=== PATIENT | female | born 1970 | race Caucasian/White ===

== ENCOUNTER → 2021-06-22 11:28 | Outpatient (CLI) | payer OTHER, SELFPAY ==
[2021-06-22 12:41] LABS: Absolute Lymphocyte Count 2.55 X10^3/uL (0.83-4.51); Absolute Neutrophil Count 3.8 X10^3/uL (2.0-7.7); Basophil# 0.04 X10^3/uL; Basophil% 0.5 % (0-1); Eosinophil# 0.92 X10^3/uL; Eosinophils% 11.9 % (0-5); Hematocrit 39.7 % (37-47); Hemoglobin 13.2 g/dL (12.0-15.0); Lymphocyte # 2.55 X10^3/ul (0.83-4.51); Lymphocyte % 32.9 % (19-41); Mean Corp Hgb Conc 33.2 g/dL (32-36); Mean Corpuscular Hgb 29.5 pg (27.0-32.0); Mean Corpuscular Volume 88.8 fL (81-99); Monocyte# 0.43 X10^3/uL; Monocyte% 5.6 % (0-10); NRBC Flagged by Analyzer 0 % (0-5); Neutrophil # 3.77 X10^3/uL (2.7-7.7); Neutrophil % 48.7 % (47-70); Platelet Count 280 K/mm3 (150-450); RBC Distribution Width CV 13.1 % (11.6-14.6); RBC Distribution Width SD 43.1 fl (35.1-43.9); Red Blood Count 4.47 M/mm3 (4.2-5.4); White Blood Count 7.7 K/mm3 (4.4-11.0)
[2021-06-22 13:14] LABS: ALB/GLOB Ratio 0.9 RATIO (0.9-2.4); AST(SGOT) 21 U/L (15-37); Alanine Aminotransfer ALT/SGPT 32 U/L (13-56); Albumin, Serum 3.9 g/dL (3.2-5.0); Alkaline Phosphatase 78 U/L (45-117); Anion Gap 7 (5-15); BUN 17 mg/dL (7-18); BUN/Creat Ratio 21.9 RATIO (10-20); Calcium,Total 9.1 mg/dL (8.5-10.1); Chloride 104 mmol/L (98-107); Cholesterol 207 mg/dL (200); Creatinine, Serum 0.78 mg/dL (0.55-1.02); EST Glomerular Filtration Rate 83 mL/min (>60); Est Glom Filt Rate - Afr Amer 100 mL/min (>60); Globulin 4.3 g/dL (2.2-4.2); Glucose 96 mg/dL (74-106); High Density Lipoprotein 60 mg/dL; Lipase 45 U/L (73-393); Potassium 4.1 mmol/L (3.5-5.1); Protein, Total 8.2 g/dL (6.4-8.2); Sodium Level 138 mmol/L (136-145); Thyroid Stim Hormone (TSH) 1.43 uIU/mL (0.358-3.74); Triglycerides 57 mg/dL; Very Low Density Lipoprotein 11 mg/dL (5-40)
[2021-06-23 14:09] LABS: Endomysial Antibody IgA Negative (Negative)
[2021-06-23 16:40] LABS: Immunoglobulin A 234 mg/dL (87-352); t-Transglutaminase IgA <2 U/mL (0-3)
[2021-06-24 16:09] LABS: ANTINUCLEAR ANTIBODIES DIRECT Negative (Negative)
== END ==
PROVIDERS: Visit Provider Nurse Practitioner Adult Health
DX: R10.811 Right upper quadrant abdominal tenderness (principal); R19.7 Diarrhea, unspecified
CPT/HCPCS: 36415; 80053; 80061; 82784; 83516; 83690; 84443; 85025; 86038; 86255

== ENCOUNTER → 2021-06-27 09:05 | Outpatient (CLI) | payer OTHER, SELFPAY ==
--- NOTE | 2021-06-27 09:23 | US_ITS ---
HISTORY: Right upper quadrant pain. TECHNIQUE: Jang scale and color Doppler imaging was performed of the abdomen. # of images incl. paperwork: 153. COMPARISON: None. FINDINGS: LIVER: 16.3 cm in length. Echogenic without focal lesion. No intrahepatic biliary ductal dilation. CBD: 4 mm in diameter, nondilated. GALLBLADDER: No gallstones or sludge. 2 mm wall thickness, within normal limits. No pericholecystic fluid. Negative sonographic Dean's sign reported. PANCREAS: Visualized proximal portion unremarkable. SPLEEN: 11.4 cm in length. Homogeneous echotexture. RIGHT KIDNEY: 10.2 cm in length. No hydronephrosis or gross renal mass. LEFT KIDNEY: 10.9 cm in length. No hydronephrosis or gross renal mass. IVC: Visualized. AORTA: Normal diameter. ASCITES: None demonstrated. US/Abdomen Complete IMPRESSION: Hepatic steatosis. No sonographic evidence of cholelithiasis. at 1426 Reported and signed by: Mimi Mo MD Electronically Signed: Mimi Mo MD at 14:25 EDT Tel , Service support ,
== END ==
PROVIDERS: Referring Provider Nurse Practitioner Adult Health; Visit Provider Nurse Practitioner Adult Health
DX: R10.811 Right upper quadrant abdominal tenderness (principal)
CPT/HCPCS: 76700

== ENCOUNTER → 2021-06-28 09:01 | Outpatient (CLI) | payer OTHER, SELFPAY | LOC: LAB 09:03 → LABSPEC 09:04 | PROVIDERS: Referring Provider Nurse Practitioner Adult Health; Visit Provider Nurse Practitioner Adult Health | DX: R19.7 Diarrhea, unspecified (principal) | CPT/HCPCS: 87493; 87506 ==

== ENCOUNTER → 2021-07-19 09:43 | Outpatient (CLI) | payer OTHER, SELFPAY ==
[2021-07-19 10:21] LABS: Absolute Neutrophil Count 3.2 X10^3/uL (2.0-7.7); Basophil# 0.04 X10^3/uL; Basophil% 0.7 % (0-1); Eosinophils% 1.6 % (0-5); Hematocrit 36.5 % (37-47); Lymphocyte % 34.2 % (19-41); Mean Corp Hgb Conc 32.9 g/dL (32-36); Mean Corpuscular Hgb 29.9 pg (27.0-32.0); Mean Corpuscular Volume 90.8 fL (81-99); Mean Platelet Vol. 8.8 fl (6.2-12.0); Monocyte# 0.65 X10^3/uL; Monocyte% 10.6 % (0-10); NRBC Flagged by Analyzer 0 % (0-5); Neutrophil # 3.23 X10^3/uL (2.7-7.7); Neutrophil % 52.6 % (47-70); Platelet Count 364 K/mm3 (150-450); RBC Distribution Width CV 13.8 % (11.6-14.6); RBC Distribution Width SD 45.4 fl (35.1-43.9); Red Blood Count 4.02 M/mm3 (4.2-5.4); White Blood Count 6.1 K/mm3 (4.4-11.0)
== END ==
PROVIDERS: Referring Provider Nurse Practitioner Adult Health; Visit Provider Nurse Practitioner Adult Health
DX: R89.9 Unspecified abnormal finding in specimens from other organs, systems and tissues (principal); R10.13 Epigastric pain
CPT/HCPCS: 36415; 85025

== ENCOUNTER → 2021-07-21 09:58 | Outpatient (CLI) | payer OTHER, SELFPAY ==
[2021-07-21 11:32] LABS: Vitamin B12 611 pg/mL (211-911)
[2021-07-21 11:44] LABS: Iron 118 ug/dL (50-170); Iron Binding Capacity,Total 312 ug/dL (250-450)
== END ==
DX: D64.9 Anemia, unspecified (principal); R19.7 Diarrhea, unspecified
CPT/HCPCS: 36415; 82607; 82746; 83540; 83550

== ENCOUNTER → 2021-07-22 11:02 | Outpatient (CLI) | payer OTHER, SELFPAY | PROVIDERS: Referring Provider Nurse Practitioner Adult Health | DX: D64.9 Anemia, unspecified (principal); R19.7 Diarrhea, unspecified | CPT/HCPCS: 82274; 87177; 87209 ==

== ENCOUNTER → 2021-08-31 10:22 | Outpatient (CLI) | payer OTHER, SELFPAY ==
--- NOTE | 2021-08-31 10:25 | BI_ITS ---
MAMMOGRAPHY - BILATERAL SCREENING REASON FOR EXAM: Female, 51 years old. Routine annual screening examination. PERTINENT HISTORY: Sister with breast cancer. TECHNIQUE: Digital bilateral breast gus (3D mammographic acquisition) in the CC and MLO projections. 2-D mediolateral oblique (MLO) and craniocaudad (CC) views of both breasts were obtained. CAD: Full Field Digital Mammography with Computer Added Detection was performed. COMPARISON: Comparison is made with prior study dated 04/24/2018. FINDINGS: Breast Composition: There are scattered areas of fibroglandular density. There are no dominant masses or suspicious calcifications. Stable benign appearing bilateral axillary lymph nodes. No other significant abnormalities are identified. There has been no significant change since the prior study. BI/SCRN MAMM (CAD)W/GUS BILAT IMPRESSION: Stable bilateral screening mammogram. Yearly follow-up mammogram recommended. (A) ASSESSMENT CATEGORY: BIRADS Category 2: Benign. A letter regarding these results will be sent to the patient by the facility within 30 days. Approximately 10% of breast cancers are not detected by mammography. A normal mammogram should not delay biopsy of a clinically suspicious abnormality. [id number] Electronically Signed: Saravanan Sewell MD at 11:06 EDT , Service support ,
--- NOTE | 2021-08-31 10:26 | BD_ITS ---
STUDY: DUAL ENERGY X-RAY ABSORPTIOMETRY / DXA REASON FOR EXAM: Female, 51 years old. 733.00OsteoporosisBONE DENSITY REASON FOR EXAM TECHNIQUE: Bone Mineral Density (BMD) measurements of lumbar spine and bilateral hips were obtained. COMPARISON: None. FINDINGS: Lumbar Spine (L1-L4): g/cm2 (1.087) / T-score (0.4) / Z-score (1.3) Findings are suggestive of normal bone density with a low fracture risk. Left Femur Total: g/cm2 (0.944) / T-score (0.0) / Z-score (0.6) Left Femoral Neck: g/cm2 (0.799) / T-score (-0.5) / Z-score (0.4) Right Femur Total: g/cm2 (0.940) / T-score (0.0) / Z-score (0.5) Right Femoral Neck: g/cm2 (0.819) / T-score (-0.3) / Z-score (0.6) BD/Dexa Bone Density Study IMPRESSION: The patient is considered normal as outlined below according to World [employer] Organization (WHO) criteria with a low fracture risk. Reference Information: The T-score is the number of standard deviations above or below the standard which is normal for young adults at their peak bone mineral density. The World Health Organization (WHO) interprets the T-scores as follows: Above -1 Normal bone density Between -1 and -2.5 Osteopenia Equal to / or below -2.5 Osteoporosis As a practical clinical guideline, osteopenia may be graded as follows: Mild -1 through -1.5 Moderate -1.6 through -2.0 Severe -2.1 through -2.4 The Z-score is the number of standard deviations above or below age-matched controls. A Z-score of less than -1.5 would be considered abnormal. References: 1. NIH Osteoporosis and Related Bone Diseases www osteo.org 2. International Society for Clinical Densitometry www iscd.org 3. National Osteoporosis Foundation www nof.org Electronically Signed: Saravanan Sewell MD at 13:13 EDT , Service support ,
== END ==
PROVIDERS: Referring Provider Nurse Practitioner Adult Health; Visit Provider Nurse Practitioner Adult Health
DX: M81.8 Other osteoporosis without current pathological fracture (principal); Z12.31 Encounter for screening mammogram for malignant neoplasm of breast
CPT/HCPCS: 77063; 77067; 77080

== ENCOUNTER 2021-12-26 10:29 | Outpatient (CLI) | payer OTHER, SELFPAY ==
[2021-12-26 11:56] LABS: Calcium,Total 9.3 mg/dL (8.5-10.1); Phosphorus 3.5 mg/dL (2.5-4.9)
[2021-12-27 12:27] LABS: MG Sendout 2.3 mg/dL (1.6-2.3)
== END 2021-12-26 23:59 | disposition home or self-care (01) ==
PROVIDERS: Visit Provider Nurse Practitioner Adult Health
DX: M62.838 Other muscle spasm (principal); M54.9 Dorsalgia, unspecified
CPT/HCPCS: 36415; 82310; 83735; 84100

== ENCOUNTER → 2022-12-07 | Outpatient (CLI) | payer OTHER, SELFPAY ==
[2022-12-07 12:14] LABS: Absolute Lymphocyte Count 1.89 X10^3/uL (0.83-4.51); Basophil# 0.03 X10^3/uL; Basophil% 0.6 % (0-1); Eosinophil# 0.12 X10^3/uL; Eosinophils% 2.2 % (0-5); Hematocrit 40.2 % (37-47); Hemoglobin 13.2 g/dL (12.0-15.0); Lymphocyte # 1.89 X10^3/ul (0.83-4.51); Lymphocyte % 34.9 % (19-41); Mean Corp Hgb Conc 32.8 g/dL (32-36); Mean Corpuscular Hgb 30.1 pg (27.0-32.0); Mean Corpuscular Volume 91.6 fL (81-99); Mean Platelet Vol. 9.3 fl (6.2-12.0); Monocyte# 0.39 X10^3/uL; Monocyte% 7.2 % (0-10); NRBC Flagged by Analyzer 0 % (0-5); Neutrophil # 2.97 X10^3/uL (2.7-7.7); Neutrophil % 54.9 % (47-70); Platelet Count 255 K/mm3 (150-450); RBC Distribution Width SD 43.7 fl (35.1-43.9); Red Blood Count 4.39 M/mm3 (4.2-5.4); White Blood Count 5.4 K/mm3 (4.4-11.0)
[2022-12-07 12:47] LABS: Vitamin B12 709 pg/mL (211-911); Vitamin D,25 Hydroxy 26.4 ng/mL
[2022-12-07 12:55] LABS: AST(SGOT) 21 U/L (15-37); Alanine Aminotransfer ALT/SGPT 37 U/L (13-56); Albumin, Serum 3.9 g/dL (3.2-5.0); Alkaline Phosphatase 63 U/L (45-117); Anion Gap 6 (5-15); BUN 15 mg/dL (7-18); BUN/Creat Ratio 16.8 RATIO (10-20); Calcium,Total 9.1 mg/dL (8.5-10.1); Chloride 105 mmol/L (98-107); Cholesterol 216 mg/dL (200); Creatinine, Serum 0.89 mg/dL (0.55-1.02); EST Glomerular Filtration Rate 70 mL/min (>60); Est Glom Filt Rate - Afr Amer 85 mL/min (>60); Globulin 4.1 g/dL (2.2-4.2); Glucose 110 mg/dL (74-106); High Density Lipoprotein 64 mg/dL; Potassium 3.9 mmol/L (3.5-5.1); Sodium Level 139 mmol/L (136-145); Triglycerides 87 mg/dL; Very Low Density Lipoprotein 17 mg/dL (5-40)
== END | disposition home or self-care (01) ==
LOC: BIMLAB 08:02
PROVIDERS: PCP Internal Medicine; Visit Provider Internal Medicine
DX: E55.9 Vitamin D deficiency, unspecified (principal); E78.2 Mixed hyperlipidemia
CPT/HCPCS: 36415; 80053; 80061; 82306; 82607; 85025

== ENCOUNTER → 2022-12-18 | Outpatient (CLI) | payer OTHER, SELFPAY ==
--- NOTE | 2022-12-18 13:43 | BI_ITS ---
MAMMOGRAPHY - BILATERAL SCREENING REASON FOR EXAM: Female, 52 years old. Routine annual screening examination. PERTINENT HISTORY: Sister with breast cancer. TECHNIQUE: Digital bilateral breast gus (3D mammographic acquisition) in the CC and MLO projections. 2-D mediolateral oblique (MLO) and craniocaudad (CC) views of both breasts were obtained. CAD: Full Field Digital Mammography with Computer Added Detection was performed. COMPARISON: Comparison is made with prior study dated 08/31/2012. FINDINGS: Breast Composition: There are scattered areas of fibroglandular density. There are no dominant masses or suspicious calcifications. Stable benign appearing bilateral axillary nodes. No other significant abnormalities are identified. There has been no significant change since the prior study. BI/SCRN MAMM (CAD)W/GUS BILAT IMPRESSION: Stable bilateral screening mammogram. Yearly follow-up mammogram recommended. (A) ASSESSMENT CATEGORY: BIRADS Category 2: Benign. A letter regarding these results will be sent to the patient by the facility within 30 days. Approximately 10% of breast cancers are not detected by mammography. A normal mammogram should not delay biopsy of a clinically suspicious abnormality. [id number] Electronically Signed: Saravanan Sewell MD at 14:51 EST ,
--- NOTE | 2022-12-19 05:43 | PFTCOMP ---
COMPLETE PULMONARY FUNCTION TEST INTERPRETATION Brief HPI: Patient is a 52-year-old female, currently under the care of Dr. 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 Respiratory therapist reports good effort and reproducible results. Interpretation: Forced expiration spirometry shows no large airways obstructive ventilatory defect with an FEV1 of 80% predicted. There is a significant bronchodilator response in FVC by strict ATS criteria. Spirograms are of good quality and plateau normally. However, patient exhaled for only 4-1/2 seconds on the prebronchodilator attempt, likely underestimating FVC. The respiratory flow volume loop shows a normal pattern. Lung volumes by body plethysmography show a normal total lung capacity at 3.56 L, 90% predicted. All other lung volumes are within normal limits. Diffusion capacity by carbon monoxide is normal at 107% predicted. The airway resistance is normal. No previous pulmonary function tests were available for review. Impression: Adjusting for variation in exhalation, these pulmonary function tests are grossly within normal limits
== END | disposition home or self-care (01) ==
LOC: PSN 12:39
PROVIDERS: PCP Internal Medicine; Referring Provider Internal Medicine; Visit Provider Internal Medicine
DX: J98.6 Disorders of diaphragm (principal); Z12.31 Encounter for screening mammogram for malignant neoplasm of breast
CPT/HCPCS: 77063; 77067; 94060; 94726; 94729

== ENCOUNTER → 2024-01-16 | Outpatient (CLI) | payer OTHER, SELFPAY ==
[2024-01-16 12:22] LABS: Absolute Lymphocyte Count 2.37 X10^3/uL (0.83-4.51); Absolute Neutrophil Count 3.4 X10^3/uL (2.0-7.7); Basophil# 0.04 X10^3/uL; Basophil% 0.6 % (0-1); Eosinophil# 0.15 X10^3/uL; Eosinophils% 2.4 % (0-5); Hematocrit 39.2 % (37-47); Hemoglobin 12.9 g/dL (12.0-15.0); Lymphocyte # 2.37 X10^3/ul (0.83-4.51); Lymphocyte % 37.2 % (19-41); Mean Corp Hgb Conc 32.9 g/dL (32-36); Mean Corpuscular Hgb 29.3 pg (27.0-32.0); Mean Corpuscular Volume 89.1 fL (81-99); Mean Platelet Vol. 9.6 fl (6.2-12.0); Monocyte# 0.43 X10^3/uL; Monocyte% 6.8 % (0-10); NRBC Flagged by Analyzer 0 % (0-5); Neutrophil # 3.35 X10^3/uL (2.7-7.7); Neutrophil % 52.5 % (47-70); Platelet Count 272 K/mm3 (150-450); RBC Distribution Width SD 42.5 fl (35.1-43.9); White Blood Count 6.4 K/mm3 (4.4-11.0)
[2024-01-16 12:48] LABS: AST(SGOT) 42 U/L (15-37); Alanine Aminotransfer ALT/SGPT 53 U/L (13-56); Albumin, Serum 3.7 g/dL (3.2-5.0); Alkaline Phosphatase 71 U/L (45-117); Anion Gap 7 (5-15); BUN 12 mg/dL (7-18); BUN/Creat Ratio 12.2 RATIO (10-20); Calcium,Total 9.3 mg/dL (8.5-10.1); Chloride 106 mmol/L (98-107); Cholesterol 165 mg/dL (200); Creatinine, Serum 0.99 mg/dL (0.55-1.02); EST Glomerular Filtration Rate 62 mL/min (>60); Est Glom Filt Rate - Afr Amer 75 mL/min (>60); Globulin 3.8 g/dL (2.2-4.2); Glucose 94 mg/dL (74-106); High Density Lipoprotein 48 mg/dL; Potassium 4.4 mmol/L (3.5-5.1); Protein, Total 7.5 g/dL (6.4-8.2); Sodium Level 140 mmol/L (136-145); Thyroid Stim Hormone (TSH) 1.64 uIU/mL (0.358-3.74); Triglycerides 76 mg/dL; Very Low Density Lipoprotein 15 mg/dL (5-40)
== END | disposition home or self-care (01) ==
LOC: BIMLAB 08:39
PROVIDERS: PCP Internal Medicine; Referring Provider Internal Medicine; Visit Provider Internal Medicine
DX: E66.01 Morbid (severe) obesity due to excess calories (principal); Z68.41 Body mass index [BMI] 40.0-44.9, adult; R06.02 Shortness of breath; E55.9 Vitamin D deficiency, unspecified; E78.2 Mixed hyperlipidemia
CPT/HCPCS: 36415; 80053; 80061; 82306; 84443; 85025

== ENCOUNTER → 2024-01-23 | Outpatient (CLI) | payer OTHER, SELFPAY ==
--- NOTE | 2024-01-23 12:37 | BI_ITS ---
MAMMOGRAPHY - BILATERAL SCREENING 3-D TOMOSYNTHESIS REASON FOR EXAM: Female, 53 years old. SCREENING PERTINENT HISTORY: No significant family history. TECHNIQUE: 2-D mammograms and 3-D Tomosynthesis of the breast (s) were performed. CAD was performed. COMPARISON: 12/18/2022 FINDINGS: The breast composition is composed of scattered fibroglandular density. Scattered benign calcifications are seen. No dense spiculated masses or suspicious microcalcifications are identified. No architectural distortion is identified. There is no skin thickening or retraction. There has been no significant change since the prior study. BI/SCRN MAMM (CAD)W/GUS BILAT IMPRESSION: No mammographic signs of malignancy. Routine yearly mammograms recommended. ASSESSMENT CATEGORY: BIRADS Category 1: Negative. A letter regarding these results will be sent to the patient by the facility within 30 days. FOLLOW UP RECOMMENDATION: Yearly follow up mammogram recommended. (A) Approximately 10% of breast cancers are not detected by mammography. A normal mammogram should not delay biopsy of a clinically suspicious abnormality. Electronically Signed: Leonard Hicks MD at 19:27 EST ,
--- OUTSIDE RECORDS SUMMARY | 2024-01-23 14:23 | XMS RPT_ITS | CCD ---
Author Name Unknown Address [address] [place] [id number] Organization [facility] Care Team Providers Care Neonatal Intensive Care Nurse Name Role Phone ABHI BAPTISTE Unavailable Unavailable PHYSICIAN, NONE Unavailable Unavailable SABOTA, MICKI W Unavailable Unavailable SABOTA, MICKI W Unavailable Unavailable SAMMY, HERMILO Unavailable Unavailable PHYSICIAN, NONE Unavailable Unavailable FINNERAN, ROCCO Unavailable Unavailable FINNERAN, ROCCO Unavailable Unavailable FINNERAN, ROCCO Unavailable Unavailable Finneran, Rocco Unavailable Unavailable Finneran, Rocco Unavailable Unavailable Finneran, Rocco Unavailable Unavailable Finneran, Rocco Unavailable Unavailable Finneran, Rocco Unavailable Unavailable Finneran, Rocco Unavailable Unavailable Finneran, Rocco Unavailable Unavailable Finneran, Rocco Unavailable Unavailable Finneran, Rocco Unavailable Unavailable Problems Problem Classification Problem Date Documented Date Episodic/Chronic Spondylosis; intervertebral disc disorders; other back problems (4 sources) Other spondylosis, lumbar region; Translations: [Other spondylosis, thoracic region] Onset: 07-12-2018 Chronic Spondylosis; intervertebral disc disorders; other back problems (2 sources) Sacrococcygeal disorders, not elsewhere classified; Translations: [Sacrococcygeal disorders, not elsewhere classified] Onset: 07-12-2018 Episodic Unclassified (2 sources) Encounter for screening mammogram for malignant neoplasm of breast; Translations: [Encntr screen mammogram for malignant neoplasm of breast] Onset: 04-24-2018 Episodic Results Test Name Value Interpretation Reference Range Facil ity Encounters Encounter Date Encounter Type Care Provider Facility Start: 07-12-2018 Patient encounter Rocco [facility] Start: 06-19-2018 Patient encounter ROCCO Clemons acility:[facility] Start: 04-24-2018 Patient encounter Rocco [facility] Start: 04-01-2018 End: 04-01-2018 Emergency department patient visit HERMILO CHRISTIANSON Facility:B Start: 03-05-2018 End: 03-06-2018 Patient encounter ABHI BAPTISTE Facility:B Start: 08-22-2017 Patient encounter Rocco [facility] Payers Date Payer Category Payer Unknown [id number] Unknown Summary Purpose Family History No Family History Records FoundNo Family History Records Found Advance Directives No Advanced Directives Records FoundNo Advanced Directives Records Found Additional Source Comments INFORMATION SOURCE (unrecogn ized section and content) DATE CREATED AUTHOR AUTHOR'S ORGANIZ ATION 07/17/2018 [facility] FOR RECORDS PERTAINING TO PATIENTS WHO ARE OR HAVE BEEN ENROLLED IN A CHEMICAL DEPENDENCY/SUBSTANCEABUSE PROGRAM, SOME INFORMATION MAY BE OMITTED. This clinical summary was aggregated from multiple sources. Caution should be exercised in using it in the provision of clinical care. This summary normalizes information from multiple sources, and as a consequence, information in this document may materially change the coding, format and clinical context of patient data. In addition, data may be omitted in some cases. CLINICAL DECISIONS SHOULD BE BASED ON THE PRIMARY CLINICAL RECORDS. [employer] [facility] provides no warranty or guarantee of the accuracy or completeness of information in this document.
== END | disposition home or self-care (01) ==
LOC: OPBI 12:35
PROVIDERS: PCP Internal Medicine; Referring Provider Internal Medicine; Visit Provider Internal Medicine
DX: Z12.31 Encounter for screening mammogram for malignant neoplasm of breast (principal)
CPT/HCPCS: 77063; 77067

== ENCOUNTER → 2024-02-06 | Outpatient (CLI) | payer OTHER, SELFPAY | END | disposition home or self-care (01) | LOC: PSN 11:53 | PROVIDERS: PCP Internal Medicine; Referring Provider Internal Medicine; Visit Provider Internal Medicine | DX: R06.02 Shortness of breath (principal); R00.1 Bradycardia, unspecified | CPT/HCPCS: 93225; 93226 ==

== ENCOUNTER → 2024-02-08 | Outpatient (CLI) | payer OTHER, SELFPAY ==
--- NOTE | 2024-02-08 12:45 | ECHOD_ITS ---
Version 2 Reason For Study: sob Procedure This was a 2D Doppler, Color Flow transthoracic echocardiogram. Exam performed in department. Left Ventricle Normal LV size. Mild concentric left ventricular hypertrophy. Left ventricular systolic function is normal. The left ventricular ejection fraction is 55 %. Stage 1 diastolic dysfunction. No regional wall motion abnormalities noted. Right Ventricle Normal RV size. Normal systolic function. Atria Normal left atrium. Normal right atrium. Mitral Valve Normal mitral valve. Tricuspid Valve Normal tricuspid valve. Aortic Valve Trisinus/trileaflet aortic valve. Pulmonic Valve Normal pulmonic valve. Great Vessels Normal aortic root. The pulmonary artery is normal size. Normal inferior vena cava. Pericardium/Pleural No pericardial effusion. MMode/2D Measurements & Calculations LVIDd: 3.7 cm IVSd: 1.3 cm MVA(traced): 5.7 cm2 LVIDs: 2.8 cm LVPWd: 1.5 cm RVDd: 3.8 cm FS: 23.8 % Ao root diam: 3.4 cm LAV(MOD-bp): 33.3 ml LVAd ap4: 24.9 cm2 LAV(MOD-bp) Indexed: 18.1 ml/m2 LVLd ap4: 7.2 cm LAV(MOD-sp2): 49.0 ml EDV(MOD-sp4): 70.2 ml LAV(MOD-sp4): 21.1 ml EDV(sp4-el): 72.5 ml LVAs ap4: 18.6 cm2 LVLs ap4: 6.7 cm ESV(MOD-sp4): 42.5 ml ESV(sp4-el): 43.8 ml EF(MOD-sp4): 39.4 % EF(sp4-el): 39.6 % SV(MOD-sp4): 27.7 ml SV(sp4-el): 28.7 ml LA A4 area: 10.6 cm2 LA dimension(2D): 3.7 cm TAPSE: 2.1 cm Time Measurements MV dec time: 0.30 sec Doppler Measurements & Calculations MV E max mitch: 66.5 cm/sec Lat Peak E' Mitch: 6.5 cm/sec Med Peak E' Mitch: 6.6 cm/sec MV A max mitch: 88.3 cm/sec E/E' lat: 10.2 E/E' med: 10.1 MV E/A: 0.75 MV V2 max: 101.3 cm/sec MV dec slope: 227.1 cm/sec2 Ao V2 max: 170.2 cm/sec MV max P.1 mmHg Ao max P.8 mmHg MV V2 mean: 60.0 cm/sec Ao V2 mean: 110.4 cm/sec MV mean P.6 mmHg Ao mean P.7 mmHg MV V2 VTI: 45.4 cm Ao V2 VTI: 37.4 cm AV (velocity ratio): 0.84 LV V1 max: 150.0 cm/sec PA V2 max: 77.6 cm/sec LV V1 max P.1 mmHg PA V2 mean: 54.6 cm/sec LV V1 mean P.9 mmHg LV V1 mean: 103.2 cm/sec LV V1 VTI: 31.4 cm ECHO/Echo Complete Interpretation Summary Normal LV size. Left ventricular systolic function is normal. The left ventricular ejection fraction is 55 %. Stage 1 diastolic dysfunction. Mild concentric left ventricular hypertrophy. Ordering Physician: Yanna Warren Referring Physician: Yanna Warren Performed By: Verónica Ye RCS
== END | disposition home or self-care (01) ==
PROVIDERS: PCP Internal Medicine; Referring Provider Internal Medicine; Visit Provider Internal Medicine
DX: R06.02 Shortness of breath (principal)
CPT/HCPCS: 93306

== ENCOUNTER → 2024-08-05 | Outpatient (CLI) | payer OTHER, SELFPAY ==
--- NOTE | 2024-08-05 07:58 | US_ITS ---
STUDY: ULTRASOUND BREAST - LEFT REASON FOR EXAM: Female, 54 years old. Left retroareolar abscess. TECHNIQUE: Axial and longitudinal images of the LEFT breast were performed with a high resolution ultrasound transducer. # OF IMAGES: 30 COMPARISON: None. FINDINGS: LEFT Breast: Imaging of the retroareolar region was obtained. There is a complex 1.7 cm x 3.2 cm x 1.4 cm hypoechoic abnormality with internal vascularity and there is evidence of a track extending to the skin surface. This most likely advance the abscess. US/Breast Limited Unilateral IMPRESSION: Findings suggestive of a 1.7 cm x 3.2 cm x 1.4 cm abscess collection in the lateral retroareolar region of the breast with a track extending to the skin surface. ASSESSMENT CATEGORY: BIRADS Category 2: Benign. A letter regarding these results will be sent to the patient by the facility within 30 days. Electronically Signed: Saravanan Sewell MD at 10:52 EDT ,
== END | disposition home or self-care (01) ==
LOC: OPUS 07:51
PROVIDERS: PCP Internal Medicine; Visit Provider Nurse Practitioner Family
DX: N61.1 Abscess of the breast and nipple (principal)
CPT/HCPCS: 76642

== ENCOUNTER 2025-05-27 10:04 | Inpatient (IN) | payer OTHER, SELFPAY ==
[2025-05-27] VITALS (23 sets, daily range): BP systolic 104–160; BP diastolic 65–83; PULSE 28–63; RESP 13–18; TEMP 36.1–36.8; O2SAT 95–100; BMI 32.5
--- NOTE | 2025-05-27 10:42 | RAD_ITS ---
PROCEDURE: CHEST 1 VIEW (PORTABLE) 05/27/2025 REASON FOR EXAM: CHEST PAIN TECHNIQUE: Frontal view of the chest. COMPARISON: None FINDINGS: Hardware: EKG electrodes are seen. Heart: The heart size is normal. Lungs: Elevation of the right hemidiaphragm. The lungs are clear. Bones: Degenerative changes are identified within the thoracic spine. Other: RAD/Chest 1 View (Portable) IMPRESSION: There is elevation of the right hemidiaphragm. The lungs are clear. Reading Location: [place] [id number]
--- NOTE | 2025-05-27 10:44 | EDS_ITS ---
HPI History of Present Illness Chief Complaint: Palpitations Informant: patient Onset/Context/Timing Onset: Today Context: Gradual Onset Timing: Continuous Quality: Fatigue, weakness Location: Generalized Worsened by: Nothing Relieved by: Nothing Narrative Narrative: Patient presents with a low heart rate that was noticed today. Patient was at the [facility] where they noted her heart rate was low. They did an EKG there which showed a heart block. They discussed case with Dr. Terry, who referred her to the emergency department. Patient admits to some aching pain in her left arm. Patient states she has been feeling fatigued and weak. Patient states nothing makes her symptoms better nothing makes them worse. Patient denies any fevers or chills. Patient states she does get short of breath with exertion. [facility] Medical History (Updated 05/27/25 @ 15:48 by Medina Ramesh) Presence of permanent cardiac pacemaker Paralysis, diaphragm Vitamin D deficiency Vitamin B deficiency History of kidney stones Hx of chronic arthritis History of anemia Home Medications ?Medication ?Instructions ?Recorded ?Last Taken ?Type cholecalciferol (vitamin D3) 125 125 mcg PO DAILY 11/19 07/11 Unknown History mcg (5,000 unit) capsule mecobalamin (vitamin B12) 1,000 1,000 mcg PO DAILY Unknown History mcg chewable tablet albuterol sulfate 90 mcg/actuation 2 puff inhalation Q 6H PRN 10/15/23 Unknown Rx aerosol inhaler (Ventolin HFA) shortness of breath or wheezing #6.7 grams fluticasone 250 mcg-salmeterol 50 1 inh inhalation BID #180 ea 01/15/24 Unknown Rx mcg/dose blistr powdr for inhalation (Advair Diskus) meloxicam 7.5 mg tablet 15 mg PO BID 08/11/24 Unknow n History semaglutide cmpd 25 mg subcut QWEEK 05/27/25 Unknown History Allergy/AdvReac Type Severity Reaction Status Date / Time No Known Allergies Allergy Verified 05/27/25 10:09 Family History Son Asthma Father Arthritis Myocardial infarction Mother Cervical cancer Uterine cancer Hypertension Sister Breast cancer Hypertension Sister Cervical cancer Ovarian cancer Sister Autoimmune disorder Surgical History Hx of section Social History household members: spouse and family housing: house current occupational status: employed current occupation: Janitorial sexually active: Yes Smoking Status: Never smoker Electronic Cigarette Use: not used alcohol intake: never substance use type: does not use what type of physical activity do you participate in: walking, yoga and weight training frequency: 3-4 times per week seatbelt use: always do you feel safe at home: Yes ROS ROS ED Constitutional Constitutional ED: Denies chills or fever(s) Eyes Eyes: Denies blurry vision or change in vision ENT ENT ED: Denies rhinorrhea or sore throat Cardiovascular Cardiovascular: Reports palpitations; Denies chest pain Respiratory/Chest Respiratory/Chest: Reports dyspnea on exertion; Denies cough Gastrointestinal Gastrointestinal: Denies nausea or vomiting Genitourinary Genitourinary ED: Denies dysuria or hematuria Musculoskeletal Musculoskeletal: Reports back pain; Denies neck pain Integumentary Denies abscess or rash Neurologic Neurologic: Reports weakness; Denies headache(s) Allergic/Immunologic Allergic/Immunologic ED: Denies mouth swelling or urticaria EXAM Physical Exam Const Vital Signs: 05/27/25 10:05 05/27/25 10:25 05/27/25 10:47 Temperature 97.5 F L Temperature Source Temporal Pulse Rate 28 L 42 L Respiratory Rate 16 Blood Pressure 154/72 H Blood Pressure Mean 99 Pulse Ox 100 96 Oxygen Delivery Method Room Air Room Air Room Air 05/27/25 10:56 05/27/25 11:09 05/27/25 11:15 Temperature Temperature Source Pulse Rate 40 L 37 L 38 L Respiratory Rate 14 Blood Pressure 144/68 H 135/76 H Blood Pressure Mean 93 93 Pulse Ox 98 99 97 Oxygen Delivery Method Room Air 05/27/25 11:30 05/27/25 11:45 05/27/25 12:00 Temperature Temperature Source Pulse Rate 36 L 36 L 41 L Respiratory Rate 13 Blood Pressure 117/69 127/67 H 115/71 Blood Pressure Mean 84 85 84 Pulse Ox 95 98 96 Oxygen Delivery Method 05/27/25 12:15 05/27/25 12:30 05/27/25 12:45 Temperature Temperature Source Pulse Rate 34 L 38 L 37 L Respiratory Rate 14 16 Blood Pressure 160/70 H 135/72 H 144/65 H Blood Pressure Mean 96 90 86 Pulse Ox 98 98 96 Oxygen Delivery Method 05/27/25 13:00 05/27/25 13:30 05/27/25 13:33 Temperature 98.2 F Temperature Source Pulse Rate 36 L 38 L 37 L Respiratory Rate 14 18 Blood Pressure 155/66 H 130/66 H Blood Pressure Mean 93 87 Pulse Ox 97 98 96 Oxygen Delivery Method Room Air Positive well nourished and well developed Constitutional Narrative: BMI is 32.6 General Appearance ED: well developed and NAD HEENT Reports moist mucous membranes Neck supple and no JVD Resp normal respiratory effort and clear to auscultation bilaterally Cardio regular rhythm Rate: bradycardia GI non-tender and non-distended Palpation: soft Neuro oriented x3, CN's II-XII intact bilaterally and no sensory deficits noted Sensorium / Orientation: alert Motor Exam: strength 5/5 throughout Psych mental status grossly normal MDM MDM MDM Narrative Medical decision making narrative: Differential diagnosis includes cardiac dysrhythmia, cardiac ischemia, pneumonia, bronchitis, electrolyte abnormality, and cervical radiculopathy. EKG will be obtained to assess for cardiac dysrhythmia and cardiac ischemia. Chest x-ray will be obtained to assess for pneumonia or bronchitis. CBC will be obtained to assess for leukocytosis and anemia. Basic metabolic profile will be obtained to assess for electrolyte abnormality renal function. High-sensitivity troponin will be obtained to assess for cardiac ischemia. 2-hour repeat high- sensitivity troponin will be obtained to assess for ongoing cardiac ischemia. History & Record Review Additional record(s) reviewed:: Prior outpatient record and Prior labs Lab Data Attestation: I reviewed the patient's lab results. Lab results narrative: CBC was reviewed and was within normal limits. Basic metabolic profile was reviewed. Glucose was slightly elevated at 121. The remainder was within normal limits. Initial high-sensitivity troponin was reviewed and was slightly elevated at 19. 2-hour repeat high-sensitivity troponin was reviewed and was slightly elevated at 21. Labs: Laboratory Results - last 24 hr 05/27/25 05/27/25 05/27/25 10:40 12:41 13:32 WBC 5.4 RBC 4.11 L Hgb 12.7 Hct 36.4 L MCV 88.6 MCH 30.9 MCHC 34.9 RDW Std Deviation 42.1 RDW Coeff of Elizabeth 12.9 Plt Count 205 MPV 9.3 Immature Gran % (Auto) 0.200 Neut % (Auto) 60.1 Lymph % (Auto) 31.6 Darke % (Auto) 5.7 Eos % (Auto) 1.8 Baso % (Auto) 0.6 Absolute Neuts (auto) 3.3 Absolute Lymphs (auto) 1.71 Nucleated RBC % 0 Sodium 140 Potassium 3.7 Chloride 106 Carbon Dioxide 21.9 Anion Gap 12 BUN 18 Creatinine 0.87 Estim Creat Clear Calc 64.46 Est GFR (MDRD) Non-Af 78 BUN/Creatinine Ratio 20.8 H Glucose 121 H Calcium 9.4 Troponin T High Sens 19 H Troponin T Hi Sens 2 Hr 21 H TSH 3.820 POC Glucose 92 Radiography Chest X-Ray - ED: 1 View, Read by ED Physician, Read by Radiologist and No Acute Disease Diagnostic Testing: Clinical Impression(s) from Imaging Studies Chest X-Ray 05/27/25 10:42 IMPRESSION: There is elevation of the right hemidiaphragm. The lungs are clear. [facility] view chest x-ray was obtained. On my independent interpretation, lung regan are clear. There is elevation of the right hemidiaphragm. There is normal cardiac silhouette. Bony thorax is normal. There is no acute process noted. Radiologist also interpreted the x-ray and agrees. EKG Initial EKG: Attestation: I personally reviewed and interpreted this EKG as follows: Comments: EKG was obtained. On my independent interpretation, it shows a sinus rhythm with a second-degree type II AV block with frequent PVCs. OK interval was slightly prolonged at 240 ms. QRS interval is normal. QTc interval was slightly prolonged at 513 ms. There is left axis deviation noted. There are nonspecific ST-T wave changes noted. Prior EKG tracings: not available for review Prior: No Prior Follow-up EKG: Attestation: I personally reviewed and interpreted this EKG as follows: Interpretation: AV Block (Third-degree AV block with a rate of 38) Comments: EKG was obtained. On my independent interpretation, shows third-degree AV block with a rate of 38. QRS interval was normal at 80 ms. QTc interval was normal at 418 ms. There is left axis deviation -35. Prior EKG tracings: available for review Prior: Changed Management Discussion w/another healthcare provider: Hospitalist and Eeg Technician Treatment and Re-Evaluation :: Patient was placed on pacemaker pads. Patient was placed on continuous cardiac and pulse oximeter monitors. Patient was advised of her findings. Patient was advised of the need for pacemaker placement. Case was discussed with Dr. Doyle from cardiology. He will take the patient to the Public Affairs Officer for a pacemaker. Case was discussed with the hospitalist. He will admit the patient to his service after pacemaker placement. Patient understands and is agreeable with the plan. All questions were answered. Critical Care Time Critical Care Time: Yes Critical care time (excluding procedures): 30-74 minutes (34), Including time spent:, Discussing w/Patient &/or Family/Brood Hatchery Manager, Discussing w/Consultants, Arranging Admission or Transfer and Performing Direct Patient Care at Bedside Discharge Plan Dx/Rx/DC Orders Clinical Impression: Third degree heart block, Bradycardia, Paralysis, diaphragm Disposition Disposition: Acute Care [facility] Discharge Date/Time: 05/27/25 13:46
[2025-05-27 10:57] LABS: Hematocrit 36.4 % (37-47); Hemoglobin 12.7 g/dL (12.0-15.0); Immature Granulocytes Count 0.010 X10^3/uL (0.0-0.0); Mean Corp Hgb Conc 34.9 g/dL (32-36); Mean Corpuscular Volume 88.6 fL (81-99); Mean Platelet Vol. 9.3 fl (6.2-12.0); NRBC Flagged by Analyzer 0 % (0-5); Platelet Count 205 K/mm3 (150-450); RBC Distribution Width CV 12.9 % (11.6-14.6); RBC Distribution Width SD 42.1 fl (35.1-43.9); Red Blood Count 4.11 M/mm3 (4.2-5.4); White Blood Count 5.4 K/mm3 (4.4-11.0)
--- NOTE | 2025-05-27 12:16 | EKG12_ITS ---
Test Reason : FH Blood Pressure : */* mmHG Vent. Rate : 37 BPM Atrial Rate : 75 BPM P-R Int : * ms QRS Dur : 80 ms QT Int : 536 ms P-R-T Axes : 69 -36 -7 degrees QTcB Int : 420 ms Critical Test Result: Low HR , AV Block Sinus rhythm with 2nd degree A-V block with 2:1 A-V conduction with Fusion complexes Left axis deviation Minimal voltage criteria for LVH, may be normal variant ( R in aVL ) Nonspecific ST abnormality Abnormal ECG Confirmed by MILTON MOORE, NEGRITA ([id number]), editor dictionary ASHA PEACE ([id number]) on 05/28/2025 2:16:11 PM Referred By: Confirmed By: NEGRITA ROSE MD
--- NOTE | 2025-05-27 12:16 | EKG12_ITS ---
Test Reason : LOW HR Blood Pressure : */* mmHG Vent. Rate : 56 BPM Atrial Rate : 75 BPM P-R Int : * ms QRS Dur : 144 ms QT Int : 532 ms P-R-T Axes : 59 159 -6 degrees QTcB Int : 513 ms with complete heart block T wave abnormality, consider inferior ischemia Abnormal ECG Confirmed by MILTON MOORE, NEGRITA ([id number]), staff editor ASHA PEACE ([id number]) on 05/28/2025 2:15:50 PM Referred By: Confirmed By: NEGRITA ROSE MD
[2025-05-27 12:32] LABS: Anion Gap 12 (5-15); BUN 18 mg/dL (4-19); BUN/Creat Ratio 20.8 RATIO (10-20); Calcium,Total 9.4 mg/dL (7.6-11.0); Carbon Dioxide 21.9 mmol/L (21.0-32.0); Chloride 106 mmol/L (98-108); Estimated Creatinine Clearance 64.46 ml/min (50-250); Glucose 121 mg/dL (70-99); Potassium 3.7 mmol/L (3.3-5.1); Troponin T High Sensitivity 19 ng/L (<=14)
--- NOTE | 2025-05-27 13:12 | ECHOD_ITS ---
Reason For Study Reason For Study: ARRHYTHMIA Procedure This was a 2D Doppler, Color Flow transthoracic echocardiogram. Limited parasternal window due to pacing pad. Exam performed in department. Left Ventricle Normal LV size. Left ventricular systolic function is normal. The left ventricular ejection fraction is 65 %. No regional wall motion abnormalities noted. Right Ventricle Normal RV size. Normal systolic function. Atria Normal left atrium. Normal right atrium. Mitral Valve Normal mitral valve. Tricuspid Valve Normal tricuspid valve. Mild tricuspid valve insufficiency. Pulmonary artery systolic pressure is 25 mmHg. Aortic Valve Trisinus/trileaflet aortic valve. Pulmonic Valve Normal pulmonic valve. Mild (1+) pulmonic valve insufficiency. Great Vessels Normal aortic root. The pulmonary artery is normal size. Inferior vena cava collapse with respiration. Pericardium/Pleural No pericardial effusion. MMode/2D Measurements & Calculations LVIDd: 4.2 cm IVSd: 0.91 cm LVOT diam: 2.0 cm LVIDs: 2.6 cm LVPWd: 0.92 cm LVOT area: 3.0 cm2 RVDd: 3.3 cm FS: 38.4 % asc Aorta Diam: 3.1 cm LAV(MOD-bp): 38.6 ml LVAd ap4: 24.3 cm2 LAV(MOD-bp) Indexed: 23.0 ml/m2 LVLd ap4: 7.2 cm LAV(MOD-sp2): 43.5 ml EDV(MOD-sp4): 67.3 ml LAV(MOD-sp4): 29.6 ml EDV(sp4-el): 69.8 ml LVAs ap4: 12.9 cm2 LVLs ap4: 6.1 cm ESV(MOD-sp4): 22.7 ml ESV(sp4-el): 23.4 ml EF(MOD-sp4): 66.3 % EF(sp4-el): 66.5 % LVAd ap2: 22.8 cm2 SV(MOD-sp4): 44.6 ml SV(MOD-sp2): 40.9 ml LVLd ap2: 7.0 cm SI(MOD-sp4): 26.6 ml/m2 SI(MOD-sp2): 24.4 ml/m2 EDV(MOD-sp2): 62.0 ml EDV(sp2-el): 63.1 ml LVAs ap2: 11.7 cm2 LVLs ap2: 5.4 cm ESV(MOD-sp2): 21.1 ml ESV(sp2-el): 21.5 ml EF(MOD-sp2): 65.9 % SV(sp4-el): 46.4 ml Ao sinus diam: 3.[address] Junction: 2.5 cm LA dimension(2D): 3.5 cm LA A4 area: 12.1 cm2 RA A4 area: 12.2 cm2 TAPSE: 2.1 cm Time Measurements MV dec time: 0.08 sec Doppler Measurements & Calculations MV E max mitch: 94.6 cm/sec Lat Peak E' Mitch: 14.8 cm/sec Med Peak E' Mitch: 12.1 cm/sec MV A max mitch: 87.6 cm/sec E/E' lat: 6.4 E/E' med: 7.8 MV E/A: 1.1 MV dec slope: 1139 cm/sec2 Ao V2 max: 198.7 cm/sec LV V1 max: 176.1 cm/sec Ao max P.8 mmHg LV V1 max P.4 mmHg Ao V2 mean: 130.5 cm/sec LV V1 mean P.0 mmHg Ao mean P.7 mmHg LV V1 mean: 114.0 cm/sec Ao V2 VTI: 44.0 cm LV V1 VTI: 42.6 cm AV (velocity ratio): 0.97 ALTHEA(I,D): 3.0 cm2 ALTHEA(V,D): 2.7 cm2 SV(LVOT): 129.8 ml PA V2 max: 106.0 cm/sec TR max mitch: 231.2 cm/sec TR max P.4 mmHg ECHO/Echo Complete Interpretation Summary Normal LV size. Left ventricular systolic function is normal. The left ventricular ejection fraction is 65 %. Structurally normal valves. Ordering Physician: Chris Doyle Performed By: Valentina Alexander RDCS
--- NOTE | 2025-05-27 13:13 | CON.PCM.CA_ITS ---
Assessment & Plan Assessment/Plan (1) High-grade atrioventricular block: PLAN: Patient presents with symptomatic 2-1 AV block. The etiology is not entirely clear. I will recommend that we obtain a TSH. She tells me that she has not had any evidence of connective tissue disorder or any tick bite recently to suggest Lyme disease. At this juncture my recommendation would be to proceed with a permanent pacemaker implantation as she appears to be very symptomatic. Risk benefits alternatives have been explained to the patient, her and her son they understand and agree to proceed. HPI Consult Data Date of Consult: 05/27/25 HPI Narrative HPI Narrative: NARAYAN KHOURY, is a 55 F who presents to the emergency room after presenting to her place of work today complaining of weakness over the last few weeks. She has been tired but she denies any chest pain. She has had some shortness of breath with exertion. They hooked her up to an EKG monitoring which demonstrated evidence of 2-1 AV block. It appears the EKG was sent to one of the hospitalists who then contacted me about possibly needing a pacemaker. She denies any chest pain however she does attest to having being fatigued over the last few weeks. 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 In the emergency room her blood pressure is noted to be normal EKG demonstrates a narrow complex bradycardia with an EKG demonstrating 2-1 AV block. She apparently has had a lower heart rate and they have been monitoring it for a while she says her father got a pacemaker at about the same age. A Holter monitor that had been done a year ago demonstrated normal heart rate with no significant pauses and an echocardiogram from January 2024 demonstrated preserved ejection fraction. She has however been told that she has had a slow heart rate. [facility] Medical History Paralysis, diaphragm Vitamin D deficiency Vitamin B deficiency History of kidney stones Hx of chronic arthritis History of anemia Home Medications ?Medication ?Instructions ?Recorded ?Last Taken ?Type cholecalciferol (vitamin D3) 125 125 mcg PO DAILY 11/19 07/11 Unknown History mcg (5,000 unit) capsule mecobalamin (vitamin B12) 1,000 1,000 mcg PO DAILY Unknown History mcg chewable tablet albuterol sulfate 90 mcg/actuation 2 puff inhalation Q 6H PRN 10/15/23 Unknown Rx aerosol inhaler (Ventolin HFA) shortness of breath or wheezing #6.7 grams fluticasone 250 mcg-salmeterol 50 1 inh inhalation BID #180 ea 01/15/24 Unknown Rx mcg/dose blistr powdr for inhalation (Advair Diskus) meloxicam 7.5 mg tablet 15 mg PO BID 08/11/24 Unknow n History semaglutide cmpd 25 mg subcut QWEEK 05/27/25 Unknown History Allergy/AdvReac Type Severity Reaction Status Date / Time No Known Allergies Allergy Verified 05/27/25 10:09 Family History Son Asthma Father Arthritis Myocardial infarction Mother Cervical cancer Uterine cancer Hypertension Sister Breast cancer Hypertension Sister Cervical cancer Ovarian cancer Sister Autoimmune disorder Surgical History Hx of section Social History household members: spouse and family housing: house current occupational status: employed current occupation: Janitorial sexually active: Yes Smoking Status: Never smoker Electronic Cigarette Use: not used alcohol intake: never substance use type: does not use what type of physical activity do you participate in: walking, yoga and weight training frequency: 3-4 times per week seatbelt use: always do you feel safe at home: Yes ROS ROS Narrative Fatigue Constitutional Constitutional: Reports fatigue and weight loss; Denies fever(s) Eyes Eyes: Reports systems reviewed and no addt'l complaints, except as documented ENT HEENT: Reports systems reviewed and no addt'l complaints, except as documented Cardiovascular Cardiovascular: Denies chest pain at rest, chest pain with activity, dyspnea at rest, dyspnea on exertion, edema, palpitations or paroxysmal nocturnal dyspnea Respiratory/Chest Respiratory/Chest: Denies dyspnea on exertion, productive cough, shortness of breath at rest or shortness of breath with exertion Gastrointestinal Gastrointestinal: Denies change in bowel habits, nausea, vomiting or weight changes Genitourinary Genitourinary: Denies difficulty urinating Musculoskeletal Musculoskeletal: Denies joint stiffness or muscle weakness Integumentary Integumentary: Denies lesions Neurologic Neurologic: Denies dizziness or syncope Psychiatric Psychiatric: Denies anxiety Endocrine Endocrinology: Denies excessive sweating or fatigue Hematologic/Lymphatic Hematologic/Lymphatic: Denies anemia Allergic/Immunologic Allergic/Immunologic: Denies seasonal rhinorrhea Physical Exam Const alert, oriented x3 and no apparent distress General Appearance: cooperative HEENT hearing grossly normal bilaterally Head and Scalp: atraumatic Eyes EOMs intact bilaterally Neck General: normal visual inspection Chest inspection of chest normal and palpation of chest normal Resp normal respiratory effort Auscultation: clear to auscultation bilaterally Cardio regular rate, regular rhythm, S1 normal heart sound and S2 normal heart sound Jugular Venous Distention: JVD Rate: bradycardia GI normal to inspection, nondistended, normoactive bowel sounds Extremity normal capillary refill and no pedal edema Peripheral Pulses: Yes pulses 2+ throughout and femoral pulses present Skin no rashes or lesions noted Neuro oriented x3 and CN's II-XII intact bilaterally Psych Appearance: grossly normal and appropriate Risk Stratification Risk Stratification Applicable: No Objective Data Vital Signs: Vital Signs Temp Pulse Resp BP Pulse Ox O2 Del Method 97.5 F L 36 L 16 155/66 H 97 Room Air 05/27/25 10:05 05/27/25 13:00 05/27/25 12:30 05/27/25 13:00 05/27/25 13:00 05/27/25 10:56 Oxygen Delivery Method Room Air Weight: 161 lb 3.2 oz Body Mass Index (BMI) 32.5 Lab / Micro Data 05/27/25 10:40 05/27/25 10:40 Labs: Laboratory Results - last 24 hr 05/27/25 10:40: WBC 5.4, RBC 4.11 L, Hgb 12.7, Hct 36.4 L, MCV 88.6, MCH 30.9, MCHC 34.9, RDW Std Deviation 42.1, RDW Coeff of Elizabeth 12.9, Plt Count 205, MPV 9.3, Immature Gran % (Auto) 0.200, Neut % (Auto) 60.1, Lymph % (Auto) 31.6, Gentry % (Auto) 5.7, Eos % (Auto) 1.8, Baso % (Auto) 0.6, Absolute Neuts (auto) 3.3, Absolute Lymphs (auto) 1.71, Nucleated RBC % 0, Sodium 140, Potassium 3.7, Chloride 106, Carbon Dioxide 21.9, Anion Gap 12, BUN 18, Creatinine 0.87, Estim Creat Clear Calc 64.46, Est GFR (MDRD) Non-Af 78, BUN/Creatinine Ratio 20.8 H, G lucose 121 H, Calcium 9.4, Troponin T High Sens 19 H Cardiology Labs/Tests 05/27/25 10:40: WBC 5.4, RBC 4.11 L, Hgb 12.7, Hct 36.4 L, MCV 88.6, MCH 30.9, MCHC 34.9, Plt Count 205, MPV 9.3, Immature Gran % (Auto) 0.200, Neut % (Auto) 60.1, Lymph % (Auto) 31.6, Gentry % (Auto) 5.7, Eos % (Auto) 1.8, Baso % (Auto) 0.6, Absolute Neuts (auto) 3.3, Nucleated RBC % 0, Sodium 140, Potassium 3.7, Chloride 106, Carbon Dioxide 21.9, Anion Gap 12, BUN 18, Creatinine 0.87, Est GFR (MDRD) Non-Af 78, BUN/Creatinine Ratio 20.8 H, Glucose 121 H, Calcium 9.4 Rhythm: EKG: ECHO: Stress Test: Cardiac Cath: PCI: CT Surgery: Holter monitor: EPS: PPM: CXR: Chest CT Scan: Radiography Diagnostic Testing: Radiology Impression Chest X-Ray 05/27/25 10:42 IMPRESSION: There is elevation of the right hemidiaphragm. The lungs are clear. Reading Location: [place] [id number]
[2025-05-27 13:22] LABS: Troponin T High Sens 2 HR 21 ng/L (<=14)
[2025-05-27] MEDS: 0.9% Normal Saline (1000mL) 1,000 ML 15 ML IV (13:25)
[2025-05-27] MEDS: Cefazolin 2 GM in 0.9% Normal Saline (100mL Bag) 100 ML IV (13:30)
[2025-05-27 18:37] LABS: Troponin T High Sens 4 HR 25 ng/L (<=14)
--- NOTE | 2025-05-27 18:39 | PCM.HP.STD ---
HPI - General General Date of Admission: 05/27/25 Date of Service: 05/27/25 Chief Complaint: Fatigue, bradycardia, second-degree AV block HPI Narrative NARAYAN KHOURY, is a 55 F who presents to the emergency room at [facility] after being sent over from her PCPs office due to an EKG showing a heart rate of 35 and evidence of second-degree AV block. Patient is on no rate control medications as an outpatient. EKG in the ER showed sinus bradycardia with evidence of periods of second and third-degree AV block with PVCs. Patient's CBC was unremarkable, patient's troponin was minimally elevated and were pretty much flat. Chest x-ray showed elevation of the right hemidiaphragm, lungs were clear. Cardiology was contacted and the patient was taken to [facility] and a single-lead pacemaker was placed, there were no complications. Patient was admitted to PCU after the procedure. [facility] Medical History (Updated 05/27/25 @ 16:57 by Medina Ramesh) Mobitz type 2 second degree atrioventricular block Presence of permanent cardiac pacemaker Paralysis, diaphragm Vitamin D deficiency Vitamin B deficiency History of kidney stones Hx of chronic arthritis History of anemia Home Medications ?Medication ?Instructions ?Recorded ?Last Taken ?Type cholecalciferol (vitamin D3) 125 125 mcg PO DAILY 12/06/22 Unknown History mcg (5,000 unit) capsule mecobalamin (vitamin B12) 1,000 1,000 mcg PO DAILY 12/06/22 Unknown History mcg chewable tablet albuterol sulfate 90 mcg/actuation 2 puff inhalation Q6H PRN 10/15/23 Unknown Rx aerosol inhaler (Ventolin HFA) shortness of breath or wheezing #6.7 grams fluticasone 250 mcg-salmeterol 50 1 inh inhalation BID #180 ea 01/15/24 Unknown Rx mcg/dose blistr powdr for inhalation (Advair Diskus) meloxicam 7.5 mg tablet 15 mg PO BID 08/11/24 Unknown History semaglutide cmpd 25 mg subcut QWEEK 05/27/25 Unknown History Allergy/AdvReac Type Severity Reaction Status Date / Time No Known Allergies Allergy Verified 05/27/25 10:09 Family History Son Asthma Father Arthritis Myocardial infarction Mother Cervical cancer Uterine cancer Hypertension Sister Breast cancer Hypertension Sister Cervical cancer Ovarian cancer Sister Autoimmune disorder Surgical History Hx of section Social History household members: spouse and family housing: house current occupational status: employed current occupation: Janitorial sexually active: Yes Smoking Status: Never smoker Electronic Cigarette Use: not used alcohol intake: never substance use type: does not use what type of physical activity do you participate in: walking, yoga and weight training frequency: 3-4 times per week seatbelt use: always do you feel safe at home: Yes ROS Constitutional Constitutional: Reports fatigue; Denies anorexia, change in weight, fever(s), night sweats or weakness Eyes Eyes: Denies blurry vision, change in vision, discharge from eye(s) or eye pain Cardiovascular Cardiovascular: Denies chest pain, claudication, dyspnea on exertion, edema or palpitations Respiratory/Chest Respiratory/Chest: Denies cough, hemoptysis, shortness of breath at rest or shortness of breath with exertion Gastrointestinal Gastrointestinal: Denies abdominal pain, constipation, diarrhea, hematemesis, hematochezia, melena, nausea or vomiting Genitourinary Genitourinary: Denies dysuria, hematuria, urinary frequency, urinary hesitancy, urinary incontinence or urinary urgency Musculoskeletal Musculoskeletal: Denies back pain, joint pain, joint stiffness, joint swelling, myalgias or neck pain Neurologic Neurologic: Denies abnormal gait, abnormal speech, dizziness, focal weakness, headache(s), loss of vision, numbness, other visual disturbances, paresthesias, syncope or tingling Psychiatric Psychiatric: Denies anxiety, cognitive impairment, depression, irritability, mood swings or suicidal ideation Endocrine Endocrinology: Denies change in body appearance, cold intolerance, excessive sweating, heat intolerance, polydipsia or polyuria Hematologic/Lymphatic Hematologic/Lymphatic: Denies none, anemia, easy bleeding, easy bruising or lymphadenopathy Allergic/Immunologic Allergic/Immunologic: Denies rhinitis, urticaria, eczemia or asthma Vital Signs Vital Signs Vital Signs: 05/27/25 10:05 05/27/25 10:25 05/27/25 10:47 Temperature 97.5 F L Temperature Source Temporal Pulse Rate 28 L 42 L Pulse Strength Respiratory Rate 16 Blood Pressure 154/72 H Blood Pressure Mean 99 Blood Pressure Source Blood Pressure Position Blood Pressure Location Pulse Ox 100 96 Oxygen Delivery Method Room Air Room Air Room Air CLA-BSI maintained 05/27/25 10:56 05/27/25 11:09 05/27/25 11:15 Temperature Temperature Source Pulse Rate 40 L 37 L 38 L Pulse Strength Respiratory Rate 14 Blood Pressure 144/68 H 135/76 H Blood Pressure Mean 93 93 Blood Pressure Source Blood Pressure Position Blood Pressure Location Pulse Ox 98 99 97 Oxygen Delivery Method Room Air CLA-BSI maintained 05/27/25 11:30 05/27/25 11:45 05/27/25 12:00 Temperature Temperature Source Pulse Rate 36 L 36 L 41 L Pulse Strength Respiratory Rate 13 Blood Pressure 117/69 127/67 H 115/71 Blood Pressure Mean 84 85 84 Blood Pressure Source Blood Pressure Position Blood Pressure Location Pulse Ox 95 98 96 Oxygen Delivery Method CLA-BSI maintained 05/27/25 12:15 05/27/25 12:30 05/27/25 12:45 Temperature Temperature Source Pulse Rate 34 L 38 L 37 L Pulse Strength Respiratory Rate 14 16 Blood Pressure 160/70 H 135/72 H 144/65 H Blood Pressure Mean 96 90 86 Blood Pressure Source Blood Pressure Position Blood Pressure Location Pulse Ox 98 98 96 Oxygen Delivery Method CLA-BSI maintained 05/27/25 13:00 05/27/25 13:30 05/27/25 13:33 Temperature 98.2 F Temperature Source Pulse Rate 36 L 38 L 37 L Pulse Strength Respiratory Rate 14 18 Blood Pressure 155/66 H 130/66 H Blood Pressure Mean 93 87 Blood Pressure Source Blood Pressure Position Blood Pressure Location Pulse Ox 97 98 96 Oxygen Delivery Method Room Air CLA-BSI maintained 05/27/25 16:30 05/27/25 16:45 05/27/25 17:00 Temperature 97.5 F L 97.5 F L Temperature Source Temporal Temporal Pulse Rate 60 61 61 Pulse Strength Respiratory Rate 16 16 Blood Pressure 130/83 H 131/80 H Blood Pressure Mean 98 97 Blood Pressure Source Monitor Monitor Blood Pressure Position Semi-Fowlers Semi-Fowlers Blood Pressure Location Right Arm Right Arm Pulse Ox 95 99 Oxygen Delivery Method Room Air Room Air CLA-BSI maintained 05/27/25 17:04 05/27/25 17:15 05/27/25 17:21 Temperature 97.4 F L 97.8 F Temperature Source Temporal Temporal Pulse Rate 63 61 Pulse Strength Normal (2+) Respiratory Rate 16 16 Blood Pressure 130/79 H 127/80 H Blood Pressure Mean 96 95 Blood Pressure Source Monitor Monitor Blood Pressure Position Semi-Fowlers Semi-Fowlers Blood Pressure Location Right Arm Right Arm Pulse Ox 100 99 Oxygen Delivery Method Room Air Room Air CLA-BSI maintained 05/27/25 17:45 05/27/25 18:22 05/27/25 18:22 Temperature 97.8 F 97.8 F Temperature Source Temporal Temporal Pulse Rate 63 62 Pulse Strength Respiratory Rate 16 18 Blood Pressure 122/79 H 139/72 H Blood Pressure Mean 93 94 Blood Pressure Source Monitor Monitor Blood Pressure Position Semi-Fowlers Semi-Fowlers Blood Pressure Location Right Arm Right Arm Pulse Ox 98 96 Oxygen Delivery Method Room Air Room Air CLA-BSI maintained Yes Weight Weight: 73.1 kg Body Mass Index (BMI) 32.5 Physical Exam Const alert, oriented x3, no apparent distress and healthy appearing General Appearance: cooperative, well kempt and well developed Orientation / Consciousness: awake, oriented to person, oriented to place and oriented to time HEENT normocephalic, head/scalp atraumatic, hearing grossly normal bilaterally and moist oral mucous membranes Eyes PERRL, EOMs intact bilaterally and conjunctivae normal Neck supple, no JVD, thyroid normal and no carotid bruits General: trachea midline Resp normal respiratory effort, no retractions, no use of accessory muscles and clear to auscultation bilaterally Auscultation: Negative for rales, rhonchi or wheezes Cardio regular rate, regular rhythm, S1 normal heart sound, S2 normal heart sound, no murmurs, no rub and no gallops GI normal to inspection, nondistended, normoactive bowel sounds, soft to palpation, non-tender and non-distended Extremity no clubbing, cyanosis or edema Skin no rashes or lesions noted General Skin Exam: no breakdown Neuro oriented x3, CN's II-XII intact bilaterally, moves all extremities, no focal motor deficits and no sensory deficits noted Sensorium / Orientation: awake and alert Speech: speech normal Psych affect normal Results Lab / Micro Data 05/27/25 10:40 05/27/25 10:40 Labs: Laboratory Results - last 24 hr 05/27/25 10:40: WBC 5.4, RBC 4.11 L, Hgb 12.7, Hct 36.4 L, MCV 88.6, MCH 30.9, MCHC 34.9, RDW Std Deviation 42.1, RDW Coeff of [place] 12.9, Plt Count 205, MPV 9.3, Immature Gran % (Auto) 0.200, Neut % (Auto) 60.1, Lymph % (Auto) 31.6, [place] % (Auto) 5.7, Eos % (Auto) 1.8, Baso % (Auto) 0.6, Absolute Neuts (auto) 3.3, Absolute Lymphs (auto) 1.71, Nucleated RBC % 0, Sodium 140, Potassium 3.7, Chloride 106, Carbon Dioxide 21.9, Anion Gap 12, BUN 18, Creatinine 0.87, Estim Creat Clear Calc 64.46, Est GFR (MDRD) Non-Af 78, BUN/Creatinine Ratio 20.8 H, Glucose 121 H, Calcium 9.4, Troponin T High Sens 19 H 05/27/25 12:41: Troponin T Hi Sens 2 Hr 21 H, TSH 3.820 05/27/25 13:32: POC Glucose 92 05/27/25 16:50: Troponin T Hi Sens 4Hr 25 H Imaging Radiology Impression Chest X-Ray 05/27/25 10:42 IMPRESSION: There is elevation of the right hemidiaphragm. The lungs are clear. Reading Location: [facility] Echocardiogram 05/27/25 13:12 Interpretation Summary Normal LV size. Left ventricular systolic function is normal. The left ventricular ejection fraction is 65 %. Structurally normal valves. Ordering Physician: Chris Doyle Performed By: Valentina Alexander, RDCS Assessment & Plan Assessment/Plan (1) Mobitz type 2 second degree atrioventricular block: PLAN: Plan 1. Secondary AV block type II-status post pacemaker insertion-again patient was admitted to PCU and will be observed there. #2 osteoarthritis-patient is on meloxicam Total clinical time spent by myself addressing the patient's medical issues, reviewing all of her data, and collaborating with patient's care team: 55 minutes Charges/Coding Visit Charges Inpatient E&M: 37519 Init Hosp L2
[2025-05-27] MEDS: 0.9% Saline Lock 10 ML Syringe IV (20:49)
[2025-05-27] MEDS: Heparin Injection (Vial) 5,000 UNIT/ML VIAL 5000 UNIT SC (22:15)
[2025-05-28 03:41] VITALS: BP 117/71; PULSE 66; RESP 16; TEMP 36.7; O2SAT 95
--- OUTSIDE RECORDS SUMMARY | 2025-05-28 04:20 | XMS RPT_ITS | CCD ---
Author Organization [facility] Care Team Providers Care Retail Assistant Store Manager Name Role Phone ABHI BAPTISTE Unavailable Unavailable [...] Rocco Unavailable Unavailable Finneran, Rocco Unavailable Unavailable [facility], [place] [facility] Primary Care Pro vider [facility], [facility] Referring Provid er Dr. Yanna Warren Attending Provider [phone] Dr. Yanna Warren Primary Care Provider Dr. Yanna Warren Attending Provider [phone] Dr. Yanna Warren Referring Provider [phone] Dr. Yanna Warren Primary Care Provider Dr. Yanna Warren Attending Provider [phone] Dr. Yanna Warren Referring Provider [phone] Dr. Chris Doyle Attending Provider [phone] Yanna Warren Referring Unavailable Claudio [facility] Primary [facility] UnavailJaime Duncan Attending Unavailable Yanna Warren Referring Unavailable Yanna Warren Attending Unavailable Kelvin, Yanna Primary Care Unavailable Vivek, Howard Attending Unavailable Kelvin, Yanna Primary Care Unavailable Vivek, Chris Attending Unavailable Kelvin, Yanna Primary Care Unavailable Kelvin, Yanna Referring Unavailable Kelvin, Yanna Primary Care Unavailable Kelvin, Yanna Attending Unavailable Englewood, Yanna Referring Unavailable Kelvin, Yanna Primary Care Unavailable [place]le[place], Yanna Attending Unavailable [place]lewood, Yanna Referring Unavailable [place]lewood, Yanna Primary Care Unavailable Kelvin, Yanna Attending Unavailable Kelvin, Yanna Referring Unavailable Kelvin, Yanna Primary Care Unavailable Claudio [facility], Delfino Attending Unavailabl e Kelvin, Yanna Referring Unavailable Kelvin, Yanna Attending Unavailable Kelvin, Yanna Primary Care Unavailable Englewood, Yanna Referring Unavailable [place]lewood, Yanna Primary Care Unavailable Kelvin, Yanna Attending Unavailable Casandra MOORE, Rocco Reid Unavailable Claudio CORCORAN, Delfino Primary Care Provider GUZMAN PARIKH Attending Unavailable DELFINO SNYDER Referring Unavailable DELFINO SNYDER Primary Care Unavailable Allergies Allergy Classification Reported Allergen(s) Allergy Type Date of Onset Reaction(s) Facility (2 sources) Aspirin; Translations: [ASPIRIN] Drug Allergy 06-12-2013 Other: See Comments [facility] Work Phone: Medications Current Medications Medication Drug Class(es) Dates Sig (Normalized) Sig (Original) acetaminophen 325 mg oral tablet (1 source) take 2 tablets by mouth every four hours as needed acetaminophen (TYLENOL) 325 mg tablet Take 650 mg by mouth every 4 hours as needed. Active [id number] 200 actuat albuterol 0.09 mg/actuat metered dose inhaler (9 sources) beta2-Adrenergi c Agonist Start: 12-06-2022 End: 10-15-2023 take 1 puff(s) by inhalation every six hours Albuterol Sulfate (Ventolin Hfa) 90 mcg/actuation HFA aerosol inhaler Active 2 PUFF INHALATION EVERY 6 HOURS 6.7 October 15, 2023 1:29pm cholecalciferol 0.125 mg oral capsule (6 sources) Vitamin D Start: 12-06-2022 take 125 ug by mouth once daily Cholecalciferol (Vitamin D3) Active 125 MCG PO DAILY December 06, 2022 1:00am Cholecalciferol, Vitamin D3, (VITAMIN D-3) 2,000 unit cap Take by mouth once daily. Active cyanocobalamin, vitamin B-12, (VITAMIN B-12 ORAL) (1 source) cyanocobalamin, vitamin B-12, (VITAMIN B-12 ORAL) Take by mouth. Active fluticasone / salmeterol (20 sources) Corticosteroid, beta2-Adrenergic Agonist Start: 10-22-2024 fluticasone-salmeterol (ADVAIR, WIXELA) 250-50 mcg/dose inhaler Use 1 inhalation twice daily 10/22/2024 Active Start: 01-15-2024 Fluticasone Pr opion-Salmeterol (Advair Diskus) 250-50 mcg/dose blister with device Active 1 INH INHALATION TWICE A DAY 180 January 15, 2024 10:33am Start: 01-15-2024 Fluticasone Pr opion-Salmeterol (Advair Diskus) 250-50 mcg/dose blister with device Active 1 INH INHALATION TWICE A DAY 180 January 15, 2024 9:33am Start: 10-15-2023 End: 01-15-2024 Fluticasone Propion-Salmeter ol (Advair Diskus) 250-50 mcg/dose blister with device Discontinued 1 INH INHALATION TWICE A DAY 60 October 15, 2023 2:44pm January 15, 2024 10:34am Start: 10-15-2023 End: 01-15-2024 Fluticasone Propion-Salmeter ol (Advair Diskus) 250-50 mcg/dose blister with device Discontinued 1 INH INHALATION TWICE A DAY 60 October 15, 2023 1:44pm January 15, 2024 9:34am Start: 06-26-2023 End: 10-15-2023 Fluticasone Propion-Salmeter ol (Advair Diskus) 250-50 mcg/dose blister with device Discontinued 1 INH INHALATION TWICE A DAY 60 June 26, 2023 9:24am October 15, 2023 2:45pm Start: 06-26-2023 End: 10-15-2023 Fluticasone Propion-Salmeter ol (Advair Diskus) 250-50 mcg/dose blister with device Discontinued 1 INH INHALATION TWICE A DAY 60 June 26, 2023 8:24am October 15, 2023 1:45pm Start: 12-06-2022 End: 06-26-2023 Fluticasone Propion-Salmeter ol (Advair Diskus) 250-50 mcg/dose blister with device Discontinued 1 INH INHALATION TWICE A DAY 60 December 06, 2022 1:00am June 26, 2023 12:06pm Start: 12-06-2022 End: 12-06-2022 Fluticasone Propion-Salmeter ol (Advair Diskus) 250-50 mcg/dose blister with device Discontinued 1 INH INHALATION TWICE A DAY December 06, 2022 1:00am December 06, 2022 11:53am Start: 12-06-2022 End: 12-06-2022 Fluticasone Propion-Salmeter ol (Advair Diskus) 250-50 mcg/dose blister with device Discontinued 1 INH INHALATION TWICE A DAY December 06, 2022 12:00am December 06, 2022 10:53am mecobalamin 1 mg chewable tablet (5 sources) Start: 12-06-2022 take 1000 ug by mouth once daily Mecobalamin (Vitamin B12) Active 1000 MCG PO DAILY December 06, 2022 1:00am Semaglutide (Weight Loss) (4 sources) Start: 01-15-2024 Semaglutide (W eight Loss) (Wegovy) 0.25 mg/0.5 mL pen injector Active 0.25 MG SC EVERY WEEK 2 January 15, 2024 1:00am administer weeks 1 through 4 of therapy Start: 01-15-2024 Semaglutide (W eight Loss) (Wegovy) 0.25 mg/0.5 mL pen injector Active 0.25 MG SC EVERY WEEK 2 January 15, 2024 12:00am administer weeks 1 through 4 of therapy SEMAGLUTIDE SUBCUTANEOUS (1 source) SEMAGLUTIDE SUBC UTANEOUS Inject subcutaneously. Active Completed/Discontinued Medications Medication Drug Class(es) Dates Sig (Normalized) Sig (Original) clonazePAM 0.5 mg oral tablet (1 source) Benzodiazepine Start: 09-16-2013 End: 11-28-2024 clonazePAM 0.5 mg tablet 1 or 2 tabs at bedtime every night. 60 tablet 6 09/16/2013 11/28/2024 Discontinued meloxicam 7.5 mg oral tablet (20 sources) Nonsteroidal Anti-inflammatory Drug Start: 12-06-2022 End: 01-15-2024 take 7.5 mg by mouth once daily Meloxicam Discontinued 7.5 MG PO DAILY 90 October 15, 2023 1:28pm January 15, 2024 10:34am take 1 tablet by mouth twice reinier ly meloxicam (MOBIC) 7.5 mg tablet Take 7.5 mg by mouth two times a day. Active MULTIVITAMIN/IRON/FOLIC ACID (CENTRUM ULTRA WOMEN'S ORAL) (1 source) End: 11-28-2024 MULTIVITAMIN/IRON/FOLIC ACID (CENTRUM ULTRA WOMEN'S ORAL) Take by mouth once daily. 11/28/2024 Discontinued 0.25 mg, 0.5 mg dose 1.5 ml semaglutide 1.34 mg/ml pen injector (4 sources) Start: 12-19-2022 End: 06-26-2023 Semaglutide (Ozempic) 0.25 m g or 0.5 mg(2 mg/1.5 mL) pen injector Discontinued 0.25 MG SC EVERY WEEK 1.5 December 19, 2022 1:00am June 26, 2023 8:53am for 4 weeks Problems Active Problems Problem Classification Problem Date Documented Date Episodic/Chronic Administrative/social admission (1 source) Persons encountering health services in other specified circumstances; Translations: [Other reasons for seeking consultation] 12-06-2022 Episodic Calculus of urinary tract (5 sources) History of calculus of kidney; Translations: [Personal history of urinary calculi] 12-06-2022 Episodic Disorders of lipid metabolism (6 sources) Mixed hyperlipidemia; Translations: [Mixed hyperlipidemia] Onset: 01-15-2024 12-06-2022 Chronic Nonmalignant breast conditions (1 source) Abscess of the breast and nipple; Translations: [Abscess of the breast and nipple] Onset: 08-27-2024 Episodic Nutritional deficiencies (11 sources) Vitamin D deficiency; Translations: [Vitamin D deficiency, unspecified] Onset: 01-15-2024 12-06-2022 Chronic Nutritional deficiencies (6 sources) Vitamin B deficiency; Translations: [Vitamin B deficiency, unspecified] 12-06-2022 Episodic Osteoarthritis (5 sources) Unspecified osteoarthritis, unspecified site; Translations: [Arthropathy, unspecified, site unspecified] 12-06-2022 Chronic Other connective tissue disease (5 sources) H/O: arthritis; Translations: [Personal history of other diseases of the musculoskeletal system and connective tissue] 12-06-2022 Episodic Other hematologic conditions (5 sources) History of anemia; Translations: [Personal history of diseases of the blood and blood-forming organs and certain disorders involving the immune mechanism] 12-06-2022 Episodic Other lower respiratory disease (5 sources) Paralysis of diaphragm ; Translations: [Disorders of diaphragm] 12-06-2022 Episodic Other nutritional; endocrine; and metabolic disorders (6 sources) Morbid (severe) obesity due to excess calories; Translations: [Morbid obesity] Onset: 01-21-2024 12-06-2022 Chronic Other nutritional; endocrine; and metabolic disorders (1 source) Body mass index (BMI) 40.0-44.9, adult; Translations: [Body mass index [BMI] 40.0-44.9, adult] Onset: 01-15-2024 Chronic Other upper respiratory infections (4 sources) Acute pharyngitis; Translations: [Acute pharyngitis, unspecified] 01-15-2024 Episodic Residual codes; unclassified (6 sources) Obstructive sleep apnea syndrome; Translations: [Obstructive sleep apnea (adult) (pediatric)] 12-05-2022 Chronic Residual codes; unclassified (7 sources) Obstructive sleep apnea (adult) (pediatric); Translations: [Obstructive sleep apnea (adult)(pediatric)] Onset: 01-15-2024 12-06-2022 Chronic Residual codes; unclassified (1 source) Immunization not carried out because of patient refusal; Translations: [Vaccination not carried out because of patient refusal] 12-06-2022 Episodic Residual codes; unclassified (2 sources) Other specified health status; Translations: [Other specified conditions influencing health status] Onset: 11-28-2024 11-28-2024 Episodic Spondylosis; intervertebral disc disorders; other back problems (4 sources) Other spondylosis, lumbar region; Translations: [Other spondylosis, thoracic region] Onset: 07-12-2018 Chronic Spondylosis; intervertebral disc disorders; other back problems (2 sources) Sacrococcygeal disorders, not elsewhere classified; Translations: [Sacrococcygeal disorders, not elsewhere classified] Onset: 07-12-2018 Episodic Past or Other Problems Problem Classification Problem Date Documented Da te Episodic/Chronic Cardiac dysrhythmias (5 sources) Bradycardia, unspecified; Translations: [Other specified cardiac dysrhythmias] Onset: 01-15-2024 01-15-2024 Episodic Other lower respiratory disease (6 sources) Disorders of diaphragm; Translations: [Disorders of diaphragm] Onset: 01-15-2024 12-06-2022 Episodic Other lower respiratory disease (5 sources) Shortness of breath; Translations: [Shortness of breath] Onset: 02-15-2024 01-15-2024 Episodic Unclassified (9 sources) Encounter for screening mammogram for malignant neoplasm of breast; Translations: [Encounter for screening for malignant neoplasm of colon] Onset: 04-24-2018 12-06-2022 Episodic Results Test Name Value Interpretation Reference Range Facility [facility] 11-28-2024 CNOV Office Visit (SLEWST ) NARAYAN KHOURY ([id number]) 1970 F Date Time Provider Department 11/28/24 11:00 AM GUZMAN PARIKH During your visit today, we recorded the following information about you: Pulse Respiration Blood pressure Weight 42/minute 18/minute 130/74 79.7 kg Height 1.473 m Guzman Parikh APRN.DISTRIBUTION SPECIALIST 12/09/2024 9:11 AM Signed [facility] New Patient Evaluation PATIENT NAME: Narayan Khoury DATE OF SERVICE: November 27, 2024 CONSULTING PROVIDER: Delfino Snyder [id number] [facility] [id number] REASON FOR CONSULT: Delfino Snyder sends the patient for an opinion about sleep apnea. My findings and recommendations will be transmitted by letter via [place] postal service to the consulting provider. HPI: Geneva Khoury is a 54 year old female. Sleep-related history: OMAYRA diagnosed in 2012, managed previously by Pulm Dr Newton, was on biPAP 15/9 cmH2O but she reports she didn't tolerate PAP therapy. Had frequent nosebleeds from PAP. Couldn't sleep with mask, woke up less refreshed with PAP on. Tried adjusting pressure multiple times but didn't tolerate it. 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 When she initially presented and was diagnosed with sleep apnea she had witnessed apneas, possible dream enactment behavior, leg movements in sleep--her reports none of those sxs at this time. Heart issues on her father's side SLEEP-WAKE SCHEDULE She is a self-described morning person. Bedtime: 10 PM. She does not have a hard time falling asleep. Wake time: 5-530 AM, without an alarm. After falling asleep: she wakes up 1 time(s) per night, because of the need to urinate. Falls right back to sleep. On weekends, she tends to stay up until 11 PM - MN and sleeps until 7 AM. Average total sleep time (in a 24 hour period): 7 hours. SLEEP-RELATED DETAILS Preferred sleep position: side, back, or prone Breathing disturbances and other behaviors during sleep: occas snoring. Bruxism: No. No dental issues (a few missing teeth) or TMJ issues GERD or aspiration: No Waking up with heart pounding or racing: No Anxiety or rumination: No She does not report having an urge to move the legs in the evening (when resting) that is accompanied or caused by uncomfortable and/or unpleasant sensations in the legs. She has not been told that she has leg kicking during sleep. She denies any history of parasomnias. told her she used to flail her arms and kick him in the night, hasn't occurred for at least 7 yrs; he never woke her up. She rarely recalls dreams. Excessive daytime sleepiness / fatigue is a problem. She reports more tired than sleepy. Excessive Daytime sleepiness/fatigue has been a problem for lifelong.. There is no history of a viral illness or significant head injury prior to the start of daytime sleepiness. 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 She does not have difficulty with memory or concentration. She denies falling asleep or dozing off when driving. She does not take naps. She does drink 2-3 caffeinated beverages per day. She has lost 40 pounds since 6 mos. Patient Questionnaires Sleep Scores PAST TREATMENTS: Bilevel PAP PRIOR SLEEP STUDIES: 05/19/13 PSG: AHI 23, supine AHI 26, REM AHI 29 07/15/13 PAP titration: recommended biPAP 15/9 cmH2O PAST MEDICAL HISTORY Diagnosis Date Asthma H. pylori infection Osteoarthritis Secondary pulmonary hypertension PAST SURGICAL HISTORY Procedure Laterality Date TUBAL LIGATION, 1994 [facility] DELIVERY SCHEDULING ORDER 3 deliveries There is no problem list on file for this patient. Allergies As of Date: 11/28/2024 Allergen Noted Reaction ASPIRIN 06/12/2013 Other: See Comments Fully Assessed 11/28/2024 CURRENT MEDICATIONS: meloxicam (MOBIC) 7.5 mg tablet Take 7.5 mg by mouth two times a day. fluticasone-salmeterol (ADVAIR, WIXELA) 250-50 mcg/dose inhaler Use 1 inhalation twice daily Cholecalciferol, Vitamin D3, (VITAMIN D-3) 2,000 unit cap Take by mouth once daily. acetaminophen (TYLENOL) 325 mg tablet Take 650 mg by mouth every 4 hours as needed. cyanocobalamin, vitamin B-12, (VITAMIN B-12 ORAL) Take by mouth. SEMAGLUTIDE SUBCUTANEOUS Inject subcutaneously. Review of Systems Constitutional: Positive for fatigue. Negative for recent unintentional weight change. HENT: Negative for congestion. Cardiovascular: Negative for palpitations. Low heart rate Gastrointestinal: Negative for heartburn. Genitourinary: Positive for nocturia (just once a night). Neurological: Positive for headaches (but not often or severe, no morning headaches). Negative for memory loss. SOCIAL HISTORY: Social History T (more content not included)... Normal [facility] Surgery Visit Reporton 08-11 Surgery Visit Report [facility] [address] [place] [address] OFFICE VISIT Date of Service: 08/11/24 MR#: [id number] Acct: [id number] Name: NARAYAN KHOURY Rep #: [id number] : 1970 Provider: Dr. Jaime hammer MD Age/Sex: 54/F Location: [facility] Status: Signed Intake Vital Signs 02/28/24 13:48 08/11/24 08:22 Height 4 ft 11 in 4 ft 11 in Weight: 200 lb 183 lb 2 oz BMI 40.4 37.0 BP 122/80 H 137/74 H Blood Pressure Location Lt brachial Rt brachial Position Sitting Sitting Respiration 17 18 Pulse 60 70 Pulse Source Monitor Monitor Temp 98.0 F 97.4 F L Temp Source Temporal Temporal Pulse Oximetry (%) 97 99 Oxygen Delivery Method room air room air Intake Visit Reasons: RECURRENT CYST ON L BREAST Chief Complaint: Recurrent cyst left breast Washer And Crusher Tender Required: No Accompanied by: Is patient in pain?: No Allergies No Known Allergies Allergy (Unverified 08/11/24 08:23) Medications ???Medication ???Instructions ???Recorded ???Confirmed ???Type cholecalciferol (vitamin D3) 125 125 mcg PO DAILY 12/06/22 08/11/24 History mcg (5,000 unit) capsule mecobalamin (vitamin B12) 1,000 1,000 mcg PO DAILY 12/06/22 08/11/24 History mcg chewable tablet albuterol sulfate 90 mcg/actuation 2 puff inhalation Q6H PRN 10/15/23 08/11/24 Rx aerosol inhaler (Ventolin HFA) shortness of breath or wheezing #6.7 grams fluticasone 250 mcg-salmeterol 50 1 inh inhalation BID #180 ea 01/15/24 08/11/24 Rx mcg/dose blistr powdr for inhalation (Advair Diskus) semaglutide (weight loss) 0.25 0.25 mg (0.5 mL) subcut QWEEK #2 mL 01/15/24 08/11/24 Rx mg/0.5 mL subcutaneous pen injector (Josue) meloxicam 7.5 mg tablet 7.5 mg PO BID 08/11/24 08/11/24 History PFSH Medical History History of anemia History of kidney stones Hx of chronic arthritis Paralysis, diaphragm Vitamin B deficiency Vitamin D deficiency Surgical History Hx of section Family History Son Asthma Father Arthritis Myocardial infarction Mother Cervical cancer Uterine cancer Hypertension Sister Breast cancer Hypertension Sister Cervical cancer Ovarian cancer Sister Autoimmune disorder Social History household members: spouse and family housing: house current occupational status: employed current occupation: Janitorial sexually active: Yes Smoking Status: Never smoker Electronic Cigarette Use: not used alcohol intake: never substance use type: does not use what type of physical activity do you participate in: walking, yoga and weight training frequency: 3-4 times per week seatbelt use: always do you feel safe at home: Yes HPI HPI HPI: The patient is a 54-year-old female who is being seen today for evaluation of recurring abscess versus infected sebaceous cyst involving the left lateral chest/breast region. She states that she has had abscesses in the past in this exact same location. She presents today for further evaluation to discuss possible removal. She has been on antibiotics recently and has recently completed her course of antibiotics ROS General General: Yes weight change; No appetite, fatigue, colon cancer, breast cancer or weakness HEENT HEENT: No difficulty swallowing, eye injury, eye surgery, swollen glands or hoarseness Endo Endocrine: No thyroid disease, diabetes mellitus, thyroid cancer, Hair loss, heat intolerance or cold intolerance Skin Skin: No rash or changing moles Breast Breast: No left breast lump, right breast lump, nipple discharge, breast pain, abnormal mammogram, abnormal US or breast enlargement Musc Musculoskeletal: Yes back problems and arthritis; No rheumatoid arthritis, gout or joint pain Cardio Cardiovascular: Yes murmur; No pacemaker, heart disease, atrial fibrillation, high blood pressure, heart attack, heart stent, palpitations, shortness of breat with exertion or chest pain Psych Psychiatric: No depression, anxiety or hearing voices Resp Respiratory: Yes shortness of breath, No sleep apnea, Yes cough, No COPD, Yes asthma, No emphysema and No wheezing Gastro Gastrointestinal: No abdominal pain, No nausea or vomiting, No diarrhea, No constipation, No blood in stool, No acid reflux, No hemorrhoids, No ulcers, No gallbladder problem and No black,tarry stools Matt Hematologic: No blood thinners, No blood disorders, No bleeding, No anemia and No blood clots Neuro Neurologic: No system reviewed and no additional complaints, except as documented, No as per HPI, No abnormal gait, No a (more content not included)... Normal [facility] Breast Limited Unilateralon 08-05-2024 Breast Limited Unilateral [facility] Services [address] [place] [address] Breast Limited Unilateral MR#: [id number] Acct: [id number] Name: NARAYAN KHOURY Rep #: [id number] : 1970 F 54 From: Saravanan garcia MD PCP: Dr. Yanna Warren MD Status: [facility] Study: Breast Limited Unilateral Date of Exam: Exam# [id number] Ordering Dr: Delfino Snyder [facility] RN CORRECTIONS-C [id number] STUDY: ULTRASOUND BREAST - LEFT REASON FOR EXAM: Female, 54 years old. Left retroareolar abscess. TECHNIQUE: Axial and longitudinal images of the LEFT breast were performed with a high resolution ultrasound transducer. # OF IMAGES: 30 COMPARISON: None. FINDINGS: LEFT Breast: Imaging of the retroareolar region was obtained. There is a complex 1.7 cm x 3.2 cm x 1.4 cm hypoechoic abnormality with internal vascularity and there is evidence of a track extending to the skin surface. This most likely advance the abscess. US/Breast Limited Unilateral IMPRESSION: Findings suggestive of a 1.7 cm x 3.2 cm x 1.4 cm abscess collection in the lateral retroareolar region of the breast with a track extending to the skin surface. ASSESSMENT CATEGORY: BIRADS Category 2: Benign. A letter regarding these results will be sent to the patient by the facility within 30 days. Electronically Signed: Saravanan Sewell MD at 10:52 EDT , CC: [facility] RN CORRECTIONSMaris Snyder; Dr. Yanna Warren MD Psychiatry Teacher: Signed Normal [facility] Internal Medicine Office Vis ito 02-27-2024 Internal Medicine Office Visit [facility] [address] [place] [address] [place] [address] OFFICE VISIT Date of Service: 02/28/24 MR#: [id number] Acct: [id number] Name: NARAYAN KHOURY Rep #: [id number] : 1970 Provider: Dr. Yanna melton MD Age/Sex: 53/F Location: [facility] Status: Signed Intake Vital Signs 01/15/24 08:57 02/28/24 13:48 Height 4 ft 11 in 4 ft 11 in Weight: 200 lb BMI 40.4 BP 122/80 H Blood Pressure Location Lt brachial Position Sitting Respiration 17 Pulse 60 Pulse Source Monitor Temp 98.0 F Temp Source Temporal Pulse Oximetry (%) 97 Oxygen Delivery Method room air Intake Visit Reasons: med fu Chief Complaint: follow up Is patient in pain?: No Allergies No Known Allergies Allergy (Unverified 02/28/24 13:49) Medications cholecalciferol (vitamin D3) 125 mcg (5,000 unit) capsule 125 mcg PO DAILY 12/06/22 [History Confirmed 02/28/24] mecobalamin (vitamin B12) 1,000 mcg chewable tablet 1,000 mcg PO DAILY 12/06/22 [History Confirmed 02/28/24] albuterol sulfate 90 mcg/actuation aerosol inhaler (Ventolin HFA) 2 puff inhalation Q6H PRN shortness of breath or wheezing #6.7 grams 10/15/23 [Rx Confirmed 02/28/24] fluticasone 250 mcg-salmeterol 50 mcg/dose blistr powdr for inhalation (Advair Diskus) 1 inh inhalation BID #180 ea 01/15/24 [Rx Confirmed 02/28/24] semaglutide (weight loss) 0.25 mg/0.5 mL subcutaneous pen injector (Wegovy) 0.25 mg (0.5 mL) subcut QWEEK #2 mL 01/15/24 [Rx Confirmed 02/28/24] meloxicam 7.5 mg tablet 7.5 mg PO BID 02/28/24 [History Confirmed 02/28/24] PFSH Medical History History of anemia History of kidney stones Hx of chronic arthritis Paralysis, diaphragm Vitamin B deficiency Vitamin D deficiency Surgical History Hx of section Family History Son Asthma Father Arthritis Myocardial infarction Mother Cervical cancer Uterine cancer Hypertension Sister Breast cancer Hypertension Sister Cervical cancer Ovarian cancer Sister Autoimmune disorder Social History household members: spouse and family housing: house current occupational status: employed current occupation: Janitorial sexually active: Yes Smoking Status: Never smoker Electronic Cigarette Use: not used alcohol intake: never substance use type: does not use what type of physical activity do you participate in: walking, yoga and weight training frequency: 3-4 times per week seatbelt use: always do you feel safe at home: Yes HPI HPI Chief Complaint: follow up Details: NARAYAN KHOURY, is a 53 F who presents to the office today for a follow up. She is up to date on her routine blood work and screening. She previously declined any immunizations. She doesn't smoke and does need refills today. She reports she is trying to eat healthy and is trying to stay active at work. The patient has a history of sleep apnea. She reports she doesn't tolerate the BiPAP stating it causes nose bleeds and she didn't like the mask on her face. She reports it has been many years since she last used it. Her last sleep study was around that time. She previously declined trying an alternative mask or resuming the BiPAP at all. She reports she is sleeping fine. 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 She has done further work up of her shortness of breath which hasn't shown any significant findings. A referral to pulmonology was discussed, but she wanted to think about it. She reports that her symptoms seem to be getting better. She continues to do well on the meloxicam for her joint pain. She states she has pain mostly in her back and hips. She does think the meloxicam wears off as they day goes on. She reports her back has been bothering her a little with the rainy weather. She rates it 6/10 currently. In addition to the meloxicam, she does also take the tylenol arthritis which helps a little. At her last office visit, she had concerns about her weight. Diet and exercise were discussed. She reports she hasn't been snacking at all. Ozempic was denied by insurance and she requested it be sent to a compounding pharmacy. She reports that she has been doing well with it. She hasn't had any problems with the medication, denying any GI symptoms at all. She is doing her injection on . She has no questions or concerns at this time. ROS Const Constitutional: Positive for weight change (8 pound weight loss); No body ache, chills, excessive sweating, fatigue, fever(s), frequent falls, headache(s), snoring, weakness, sleep problems, abnormal sleep pattern or change in appet (more content not included)... Normal [facility] Echo Completeon 02-08-2024 [facility] [address] [place] [address] Echo Complete 02/08/24 1300 MR#: [id number] Acct: [id number] Name: NARAYAN KHOURY Rep #: [id number] : 1970 53 From: Chris Doyle MD Attending Dr: Dr. Yanna Warren MD Status: [facility] Ordering Dr: Yanna Warren MD Date: 02/08/24 Location: [facility] Sex: F C Admitted: Version 2 Reason For Study: sob Procedure This was a 2D Doppler, Color Flow transthoracic echocardiogram. Exam performed in department. Left Ventricle Normal LV size. Mild concentric left ventricular hypertrophy. Left ventricular systolic function is normal. The left ventricular ejection fraction is 55 %. Stage 1 diastolic dysfunction. No regional wall motion abnormalities noted. Right Ventricle Normal RV size. Normal systolic function. Atria Normal left atrium. Normal right atrium. Mitral Valve Normal mitral valve. Tricuspid Valve Normal tricuspid valve. Aortic Valve Trisinus/trileaflet aortic valve. Pulmonic Valve Normal pulmonic valve. Great Vessels Normal aortic root. The pulmonary artery is normal size. Normal inferior vena cava. Pericardium/Pleural No pericardial effusion. MMode/2D Measurements Calculations LVIDd: 3.7 cm IVSd: 1.3 cm MVA(traced): 5.7 cm2 LVIDs: 2.8 cm LVPWd: 1.5 cm RVDd: 3.8 cm FS: 23.8 % Ao root diam: 3.4 cm LAV(MOD-bp): 33.3 ml LVAd ap4: 24.9 cm2 LAV(MOD-bp) Indexed: 18.1 ml/m2 LVLd ap4: 7.2 cm LAV(MOD-sp2): 49.0 ml EDV(MOD-sp4): 70.2 ml LAV(MOD-sp4): 21.1 ml EDV(sp4-el): 72.5 ml LVAs ap4: 18.6 cm2 LVLs ap4: 6.7 cm ESV(MOD-sp4): 42.5 ml ESV(sp4-el): 43.8 ml EF(MOD-sp4): 39.4 % EF(sp4-el): 39.6 % SV(MOD-sp4): 27.7 ml SV(sp4-el): 28.7 ml LA A4 area: 10.6 cm2 LA dimension(2D): 3.7 cm TAPSE: 2.1 cm Time Measurements MV dec time: 0.30 sec Doppler Measurements Calculations MV E max mitch: 66.5 cm/sec Lat Peak E' Mtich: 6.5 cm/sec Med Peak E' Mitch: 6.6 cm/sec MV A max mitch: 88.3 cm/sec E/E' lat: 10.2 E/E' med: 10.1 MV E/A: 0.75 MV V2 max: 101.3 cm/sec MV dec slope: 227.1 cm/sec2 Ao V2 max: 170.2 cm/sec MV max P.1 mmHg Ao max P.8 mmHg MV V2 mean: 60.0 cm/sec Ao V2 mean: 110.4 cm/sec MV mean P.6 mmHg Ao mean P.7 mmHg MV V2 VTI: 45.4 cm Ao V2 VTI: 37.4 cm AV (velocity ratio): 0.84 LV V1 max: 150.0 cm/sec PA V2 max: 77.6 cm/sec LV V1 max P.1 mmHg PA V2 mean: 54.6 cm/sec LV V1 mean P.9 mmHg LV V1 mean: 103.2 cm/sec LV V1 VTI: 31.4 cm ECHO/Echo Complete Interpretation Summary Normal LV size. Left ventricular systolic function is normal. The left ventricular ejection fraction is 55 %. Stage 1 diastolic dysfunction. Mild concentric left ventricular hypertrophy. Ordering Physician: Yanna Warren Referring Physician: Yanna Warren Performed By: Verónica Ye RCS 02/08/24 1638 Date Chris Doyle MD CC: Dr. Yanna Warren MD Date Dictated: 02/08/24 1300 Date Transcribed: 02/08/24 1638 Psychiatry Teacher: Signed Normal [facility] SCRN MAMM (CAD)W/GUS BILATo n 01-23-2024 [facility] [address] [place] [address] SCRN MAMM (CAD)W/GUS BILAT MR#: [id number] Acct: [id number] Name: NARAYAN KHOURY Rep #: [id number] : 1970 F 53 From: Leonard Hicks MD PCP: Dr. Yanna Warren MD Status: REG CLI Study: SCRN MAMM (CAD)W/GUS BILAT Date of Exam: 05/12 Exam# [id number] Ordering Dr: Yanna Warren MD [id number] MAMMOGRAPHY - BILATERAL SCREENING 3-D TOMOSYNTHESIS REASON FOR EXAM: Female, 53 years old. SCREENING PERTINENT HISTORY: No significant family history. TECHNIQUE: 2-D mammograms and 3-D Tomosynthesis of the breast (s) were performed. CAD was performed. COMPARISON: 12/18/2022 FINDINGS: The breast composition is composed of scattered fibroglandular density. Scattered benign calcifications are seen. No dense spiculated masses or suspicious microcalcifications are identified. No architectural distortion is identified. There is no skin thickening or retraction. There has been no significant change since the prior study. BI/SCRN MAMM (CAD)W/GUS BILAT IMPRESSION: No mammographic signs of malignancy. Routine yearly mammograms recommended. ASSESSMENT CATEGORY: BIRADS Category 1: Negative. A letter regarding these results will be sent to the patient by the facility within 30 days. FOLLOW UP RECOMMENDATION: Yearly follow up mammogram recommended. (A) Approximately 10% of breast cancers are not detected by mammography. A normal mammogram should not delay biopsy of a clinically suspicious abnormality. Electronically Signed: Leonard Hicks MD at 19:27 EST Reading Location ID and State: [address] [facility] Tel , Service support , CC: Dr. Yanna Warren MD Psychiatry Teacher: Signed Normal [facility] Absolute lymphocyte countOrd ered By: Yanna Warren on 01-16-2024 Lymphocytes Auto (Unsp spec) [#/Vol] 2.37 10*3/uL 0.83-4.51 [facility] Automated lymphocyte count a s percentage of total leukocytesOrdered By: Yanna Warren on 01-16-2024 Lymphocytes/100 WBC Auto (Unsp spec) 37.2 % 19-41 [facility] Basophil percentageOrdered B y: Yanna Warren on 01-16-2024 Basophils/100 WBC (Bld) 0.6 % 0-1 [facility] Bilirubin [Mass/Vol] 0.70 mg/dL 0.20-1.00 [facility] Comment on above: For patients on eltr ombopag therapy, use of Dimension Craig TBIL is not recommended. Chloride [Moles/Vol] 106 mmol/L 98-107 [facility] Cholesterol [Mass/Vol] 165 mg/dL <200 [facility] Comment on above: <200 mg/dL Desirable 200-240 mg/dL Borderline >240 mg/dL High Risk Eosinophils/100 WBC (Bld) 2.4 % 0-5 [facility] Glucose [Mass/Vol] 94 mg/dL 74-106 [facility] Hemoglobin (Bld) [Mass/Vol] 12.9 g/dL 12.0-15.0 [facility] Monocytes/100 WBC (Bld) 6.8 % 0-10 [facility] Neutrophils (Bld) [#/Vol] 3.4 10*3/uL 2.0-7.7 [facility] Neutrophils/100 WBC (Bld) 52.5 % 47-70 [facility] Potassium [Moles/Vol] 4.4 mmol/L 3.5-5.1 [facility] Protein [Mass/Vol] 7.5 g/dL 6.4-8.2 [facility] Sodium [Moles/Vol] 140 mmol/L 136-145 [facility] Triglyceride [Mass/Vol] 76 mg/dL <199 [facility] Comment on above: The drugs N-Acetylcy steine and Metamizole may falsely depress this assay.Serum Triglycerides Reference Interval Normal <150 mg/dL Borderline high 150 - 199 mg/dL High 200 - 499 mg/dL Very High > or = 500 mg/dL WBC (Bld) [#/Vol] 6.4 10*3/uL 4.4-11.0 [facility] CBC W/Diff, Automatedon 12-21 Absolute Lymph 2.37 X10 3/uL Normal 0.83-4.51 [facility] Comment on above: Performed By: #### L 506.1000, L100.0100, L501.9520, L500.4100, L500.4050 #### [facility] [address] [place], [address] Absolute Neut 3.4 X10 3/uL Normal 2.0-7.7 [facility] Comment on above: Performed By: #### L 506.1000, L100.0100, L501.9520, L500.4100, L500.4050 #### [facility] [address] [place], [address] Basophils/100 WBC (Bld) 0.6 % Normal 0-1 [facility] Comment on above: Performed By: #### L 506.1000, L100.0100, L501.9520, L500.4100, L500.4050 #### [facility] [address] [place], [address] Eosinophils/100 WBC (Bld) 2.4 % Normal 0-5 [facility] Comment on above: Performed By: #### L 506.1000, L100.0100, L501.9520, L500.4100, L500.4050 #### [facility] [address] [place], [address] Erythrocyte distribution width (RBC) [Ratio] 13.0 % Normal 11.6-14.6 [facility] Comment on above: Performed By: #### L 506.1000, L100.0100, L501.9520, L500.4100, L500.4050 #### [facility] [address] [place], [address] Hematocrit (Bld) [Volume fraction] 39.2 % Normal 37-47 [facility] Comment on above: Performed By: #### L 506.1000, L100.0100, L501.9520, L500.4100, L500.4050 #### [facility] [address] [place], [address] Hemoglobin (Bld) [Mass/Vol] 12.9 g/dL Normal 12.0-15.0 [facility] Comment on above: Performed By: #### L 506.1000, L100.0100, L501.9520, L500.4100, L500.4050 #### [facility] [address] [place], [address] IG% 0.500 Normal 0.0-0.9 [facility] Comment on above: Result Comment: IG% - Immature Granulocytes (promyelocytes, myelocytes and metamyelocytes) > 1% indicates that a LEFT SHIFT is Present. Performed By: #### L 506.1000, L100.0100, L501.9520, L500.4100, L500.4050 #### [facility] [address] [place], [address] Lymphocytes/100 WBC (Bld) 37.2 % Normal 19-41 [facility] Comment on above: Performed By: #### L 506.1000, L100.0100, L501.9520, L500.4100, L500.4050 #### [facility] [address] [place], [address] MCH (RBC) [Entitic mass] 29.3 pg Normal 27.0-32.0 [facility] Comment on above: Performed By: #### L 506.1000, L100.0100, L501.9520, L500.4100, L500.4050 #### [facility] [address] [place], [address] MCHC (RBC) [Mass/Vol] 32.9 g/dL Normal 32-36 [facility] Comment on above: Performed By: #### L 506.1000, L100.0100, L501.9520, L500.4100, L500.4050 #### [facility] [address] [place], [address] MCV (RBC) [Entitic vol] 89.1 fL Normal 81-99 [facility] Comment on above: Performed By: #### L 506.1000, L100.0100, L501.9520, L500.4100, L500.4050 #### [facility] [address] [place], [address] Monocytes/100 WBC (Bld) 6.8 % Normal 0-10 [facility] Comment on above: Performed By: #### L 506.1000, L100.0100, L501.9520, L500.4100, L500.4050 #### [facility] [address] [place], [address] Neutrophils/100 WBC (Bld) 52.5 % Normal 47-70 [facility] Comment on above: Performed By: #### L 506.1000, L100.0100, L501.9520, L500.4100, L500.4050 #### [facility] [address] [place], [address] Nucleated RBC (Bld) [#/Vol] 0 10*3/uL Normal 0-5 [facility] Comment on above: Performed By: #### L 506.1000, L100.0100, L501.9520, L500.4100, L500.4050 #### [facility] [address] [place], [address] Platelet mean volume (Bld) [Entitic vol] 9.6 fL Normal 6.2-12.0 [facility] Comment on above: Performed By: #### L 506.1000, L100.0100, L501.9520, L500.4100, L500.4050 #### [facility] [address] [place], [address] Platelets (Bld) [#/Vol] 272 10*3/uL Normal 150-450 [facility] Comment on above: Performed By: #### L 506.1000, L100.0100, L501.9520, L500.4100, L500.4050 #### [facility] [address] [place], [address] RBC (Bld) [#/Vol] 4.40 10*6/uL Normal 4.2-5.4 [facility] Comment on above: Performed By: #### L 506.1000, L100.0100, L501.9520, L500.4100, L500.4050 #### [facility] [address] [place], [address] RDW SD 42.5 fl Normal 35.1-43.9 [facility] Comment on above: Performed By: #### L 506.1000, L100.0100, L501.9520, L500.4100, L500.4050 #### [facility] [address] [place], [address] WBC (Bld) [#/Vol] 6.4 10*3/uL Normal 4.4-11.0 [facility] Comment on above: Performed By: #### L 506.1000, L100.0100, L501.9520, L500.4100, L500.4050 #### [facility] [address] [place], [address] Comprehensive Metabolic Prof uton 01-16-2024 Albumin [Mass/Vol] 3.7 g/dL Normal 3.2-5.0 [facility] Comment on above: Performed By: #### L 506.1000, L100.0100, L501.9520, L500.4100, L500.4050 #### [facility] [address] [place], [address] Albumin/Globulin [Mass ratio] 1.0 {ratio} Normal 0.9-2.4 [facility] Comment on above: Performed By: #### L 506.1000, L100.0100, L501.9520, L500.4100, L500.4050 #### [facility] [address] [place], [address] ALK P 71 U/L Normal 45-117 [facility] Comment on above: Performed By: #### L 506.1000, L100.0100, L501.9520, L500.4100, L500.4050 #### [facility] [address] [place], [address] ALT [Catalytic activity/Vol] 53 U/L Normal 13-56 [facility] Comment on above: Performed By: #### L 506.1000, L100.0100, L501.9520, L500.4100, L500.4050 #### [facility] [address] [place], [address] AST [Catalytic activity/Vol] 42 U/L High 15-37 [facility] Comment on above: Performed By: #### L 506.1000, L100.0100, L501.9520, L500.4100, L500.4050 #### [facility] [address] [place], [address] Bilirubin [Mass/Vol] 0.70 mg/dL Normal 0.20-1.00 [facility] Comment on above: Result Comment: For patients on eltrombopag therapy, use of Dimension Craig TBIL is not recommended. Performed By: #### L 506.1000, L100.0100, L501.9520, L500.4100, L500.4050 #### [facility] [address] [place], [address] BUN/CRE 12.2 RATIO Normal 10-20 [facility] Comment on above: Performed By: #### L 506.1000, L100.0100, L501.9520, L500.4100, L500.4050 #### [facility] [address] [place], [address] CA,Total 9.3 mg/dL Normal 8.5-10.1 [facility] Comment on above: Performed By: #### L 506.1000, L100.0100, L501.9520, L500.4100, L500.4050 #### [facility] [address] [place], [address] Chloride [Moles/Vol] 106 mmol/L Normal 98-107 [facility] Comment on above: Performed By: #### L 506.1000, L100.0100, L501.9520, L500.4100, L500.4050 #### [facility] [address] [place], [address] CO2 [Moles/Vol] 27.0 mmol/L Normal 21.0-32.0 [facility] Comment on above: Performed By: #### L 506.1000, L100.0100, L501.9520, L500.4100, L500.4050 #### [facility] [address] [place], [address] Creatinine [Mass/Vol] 0.99 mg/dL Normal 0.55-1.02 [facility] Comment on above: Result Comment: The validity of the calculated GFR GFRAA in patients over 70 years has not been determined. Clinical correlation is essential. Performed By: #### L 506.1000, L100.0100, L501.9520, L500.4100, L500.4050 #### [facility] [address] [place], [address] EST GFR - AA 75 mL/min Normal >60 [facility] Comment on above: Result Comment: Afri can Kenyan GFR Calc Performed By: #### L 506.1000, L100.0100, L501.9520, L500.4100, L500.4050 #### [facility] [address] [place], [address] GAP 7 Normal 5-15 [facility] Comment on above: Performed By: #### L 506.1000, L100.0100, L501.9520, L500.4100, L500.4050 #### [facility] [address] [place], [address] GFR/1.73 sq M.predicted among non-blacks MDRD (S/P/Bld) [Vol rate/Area] 62 mL/min/{1.73_m2} Normal >60 [facility] Comment on above: Result Comment: Non- GFR Calc Performed By: #### L 506.1000, L100.0100, L501.9520, L500.4100, L500.4050 #### [facility] [address] [place], [address] Globulin (S) [Mass/Vol] 3.8 g/dL Normal 2.2-4.2 [facility] Comment on above: Performed By: #### L 506.1000, L100.0100, L501.9520, L500.4100, L500.4050 #### [facility] [address] [place], [address] Glucose [Mass/Vol] 94 mg/dL Normal 74-106 [facility] Comment on above: Performed By: #### L 506.1000, L100.0100, L501.9520, L500.4100, L500.4050 #### [facility] [address] [place], [address] Potassium [Moles/Vol] 4.4 mmol/L Normal 3.5-5.1 [facility] Comment on above: Performed By: #### L 506.1000, L100.0100, L501.9520, L500.4100, L500.4050 #### [facility] [address] [place], [address] Sodium [Moles/Vol] 140 mmol/L Normal 136-145 [facility] Comment on above: Performed By: #### L 506.1000, L100.0100, L501.9520, L500.4100, L500.4050 #### [facility] [address] [place], [address] T PROT 7.5 g/dL Normal 6.4-8.2 [facility] Comment on above: Performed By: #### L 506.1000, L100.0100, L501.9520, L500.4100, L500.4050 #### [facility] [address] [place], [address] Urea nitrogen [Mass/Vol] 12 mg/dL Normal 7-18 [facility] Comment on above: Performed By: #### L 506.1000, L100.0100, L501.9520, L500.4100, L500.4050 #### [facility] [address] [place], [address] Determination of erythrocyte mean corpuscular volume (MCV)Ordered By: Yanna Warren on 01-16-2024 MCV (RBC) [Entitic vol] 89.1 fL 81-99 [facility] Erythrocyte distribution wid th ratioOrdered By: Yanna Warren on 01-16-2024 Erythrocyte distribution width (RBC) [Ratio] 13.0 % 11.6-14.6 [facility] Erythrocyte distribution wid th standard deviationOrdered By: Yanna Warren on 01-16-2024 Erythrocyte distribution width (RBC) [Entitic vol] 42.5 fL 35.1-43.9 [facility] Hematocrit Auto (Bld) [Volum e fraction]Ordered By: Yanna Warren on 01-16-2024 Hematocrit (Bld) [Volume fraction] 39.2 % 37-47 [facility] Immature granulocytes/100 WB C Auto (Bld)Ordered By: Yanna Warren on 01-16-2024 Immature granulocytes/100 WBC (Bld) 0.500 % 0.0-0.9 [facility] Comment on above: IG% - Immature Granu locytes (promyelocytes, myelocytes and metamyelocytes) > 1% indicates that a LEFT SHIFT is Present. Laboratory - Chemistry and C hemistry - challengeOrdered By: Yanna Warren on 01-16-2024 Albumin/Globulin [Mass ratio] 1.0 {ratio} 0.9-2.4 [facility] ALP [Catalytic activity/Vol] 71 U/L 45-117 [facility] ALT [Catalytic activity/Vol] 53 U/L 13-56 [facility] Cholesterol in HDL [Mass/Vol] 48 mg/dL >40 [facility] Comment on above: The drugs N-Acetylcy steine and Metamizole may falsely depress this assay. Reference Range HDL <40 mg/dL Low HDL Cholesterol HDL >or= 60 mg/dL High HDL Cholesterol Cholesterol in LDL [Mass/Vol] 102 mg/dL 0-130 [facility] CO2 [Moles/Vol] 27.0 mmol/L 21.0-32.0 [facility] Globulin (S) [Mass/Vol] 3.8 g/dL 2.2-4.2 [facility] Urea nitrogen/Creatinine [Mass ratio] 12.2 mg/mg 10-20 [facility] - Hematology and Cell countsOrdered By: Yanna Warren on 01-16-2024 MCH (RBC) [Entitic mass] 29.3 pg 27.0-32.0 [facility] MCHC (RBC) [Mass/Vol] 32.9 g/dL 32-36 [facility] Nucleated RBC/100 WBC (Bld) [Ratio] 0 % 0-5 [facility] Platelet mean volume (Bld) [Entitic vol] 9.6 fL 6.2-12.0 [facility] Platelets (Bld) [#/Vol] 272 10*3/uL 150-450 [facility] Lipid Profileon 01-16-2024 Cholesterol [Mass/Vol] 165 mg/dL Normal 200 [facility] Comment on above: Result Comment: <200 mg/dL Desirable 200-240 mg/dL Borderline >240 mg/dL High Risk Performed By: #### L 506.1000, L100.0100, L501.9520, L500.4100, L500.4050 #### [facility] [address] [place], [address] Cholesterol in HDL [Mass/Vol] 48 mg/dL Normal [facility] Comment on above: Result Comment: The drugs N-Acetylcysteine and Metamizole may falsely depress this assay. Reference Range HDL <40 mg/dL Low HDL Cholesterol HDL >or= 60 mg/dL High HDL Cholesterol Performed By: #### L 506.1000, L100.0100, L501.9520, L500.4100, L500.4050 #### [facility] [address] [place], [address] Cholesterol in LDL [Mass/Vol] 102 mg/dL Normal 0-130 [facility] Comment on above: Performed By: #### L 506.1000, L100.0100, L501.9520, L500.4100, L500.4050 #### [facility] [address] [place], [address] Cholesterol in VLDL [Mass/Vol] 15 mg/dL Normal 5-40 [facility] Comment on above: Performed By: #### L 506.1000, L100.0100, L501.9520, L500.4100, L500.4050 #### [facility] [address] [place], [address] Triglyceride [Mass/Vol] 76 mg/dL Normal [facility] Comment on above: Result Comment: The drugs N-Acetylcysteine and Metamizole may falsely depress this assay. Serum Triglycerides Reference Interval Normal <150 mg/dL Borderline high 150 - 199 mg/dL High 200 - 499 mg/dL Very High > or = 500 mg/dL Performed By: #### L 506.1000, L100.0100, L501.9520, L500.4100, L500.4050 #### [facility] [address] [place], [address] No Panel InformationOrdered By: Yanna Warren on 01-16-2024 Estimated GFR (MDRD) Amer 75 mL/min >60 [facility] Comment on above: GFR Calc Estimated GFR (MDRD) Non-Af Amer 62 mL/min >60 [facility] Comment on above: Non- GFR Calc Vitamin D 25-Hydroxy 31.0 ng/mL [facility] Comment on above: Vitamin D 25(OH) Sta tus Range Deficiency <20 ng/mL (50nmol/L) Insufficiency 20 - 30 ng/mL (50 - 75 nmol/L) Sufficiency 30 - 100 ng/mL (75 - 250 nmol/L) Toxicity >100 ng/mL (>250 nmol/L) VLDL Cholesterol 15 mg/dL 5-40 [facility] RBC Auto (Bld) [#/Vol]Ordere d By: Yanna Warren on 01-16-2024 RBC (Bld) [#/Vol] 4.40 10*6/uL 4.2-5.4 [facility] Serum or plasma calcium luisito urement (mass/volume)Ordered By: Yanna Warren on 01-16-2024 Calcium [Mass/Vol] 9.3 mg/dL 8.5-10.1 [facility] Serum or plasma creatinine m easurement (mass/volume)Ordered By: Yanna Warren on 01-16-2024 Creatinine [Mass/Vol] 0.99 mg/dL 0.55-1.02 [facility] Comment on above: The validity of the calculated GFR & GFRAA in patients over 70 years has not been determined. Clinical correlation is essential. Serum or plasma thyroid stim ulating hormone (TSH) measurement (units/volume)Ordered By: Yanna Warren on 01-16-2024 TSH Qn 1.64 uIU/mL 0.358-3.74 [facility] Serum or plasma urea nitroge n measurement (mass/volume)Ordered By: Yanna Warren on 01-16-2024 Urea nitrogen [Mass/Vol] 12 mg/dL 7-18 [facility] Thin prep Papanicolaou smear with manual screeningOrdered By: Yanna Warren on 01-16-2024 Thin prep Papanicolaou smear with manual screening 3.7 g/dL 3.2-5.0 [facility] Thin prep Papanicolaou smear with manual screening 42 U/L 15-37 [facility] Thin prep Papanicolaou smear with manual screening 7 5-15 [facility] Thyroid Stim Hormone (TSH)on 01-16-2024 TSH 1.64 uIU/mL Normal 0.358-3.74 [facility] Comment on above: Performed By: #### L 506.1000, L100.0100, L501.9520, L500.4100, L500.4050 #### [facility] [address] [place], [address] Vitamin D,25 Hydroxyon 01-16 Vitamin D 25-OH 31.0 ng/mL Normal [facility] Comment on above: Result Comment: Shannon min D 25(OH) Status Range Deficiency <20 ng/mL (50nmol/L) Insufficiency 20 - 30 ng/mL (50 - 75 nmol/L) Sufficiency 30 - 100 ng/mL (75 - 250 nmol/L) Toxicity >100 ng/mL (>250 nmol/L) Performed By: #### L 506.1000, L100.0100, L501.9520, L500.4100, L500.4050 #### [facility] [address] [place], [address] Internal Medicine Office Vis iton 01-14-2024 Internal Medicine Office Visit [facility] [address] [place] [address] [place] [address] OFFICE VISIT Date of Service: 01/15/24 MR#: [id number] Acct: [id number] Name: NARAYAN KHOURY Rep #: [id number] : 1970 Provider: Dr. Yanna melton MD Age/Sex: 53/F Location: [facility] Status: Signed Intake Vital Signs 08/02/23 16:55 01/15/24 08:57 Height 4 ft 11 in 4 ft 11 in Weight: 208 lb BMI 42.0 BP 128/66 H Blood Pressure Location Rt brachial Position Sitting Respiration 16 Pulse 40 L Pulse Source Palpation Temp 97.7 F L Temp Source Temporal Pulse Oximetry (%) 98 Oxygen Delivery Method room air Intake Visit Reasons: MED FU Chief Complaint: RF for meloxicam [employer] Tender Required: No Is patient in pain?: No Allergies No Known Allergies Allergy (Unverified 01/15/24 08:55) Medications cholecalciferol (vitamin D3) 125 mcg (5,000 unit) capsule 125 mcg PO DAILY 12/06/22 [History Confirmed 01/15/24] mecobalamin (vitamin B12) 1,000 mcg chewable tablet 1,000 mcg PO DAILY 12/06/22 [History Confirmed 01/15/24] albuterol sulfate 90 mcg/actuation aerosol inhaler (Ventolin HFA) 2 puff inhalation Q6H PRN shortness of breath or wheezing #6.7 grams 10/15/23 [Rx Confirmed 01/15/24] fluticasone 250 mcg-salmeterol 50 mcg/dose blistr powdr for inhalation (Advair Diskus) 1 inh inhalation BID #180 ea 01/15/24 [Rx Confirmed 01/15/24] meloxicam 7.5 mg tablet 7.5 mg PO DAILY #90 tabs 01/15/24 [Rx Confirmed 01/15/24] semaglutide (weight loss) 0.25 mg/0.5 mL subcutaneous pen injector (Wegovy) 0.25 mg (0.5 mL) subcut QWEEK #2 mL 01/15/24 [Rx Confirmed 01/15/24] Nurse's Note: pt would like to discuss alternative to advair due to insurance will no longer cover PFSH Medical History History of anemia History of kidney stones Hx of chronic arthritis Paralysis, diaphragm Vitamin B deficiency Vitamin D deficiency Surgical History Hx of section Family History Son Asthma Father Arthritis Myocardial infarction Mother Cervical cancer Uterine cancer Hypertension Sister Breast cancer Hypertension Sister Cervical cancer Ovarian cancer Sister Autoimmune disorder Social History household members: spouse and family housing: house current occupational status: employed current occupation: Janitorial sexually active: Yes Smoking Status: Never smoker Electronic Cigarette Use: not used alcohol intake: never substance use type: does not use what type of physical activity do you participate in: walking, yoga and weight training frequency: 3-4 times per week seatbelt use: always do you feel safe at home: Yes HPI HPI Chief Complaint: RF for meloxicam Details: NARAYAN KHOURY, is a 53 F who presents to the office today for a follow up. She is due for some routine blood work and screening. She previously declined any immunizations. She doesn't smoke and does need refills today. She reports she is trying to eat healthy and is trying to stay active at work. The patient has a history of sleep apnea. She reports she doesn't tolerate the BiPAP stating it causes nose bleeds and she didn't like the mask on her face. She reports it has been many years since she last used it. Her last sleep study was around that time. She is not interested in trying an alternative mask or resuming the BiPAP at all. She reports she is sleeping fine. 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 Since her last office visit, she did a PFT which was normal. She felt that her symptoms of shortness of breath were getting worse at her last office visit. She continues to use her inhalers which were previously prescribed. She previously declined seeing pulmonology or doing any further work up. She reports that she still has shortness of breath with activity, which is unchanged. She is now willing to do some testing for further assessment on her symptoms. She continues to do well on the meloxicam for her joint pain. She denies any pain currently. She reports the cyst on her chest has resolved since she was last seen. At her last office visit, she had concerns about her weight. Ozempic was denied by her insurance. A referral to a weight loss specialist or the why weight program were discussed, but she wanted to think about it. Her weight remains stable since she was last seen. She reports that she doesn't have time to go see anybody else. She reports she is trying to eat more vegetables in her diet. She states this morning, she had an egg and a piece of toast. For lunch, she will have a ham roll up and for dinner will have tomato soup an (more content not included)... Normal [facility] Absolute lymphocyte countOrd ered By: Dr. Warren on 12-07-2022 Lymphocytes Auto (Unsp spec) [#/Vol] 1.89 10*3/uL 0.83-4.51 [facility] Basophil percentageOrdered B y: Dr. Warren on 12-07-2022 Basophils/100 WBC (Bld) 0.6 % 0-1 [facility] Bilirubin [Mass/Vol] 0.70 mg/dL 0.20-1.00 [facility] Comment on above: For patients on eltr ombopag therapy, use of Dimension Craig TBIL is not recommended. Chloride [Moles/Vol] 105 mmol/L 98-107 [facility] Cholesterol [Mass/Vol] 216 mg/dL <200 [facility] Comment on above: <200 mg/dL Desirable 200-240 mg/dL Borderline >240 mg/dL High Risk Eosinophils/100 WBC (Bld) 2.2 % 0-5 [facility] Glucose [Mass/Vol] 110 mg/dL 74-106 [facility] Comment on above: Fasting Glucose resu lt from 100 to 125 mg/dL suggests IMPAIRED HOMEOSTASIS per A.D.A. criteria. Neutrophils (Bld) [#/Vol] 3.0 10*3/uL 2.0-7.7 [facility] Neutrophils/100 WBC (Bld) 54.9 % 47-70 [facility] Potassium [Moles/Vol] 3.9 mmol/L 3.5-5.1 [facility] Protein [Mass/Vol] 8.0 g/dL 6.4-8.2 [facility] Sodium [Moles/Vol] 139 mmol/L 136-145 [facility] Triglyceride [Mass/Vol] 87 mg/dL <199 [facility] Comment on above: The drugs N-Acetylcy steine and Metamizole may falsely depress this assay.Serum Triglycerides Reference Interval Normal <150 mg/dL Borderline high 150 - 199 mg/dL High 200 - 499 mg/dL Very High > or = 500 mg/dL WBC (Bld) [#/Vol] 5.4 10*3/uL 4.4-11.0 [facility] Blood erythrocytes count (nu mber/volume)Ordered By: Dr. Warren on 12-07-2022 RBC (Bld) [#/Vol] 4.39 10*6/uL 4.2-5.4 [facility] Blood hemoglobin measurement (mass/volume)Ordered By: Dr. Warren on 12-07-2022 Hemoglobin (Bld) [Mass/Vol] 13.2 g/dL 12.0-15.0 [facility] Blood lymphocytes/100 leukoc ytesOrdered By: Dr. Warren on 12-07-2022 Lymphocytes/100 WBC (Bld) 34.9 % 19-41 [facility] Blood monocytes/100 leukocyt esOrdered By: Dr. Warren on 12-07-2022 Monocytes/100 WBC (Bld) 7.2 % 0-10 [facility] Blood platelet mean volumeOr dered By: Dr. Warren on 12-07-2022 Platelet mean volume (Bld) [Entitic vol] 9.3 fL 6.2-12.0 [facility] Determination of erythrocyte mean corpuscular volume (MCV)Ordered By: Dr. Warren on 12-07-2022 MCV (RBC) [Entitic vol] 91.6 fL 81-99 [facility] Hematocrit Auto (Bld) [Volum e fraction]Ordered By: Dr. Warren on 12-07-2022 Hematocrit (Bld) [Volume fraction] 40.2 % 37-47 [facility] - Chemistry and C hemistry - challengeOrdered By: Dr. Warren on 12-07-2022 ALP [Catalytic activity/Vol] 63 U/L 45-117 [facility] ALT [Catalytic activity/Vol] 37 U/L 13-56 [facility] CO2 [Moles/Vol] 28.0 mmol/L 21.0-32.0 [facility] Cobalamin (Vitamin B12) [Mass/Vol] 709 pg/mL 211-911 [facility] Globulin (S) [Mass/Vol] 4.1 g/dL 2.2-4.2 [facility] Urea nitrogen/Creatinine [Mass ratio] 16.8 mg/mg 10-20 [facility] - Hematology and Cell countsOrdered By: Dr. Warren on 12-07-2022 Erythrocyte distribution width (RBC) [Entitic vol] 43.7 fL 35.1-43.9 [facility] Erythrocyte distribution width (RBC) [Ratio] 13.0 % 11.6-14.6 [facility] Immature granulocytes/100 WBC (Bld) 0.200 % 0.0-0.9 [facility] Comment on above: IG% - Immature Granu locytes (promyelocytes, myelocytes and metamyelocytes) > 1% indicates that a LEFT SHIFT is Present. MCH (RBC) [Entitic mass] 30.1 pg 27.0-32.0 [facility] Nucleated RBC/100 WBC (Bld) [Ratio] 0 % 0-5 [facility] MCHC Auto (RBC) [Mass/Vol]Or dered By: Dr. Warren on 12-07-2022 MCHC (RBC) [Mass/Vol] 32.8 g/dL 32-36 [facility] No Panel InformationOrdered By: Dr. Warren on 12-07-2022 Estimated GFR (MDRD) Amer 85 mL/min >60 [facility] Comment on above: GFR Calc Estimated GFR (MDRD) Non-Af Amer 70 mL/min >60 [facility] Comment on above: Non- GFR Calc Vitamin D 25-Hydroxy 26.4 ng/mL [facility] Comment on above: Vitamin D 25(OH) Sta tus Range Deficiency <20 ng/mL (50nmol/L) Insufficiency 20 - 30 ng/mL (50 - 75 nmol/L) Sufficiency 30 - 100 ng/mL (75 - 250 nmol/L) Toxicity >100 ng/mL (>250 nmol/L) Platelets bldOrdered By: Dr. Warren on 12-07-2022 Platelets (Bld) [#/Vol] 255 10*3/uL 150-450 [facility] Serum or plasma albumin luisito urement (mass/volume)Ordered By: Dr. Warren on 12-07-2022 Albumin [Mass/Vol] 3.9 g/dL 3.2-5.0 [facility] Serum or plasma albumin/glob ulin mass ratioOrdered By: Dr. Warren on 12-07-2022 Albumin/Globulin [Mass ratio] 1.0 {ratio} 0.9-2.4 [facility] Serum or plasma calcium luisito urement (mass/volume)Ordered By: Dr. Warren on 12-07-2022 Calcium [Mass/Vol] 9.1 mg/dL 8.5-10.1 [facility] Serum or plasma cholesterol in HDL measurement (mass/volume)Ordered By: Dr. Warren on 12-07-2022 Cholesterol in HDL [Mass/Vol] 64 mg/dL >40 [facility] Comment on above: The drugs N-Acetylcy steine and Metamizole may falsely depress this assay. Reference Range HDL <40 mg/dL Low HDL Cholesterol HDL >or= 60 mg/dL High HDL Cholesterol Serum or plasma cholesterol in VLDL measurement (mass/volume)Ordered By: Dr. Warren on 12-07-2022 Cholesterol in VLDL [Mass/Vol] 17 mg/dL 5-40 [facility] Serum or plasma creatinine m easurement (mass/volume)Ordered By: Dr. Warren on 12-07-2022 Creatinine [Mass/Vol] 0.89 mg/dL 0.55-1.02 [facility] Comment on above: The validity of the calculated GFR & GFRAA in patients over 70 years has not been determined. Clinical correlation is essential. Serum or plasma low density lipoprotein (LDL) cholesterol measurement (mass/volume)Ordered By: Dr. Warren on 12-07-2022 Cholesterol in LDL [Mass/Vol] 135 mg/dL 0-130 [facility] Serum or plasma urea nitroge n measurement (mass/volume)Ordered By: Dr. Warren on 12-07-2022 Urea nitrogen [Mass/Vol] 15 mg/dL 7-18 [facility] Thin prep Papanicolaou smear with manual screeningOrdered By: Dr. Warren on 12-07-2022 Thin prep Papanicolaou smear with manual screening 21 U/L 15-37 [facility] Thin prep Papanicolaou smear with manual screening 6 5-15 [facility] CR Sacroiliac Joints 3+ View son 07-15-2018 CR Sacroiliac Joints 3+ Views Patient Name: NARAYAN KHOURY Diagnostic Radiology Exam Date/Time 07/12/2018 12:48:00 EDT Exam CR Sacroiliac Joints 3+ Views Ordering Physician MD SMITH MATTHEW PATRICK Accession Number [id number] CPT4 Codes 51386 () Reason For Exam M53.3 Report Sacroiliac joints CLINICAL INDICATION: Pain AP and oblique views were obtained. Sacroiliac joints are symmetric and maintained in width. No erosive changes are noted. Minimal hypertrophic changes are present inferiorly. IMPRESSION: No acute osseous abnormality Report Dictated on Workstation: [id number] Final Dictating Physician: MD GUZMAN DIANE Signed Date and Time: 07/14/2018 11:56 pm Signed by: MD GUZMAN DIANE Transcribed Date and Time: 07/14/2018 11:58 Normal [facility] CR Spine Lumbosacral 4+ View son 07-15-2018 CR Spine Lumbosacral 4+ Views Patient Name: NARAYAN KHOURY Diagnostic Radiology Exam Date/Time 07/12/2018 12:48:00 EDT Exam CR Spine Lumbosacral 4+ Views Ordering Physician MD SMITH MATTHEW PATRICK Accession Number [id number] CPT4 Codes 75456 () Reason For Exam low back pain Report Lumbar spine CLINICAL INDICATION: Low back pain AP, lateral, oblique and lumbosacral spot views were obtained. There are four nonrib-bearing lumbar-type vertebra. Vertebral body heights are maintained. The L4 S1 intervertebral disc height is mildly narrowed. No spondylolysis or spondylolisthesis is noted. Mild to moderate hypertrophic facet changes are present most notably between L4 and S1. IMPRESSION: The patient has only four lumbar-type vertebra which is a normal developmental variant Mild to moderate degenerative changes at L4 S1 Report Dictated on Workstation: [id number] Final Dictating Physician: MD GUZMAN DIANE Signed Date and Time: 07/14/2018 11:59 pm Signed by: MD GUZMAN DIANE Transcribed Date and Time: 07/15/2018 0:00 Normal [facility] CR Spine Thoracic 2 Viewson 07-15-2018 CR Spine Thoracic 2 Views Patient Name: NARAYAN KHOURY Diagnostic Radiology Exam Date/Time 07/12/2018 12:48:00 EDT Exam CR Spine Thoracic 2 Views Ordering Physician MD SMITH MATTHEW PATRICK Accession Number [id number] CPT4 Codes 37236 () Reason For Exam M54.6 Report Thoracic spine CLINICAL INDICATION: Pain thoracic spine AP, lateral and swimmer's views were obtained. Diffuse endplate osteophytes are present throughout the thoracic spine, moderate in severity with partial bridging at several levels. The intervertebral disc height is mildly narrowed at T4-T5 and T5-T6 levels. No compression deformities are noted. No focal spondylolisthesis is identified. Pedicles and spinous processes appear intact. IMPRESSION: Diffuse degenerative changes, most severe at T4-T5 and T5-T6 Report Dictated on Workstation: [employer] Final Dictating Physician: MD GUZMAN DIANE Signed Date and Time: 07/14/2018 11:55 pm Signed by: MD GUZMAN DIANE Transcribed Date and Time: 07/14/2018 11:56 Normal [facility] MG Breast Tomosynthesis Scr Blon 04-24-2018 MG Breast Tomosynthesis Scr Bl Patient Name: NARAYAN KHOURY Mammography Exam Date/Time 04/24/2018 11:05:33 EDT Exam MG Breast Tomosynthesis BI Scr Ordering Physician MD SMITH MATTHEW PATRICK Accession Number [id number] CPT4 Codes 77131 (MG Breast Tomosynthesis Scr Bl), 17588 (MG MAMMO 2D SCREENING) Reason For Exam screening Report PATIENT HISTORY: Patient is postmenopausal. Family history of breast cancer at age 57 and liver and brain cancer at age 61 in sister, lung cancer at age 57 and liver and brain cancer at age 61 in sister, endometrial cancer at age 55 and cervical cancer at age 51 in mother, brain cancer under age 50 in maternal grandmother, brain cancer at age 35 in maternal aunt, leukemia at age 38 in maternal uncle. No Hormone Replacement Therapy Patient has never smoked. Patient's BMI is 36.4. TIME SINCE LAST MAMMOGRAM: Last mammogram was performed 5 years and 3 months ago. REASON FOR EXAM: screening, asymptomatic. PROCEDURE: MG BREAST TOMOSYNTHESIS BL SCR: APRIL 24, 2018 - 2D/3D Procedure 3D Bilateral CC and MLO view(s) were taken. 2D Bilateral CC and MLO view(s) were taken. Prior study comparison: January 20, 2013, bilateral screening mammogram, performed at [facility]. March 21, 2010, bilateral diagnostic mammogram, performed at [facility]. TISSUE DENSITY: There are scattered fibroglandular densities. . FINDINGS: No suspicious masses, architectural distortions or suspiciously clustered microcalcifications are identified. There is no evidence of skin thickening or nipple retraction. There are no significant changes when compared with prior studies. Markings on images: BB's = Nipples; skin lesions Open te-moak = Palpable Line = Scar 2D digital mammography and tomosynthesis imaging were performed and reviewed with CAD. ASSESSMENT: Category 1 Negative No mammographic evidence of malignancy. RECOMMENDATION: Routine screening mammogram of both breasts in 1 year. . Report Dictated on Cancer Risk Assessment: This risk assessment is based on patient provided information collected in a risk survey taken at the time of this examination. 5 year breast cancer risk is 1.7% - if greater than or equal to 1.7%, recommend discussion regarding the significance of these results and options for possible risk reduction. Lifetime breast cancer risk: 13.1% - If greater than or equal to 20%, consider annual mammogram and annual screening Breast MRI or follow up in high risk clinic. Is the patient at elevated risk based on the HBOC criteria? No (Hereditary Breast and Ovarian Cancer) - If yes, consider genetic counseling and testing with high risk follow up. HNPCC mutation risk (Sandoval Syndrome): 4.6% - if greater than or equal to 5%, consider genetic counseling, testing and screening colonoscopy. Final Signed Date and Time: 04/24/2018 3:39 pm Signed by: MD DOUGLAS LAUREN B Normal [facility] .Urinalysis Microscopic (AO) on 04-01-2018 RBC Test strip #/vol (U) None Seen Normal None Seen [facility] ([place] Comment on above: Performed By: #### C BC, ADIFF, ANEU, TROP, BMP, GFR ####[address] [place], [place] [address] UA Squam Epithelial None Seen Normal None Seen [facility] ([place] Comment on above: Performed By: #### C BC, ADIFF, ANEU, TROP, BMP, GFR ####[address] [place], [place] [address] UA WBC None Seen Normal None Seen [facility] ([place] Comment on above: Performed By: #### C BC, ADIFF, ANEU, TROP, BMP, GFR ####[address] [place], [place] [address] [facility] Note on 04-01-2018 [facility] Note Normal [facility] ([place] Pat Eduon 04-01-2018 [facility] Normal [facility] ([place] Patient Summary Documentson 04-01-2018 Patient Summary Documents Normal [facility] [place] UAon 04-01-2018 Color Nom (U) YELLOW Normal [facility] ([place] Comment on above: Performed By: #### C BC, ADIFF, ANEU, TROP, BMP, GFR ####[address] [place], [place] [address] Glucose mass conc (U) Negative Normal [facility] ([place] Comment on above: Performed By: #### C BC, ADIFF, ANEU, TROP, BMP, GFR ####[address] [place], [place] [address] Ketones Ql (U) Negative Normal [facility] ([place] Comment on above: Performed By: #### C BC, ADIFF, ANEU, TROP, BMP, GFR ####[address] [place], [place] [address] UA Appear CLEAR Normal [facility] ([place] Comment on above: Performed By: #### C BC, ADIFF, ANEU, TROP, BMP, GFR ####[address] [place], [place] [address] UA Blood Negative [facility] ([place] Comment on above: Performed By: #### C BC, ADIFF, ANEU, TROP, BMP, GFR ####[address] [place], [place] [address] UA Leuk Est Negative [facility] ([place]) Comment on above: Performed By: #### C BC, ADIFF, ANEU, TROP, BMP, GFR ####[address] [place], [place] [address] UA Nitrite Negative [facility]) Comment on above: Performed By: #### C BC, ADIFF, ANEU, TROP, BMP, GFR ####[id number] [place], [place] [address] UA pH 6.0 [facility]) Comment on above: Performed By: #### C BC, ADIFF, ANEU, TROP, BMP, GFR ####[address] [place], [place] [address] UA Protein Negative [facility]) Comment on above: Performed By: #### C BC, ADIFF, ANEU, TROP, BMP, GFR ####[address] [place], [place] [address] UA Spec Grav <=1.005 Invalid Interpretation Code [facility] ([place]) Comment on above: Performed By: #### C BC, ADIFF, ANEU, TROP, BMP, GFR ####[address] [place], [place] [address] UA Specimen Type Void [facility] ([place]) Comment on above: Performed By: #### C BC, ADIFF, ANEU, TROP, BMP, GFR ####[address] [place], [place] [address] UA Urobilinogen 0.2 E.U./dL [facility]) Comment on above: Performed By: #### C BC, ADIFF, ANEU, TROP, BMP, GFR ####[address] [place], [place] [address] Urobilinogen Test strip Qn (U) Negative [facility]) Comment on above: Performed By: #### C BC, ADIFF, ANEU, TROP, BMP, GFR ####[address] [place], [place] [address] XR SPINE LUMBAR 2 VIEWSon XR SPINE LUMBAR 2 VIEWS ORIGINALXR SPINE LUMBAR 2 VIEWS CLINICAL STATEMENT: back pain. COMPARISON: None FINDINGS: There are 5 lumbar type vertebral bodies assuming L1 has a small right-sided rib. Alignment is maintained. Vertebral body heights are preserved. There are small osteophytes at several levels. Disc space narrowing is present L5-S1. . IMPRESSION: No compression deformity or significant listhesis. Interpreted By: Rocio JusticePreliminary Report By: Rocio JusticeElectronically Signed By: Rocio Justice Dictated Date: 04/01/2018 5:27:38 AM Prelim Date: 04/01/2018 5:27:38 AM Sign Date: 04/01/2018 5:29:15 AM Normal [facility] Stress Teston 03-08 [facility] Stress Test Normal [facility]) Depart Summaryon 03-06-2018 Depart Summary Normal [facility] NM MYOCARDIAL SPECT STRESS/R ESTon 03-06-2018 NM MYOCARDIAL SPECT STRESS/REST ORIGINALNM MYOCARDIAL SPECT STRESS/REST CLINICAL STATEMENT: chest pain TECHNIQUE:Stress Protocol:BruceTime Exercised:6:31minutes Predicted Max HR:172 Max HR Achieved:166 Percent Max HR:96 Peak Systolic BP:166/90 mmHgRate-Pressure product: 260Radiopharmaceutical (rest): Tc-99m Sestamibi IV Dose:10.1 mCi Radiopharmaceutical(st ress): Tc-99m Sestamibi IV Dose:32.2 mCi SPECT acquisition:SPECT reconstruction and reorientation into short axis, vertical and horizontal long axis planes Quantitative LVEF assessment COMPARISON:None REPORT:LEFT ventricle appears normal in size on both stress and rest images. Homogeneous radiotracer uptake throughout the myocardium noted on the stress images. On the resting images, there is mild reduction in the radiotracer uptake in the distal anterior and apical region suggestive of soft tissue/breast attenuation artifact. Gated SPECT imaging reveal normal wall motion and normal end-systolic brightening and thickening of all myocardial segments. Calculated LVEF 66% and LEFT ventricle end-diastolic volume 63 mL. IMPRESSION:1. No evidence of inducible ischemia or prior myocardial infarction.2. Normal wall motion and systolic function, LVEF 66%.3. Soft tissue/breast attenuation artifact noted.4. No prior study available for comparison. Interpreted By: Gabi Jewellreliminary Report By: Sebas JewellhElectronically Signed By: Collin Jewell Dictated Date: 03/06/2018 12:39:31 PM Prelim Date: 03/06/2018 12:39:31 PM Sign Date: 03/06/2018 12:45:05 PM Normal [facility] ([place]) [facility] Summary[facility] 03-06-2018 [facility] Patient S ummaryon 03-06-2018 [facility] Summary Normal [facility] TROPon 03-06-2018 Troponin I.cardiac mass conc ng/mL Normal 0.00-0.30 Critical access hospital) Comment on above: Result Comment: >=0. 30 Consistent with cardiac damage, increased clinical risk and possibility of myocardial infarction. Serial measurements, clinical history, appropriate symptoms and/or ECG changes may help assess possibility of TN.*Other non-acute coronary syndrome conditions such as CHF, myocarditis, pulmonary emboli, sepsis and cardiac surgery could result in myocardial damage and increased troponin levels. Performed By: #### C BC, ADIFF, ANEU, TROP, BMP, GFR ####[id number] [place], [place] [address] Troponin I.cardiac mass conc ng/mL Normal 0.00-0.30 Critical access hospital) Comment on above: Result Comment: Belo w measuring range>=0.30 Consistent with cardiac damage, increased clinical risk and possibility of myocardial infarction. Serial measurements, clinical history, appropriate symptoms and/or ECG changes may help assess possibility of TN.*Other non-acute coronary syndrome conditions such as CHF, myocarditis, pulmonary emboli, sepsis and cardiac surgery could result in myocardial damage and increased troponin levels. Performed By: #### C BC, ADIFF, ANEU, TROP, BMP, GFR ####[facility] [place], [place] [address] .Auto Diffon 03-05-2018 Ammonia mass conc (P) 0.50 10 3/mcL Normal 0.15-1.00 [facility] [place] Comment on above: Performed By: #### C BC, ADIFF, ANEU, TROP, BMP, GFR ####[address] [place], [place] [address] Basophils Auto #/vol (Bld) 0.10 10 3/mcL Normal 0.00-0.19 [facility] [place] Comment on above: Performed By: #### C BC, ADIFF, ANEU, TROP, BMP, GFR ####[address] [place], [place] [address] Basophils/100 WBC Auto (Bld) 1.0 % Normal 0.0-2.5 [facility] [place] Comment on above: Performed By: #### C BC, ADIFF, ANEU, TROP, BMP, GFR ####[address] [place], [place] [address] Eosinophils Auto #/vol (Bld) 0.10 10 3/mcL Normal 0.00-0.40 [facility] [place] Comment on above: Performed By: #### C BC, ADIFF, ANEU, TROP, BMP, GFR ####[address] [place], [place] [address] Eosinophils/100 WBC Auto (Bld) 1.4 % Normal 0.0-7.0 [facility] [place] Comment on above: Performed By: #### C BC, ADIFF, ANEU, TROP, BMP, GFR ####[address] [place], [place] [address] Lymphocytes Auto #/vol (Bld) 2.40 10 3/mcL Normal 0.77-3.85 [facility] ([place] Comment on above: Performed By: #### C BC, ADIFF, ANEU, TROP, BMP, GFR ####[address] [place], [place] [address] Lymphocytes/100 WBC Auto (Bld) 31.9 % Normal 10.0-50.0 [facility] ([place] Comment on above: Performed By: #### C BC, ADIFF, ANEU, TROP, BMP, GFR ####[address] [place], [place] [address] Monocytes/100 WBC Auto (Bld) 6.0 % Normal 1.7-13.0 [facility] ([place]) Comment on above: Performed By: #### C BC, ADIFF, ANEU, TROP, BMP, GFR ####[address] [place], [place] [address] Neutrophils/100 WBC Auto (Bld) 59.7 % Normal 37.0-80.0 [facility] ([place]) Comment on above: Performed By: #### C BC, ADIFF, ANEU, TROP, BMP, GFR ####[address] [place], [place] [address] .GFRon 03-05-2018 GFR Non- >60 Normal [facility] [place] Comment on above: Result Comment: GFR Population mean for , Non- Americans Ages 20-29 = 116 mL/min/1.73 sq.m. Ages 30-39 = 107 mL/min/1.73 sq.m. Ages 40-49 = 99 mL/min/1.73 sq.m. Ages 50-59 = 93 mL/min/1.73 sq.m. Ages 60-69 = 85 mL/min/1.73 sq.m. Ages 70+ = 75 mL/min/1.73 sq.m.Chronic Kidney Disease: Less than 60 mL/min/1.73 square metersEnd Stage Renal Disease: Less than 15 mL/min/1.73 square meters Performed By: #### C BC, ADIFF, ANEU, TROP, BMP, GFR ####[address] [place], [place] [address] GFR 84 ml/min/1.73sqm Normal [facility] [place] Comment on above: Result Comment: GFR Population mean for , Non- Americans Ages 20-29 = 116 mL/min/1.73 sq.m. Ages 30-39 = 107 mL/min/1.73 sq.m. Ages 40-49 = 99 mL/min/1.73 sq.m. Ages 50-59 = 93 mL/min/1.73 sq.m. Ages 60-69 = 85 mL/min/1.73 sq.m. Ages 70+ = 75 mL/min/1.73 sq.m.Chronic Kidney Disease: Less than 60 mL/min/1.73 square metersEnd Stage Renal Disease: Less than 15 mL/min/1.73 square meters Performed By: #### C BC, ADIFF, ANEU, TROP, BMP, GFR ####[address] [place], [place] [address] .NEUABSon 03-05-2018 Neutrophil, Absolute 4.50 10 3/mcL Normal 2.85-6.16 [facility] ([place]) Comment on above: Performed By: #### C BC, ADIFF, ANEU, TROP, BMP, GFR ####[address] [place], [place] [address] BMPon 03-05-2018 Calcium mass conc 9.5 mg/dL Normal 8.4-10.2 [facility] ([place] Comment on above: Performed By: #### C BC, ADIFF, ANEU, TROP, BMP, GFR ####[address] [place], [place] [address] Chloride molar conc 105 mmol/L Normal 98-107 [facility] ([place] Comment on above: Performed By: #### C BC, ADIFF, ANEU, TROP, BMP, GFR ####[address] [place], [place] [address] CO2 molar conc 26 mmol/L Normal 22-29 [facility] [place] Comment on above: Performed By: #### C BC, ADIFF, ANEU, TROP, BMP, GFR ####[address] [place], [place] [address] Creatinine mass conc 0.9 mg/dL Normal 0.6-1.2 [facility] ([place]) Comment on above: Performed By: #### C BC, ADIFF, ANEU, TROP, BMP, GFR ####[address] [place], [place] [address] Electrolyte Balance 9.0 mEq/L Normal [facility] ([place] Comment on above: Performed By: #### C BC, ADIFF, ANEU, TROP, BMP, GFR ####[address] [place], [place] [address] Glucose mass conc 98 mg/dL Normal 70-105 [facility] ([place] Comment on above: Performed By: #### C BC, ADIFF, ANEU, TROP, BMP, GFR ####[address] [place], [place] [address] Potassium molar conc 4.9 mmol/L Normal 3.5-5.1 [facility] ([place] Comment on above: Performed By: #### C BC, ADIFF, ANEU, TROP, BMP, GFR ####[address] [place], [place] [address] Sodium molar conc 140 mmol/L Normal 136-146 [facility] ([place] Comment on above: Performed By: #### C BC, ADIFF, ANEU, TROP, BMP, GFR ####[address] [place], [place] [address] Urea nitrogen mass conc 16.6 mg/dL Normal 7.0-18.0 [facility] ([place] Comment on above: Performed By: #### C BC, ADIFF, ANEU, TROP, BMP, GFR ####[address] [place], [place] [address] Urea nitrogen/Creatinine mass ratio 18 ratio Normal 7-27 [facility] ([place] Comment on above: Performed By: #### C BC, ADIFF, ANEU, TROP, BMP, GFR ####[address] [place], [place] [address] CBCon 03-05-2018 Erythrocyte distribution width Auto Ratio (RBC) 13.7 % Normal 11.5-14.5 [facility] ([place] Comment on above: Performed By: #### C BC, ADIFF, ANEU, TROP, BMP, GFR ####[address] [place], [place] [address] Hematocrit Auto Volume Fraction (Bld) 39.2 % Normal 37.0-47.0 [facility] ([place] Comment on above: Performed By: #### C BC, ADIFF, ANEU, TROP, BMP, GFR ####[address] [place], [place] [address] Hemoglobin mass conc (Bld) 13.4 G/dL Normal 12.0-16.0 [facility] ([place] Comment on above: Performed By: #### C BC, ADIFF, ANEU, TROP, BMP, GFR ####[address] [place], [place] [address] MCH Auto Entitic mass (RBC) 29.9 pg Normal 27.0-31.2 [facility] ([place] Comment on above: Performed By: #### C BC, ADIFF, ANEU, TROP, BMP, GFR ####[address] [place], [place] [address] MCHC Auto mass conc (RBC) 34.3 G/dL Normal 33.0-37.0 [facility] ([place] Comment on above: Performed By: #### C BC, ADIFF, ANEU, TROP, BMP, GFR ####[address] [place], [place] [address] MCV Auto Entitic volume (RBC) 87.1 fL Normal 80.0-94.0 [facility] ([place] Comment on above: Performed By: #### C BC, ADIFF, ANEU, TROP, BMP, GFR ####[address] [place], [place] [address] Platelet mean volume Auto Entitic volume (Bld) 7.3 fL Low 7.4-10.4 [facility] [place] Comment on above: Performed By: #### C BC, ADIFF, ANEU, TROP, BMP, GFR ####[address] [place], [place] [address] Platelets Auto #/vol (Bld) 257 10 3/mcL Normal 130-400 [facility] ([place] Comment on above: Performed By: #### C BC, ADIFF, ANEU, TROP, BMP, GFR ####[address] [place], [place] [address] RBC Auto #/vol (Bld) 4.49 10 6/mcL Normal 4.20-5.40 [facility] ([place] Comment on above: Performed By: #### C BC, ADIFF, ANEU, TROP, BMP, GFR ####[address] [place], [place] [address] WBC Auto #/vol (Bld) 7.50 10 3/mcL Normal 4.60-10.80 [facility] ([place] Comment on above: Performed By: #### C BC, ADIFF, ANEU, TROP, BMP, GFR ####[address] [place], [place] [address] [facility] Note on 03-05-2018 [facility] Note Normal [facility] [place] [facility] History and Physica mihsa 03-05-2018 [facility] History and Physical Normal Critical access hospital) Patient Summary Documentson 03-05-2018 Patient Summary Documents Normal Critical access hospital) TROPon 03-05-2018 Troponin I.cardiac mass conc ng/mL Normal 0.00-0.30 [facility] ([place] Comment on above: Result Comment: Belo w measuring range>=0.30 Consistent with cardiac damage, increased clinical risk and possibility of myocardial infarction. Serial measurements, clinical history, appropriate symptoms and/or ECG changes may help assess possibility of TN.*Other non-acute coronary syndrome conditions such as CHF, myocarditis, pulmonary emboli, sepsis and cardiac surgery could result in myocardial damage and increased troponin levels. Performed By: #### C BC, ADIFF, ANEU, TROP, BMP, GFR ####[address] [place], [place] [address] Troponin I.cardiac mass conc ng/mL Normal 0.00-0.30 [facility] ([place] Comment on above: Result Comment: Belo w measuring range>=0.30 Consistent with cardiac damage, increased clinical risk and possibility of myocardial infarction. Serial measurements, clinical history, appropriate symptoms and/or ECG changes may help assess possibility of TN.*Other non-acute coronary syndrome conditions such as CHF, myocarditis, pulmonary emboli, sepsis and cardiac surgery could result in myocardial damage and increased troponin levels. Performed By: #### C BC, ADIFF, ANEU, TROP, BMP, GFR ####[address] [place], [place] [address] XR CHEST 2 VIEWSon 8 XR CHEST 2 VIEWS ORIGINALXR CHEST 2 VIEWS CLINICAL STATEMENT: Chest Pain COMPARISON: 04/25/2013 FINDINGS:Mild asymmetric elevation of the RIGHT hemidiaphragm is noted. The cardiac contours are stable. There is no acute infiltrate or consolidation. No pleural effusion is noted. There is no pneumothorax or pneumomediastinum. Degenerative changes are present in the spine. IMPRESSION:No acute process Interpreted By: Saray Francoreliminary Report By: Saray Franco MDElectronically Signed By: Saray Franco MD Dictated Date: 03/05/2018 11:05:01 AM Prelim Date: 03/05/2018 11:05:01 AM Sign Date: 03/05/2018 11:05:36 AM Normal [facility] ([place]) Vital Signs Date Time Vital Sign Value Performing Clinician Facility 11-28-2024 10:59-0500 Body height 147.3 cm Guzman Jl PIANO MECHANIC APPRENTICE.DISTRIBUTION SPECIALIST Work Phone: [facility] 11-28-2024 10:59-0500 Body mass index (BMI) [Ratio] 36.74 kg/m2 Guzman Jl PIANO MECHANIC APPRENTICE.DISTRIBUTION SPECIALIST Work Phone: [facility] 11-28-2024 10:59-0500 Body weight 79.74 kg Guzman Jl PIANO MECHANIC APPRENTICE.DISTRIBUTION SPECIALIST Work Phone: [facility] 11-28-2024 10:59-0500 Diastolic blood pressure 74 mm[Hg] Guzman Jl PIANO MECHANIC APPRENTICE.DISTRIBUTION SPECIALIST Work Phone: [facility] 11-28-2024 10:59-0500 Heart rate 42 /min Guzman Jl PIANO MECHANIC APPRENTICE.DISTRIBUTION SPECIALIST Work Phone: [facility] Comment on above: patient sees cardiology, hx bradycardia 11-28-2024 10:59-0500 Respiratory rate 18 /min Guzman Jl PIANO MECHANIC APPRENTICE.DISTRIBUTION SPECIALIST Work Phone: [facility] 11-28-2024 10:59-0500 SaO2% (BldA) [Mass fraction] 96 % Guzman Jl PIANO MECHANIC APPRENTICE.DISTRIBUTION SPECIALIST Work Phone: [facility] 11-28-2024 10:59-0500 Systolic blood pressure 130 mm[Hg] Guzman Jl PIANO MECHANIC APPRENTICE.DISTRIBUTION SPECIALIST Work Phone: [facility] 01-15-2024 08:57-0500 Body height 149.[address] Yanna Warren Work Phone: [facility] 01-15-2024 08:57-0500 Body mass index (BMI) [Ratio] 42 kg/m2 Dr. Yanna Warren Work Phone: [facility] 01-15-2024 08:57-0500 Body temperature 97.7 [degF] Dr. Yanna Warren Work Phone: [facility] 01-15-2024 08:57-0500 Body weight 94.[address] Yanna Warren Work Phone: [facility] 01-15-2024 08:57-0500 Diastolic blood pressure 66 mm[Hg] Dr. Yanna Warren Work Phone: [facility] 01-15-2024 08:57-0500 Heart rate 40 /min Dr. Yanna Warren Work Phone: [facility] 01-15-2024 08:57-0500 Respiratory rate 16 /min Dr. Yanna Warren Work Phone: [facility] 01-15-2024 08:57-0500 SaO2% (BldA) [Mass fraction] 98 % Dr. Yanna Warren Work Phone: [facility] 01-15-2024 08:57-0500 Systolic blood pressure 128 mm[Hg] Dr. Yanna Warren Work Phone: [facility] 12-06-2022 10:06-0500 Body height 151.13 cm [facility] Work Phone: [facility] 12-06-2022 10:06-0500 Body mass index (BMI) [Ratio] 40.3 kg/m2 [facility] Work Phone: [facility] 12-06-2022 10:06-0500 Body temperature 97.8 [degF] [facility] Work Phone: [facility] 12-06-2022 10:06-0500 Body weight 92.07 kg [facility] Work Phone: [facility] 12-06-2022 10:06-0500 Diastolic blood pressure 90 mm[Hg] [facility] Work Phone: [facility] 12-06-2022 10:06-0500 Heart rate 61 /min [facility] Work Phone: [phone] [place] [address] 12-06-2022 10:06-0500 Respiratory rate 16 /min [facility] Work Phone: [facility] 12-06-2022 10:06-0500 SaO2% (BldA) [Mass fraction] 97 % [facility] Work Phone: [facility] 12-06-2022 10:06-0500 Systolic blood pressure 128 mm[Hg] [facility] Work Phone: [facility] Encounters Encounter Date Encounter Type Care Provider Facility Start: 11-28-2024 End: 11-28-2024 Patient encounter procedure Guzman Parikh APRN.DISTRIBUTION SPECIALIST Work Phone: Neurology Comment on above: Obstructive sleep ap chuyita (Primary Dx); Intolerance of continuous positive airway pressure (CPAP) ventilation Start: 11-28-2024 End: 11-28-2024 ambulatory GUZMAN PARIKH Facility:[facility] Start: 08-11-2024 End: 08-11-2024 ambulatory Yanna Warren Facility:[facility] Start: 08-05-2024 End: 08-05-2024 ambulatory Yanna Warren Facility:[facility] Start: 02-28-2024 End: 02-28-2024 ambulatory Yanna Warren Facility:[facility] Start: 02-08-2024 Non-patient / Non-visit Dr. Ramirez Work Phone: [facility] Start: 02-08-2024 End: 02-08-[address] Yanna Warren Work Phone: [facility] Work Phone: Start: 02-08-2024 End: 02-08-[address] Yanna Warren Work Phone: [facility]Cardi[facility] Work Phone: Start: 02-08-2024 End: 02-08-2024 ambulatory Yanna Warren Facility:[facility] Start: 02-06-2024 End: 02-06-[address] Yanna Warren Work Phone: [facility] Work Phone: Start: 02-06-2024 End: 02-06-[address] Yanna Warren Work Phone: [facility]/Neurology Work Phone: Start: 02-06-2024 End: 02-06-2024 ambulatory Yanna Warren Facility:[facility] Start: 01-23-2024 End: 01-23-[address] Yanna Warren Work Phone: [facility] Work Phone: Start: 01-23-2024 End: 01-23-[address] Yanna Warren Work Phone: [facility]Out[facility] Work Phone: Start: 01-23-2024 End: 01-23-2024 ambulatory Yanna Warren Facility:[facility] Start: 01-16-2024 End: 01-16-[address] Yanna Warren Work Phone: [facility] Work Phone: Start: 01-16-2024 End: 01-16-[address] Yanna Warren Work Phone: [facility] Start: 01-15-2024 End: 01-15-[address] Yanna Warren Work Phone: [facility] Work Phone: Start: 01-15-2024 End: 01-16-2024 ambulatory Yanna Warren Facility:[facility] Start: 12-07-2022 End: 12-07-2022 ambulatory [facility] Work Phone: [facility] Work Phone: Start: 12-07-2022 End: 12-07-2022 Patient encounter procedure [facility] Work Phone: [facility], [place] Start: 12-06-2022 End: 12-06-2022 Patient encounter procedure [facility] Work Phone: [facility] Start: 07-12-2018 Patient encounter Rocco Carter [facility] Start: 06-19-2018 Patient encounter ROCCO Clemons acility:B Start: 04-24-2018 Patient encounter Rocco Casandra [facility] Start: 04-01-2018 End: 04-01-2018 Emergency department patient visit HERMILO CHRISTIANSON Facility:B Start: 03-05-2018 End: 03-06-2018 Patient encounter ABHIRAVEN BAPTISTE Facility:B Start: 08-22-2017 Patient encounter Rocco [facility] Procedures Date Procedure Procedure Detail Performing Clinician Start: 01-23-2024 Screening mammography Byron Warren Work Phone: H/O: section Hx of sect ion [facility] Work Phone: Plan of Treatment Date Care Activity Detail Author Start: 12-19-2025 Screening for malignant neoplasm of colon [facility] Start: 07-20-2024 Covid-19 Vaccine ( season) Covid-19 Vaccine ( season) [facility] Start: 07-20-2024 Influenza vaccination [facility] (#[facility] Start: 01-15-2024 Patient referral [facility] Work Phone: Start: 2019 Pneumococcal Vaccine: 50+ (1 of 1 - PCV) Pneumococcal Vaccine: 50+ (1 of 1 - PCV) [facility] Start: 2019 Shingrix Vaccine (1 of 2) Shingrix Vaccine (1 of 2) [facility] Start: 2014 Diabetes Screening Diabetes Screening [facility] Start: 2014 Lipid panel Lipid Screening [facility] Start: 2014 Screening for malignant neoplasm of colon [facility] Start: 2009 Screening for malignant neoplasm of breast Mammogram Screening [facility] Start: 1990 Screening for malignant neoplasm of cervix Cervical Cancer Screening [facility] Start: 1988 Hepatitis B Vaccine (1 of 3 - 19+ 3-dose series) Hepatitis B Vaccine (1 of 3 - 19+ 3-dose series) [facility] Start: 1988 Urine microalbumin profile DTaP,Tdap,Td Vaccine (1 - Tdap) [facility] Start: 1987 Anxiety Screening Anxiety Screening [facility] Start: 1987 Depression Screening Depression Screening [facility] Start: 1987 Hepatitis C screening Hepatitis C Screening [facility] Start: 1987 HIV screening HIV Screening [facility] Ambulatory ECG [facility] Inhalation bronchial challenge testing [facility] MG Breast - bilatera l Screening [facility] MG Breast - bilatera l Screening [facility] Patient referral [facility] Work Phone: [facility] Payers Date Payer Category Payer Self-pay [id number] 2021 Unknown 2021 Unknown [id number] 2018 Unknown [id number] Unknown [id number] 2.16.8 [id number] Unknown [id number] 2.16.8 [id number] Unknown [id number] 2.16.8 [id number] Unknown [id number] 2.16.8 [id number] Unknown [id number] 2.16.8 [id number] Unknown [id number] 2.16.8 [id number] Unknown [id number] 2.16.8 [id number] Unknown [id number] 2.16.8 [id number] Unknown [id number] 2.16.8 [id number] Unknown [id number] 2.16.8 [id number] Social History Date Type Detail Facility Start: 12-06-2022 End: 01-14-2024 Tobacco smoking status AKIS Unknown if ever smoked [facility] Start: 1970 Sex Assigned At Female W [facility] [place] Start: 11-28-2024 Tobacco smoking stat us AKIS Never smoked tobacco [facility] Start: 11-28-2024 Tobacco use and exposure Smokeless tobacco non-user [facility] Start: 11-28-2024 Alcoholic beverage intake Current non-drinker of alcohol (finding) [facility] Start: 11-28-2024 History of Social function [facility] Start: 11-28-2024 Tobacco use panel [facility] National Score (1-10 0), lower number is lower risk 74 [facility] Start: 11-28-2024 Tobacco Comment Parents were s mokers in childhood home. Spouse a non-smoker. [facility] Start: 1970 Sex assigned at Not on file C [facility] Instructions 11-28-2024 Patient Instructions Note Date & Type Note Facility 11-28-2024 Instructions Guzman Parikh APRN.DISTRIBUTION SPECIALIST - 11/28/2024 11:53 AM EST Images from the original note were not included. Sleep Apnea What is sleep apnea? Sleep apnea is a serious sleep disorder that occurs when a person s breathing is interrupted during sleep. People with untreated sleep apnea stop breathing repeatedly during their sleep, sometimes hundreds of times during the night. There are two types of sleep apnea: obstructive and central. Obstructive sleep apnea (OMAYRA) is the more common of the two. Obstructive sleep apnea occurs as repetitive episodes of complete or partial upper airway blockage during sleep. During an apnea episode, the diaphragm and chest muscles work harder as the pressure increases to open the airway. Breathing usually resumes with a loud gasp or body jerk. These episodes can interfere with sound sleep, reduce the flow of oxygen to vital organs, and cause heart rhythm irregularities. In central sleep apnea (CSA), the airway is not blocked but the brain fails to signal the muscles to breathe due to instability in the respiratory control center. Central apnea is named as such because it is related to the function of the central nervous system. Who gets sleep apnea? Sleep apnea occurs in about 25 percent of men and nearly 10 percent of women. Sleep apnea can affect people of all ages, including babies and children and particularly people over the age of forty and those who are overweight. Certain physical traits and clinical features are common in patients with obstructive sleep apnea. These include excessive weight, large neck, and structural abnormalities reducing the diameter of the upper airway, such as nasal obstruction, a low-hanging soft palate, enlarged tonsils, or a small jaw with an overbite. The figures below illustrate the upper airway in normal sleep: (A) person is lying on back, face up, and (B) in obstructive sleep apnea. The arrows indicate complete obstruction in the back of the throat. Normal (A) Sleep apnea (B): What causes sleep apnea? Obstructive sleep apnea is caused by a blockage of the airway, usually when the soft tissues in the rear of the throat collapse during sleep. Central sleep apnea is usually observed in patients with central nervous system dysfunction, such as following a stroke or in patients with neuromuscular diseases like amyotrophic lateral sclerosis. It is also common in patients with heart failure and other forms of cardiac and pulmonary disease. What are the symptoms of sleep apnea? Often the first signs of obstructive sleep apnea are recognized not by the patient, but by the bed partner. Many of those affected have no sleep complaints. The most common symptoms of OMAYRA include: Snoring Daytime sleepiness or fatigue Restlessness during sleep Sudden awakenings with a sensation of gasping or choking Dry mouth or sore throat upon awakening Intellectual impairment, such as trouble concentrating, forgetfulness, or irritability Night sweats Sexual dysfunction Headaches People with central sleep apnea more often report recurrent awakenings or insomnia, although they may also experience a choking or gasping sensation with sudden awakenings. Symptoms in children may not be as obvious and include: Poor school performance Sluggishness or sleepiness, often misinterpreted as laziness in the classroom Daytime mouth breathing and swallowing difficulty Inward movement of the ribcage when inhaling Unusual sleeping positions, such as sleeping on the hands and knees, or with the neck hyper-extended Excessive sweating at night Learning and behavioral disorders Bedwetting What are the effects of sleep apnea? If left untreated, sleep apnea can result in a number of health problems including hypertension, stroke, arrhythmias, cardiomyopathy (enlargement of the muscle tissue of the heart), congestive heart failure, diabetes, and heart attacks. In addition, untreated sleep apnea may be responsible for job impairment, work-related accidents, and motor vehicle crashes as well as academic underachievement. How is sleep apnea diagnosed? The diagnosis of sleep apnea is relatively straightforward, based on sleep history and an overnight sleep study called a polysomnogram. Polysomnogram is performed in a sleep laboratory under the direct supervision of a trained technologist. During the test, a variety of body functions, such as the electrical activity of the brain, eye movements, muscle activity, heart rate, breathing patterns, air flow, and blood oxygen levels are recorded at night during sleep. After the study is completed, the number of times breathing is impaired during sleep is tallied and the severity of sleep apnea is graded. In some cases, a multiple sleep latency test is performed on the day after the overnight test to measure the speed of falling asleep. In this test, patients are given several opportunities to fall asleep during the course of a day when they normally would be awake. If you have symptoms of sleep apnea, your doctor may ask you to have a sleep evaluation in a sleep disorder center. What are the treatments for sleep apnea? Conservative treatments: In mild cases of sleep apnea, conservative therapy may be all that is needed. Overweight persons can benefit from losing weight. Even a ten percent weight loss can reduce the number of apneic events for most patients. Individuals with apnea should avoid the use of alcohol and sleeping pills, which make the airway more likely to collapse during sleep and prolong the apneic periods. In some patients with mild sleep apnea, breathing pauses occur only when they sleep on their backs. In such cases, using pillows and other devices that help them sleep in a side position may be helpful. People with sinus problems or nasal congestion (such people are more likely to experience sleep apnea) should use nasal sprays or breathing strips to reduce snoring and improve airflow for more comfortable nighttime breathing. Avoiding sleep deprivation is important for all patients with sleep disorders. Mechanical therapy: Continuous Positive Airway Pressure (CPAP) is the preferred initial treatment for most people with obstructive sleep apnea. With CPAP, patients wear a mask over their nose and/or mouth. An air blower forces air through the nose and/or mouth. The air pressure is adjusted so that it is just enough to prevent the upper airway tissues from collapsing during sleep. The pressure is constant and continuous. CPAP prevents airway closure while in use, but apnea episodes return when CPAP is stopped or it is used improperly. Other styles and types of positive airway pressure devices are available for people who have difficulty tolerating CPAP. These include Bilevel Positive Airway Pressure (BiPAP), Auto Positive Airway Pressure (AutoPAP), Auto/Adaptive Servo-Ventilation (ASV), etc Oral appliances: For patients with mild/moderate sleep apnea, dental appliances or oral mandibular advancement devices that prevent the tongue from blocking the throat and/or advance the lower jaw forward can be made. These devices help keep the airway open during sleep. A sleep specialist and environmental compliance manager (with expertise in oral appliances for this purpose) should jointly determine if this treatment is best for you. Surgery: Surgical procedures may help people with sleep apnea. There are many types of surgical procedures, some of which are performed as outpatient procedures. Surgery is reserved for people who have excessive or malformed tissue obstructing airflow through the nose or throat, such as a deviated nasal septum, markedly enlarged tonsils, or small lower jaw with an overbite that causes the throat to be abnormally narrow. These procedures are typically performed after sleep apnea has failed to respond to conservative measures and a trial of positive airway pressure treatment. Types of surgery include: Somnoplasty: A minimally invasive procedure that uses radiofrequency energy to reduce the soft tissue in the upper airway. Uvulopalatopharyngoplasty (UPPP): A procedure that removes soft tissue on the back of the throat and palate, increasing the width of the airway at the throat opening. Maxillary/Mandibular advancement surgery: A surgical correction of certain facial abnormalities or throat obstructions that contribute to sleep apnea. This is an invasive procedure that is reserved for patients with severe sleep apnea with head-face abnormalities. Nasal surgery: Correction of nasal obstructions, such as a deviated septum. Hypoglossal nerve stimulator: FDA approved 2013. (Implant that sends a lead that goes to bottom of tongue to stimulate it forward out of the area of the back of the throat) Resources: The [facility] Guide to Sleep Disorders by Onelia Pak DO [employer] [address] [place] [address] [address] [facility] [address] [email or web address] [place] [employer] [address] [place] [address], [address] [place] [address] [email or web address].[email or web address]/ To re-test you for sleep apnea we can do a home sleep apnea test (HSAT) documented in this encounter [facility] History of Present illness Narrative 11-28-2024 Guzman Parikh APRN.CNP - 11/28/2024 11:00 AM EST Note Date & Type Note Facility 11-28-2024 History of Presen t illness Narrative Images from the original note were not included. [facility] Sleep Disorders Center New Patient Evaluation PATIENT NAME: Narayan Khoury DATE OF SERVICE: November 27, 2024 CONSULTING PROVIDER: Delfino Snyder [id number] [facility] [address] REASON FOR CONSULT: Delfino Snyder sends the patient for an opinion about sleep apnea. My findings and recommendations will be transmitted by letter via [place] postal service to the consulting provider. HPI: Geneva Khoury is a 54 year old female. Sleep-related history: OMAYRA diagnosed in 2012, managed previously by Pulm Dr Newton, was on biPAP 15/9 cmH2O but she reports she didn't tolerate PAP therapy. Had frequent nosebleeds from PAP. Couldn't sleep with mask, woke up less refreshed with PAP on. Tried adjusting pressure multiple times but didn't tolerate it. 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 When she initially presented and was diagnosed with sleep apnea she had witnessed apneas, possible dream enactment behavior, leg movements in sleep--her reports none of those sxs at this time. Heart issues on her father's side SLEEP-WAKE SCHEDULE She is a self-described morning person. Bedtime: 10 PM. She does not have a hard time falling asleep. Wake time: 5-530 AM, without an alarm. After falling asleep: she wakes up 1 time(s) per night, because of the need to urinate. Falls right back to sleep. On weekends, she tends to stay up until 11 PM - MN and sleeps until 7 AM. Average total sleep time (in a 24 hour period): 7 hours. SLEEP-RELATED DETAILS Preferred sleep position: side, back, or prone Breathing disturbances and other behaviors during sleep: occas snoring. Bruxism: No. No dental issues (a few missing teeth) or TMJ issues GERD or aspiration: No Waking up with heart pounding or racing: No Anxiety or rumination: No She does not report having an urge to move the legs in the evening (when resting) that is accompanied or caused by uncomfortable and/or unpleasant sensations in the legs. She has not been told that she has leg kicking during sleep. She denies any history of parasomnias. told her she used to flail her arms and kick him in the night, hasn't occurred for at least 7 yrs; he never woke her up. She rarely recalls dreams. Excessive daytime sleepiness / fatigue is a problem. She reports more tired than sleepy. Excessive Daytime sleepiness/fatigue has been a problem for lifelong.. There is no history of a viral illness or significant head injury prior to the start of daytime sleepiness. 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 She does not have difficulty with memory or concentration. She denies falling asleep or dozing off when driving. She does not take naps. She does drink 2-3 caffeinated beverages per day. She has lost 40 pounds since 6 mos. Patient Questionnaires Sleep Scores PAST TREATMENTS: Bilevel PAP PRIOR SLEEP STUDIES: 7/1/13 PSG: AHI 23, supine AHI 26, REM AHI 29 07/15/13 PAP titration: recommended biPAP 15/9 cmH2O PAST MEDICAL HISTORY Diagnosis Date Asthma H. pylori infection Osteoarthritis Secondary pulmonary hypertension PAST SURGICAL HISTORY Procedure Laterality Date TUBAL LIGATION, 1994 [facility] DELIVERY SCHEDULING ORDER 3 deliveries There is no problem list on file for this patient. Allergies As of Date: 11/28/2024 Allergen Noted Reaction ASPIRIN 06/12/2013 Other: See Comments Fully Assessed 11/28/2024 CURRENT MEDICATIONS: meloxicam (MOBIC) 7.5 mg tablet Take 7.5 mg by mouth two times a day. fluticasone-salmeterol (ADVAIR, WIXELA) 250-50 mcg/dose inhaler Use 1 inhalation twice daily Cholecalciferol, Vitamin D3, (VITAMIN D-3) 2,000 unit cap Take by mouth once daily. acetaminophen (TYLENOL) 325 mg tablet Take 650 mg by mouth every 4 hours as needed. cyanocobalamin, vitamin B-12, (VITAMIN B-12 ORAL) Take by mouth. SEMAGLUTIDE SUBCUTANEOUS Inject subcutaneously. Review of Systems Constitutional: Positive for fatigue. Negative for recent unintentional weight change. HENT: Negative for congestion. Cardiovascular: Negative for palpitations. Low heart rate Gastrointestinal: Negative for heartburn. Genitourinary: Positive for nocturia (just once a night). Neurological: Positive for headaches (but not often or severe, no morning headaches). Negative for memory loss. SOCIAL HISTORY: Social History Tobacco Use Smoking status: Never Smokeless tobacco: Never Tobacco comments: Parents were smokers in childhood home. Spouse a non-smoker. Substance Use Topics Alcohol use: No Drug use: No FAMILY HISTORY: FAMILY HISTORY Problem Relation Age of Onset Ischemic Heart Disease Father [place], age 63 Cancer Mother Uterine, age 59 Ischemic Heart Disease Mother [place], age 30 Breast Cancer Sister age 54 Cancer Sister Lung, cervix, ovaries. Age 58 Allergies Son Asthma Son Allergies Other Nephew Asthma Other Nephew There is a family history of: Sleep apnea. Relative: son PHYSICAL EXAMINATION: Vital Signs: BP 130/74 (BP Site: Right Arm, BP Position: Sitting) Pulse (!) 42 Resp 18 Ht 147.3 cm (4' 10) Wt 79.7 kg (175 lb 12.8 oz) SpO2 96% BMI 36.74 kg/m PHYSICAL EXAM: General appearance: pleasant, NAD Mental status: alert and oriented, able to provide own history Constitutional: obese Skin: No visible rashes on exposed skin Neuro: No focal deficits observed, no tremors ENT : Nasal congestion absent, Nasal valve incompetence. Posterior airspace: Chen tongue position 3, retrognathia absent. Overbite absent. High arched palate present. Tongue scalloping/ridging present. IMPRESSION/PLAN: G47.33 Obstructive sleep apnea (primary encounter diagnosis) Z78.9 Intolerance of continuous positive airway pressure (CPAP) ventilation Geneva Khoury is a delightful 54 year old female with PMH of moderate OMAYRA, biPAP intolerance, obesity We discussed OMAYRA in detail, risks of untreated OMAYRA, testing, treatment options. She would like to discuss with her re HSAT, concern about cost She is interested in hypoglossal nerve stimulation (Inspire). We discussed Inspire. Would need an updated sleep study. Would likely need to show recent CPAP intolerance--she still has her biPAP machine (we could use it with sample mask, she could buy hose) then view data on the machine to prove intolerance. She is hesitant to have to pay to rent a new machine. Guzman Parikh APRN.DELL documented in this encounter [facility] Progress note 11-28-2024 Note Date & Type Note Facility 11-28-2024 Note HNO ID: [id number] Author: GUZMAN PARIKH APRN.DELL Service: ? Author Type: Nurse Practitioner Type: Progress Notes Filed: 12/09/2024 09:11 Note Text: [facility] Sleep Disorders Center New Patient Evaluation PATIENT NAME: Narayan Khoury DATE OF SERVICE: November 27, 2024 CONSULTING PROVIDER: Delfino Snyder [address] [facility] [address] REASON FOR CONSULT: Delfino Snyder sends the patient for an opinion about sleep apnea. My findings and recommendations will be transmitted by letter via [place] postal service to the consulting provider. HPI: Geneva Khoury is a 54 year old female. Sleep-related history: OMAYRA diagnosed in 2012, managed previously by Pulm Dr Olbrych, was on biPAP 15/9 cmH2O but she reports she didn't tolerate PAP therapy. Had frequent nosebleeds from PAP. Couldn't sleep with mask, woke up less refreshed with PAP on. Tried adjusting pressure multiple times but didn't tolerate it. 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 When she initially presented and was diagnosed with sleep apnea she had witnessed apneas, possible dream enactment behavior, leg movements in sleep--her reports none of those sxs at this time. Heart issues on her father's side SLEEP-WAKE SCHEDULE She is a self-described morning person. Bedtime: 10 PM. She does not have a hard time falling asleep. Wake time: 5-530 AM, without an alarm. After falling asleep: she wakes up 1 time(s) per night, because of the need to urinate. Falls right back to sleep. On weekends, she tends to stay up until 11 PM - MN and sleeps until 7 AM. Average total sleep time (in a 24 hour period): 7 hours. SLEEP-RELATED DETAILS Preferred sleep position: side, back, or prone Breathing disturbances and other behaviors during sleep: occas snoring. Bruxism: No. No dental issues (a few missing teeth) or TMJ issues GERD or aspiration: No Waking up with heart pounding or racing: No Anxiety or rumination: No She does not report having an urge to move the legs in the evening (when resting) that is accompanied or caused by uncomfortable and/or unpleasant sensations in the legs. She has not been told that she has leg kicking during sleep. She denies any history of parasomnias. told her she used to flail her arms and kick him in the night, hasn't occurred for at least 7 yrs; he never woke her up. She rarely recalls dreams. Excessive daytime sleepiness / fatigue is a problem. She reports more tired than sleepy. Excessive Daytime sleepiness/fatigue has been a problem for lifelong.. There is no history of a viral illness or significant head injury prior to the start of daytime sleepiness. 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 She does not have difficulty with memory or concentration. She denies falling asleep or dozing off when driving. She does not take naps. She does drink 2-3 caffeinated beverages per day. She has lost 40 pounds since 6 mos. Patient Questionnaires Sleep Scores PAST TREATMENTS: Bilevel PAP PRIOR SLEEP STUDIES: 05/19/13 PSG: AHI 23, supine AHI 26, REM AHI 29 07/15/13 PAP titration: recommended biPAP 15/9 cmH2O PAST MEDICAL HISTORY Diagnosis Date Asthma H. pylori infection Osteoarthritis Secondary pulmonary hypertension PAST SURGICAL HISTORY Procedure Laterality Date TUBAL LIGATION, 1994 [facility] DELIVERY SCHEDULING ORDER 3 deliveries There is no problem list on file for this patient. Allergies As of Date: 11/28/2024 Allergen Noted Reaction ASPIRIN 06/12/2013 Other: See Comments Fully Assessed 11/28/2024 CURRENT MEDICATIONS: meloxicam (MOBIC) 7.5 mg tablet Take 7.5 mg by mouth two times a day. fluticasone-salmeterol (ADVAIR, WIXELA) 250-50 mcg/dose inhaler Use 1 inhalation twice daily Cholecalciferol, Vitamin D3, (VITAMIN D-3) 2,000 unit cap Take by mouth once daily. acetaminophen (TYLENOL) 325 mg tablet Take 650 mg by mouth every 4 hours as needed. cyanocobalamin, vitamin B-12, (VITAMIN B-12 ORAL) Take by mouth. SEMAGLUTIDE SUBCUTANEOUS Inject subcutaneously. Review of Systems Constitutional: Positive for fatigue. Negative for recent unintentional weight change. HENT: Negative for congestion. Cardiovascular: Negative for palpitations. Low heart rate Gastrointestinal: Negative for heartburn. Genitourinary: Positive for nocturia (just once a night). Neurological: Positive for headaches (but not often or severe, no morning headaches). Negative for memory loss. SOCIAL HISTORY: Social History Tobacco Use Smoking status: Never Smokeless tobacco: Never Tobacco comments: Parents were smokers in childhood home. Spouse a non-smoker. Substance Use Topics Alcohol use: No Drug use: No FAMILY HISTORY: FAMILY HISTORY Problem Relation Age of Onset Ischemic Heart (more content not included)... [facility] Evaluation note Note Date & Type Note Facility Evaluation note Diagnosis Onset Date Obstructive sleep apnea acut e Paralysis, diaphragm acute Vitamin B deficiency acute Vitamin D deficiency acute Arthritis pain noneactive Immunization declined noneac tive Screening for colon cancer n oneactive Establishing care with betty dietz, encounter for noneactive Mixed hyperlipidemia noneact camila Morbid obesity with BMI of 40.0-44.9, adult noneactive Screening for breast cancer noneactive [facility] Work Phone: Evaluation note Note Date & Type Note Facility Evaluation note Diagnosis Onset Date Obstructive sleep apnea acut e Paralysis, diaphragm acute Vitamin D deficiency acute Arthritis pain noneactive Shortness of breath noneacti ve Bradycardia noneactive Mixed hyperlipidemia noneact camila Morbid obesity with BMI of 40.0-44.9, adult noneactive Screening for breast cancer noneactive [facility] Work Phone: Evaluation note Note Date & Type Note Facility Evaluation note Diagnosis Obstructive sleep apnea- Primary Obstructive sleep apnea (adult) (pediatric) Intolerance of continuous positive airway pressure (CPAP) ventilation documented in this encounter [facility] Summary Purpose Family History No Family History Records Found Relationship Condition Age at Onset Recorded Date/T doretha son Asthma Unknown father Arthritis Unknown Myocardial infarction Unknown mother Malignant neoplasm of cervix Unknown Malignant neoplasm of uterus Unknown Hypertension Unknown sister Malignant neoplasm of breast Unknown sister Malignant neoplasm of cervix Unknown Malignant neoplasm of ovary Unknown sister Autoimmune disorder Unknown Advance Directives No Advanced Directives Records FoundNo Advanced Directives Records FoundNo Advanced Directives Records FoundNo Advanced Directives Records Found Chief Complaint and Reason for Visit Chief Complaint RN CORRECTIONS, EST CARE. Reason for Visit Obstructive sleep ap chuyita Paralysis, diaphragm Vitamin B deficiency Vitamin D deficiency Arthritis pain Immunization declined Screening for colon cancer Establishing care with new doctor, encounter for Mixed hyperlipidemia Morbid obesity with BMI of 40.0-44.9, adult Screening for breast cancer Chief Complaint MED FU Reason for Visit Obstructive sleep ap chuyita Paralysis, diaphragm Vitamin D deficiency Arthritis pain Shortness of breath Bradycardia Mixed hyperlipidemia Morbid obesity with BMI of 40.0-44.9, adult Screening for breast cancer Chief Complaint MED FU SCREENING Reason for Visit Obstructive sleep ap chuyita Paralysis, diaphragm Vitamin D deficiency Arthritis pain Shortness of breath Bradycardia Mixed hyperlipidemia Morbid obesity with BMI of 40.0-44.9, adult Screening for breast cancer Chief Complaint MED FU SCREENING SOB DYSPNEA Reason for Visit Obstructive sleep ap chuyita Paralysis, diaphragm Vitamin D deficiency Arthritis pain Shortness of breath Bradycardia Mixed hyperlipidemia Morbid obesity with BMI of 40.0-44.9, adult Screening for breast cancer Additional Source Comments INFORMATION SOURCE (unrecogn ized section and content) DATE CREATED AUTHOR 06/19/2018 [employer] ([place]) DATE CREATED AUTHOR AUTHOR'S ORGANIZ ATION 07/17/2018 [facility] DATE CREATED AUTHOR AUTHOR'S ORGANIZ ATION 08/28/2024 [facility] DATE CREATED AUTHOR AUTHOR'S ORGANIZ ATION 12/10/2024 [facility] Care Teams (unrecognized sec tion and content) Team Status: Active Member Role Status Dates Dr. Yanna Warren MD Primary Care Provider Active Team Status: Inactive Member Role Status Dates [facility] Primary Care Provider, Referring Provider Active Dr. Yanna Warren MD Attending Provider Active Team Status: Inactive Member Role Status Dates Dr. Yanna Warren MD Primary Care Provider, Attendi ng Provider Active Team Status: Inactive Member Role Status Dates Dr. Yanna Warren MD Primary Care Pro vider, Attending Provider, Referring Provider Active Team Status: Active Member Role Status Dates Dr. Yanna Warren MD Primary Care Provider Active Dr. Chris Doyle MD Attending Provider Active Team Status: Active Member Role Status Dates Dr. Yanna Warren MD Primary Care Pro vider, Attending Provider, Referring Provider Active Retail Assistant Store Manager Relationship Specialty Start Date End Date Delfino Snyder NP [address] [place] [address] PCP - General Family Medicine 09/08/24 Rocco Smith MD [address] [place] [address] PCP Resident Family Medicine 06/10/13 Goals (unrecognized section and content) Goals may be documented in a n alternate sectionGoals may be documented in an alternate sectionGoals may be documented in an alternate sectionGoals may be documented in an alternate sectionGoals may be documented in an alternate section Source Comments (unrecognize d section and content) In the event this informatio n is protected by the Federal Confidentiality of Alcohol and Drug Abuse Patient Records regulations: The Federal rules restrict any use of the information to criminally investigate or prosecute any alcohol or drug abuse patient.[facility] Reason for Visit (unrecogniz ed section and content) Reason Comments New Patient OMAYRA evaluation, had a sleep study at [facility] in 2012 and was unable to tolerate CPAP at the time, she states she sleeps better without the machine, 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 [employer] provides no warranty or guarantee of the accuracy or completeness of information in this document.
--- NOTE | 2025-05-28 05:31 | RAD_ITS ---
PROCEDURE: CHEST 3 VIEW 05/28/2025 REASON FOR EXAM: POST PERMANANT ICD/PACEMAKER TECHNIQUE: CHEST 3 VIEW COMPARISON: None FINDINGS: Elevated right hemidiaphragm. Left perihilar infiltrates are seen. No effusion. No pneumothorax. Newly applied left AICD noted. RAD/Chest 3 View IMPRESSION: Left perihilar infiltrates. New as compared. Follow up is advised. Newly applied left AICD noted. No pneumothorax. [facility]
[2025-05-28 07:00] VITALS: PULSE 70
[2025-05-28 08:53] VITALS: BP 128/77; PULSE 70; RESP 18; TEMP 36.4; O2SAT 97
[2025-05-28] MEDS: Heparin Injection (Vial) 5,000 UNIT/ML VIAL 5000 UNIT SC (09:24)
--- NOTE | 2025-05-28 09:52 | PCM.DC ---
Discharge Instructions Diet Discharge Diet: No restrictions DC O2, CPAP, BIPAP needs Home O2 Discharge instructions: No Dressing / Incision Discharge Activity: Return to Normal Activity Follow Up Care Test Results: Test results from this visit will be discussed in further detail at your follow-up appointment, if applicable. Discharge Plan Admission Admit Date/Time: 05/27/25 14:18 Primary Reason for Your Visit: Second-degree heart block Attending Provider: Jose Hook Primary Care Provider: Gaye Snyder Consulting Providers: Chris Doyle Instructions Additional Instructions / Restrictions: Follow pacemaker instructions which were given to you earlier today Discharge Orders/Prescriptions Prescriptions: New oxycodone 5 mg Tablet 5 mg PO Q4H PRN PRN (Reason: Pain Score 4-10) 5 Days Qty: 15 0RF Continued cholecalciferol (vitamin D3) 125 mcg (5,000 unit) capsule 125 mcg PO DAILY mecobalamin (vitamin B12) 1,000 mcg tablet,chewable 1,000 mcg PO DAILY fluticasone propion-salmeterol [Advair Diskus] 250-50 mcg/dose blister with device 1 inh inhalation BID Qty: 180 1RF meloxicam 7.5 mg tablet 15 mg PO BID semaglutide cmpd 25 mg subcut QWEEK albuterol sulfate [Ventolin HFA] 90 mcg/actuation HFA aerosol inhaler 2 puff inhalation Q6H PRN (Reason: shortness of breath or wheezing) Qty: 6.7 1RF Referrals / Follow Up: Chris Doyle MD [Med Staff - Active Staff] - See Referral Note (Follow-up at the pacemaker clinic on 06/03/2025 at 2 PM) Gaye Snyder, PROGRAMMING INSTRUCTOR-C [Primary Care Provider] - Within 1 Month Disposition Disposition (needs filled in before D/C Order can be placed): Home, Self Care
--- NOTE | 2025-05-28 10:01 | PCM.DC.SUM ---
Providers Date of Admission: 05/27/25 Date of Discharge: 05/28/25 Primary Care Physician: LILI Blandon, FEEDER CATCHER TOBACCO-C Consultations 05/27/25 16:25 Consult: Cardiology Routine Consulting Provider: Chris Doyle Reason for Consult: Second degree AV block, bradycardia EMERGENT Consult: No MD Notified: Yes Date Notified: 05/27/25 Time Notified: 14:22 Method of Notification: Verbal Reason For Visit: palpitations Diagnosis Discharge Diagnosis (1) Mobitz type 2 second degree atrioventricular block: Status: Acute Code(s): I44.1 - Atrioventricular block, second degree Plan 1. Secondary AV block type II-status post pacemaker insertion-again patient was admitted to PCU and will be observed there. #2 osteoarthritis-patient is on meloxicam Total clinical time spent by myself addressing the patient's medical issues, reviewing all of her data, and collaborating with patient's care team: 55 minutes Medications at Discharge Home Medications cholecalciferol (vitamin D3) 125 mcg (5,000 unit) capsule 125 mcg PO DAILY 12/06/22 mecobalamin (vitamin B12) 1,000 mcg chewable tablet 1,000 mcg PO DAILY 12/06/22 albuterol sulfate 90 mcg/actuation aerosol inhaler (Ventolin HFA) 2 puff inhalation Q6H PRN shortness of breath or wheezing #6.7 grams 10/15/23 fluticasone 250 mcg-salmeterol 50 mcg/dose blistr powdr for inhalation (Advair Diskus) 1 inh inhalation BID #180 ea 01/15/24 meloxicam 7.5 mg tablet 15 mg PO BID 08/11/24 semaglutide cmpd 25 mg subcut QWEEK 05/27/25 oxycodone 5 mg tablet 5 mg PO Q4H PRN PRN Pain Score 4-10 5 days #15 tabs 05/28/25 Hospital Course Procedures - (Pacemaker insertion) Summary of Care Provided Minutes Spent on Discharge: 31 Hospital Course: This 55-year-old white female was seen in the emergency room at [facility] after being sent in from her PCPs office due to bradycardia and an EKG which showed a second-degree Mobitz 2 heart block. Patient had been complaining of fatigue. Evaluation in the emergency room showed the patient to be in a second-degree heart block Mobitz 2, patient was taken to the [facility] Web User Interface [facility] and a pacemaker was inserted without incident. Patient was then admitted to PCU for further care, the next day the pacemaker was checked and was functioning properly. On 05/28/2025, patient was seen and examined: On examination she appeared in good health and spirits, she does not appear to be in any distress. Vital signs as documented. Skin warm and dry and without overt rashes. Neck without JVD, thyroid appears normal, trachea is midline, neck is supple. Lungs clear, normal air movement was noted. Heart exam notable for regular rhythm, normal sounds and absence of murmurs, rubs or gallops. Abdomen unremarkable and without evidence of organomegaly, masses, or abdominal aortic enlargement, bowel sounds are present in all 4 quadrants, no abdominal tenderness was noted. Extremities nonedematous, no cyanosis was noted, no clubbing was noted. Neuro: Cranial nerves II through XII are grossly intact, no focal motor deficits were noted, sensation to light touch and pinprick is intact, motor exam 5/5 throughout. Psych: Patient is alert and oriented x3, she does not appear anxious or depressed, she does not appear agitated. Patient appears stable for discharge home on 05/28/2025. Weight / BMI Weight Weight: 73.1 kg Body Mass Index (BMI) 32.5 ABG / Lab / Microbiology Data 05/27/25 10:40 05/27/25 10:40 Laboratory: Laboratory Results - last 24 hr 05/27/25 10:40: WBC 5.4, RBC 4.11 L, Hgb 12.7, Hct 36.4 L, MCV 88.6, MCH 30.9, MCHC 34.9, RDW Std Deviation 42.1, RDW Coeff of Elizabeth 12.9, Plt Count 205, MPV 9.3, Immature Gran % (Auto) 0.200, Neut % (Auto) 60.1, Lymph % (Auto) 31.6, Leake % (Auto) 5.7, Eos % (Auto) 1.8, Baso % (Auto) 0.6, Absolute Neuts (auto) 3.3, Absolute Lymphs (auto) 1.71, Nucleated RBC % 0, Sodium 140, Potassium 3.7, Chloride 106, Carbon Dioxide 21.9, Anion Gap 12, BUN 18, Creatinine 0.87, Estim Creat Clear Calc 64.46, Est GFR (MDRD) Non-Af 78, BUN/Creatinine Ratio 20.8 H, Glucose 121 H, Calcium 9.4, Troponin T High Sens 19 H 05/27/25 12:41: Troponin T Hi Sens 2 Hr 21 H, TSH 3.820 05/27/25 13:32: POC Glucose 92 05/27/25 16:50: Troponin T Hi Sens 4Hr 25 H Radiography Diagnostic Testing: Radiology Impression Chest X-Ray 05/27/25 10:42 IMPRESSION: There is elevation of the right hemidiaphragm. The lungs are clear. Reading Location: [facility]--[facility] Echocardiogram 05/27/25 13:12 Interpretation Summary Normal LV size. Left ventricular systolic function is normal. The left ventricular ejection fraction is 65 %. Structurally normal valves. Ordering Physician: Chris Doyle Performed By: Valentina Alexander MEL Chest X-Ray 05/28/25 05:31 IMPRESSION: Left perihilar infiltrates. New as compared. Follow up is advised. Newly applied left AICD noted. No pneumothorax. Reading [facility] Instructions Discharge Diet: No restrictions DC O2, CPAP, BIPAP Needs Home O2 Discharge instructions: No Meaningful Use Info Meaningful Use Meaningful Use Diagnoses (Choose all that apply): None applicable Discharge Plan Admission Admit Date/Time: 05/27/25 14:18 Primary Reason for Your Visit: Second-degree heart block Attending Provider: Jose Hook Primary Care Provider: Gaye Snyder Robbie Consulting Providers: Chris Doyle Instructions Additional Instructions / Restrictions: Follow pacemaker instructions which were given to you earlier today Discharge Orders/Prescriptions Prescriptions: New oxycodone 5 mg Tablet 5 mg PO Q4H PRN PRN (Reason: Pain Score 4-10) 5 Days Qty: 15 0RF Continued cholecalciferol (vitamin D3) 125 mcg (5,000 unit) capsule 125 mcg PO DAILY mecobalamin (vitamin B12) 1,000 mcg tablet,chewable 1,000 mcg PO DAILY fluticasone propion-salmeterol [Advair Diskus] 250-50 mcg/dose blister with device 1 inh inhalation BID Qty: 180 1RF meloxicam 7.5 mg tablet 15 mg PO BID semaglutide cmpd 25 mg subcut QWEEK albuterol sulfate [Ventolin HFA] 90 mcg/actuation HFA aerosol inhaler 2 puff inhalation Q6H PRN (Reason: shortness of breath or wheezing) Qty: 6.7 1RF Referrals / Follow Up: Chris Doyle MD [Med Staff - Active Staff] - See Referral Note (Follow-up at the pacemaker clinic on 06/03/2025 at 2 PM) Gaye Snyder, FEEDER CATCHER TOBACCO-C [Primary Care Provider] - Within 1 Month Disposition Disposition (needs filled in before D/C Order can be placed): Home, Self Care Charges/Coding Visit Charges Inpatient E&M: 90916 Disch Hosp >30min
[2025-05-28 10:46] VITALS: PULSE 79
--- NOTE | 2025-05-28 10:52 | CASEMGMT ---
RN?CM?ASSESSMENT ? RN?CM?to room to meet with patient for initial transition planning/care coordination?assessment.?RN?CM?introduced self and role at [facility].? Pt voices understanding and consents to?assessment?at this time.? @ bedside. Pt resting in bed in no distress at this time.? Pt is A/O at this time and answers all questions appropriately.?? Care providers, pharmacy, and demographics verified/updated at this time. ? Strata:1 PCP: NILO Snyder Specialists: none Preferred Pharmacy: [facility]. Insurance: [facility] Prescription Benefit:?Yes LNOK: Hank Living Arrangements: Lives w/ in one-story home w/3 steps w/railing on right side. Independent @ baseline. able to assist. Transportation:?Pt and both drive. They deny transportation concerns. DME: ? Denies using any DME prior to hospitalization. Sling to left arm in place and pt will dc home w/this. ? Pt wishes to return home and states has no concerns with going home. PLAN:??Home w/spousal support and discharge plans in place. Pt and aware of appt scheduled @ pacer clinic 06/03 @ 2 PM ? Ag HERNÁNDEZN?RN?CM ?
--- NOTE | 2025-05-28 13:59 | NURSING ---
pt discharged home with without incident per hospital protocol.
--- NOTE | 2025-06-29 09:46 | CL.IE_ITS ---
Patient: NARAYAN KHOURY Study Date: 05/27/2025 Performing: Chris Doyle MD : 1970 Age: 55 Gender: female PROCEDURES PERFORMED [id number])INITIAL PACER INSERT+DUAL LEADS INDICATIONS 2:1 AV block PROCEDURE DETAILS The patient was brought to the Catheterization Lab in the postabsorptive nonsedated state. Informed consent was obtained prior to the procedure. Local anesthetic was given subcutaneously to the left subclavian region with Lidocaine 2%. Access was achieved and a guidewire was advanced into the left subclavian vein. Incision was made to the left subclavicular area. PPM ventricular lead was inserted / positioned to right ventricular apex. PPM ventricular lead testing performed. PPM ventricular lead testing performed. PPM atrial lead was inserted / positioned to the right atrial appendage. PPM atrial lead testing performed. The Atrial lead sutured in place with 2-0 Silk. The Ventricular PM lead sutured in place with 2-0 Silk. PPM generator was attached to the lead(s) and inserted into the pocket. Device pocket was irrigated with antibiotic, Ancef 1 GM. Subcutaneous closure was completed with 3-0 Vicryl. Skin closure was completed with 4-0 Vicryl. The patient tolerated the procedure well. Estimated Blood Loss: 10 ml's IMPLANTED / EX-PLANTED DEVICES IMPLANTED DEVICE(S): PPM Atrial lead - Sales Consultant: [employer], Model # 7840 , Serial # [id number] PPM Ventricular lead - Sales Consultant: [employer], Model # 7841 , Serial # [id number] PPM Generator - Sales Consultant: [employer], Model # L131 , Serial # [id number] DEVICE PARAMETERS ATRIAL LEAD PARAMETERS: P wave- 4.0 (mV) Current- 0.9 (mA) threshold- 0.5 (V) impedence- 565 (OHMS) VENTRICULAR LEAD PARAMETERS: R wave- 14.5 (mV) Current- 0.8 (mA) threshold- 0.6 (V) impedence- 764 (OHMS) DEVICE PARAMETERS: Mode- DDD Lower rate- 60 Upper rate- 140 CONCLUSIONS / RECOMMENDATIONS Device Conclusions: Successful implantation of a dual chamber pacemaker Device Recommendations: Follow up with Primary Care Physician PROCEDURE MEDICATIONS Versed 1 mg IV Fentanyl 50 mcg IV Fentanyl 25 mcg IV Antibiotic given in appropriate timeframe. Ancef 2 Gm IV @ 05/27/2025 14:28:26 Signed By Chris Doyle MD On 05/27/2025 15:43:28 Chris Doyle MD
== END 2025-05-28 12:47 | disposition home or self-care (01) | DRG 244 ==
LOC: ED 10:21 → CLSP 13:18 → PCU 14:27 → CLSP 14:28 → PCU 14:28
PROVIDERS: Internal Medicine Cardiovascular Disease; Admitting Provider Internal Medicine; Emergency Provider Emergency Medicine; PCP Nurse Practitioner Family
DX: I44.1 Atrioventricular block, second degree (principal); J98.6 Disorders of diaphragm; E53.8 Deficiency of other specified B group vitamins; E55.9 Vitamin D deficiency, unspecified; M19.90 Unspecified osteoarthritis, unspecified site; I49.3 Ventricular premature depolarization; Z79.899 Other long term (current) drug therapy; Z79.51 Long term (current) use of inhaled steroids
CPT/HCPCS: 33208; 36415; 71045; 71047; 80048; 82962; 84443; 84484; 85025; 93005; 93306; 99152; 99153; 99285; A4216; C1894

== ENCOUNTER → 2025-06-29 | Outpatient (CLI) | payer OTHER, SELFPAY ==
[2025-06-29 15:16] LABS: Cholesterol 212 mg/dL (<=200); Low Density Lipoprotein Calc. 125 mg/dL; Triglycerides 63 mg/dL; Very Low Density Lipoprotein 13 mg/dL (5-40); cholesterol:hdl ratio screen 2.85
== END | disposition home or self-care (01) ==
LOC: VSLAB 11:26
PROVIDERS: PCP Nurse Practitioner Family; Visit Provider Student in an Organized Health Care Education/Training Program
DX: E78.5 Hyperlipidemia, unspecified (principal)
CPT/HCPCS: 36415; 80061

== ENCOUNTER → 2025-08-04 | Outpatient (CLI) | payer OTHER, SELFPAY ==
--- OUTSIDE RECORDS SUMMARY | 2025-08-04 06:21 | XMS RPT_ITS | CCD ---
Author Organization [facility] Care Team Providers Care Fishing Gear Mechanic Name Role Phone ABHI BAPTISTE Unavailable Unavailable [...] Rocco Unavailable Unavailable Finneran, Rocco Unavailable Unavailable [facility], [facility] Primary Care Pro vider [facility], [facility] Referring Provid er Dr. Yanna Warren Attending Provider [phone] Dr. Yanna Warren Primary Care Provider Dr. Yanna Warren Attending Provider [phone] Dr. Yanna Warren Referring Provider [phone] Dr. Yanna Warren Primary Care Provider Dr. Yanna Warren Attending Provider [phone] Dr. Yanna Warren Referring Provider [phone] Dr. Chris Doyle Attending Provider Rocco Smith MD Unavailable [phone] Gaye Snyder NP Primary Care Provider [phone] GUZMAN PARIKH Attending Unavailable GAYE SNYDER Referring Unavailable JORGE, GAYE Primary Care Unavailable Jorge TEST CENTER ADMINISTRATOR-C, Gaye Primary Care Provider Devorah WORRELL, Dr. Constantino Emergency Provider Monster MOORE, Dr. Garcia Attending Provider [phone] Jorge TEST CENTER ADMINISTRATOR-C, Gaye Primary Care Provider Devorah WORRELL, Dr. Constantino Emergency Provider Monster MOORE, Dr. Garcia Attending Provider [phone] Piper WORRELL, Dr. Grigsby Admit Provider Vivek MOORE, Dr. Perez Other Provider Monster MOORE, Dr. Garcia Other Provider Dr. Seb Saldaña DO Attending Provider Jorge TEST CENTER ADMINISTRATOR-C, Gaye Referring Provider Medina Ramesh Attending Provider Unavailable Vivek MOORE, Dr. Perez Attending Provider Vivek MOORE, Dr. Perez Referring Provider Jorge TEST CENTER ADMINISTRATOR-C, Gaye Referring Provider Medina Ramesh Attending Provider Unavailable Luis E Goncalves Attending Provider Jorge TEST CENTER ADMINISTRATOR-C, Gaye Referring Provider Jose Hook Attending Unavailable Vivek, [place] Consulting Unavailable Seb Saldaña Admitting Unavailable Jorge, Gaye Primary Care Unavailable Jorge, Gaye Primary Care Unavailable Demiter, Luis E Attending Unavailable Demiter, Luis E Referring Unavailable Jorge, Gaye Primary Care Unavailable Demiter, Luis E Attending Unavailable Jorge, Gaye Attending Unavailable [place], Yanna Primary Care Unavailable Vivek, [place] Referring Unavailable Jorge, Gaye Primary Care Unavailable Vivek, [place] Attending Unavailable Vivek, [place] Attending Unavailable Jorge, Gaye Primary Care Unavailable Vivek, [place] Referring Unavailable Vivek, Chris Attending Unavailable Jorge, Gaye Primary Care Unavailable Jorge, Gaye Referring Unavailable Jorge, Gaye Primary Care Unavailable Demiter, Luis E Attending Unavailable Vivek, Chris Attending Unavailable Jorge, Gaye Primary Care Unavailable Jorge, Gaye Primary [facility] Unavailable Jaime Madrid Attending Unavailable Yanna Warren Referring Unavailable VivekNain dicksonril Referring Unavailable [facility] Care Unavailable VivekChris dickson Attending Unavailable [facility] Primary Care Unavailable VivekNainSanta Rosa Attending Unavailable Vivek, [place] Consulting Unavailable Seb Saldaña Admitting Unavailable [facility] Unavailable Chris Doyle Attending Unavailable Jose Hook Consulting Unavailable Seb Saldaña Attending Unavailable Allergies Allergy Classification Reported Allergen(s) Allergy Type Date of Onset Reaction(s) Facility (2 sources) Aspirin; Translations: [ASPIRIN] Drug Allergy 06-12-2013 Other: See Comments [facility] Work Phone: Medications Current Medications Medication Drug Class(es) Dates Sig (Normalized) Sig (Original) acetaminophen 325 mg oral tablet (1 source) take 2 tablets by mouth every four hours as needed acetaminophen (TYLENOL) 325 mg tablet Take 650 mg by mouth every 4 hours as needed. Active [id number] 200 actuat albuterol 0.09 mg/actuat metered dose inhaler (20 sources) beta2-Adrenergic Agonist Start: 12-06-2022 End: 10-15-2023 Albuterol Sulfate (Ventolin Hfa) 90 mcg/actuation HFA aerosol inhaler Active 2 NMA INHALATION EVERY 6 HOURS as needed for shortness of breath or wheezing 6.7 1 October 15, 2023 1:29pm Start: 12-06-2022 End: 10-15-2023 take 1 puff(s) by inhalation every six hours Albuterol Sulfate (Ventolin Hfa) 90 mcg/actuation HFA aerosol inhaler Active 2 PUFF INHALATION EVERY 6 HOURS 6.7 October 15, 2023 1:29pm cholecalciferol 0.125 mg oral capsule (16 sources) Vitamin D Start: 12-06-2022 take 1 capsule by mouth once daily Cholecalciferol (Vitamin D3) 125 mcg (5,000 unit) capsule Active 125 ug PO DAILY December 06, 2022 1:00am Cholecalciferol, [...] 250-50 mcg/dose blister with device Active 1 NMA INHALATION TWICE A DAY 180 1 January 15, 2024 10:33am Start: 01-15-2024 Fluticasone [...] 250-50 mcg/dose blister with device Discontinued 1 NMA INHALATION TWICE A DAY 60 2 October 15, 2023 2:44pm January 15, 2024 [...] 250-50 mcg/dose blister with device Discontinued 1 NMA INHALATION TWICE A DAY 60 1 June 26, 2023 9:24am October 15, 2023 [...] 250-50 mcg/dose blister with device Discontinued 1 NMA INHALATION TWICE A DAY 60 1 December 06, 2022 1:00am June 26, 2023 12:06pm Start: 12-06-2022 End: 12-06-2022 Fluticasone Propion-Salmeter ol (Advair Diskus) 250-50 mcg/dose blister with device Discontinued 1 NMA INHALATION TWICE A DAY December 06, 2022 1:00am December 06, 2022 11:53am Start: 12-06-2022 End: 06-26-2023 Fluticasone Propion-Salmeter ol [...] 2022 10:53am mecobalamin 1 mg chewable tablet (15 sources) Start: 12-06-2022 take 1 tablet by mouth once daily Mecobalamin (Vitamin B12) 1,000 mcg tablet,chewable Active 1000 ug PO DAILY December 06, 2022 1:00am meloxicam 7.5 mg oral tablet (20 sources) Nonsteroidal Anti-inflammatory Drug Start: 08-11-2024 End: 06-24-2025 take 2 tablets by mouth twice daily as needed Meloxicam 7.5 mg tablet Active 15 mg PO TWICE A DAY as needed June 24, 2025 9:15am Start: 02-28-2024 End: 05-04-2024 take 1 tablet by mouth twice daily Meloxicam 7.5 mg tablet Discontinued 7.5 mg PO TWICE A DAY 60 30 0 April 04, 2024 4:36pm May 03, 2024 12:00am May 04, 2024 12:05am Start: 12-06-2022 End: 02-28-2024 take 1 tablet by mouth once daily Meloxicam 7.5 mg tablet Discontinued 7.5 mg PO DAILY 90 0 October 15, 2023 1:28pm January 15, 2024 10:34am 24 hr metoprolol succinate 25 mg extended release oral tablet (4 sources) beta-Adrenergic Susan Start: 06-24-2025 take 1 tablet by mouth once daily Metoprolol Succinate 25 mg tablet extended release 24 hr Active 25 mg PO daily 30 6 June 24, 2025 12:00am semaglutide cmpd (10 sources) Start: 05-27-2025 semaglutide cmpd Active 25 mg SC EVERY WEEK May 27, 2025 12:00am SEMAGLUTIDE SUBCUTANEOUS (1 source) SEMAGLUTIDE SUBCUTANEOUS Inject subcutaneously. Active Completed/Discontinued Medications Medication Drug Class(es) Dates Sig (Normalized) Sig (Original) clonazePAM 0.5 mg oral tablet (1 source) Benzodiazepine Start: 09-16-2013 End: 11-28-2024 clonazePAM 0.5 mg tablet 1 or 2 tabs at bedtime every night. 60 tablet 6 09/16/2013 11/28/2024 Discontinued MULTIVITAMIN/IRON/FO LIC ACID (CENTRUM ULTRA WOMEN'S ORAL) (1 source) End: 11-28-2024 MULTIVITAMIN/IRON/F OLIC ACID (CENTRUM ULTRA WOMEN'S ORAL) Take by mouth once daily. 11/28/2024 Discontinued oxyCODONE hydrochloride 5 mg oral tablet (9 sources) Opioid Agonist Start: 05-28-2025 End: 06-24-2025 take 1 tablet by mouth every four hours as needed for pain Oxycodone 5 mg Tablet Discontinued 5 mg PO EVERY 4 HOURS NEEDED as needed for Pain Score 4-10 15 5 0 May 28, 2025 June 24, 2025 9:16am Presence of permanent cardiac pacemaker Presence of cardiac pacemaker 0.25 mg, 0.5 mg dose 1.5 ml semaglutide 1.34 mg/ml pen injector (14 sources) Start: 12-19-2022 End: 06-26-2023 Semaglutide (Ozempic) 0.25 mg or 0.5 mg(2 mg/1.5 mL) pen injector Discontinued 0.25 mg SC EVERY WEEK 1.5 0 December 19, 2022 1:00am June 26, 2023 8:53am for 4 weeks Semaglutide (Weight Loss) (14 sources) Start: 01-15-2024 End: 05-27-2025 Semaglutide (Weight Loss) (Wegovy) 0.25 mg/0.5 mL pen injector Discontinued 0.25 mg SC EVERY WEEK 2 0 January 15, 2024 1:00am May 27, 2025 10:32am administer weeks 1 through 4 of therapy [...] administer weeks 1 through 4 of therapy Problems Active Problems Problem Classification Problem Date Documented Date Episodic/Chronic Administrative/socia l admission (1 source) Persons encountering health services in other specified circumstances; Translations: [Other reasons for seeking consultation] 12-06-2022 Episodic Calculus of urinary tract (15 sources) History of calculus of kidney; Translations: [Personal history of urinary calculi] 12-06-2022 Episodic Cardiac dysrhythmias (16 sources) Bradycardia, unspecified; Translations: [Other specified cardiac dysrhythmias] Onset: 06-19-2025 01-15-2024 Episodic Conduction disorders (20 sources) Incomplete atrioventricular block with atrioventricular response; Translations: [Other atrioventricular block] Onset: 06-01-2025 05-27-2025 Chronic Disorders of lipid metabolism (6 sources) Mixed hyperlipidemia; Translations: [Mixed hyperlipidemia] Onset: 07-02-2025 12-06-2022 Chronic Nutritional deficiencies (20 sources) Vitamin D deficiency; Translations: [Vitamin D deficiency, unspecified] 12-06-2022 Chronic Nutritional deficiencies (16 sources) Vitamin B deficiency; Translations: [Vitamin B deficiency, unspecified] 12-06-2022 Episodic Osteoarthritis (5 sources) Unspecified osteoarthritis, unspecified site; Translations: [Arthropathy, unspecified, site unspecified] 12-06-2022 Chronic Other connective tissue disease (15 sources) H/O: arthritis; Translations: [Personal history of other diseases of the musculoskeletal system and connective tissue] 12-06-2022 Episodic Other hematologic conditions (15 sources) History of anemia; Translations: [Personal history of diseases of the blood and blood-forming organs and certain disorders involving the immune mechanism] 12-06-2022 Episodic Other lower respiratory disease (15 sources) Paralysis of diaphragm ; Translations: [Disorders of diaphragm] 12-06-2022 Episodic Comment on above: 2013 Other lower respiratory disease (5 sources) Disorders of diaphragm; Translations: [Disorders of diaphragm] 12-06-2022 Episodic Other lower respiratory disease (4 sources) Shortness of breath; Translations: [Shortness of breath] 01-15-2024 Episodic Other nutritional; endocrine; and metabolic disorders (5 sources) Morbid (severe) obesity due to excess calories; Translations: [Morbid obesity] 12-06-2022 Chronic Other skin disorders (10 sources) Sebaceous cyst of skin; Translations: [Sebaceous cyst] 08-11-2024 Episodic Other upper respiratory infections (14 sources) Acute pharyngitis; Translations: [Acute pharyngitis, unspecified] 01-15-2024 Episodic Residual codes; unclassified (16 sources) Obstructive sleep apnea syndrome; Translations: [Obstructive sleep apnea (adult) (pediatric)] 12-05-2022 Chronic Residual codes; unclassified (6 sources) Obstructive sleep apnea (adult) (pediatric); Translations: [Obstructive sleep apnea (adult)(pediatric)] Onset: 11-28-2024 12-06-2022 Chronic Residual codes; unclassified (1 source) [...] not elsewhere classified] Onset: 07-12-2018 Episodic Unclassified (8 sources) Encounter for screening mammogram for malignant neoplasm of breast; Translations: [Encounter for screening for malignant neoplasm of colon] Onset: 04-24-2018 12-06-2022 Episodic Unclassified (9 sources) Follow-up at the pacemaker clinic on 06/03/2025 at 2 PM Past or Other Problems Problem Classification Problem Date Documented Da te Episodic/Chronic Nonmalignant breast conditions (1 source) Abscess of the breast and nipple; Translations: [Abscess of the breast and nipple] Onset: 08-27-2024 Episodic Results Test Name Value Interpretation Reference Range Facility Calculated very low density lipoprotein (VLDL) cholesterol measurementOrdered By: Luis E Lion on 06-29-2025 Calculated very low density lipoprotein (VLDL) cholesterol measurement 13 mg/dL 5-40 [facility] LDL calc ser/plasOrdered By: Luis E Lion on 06-29-2025 Cholesterol in LDL [Mass/Vol] 125 mg/dL [facility] Comment on above: Czwhevhttl=539-970 m g/dL & Higher Galb=989 mg/dL or greaterFriedwald Equation for LDL-C Lipid Profileon 06-29-2025 CHOL:HDL 2.85 Normal [facility] Comment on above: Performed By: #### L 500.4100 #### [facility] [address] [place], [address] Cholesterol [Mass/Vol] 212 mg/dL High <=200 [facility] Comment on above: Result Comment: Chol esterol level, Desirable <200 mg/dL Borderline high cholesterol 200-239 mg/dL High cholesterol >=240 mg/dL Recommendations of the NCEP Adult Treatment Panel for the following risk-cutoff thresholds for the [place] population. Performed By: #### L 500.4100 #### [facility] [address] [place], [address] Cholesterol in HDL [Mass/Vol] 74 mg/dL Normal [facility] Comment on above: Result Comment: Ale onal Cholesterol Education Program (NCEP) guidelines: <40 mg/dL: Low HDL-cholesterol (major risk factor for CHD) >= 60 mg/dL: High HDL-cholesterol (negative risk factor for CHD) HDL-cholesterol is affected by a number of factors, e.g. smoking, exercise, hormones, sex and age. Performed By: #### L 500.4100 #### [facility] [address] [place], [address] Cholesterol in LDL [Mass/Vol] 125 mg/dL Normal [facility] Comment on above: Result Comment: Bord ncyofz=849-147 mg/dL Higher Cuau=411 mg/dL or greater Friedwald Equation for LDL-C Performed By: #### L 500.4100 #### [facility] [address] [place], [address] Cholesterol in VLDL [Mass/Vol] 13 mg/dL Normal 5-40 [facility] Comment on above: Performed By: #### L 500.4100 #### [facility] [address] [place], [address] Triglyceride [Mass/Vol] 63 mg/dL Normal [facility] Comment on above: Result Comment: The drugs N-Acetylcysteine and Metamizole may falsely depress this assay. Normal range: <150 mg/dL Borderline High: 150-199 mg/dL High: 200-499 mg/dL Very High: >500 mg/dL Performed By: #### L 500.4100 #### [facility] [address], [address] Screening total cholesterol/ high density lipoprotein (HDL) cholesterol ratioOrdered By: Luis E Lion on 06-29-2025 Cholesterol.total/Irene sterol in HDL [Mass ratio] 2.85 {ratio} [facility] Serum or plasma cholesterol in HDL measurement (mass/volume)Ordered By: Luis E Ayad on 06-29-2025 Cholesterol in HDL [Mass/Vol] 74 mg/dL >40 [facility] Comment on above: National Cholesterol Education Program (NCEP) guidelines:<40 mg/dL: Low HDL-cholesterol (major risk factor for CHD)>= 60 mg/dL: High HDL-cholesterol (negative risk factor for CHD)HDL-cholesterol is affected by a number of factors, e.g. smoking, exercise, hormones, sex and age. Serum or plasma cholesterol measurement (mass/volume)Ordered By: Luis E Lion on 06-29-2025 Cholesterol [Mass/Vol] 212 mg/dL High <201 [facility] Comment on above: Cholesterol level, D esirable <200 mg/dLBorderline high cholesterol 200-239 mg/dLHigh cholesterol >=240 mg/dLRecommendations of the NCEP Adult Treatment Panel for the following risk-cutoff thresholds for the [place] population. TXT:Device Implant / Explant on 06-29-2025 TXT:Device Implant / Explant [facility] [address] [place] [address] TXT:Device Implant / Explant MR#: [id number] Acct: [id number] Name: NARAYAN KHOURY Rep #: [id number] : 1970 55 From: Chris Doyle MD PCP: LILI Blandon, TEST CENTER ADMINISTRATOR-C Status:DIS IN Patient: NARAYAN KHOURY Study Date: 05/27/2025 Performing: Chris Doyle MD : 1970 Age: 55 Gender: female PROCEDURES PERFORMED LP04-([id number])INITIAL PACER INSERT+DUAL LEADS INDICATIONS 2:1 AV block PROCEDURE DETAILS The patient was brought to the Catheterization Lab in the postabsorptive nonsedated state. Informed consent was obtained prior to the procedure. Local anesthetic was given subcutaneously to the left subclavian region with Lidocaine 2%. Access was achieved and a guidewire was advanced into the left subclavian vein. Incision was made to the left subclavicular area. PPM ventricular lead was inserted / positioned to right ventricular apex. PPM ventricular lead testing performed. PPM ventricular lead testing performed. PPM atrial lead was inserted / positioned to the right atrial appendage. PPM atrial lead testing performed. The Atrial lead sutured in place with 2-0 Silk. The Ventricular PM lead sutured in place with 2-0 Silk. PPM generator was attached to the lead(s) and inserted into the pocket. Device pocket was irrigated with antibiotic, Ancef 1 GM. Subcutaneous closure was completed with 3-0 Vicryl. Skin closure was completed with 4-0 Vicryl. The patient tolerated the procedure well. Estimated Blood Loss: 10 ml's IMPLANTED / EX-PLANTED DEVICES IMPLANTED DEVICE(S): PPM Atrial lead - Community Artist: [employer], Model # [id number] , Serial # [id number] PPM Ventricular lead - Community Artist: [employer], Model # 7841 , Serial # [id number] PPM Generator - Community Artist: [employer], Model # L131 , Serial # [id number] DEVICE PARAMETERS ATRIAL LEAD PARAMETERS: P wave- 4.0 (mV) Current- 0.9 (mA) threshold- 0.5 (V) impedence- 565 (OHMS) VENTRICULAR LEAD PARAMETERS: R wave- 14.5 (mV) Current- 0.8 (mA) threshold- 0.6 (V) impedence- 764 (OHMS) DEVICE PARAMETERS: Mode- DDD Lower rate- 60 Upper rate- 140 CONCLUSIONS / RECOMMENDATIONS Device Conclusions: Successful implantation of a dual chamber pacemaker Device Recommendations: Follow up with Primary Care Physician PROCEDURE MEDICATIONS Versed 1 mg IV Fentanyl 50 mcg IV Fentanyl 25 mcg IV Antibiotic given in appropriate timeframe. Ancef 2 Gm IV @ 05/27/2025 14:28:26 Signed By Chris Doyle MD On 05/27/2025 15:43:28 Chris Doyle MD 06/29/25 0946 Date Chris Doyle MD Cosigner Signature: Date (if indicated) CC: [facility] TEST CENTER ADMINISTRATOR-C Gaye Snyder; Dr. Chris Doyle MD; Dr. Jose Hook MD Date Dictated: 05/27/25 1439 Date Transcribed: 05/27/25 1543 Workforce Planning Analyst: [place] Signed Normal [facility] Triglycerides measurementOrd ered By: Luis E Lion on 06-29-2025 Triglyceride [Mass/Vol] 63 mg/dL <199 [facility] Comment on above: The drugs N-Acetylcy steine and Metamizole may falsely depress this assay. Normal range: <150 mg/dLBorderline High: 150-199 mg/dLHigh: 200-499 mg/dLVery High: >500 mg/dL Cardiology Visit Reporton Cardiology Visit Report [facility] [address] [place] [address] OFFICE VISIT Date of Service: 06/24/25 MR#: [id number] Acct: [id number] Name: NARAYAN KHOURY Rep #: [id number] : 1970 Provider: RUTH Everett Age/Sex: 55/F Location: [facility] [place] Status: Signed HPI HPI History of Present Illness Details: Narayan Khoury is a 55-year-old female who presents to office today for hospital follow-up. Patient presented to [facility] 05/27/2025 after PCP observed a low heart rate and EKG demonstrated a 2???1 AV block. She was symptomatic with experiencing fatigue and weakness. Electrolytes were WNL and TSH was WNL. She denies any history of connective tissue disorder or tick bite/Lyme disease. Patient underwent dual-chamber pacemaker placement 05/27/2025. She discharged home 05/28/2025. Upon presentation today, patient reports fatigue that she notices herself taking naps and/or falling asleep in the morning. Her reports her fatigue has slightly improved since pacemaker placement. Further ROS below. Intake Vital Signs 05/27/25 16:29 06/24/25 07:35 06/24/25 09:10 Height 4 ft 11 in 4 ft 11 in 4 ft 11 in Weight: 168 lb BMI 33.9 BP 117/72 Blood Pressure Location Rt brachial Position Sitting Respiration 18 Pulse 75 Pulse Source Monitor Pulse Oximetry (%) 10 Intake Visit Reasons: S/P [facility] 06/01/ADRIANO @ 9 Pop Singer Required: No Is patient in pain?: No Allergies No Known Allergies Allergy (Verified 05/27/25 10:09) Medications ???Medication ???Instructions ???Recorded ???Confirmed ???Type cholecalciferol (vitamin D3) 125 125 mcg PO DAILY 12/06/22 06/24/25 History mcg (5,000 unit) capsule mecobalamin (vitamin B12) 1,000 1,000 mcg PO DAILY 12/06/22 History mcg chewable tablet albuterol sulfate 90 mcg/actuation 2 puff inhalation Q6H PRN 06/24/25 Rx aerosol inhaler (Ventolin HFA) shortness of breath or wheezing #6.7 grams fluticasone 250 mcg-salmeterol 50 1 inh inhalation BID #180 ea 12/2106/24/25 Rx mcg/dose blistr powdr for inhalation (Advair Diskus) semaglutide cmpd 25 mg subcut QWEEK 05/27/25 History meloxicam 7.5 mg tablet 15 mg PO BID PRN 06/24/25 06/24/25 History metoprolol succinate 25 mg 25 mg PO QDAY #30 tabs 06/24/25 Rx tablet,extended release 24 hr Have you fallen in the past year?: No PFSH Medical History High-grade atrioventricular block Mobitz type 2 second degree atrioventricular block Presence of permanent cardiac pacemaker Paralysis, diaphragm Vitamin D deficiency Vitamin B deficiency History of kidney stones Hx of chronic arthritis History of anemia Surgical History Hx of section Family History [...] do you feel safe at home: Yes ROS Const Const: Positive for fatigue; Negative for weakness, headache(s) or frequent falls Eyes Eyes: Negative for blurry vision ENT ENT: Negative for headache(s), dizziness or Nosebleed/epistaxis Cardio Chest Pain: No Palpitations: No Edema: None Muscle aches with walking: None Resp Respiratory: Negative for SOB with activity, SOB at rest or SOB orthopnea SOB lying down GI GI: Negative nausea, vomiting, heartburn, bright, red blood in stools or black,tarry stools : Negative for hematuria Neuro Neuro: Negative for dizziness, lightheadedness, near syncope, syncope, frequent falls, headache(s), weakness or blurry vision Endo Endo: Positive for fatigue Cardiology Exam Const Appearance: cooperative, comfortable, no acute distress and well developed; Negative diaphoretic or ill appearing Nutritional Appearance: overweight Orientation: alert and oriented x3 Ambulating without assistive device Head Head: normal to inspection, normocephalic and atraumatic Ears: hearing grossly normal bilaterally Nose: external nose normal and Negative epistaxis Face and Si (more content not included)... Normal [facility] Pacemaker Checkon 06-24-2025 Pacemaker Check [facility] [address] [place] [address] Pacemaker Check Date of Service: 06/24/25 174 MR#: [id number] Acct: [id number] Name: NARAYAN KHOURY R Rep #: [id number] : 1970 From: Medina Ramesh Age/Sex: 55/F [place] [facility] [place] Status: Signed Billing Codes PM Device Codes: 31326 PM Dev Prog Eval, Dual Assessment and Plan Assessment and Plan (1) Presence of permanent cardiac pacemaker: Status: Acute (2) Third degree heart block: Status: Acute 06/24/25 174 Date Medina Diego Signature: Date (if applicable) CC: Normal [facility] Pacemaker Checkon 06-03-2025 Pacemaker Check [facility] [address] [place] [address] Pacemaker Check Date of Service: 06/03/25 163 MR#: [id number] Acct: [id number] Name: NARAYAN KHOURY R Rep #: [id number] : 1970 From: Medina Ramesh Age/Sex: 55/F Location: [facility] [place] Status: Signed Billing Codes PM Device Codes: 14193 PM Dev Prog Eval, Dual Assessment and Plan Assessment and Plan (1) Mobitz type 2 second degree atrioventricular block: Status: Acute (2) Presence of permanent cardiac pacemaker: Status: Acute (3) Third degree heart block: Status: Acute (4) High-grade atrioventricular block: Status: Acute 06/03/25 163 Date Medina Diego Signature: Date (if applicable) CC: Normal [facility] Chest 3 Viewon 05-28-2025 Chest 3 View [facility] Services [address] [place] [address] Chest 3 View MR#: [id number] Acct: [id number] Name: NARAYAN KHOURY Ginger Rep #: [id number] : 1970 F 55 From: Celeste stevenson MD PCP: Gaye Snyder Robbie, TEST CENTER ADMINISTRATOR-C Status: ADM IN Study: Chest 3 View Date of Exam: 05/28/25 Exam# [id number] Ordering Dr: Chris Doyle MD PROCEDURE: CHEST 3 VIEW 05/28/2025 REASON FOR EXAM: POST PERMANANT ICD/PACEMAKER TECHNIQUE: CHEST 3 VIEW COMPARISON: None FINDINGS: Elevated right hemidiaphragm. Left perihilar infiltrates are seen. No effusion. No pneumothorax. Newly applied left AICD noted. RAD/Chest 3 View IMPRESSION: Left perihilar infiltrates. New as compared. Follow up is advised. Newly applied left AICD noted. No pneumothorax. Reading [facility] CC: [facility] TEST CENTER ADMINISTRATOR-C Gaye Snyder; Dr. Chris Doyle MD Workforce Planning Analyst: Signed Normal [facility] Discharge Instructionon 05-19 Discharge Instruction [facility] Medical Records Department [address] [place] [address] Instructions for Home/Discharge Instructions 05/28/25 0952 MR#: [id number] Acct: [id number] Name: NARAYAN KHOURY Rep #: [id number] : 1970 55 From: Seb Saldaña DO PCP: LILI Blandon, TEST CENTER ADMINISTRATOR-C Status:ADM IN Discharge Instructions Diet Discharge Diet: No restrictions DC O2, CPAP, BIPAP needs Home O2 Discharge instructions: No Dressing / Incision Discharge Activity: Return to Normal Activity Follow Up Care Test Results: Test results from this visit will be discussed in further detail at your follow-up appointment, if applicable. Discharge Plan Admission Admit Date/Time: 05/27/25 14:18 Primary Reason for Your Visit: Second-degree heart block Attending Provider: Jose Hook Primary Care Provider: Gaye Snyder Consulting Providers: Chris Doyle Instructions Additional Instructions / Restrictions: Follow pacemaker instructions which were given to you earlier today Discharge Orders/Prescriptions Prescriptions: New oxycodone 5 mg Tablet 5 mg PO Q4H PRN PRN (Reason: Pain Score 4-10) 5 Days Qty: 15 0RF Continued cholecalciferol (vitamin D3) 125 mcg (5,000 unit) capsule 125 mcg PO DAILY mecobalamin (vitamin B12) 1,000 mcg tablet,chewable 1,000 mcg PO DAILY fluticasone propion-salmeterol [Advair Diskus] 250-50 mcg/dose blister with device 1 inh inhalation BID Qty: 180 1RF meloxicam 7.5 mg tablet 15 mg PO BID semaglutide cmpd 25 mg subcut QWEEK albuterol sulfate [Ventolin HFA] 90 mcg/actuation HFA aerosol inhaler 2 puff inhalation Q6H PRN (Reason: shortness of breath or wheezing) Qty: 6.7 1RF Referrals / Follow Up: Chris Doyle MD [Med Staff - Active Staff] - See Referral Note (Follow-up at the pacemaker clinic on 06/03/2025 at 2 PM) Gaye Snyder, TEST CENTER ADMINISTRATOR-C [Primary Care Provider] - Within 1 Month Disposition Disposition (needs filled in before D/C Order can be placed): Home, Self Care 05/28/25 1001 Seb Saldaña DO CC: VSRobbie TEST CENTER ADMINISTRATOR-C Gaye Snyder; Dr. Chris Doyle MD Signed Normal [facility] Pacemaker Checkon 05-28-2025 Pacemaker Check [facility] [address] [place] [address] Pacemaker Check Date of Service: 05/28/25 1254 MR#: [id number] Acct: [id number] Name: NARAYAN KHOURY Rep #: [id number] : 1970 From: Medina Domitila Age/Sex: 55/F Location[place] [facility] [place] Status: Signed Billing Codes PM Device Codes: 87196 PM Dev Prog Eval, Dual Assessment and Plan Assessment and Plan (1) Mobitz type 2 second degree atrioventricular block: Status: Acute (2) Presence of permanent cardiac pacemaker: Status: Acute 05/28/25 1254 Date Medina Ramesh Yaquelinigner Signature: Date (if applicable) CC: Normal [facility] 12 Lead EKGon 05-27-2025 12 Lead EKG [facility] Cardiovascular Services [address] [facility] [place] [address] 12 Lead EKG 05/27/25 1210 MR#: [id number] Acct: [id number] Name: NARAYAN KHOURY Rep #: [id number] : 1970 55 From: Chris Doyle MD Attending Dr: Dr. Jose Hook MD Status: DIS I N Ordering Dr: Dougie Fairchild DO Date: 05/27/25 Location: [facility] Sex: F C Admitted: 05/27/25 Test Reason : FH Blood Pressure : */* mmHG Vent. Rate : 37 BPM Atrial Rate : 75 BPM P-R Int : * ms QRS Dur : 80 ms QT Int : 536 ms P-R-T Axes : 69 -36 -7 degrees QTcB Int : 420 ms Critical Test Result: Low HR , AV Block Sinus rhythm with 2nd degree A-V block with 2:1 A-V conduction with Fusion complexes Left axis deviation Minimal voltage criteria for LVH, may be normal variant ( R in aVL ) Nonspecific ST abnormality Abnormal ECG Confirmed by CHRIS DOYLE MD ([id number]), desk editor ASHA PEACE ([id number]) on 05/28/2025 2:16:11 PM Referred By: Confirmed By: CHRIS DOYLE MD 05/28/251415 Date Chris Doyle MD CC: LILI Snyder; Dr. Dougie Fairchild DO; Dr. Jose Hook MD Signed Normal [facility] 12 Lead EKG [facility] Cardiovascular Services [address] [place] [address] 12 Lead EKG 05/27/25 1015 MR#: [id number] Acct: [id number] Name: NARAYAN KHOURY Rep #: [id number] : 1970 55 From: Chris Doyle MD Attending Dr: Dr. Jose Hook MD Status: DIS I N Ordering Dr: Dougie Fairchild DO Date: 05/27/25 Location: [facility] Sex: F C Admitted: 05/27/25 Test Reason : LOW HR Blood Pressure : */* mmHG Vent. Rate : 56 BPM Atrial Rate : 75 BPM P-R Int : * ms QRS Dur : 144 ms QT Int : 532 ms P-R-T Axes : 59 159 -6 degrees QTcB Int : 513 ms with complete heart block T wave abnormality, consider inferior ischemia Abnormal ECG Confirmed by CHRIS DOYLE MD ([id number]), desk editor ASHA PEACE ([id number]) on 05/28/2025 2:15:50 PM Referred By: Confirmed By: CHRIS DOYLE MD 05/28/251414 Date Chris Doyle MD CC: LILI Snyder; Dr. Dougie Fairchild DO; Dr. Jose Hook MD Signed Normal [facility] Absolute lymphocyte countOrd ered By: Dougie Fairchild on 05-27-2025 Lymphocytes Auto (Unsp spec) [#/Vol] 1.71 10*3/uL 0.83-4.51 [facility] Absolute neutrophil countOrd ered By: Dougie Fairchild on 05-27-2025 Neutrophils (Bld) [#/Vol] 3.3 10*3/uL 2.0-7.7 [facility] Anion gap in Serum or Plasma Ordered By: Dougie Fairchild on 05-27-2025 Anion gap [Moles/Vol] 12 mmol/L 5-15 [facility] Automated lymphocyte count a s percentage of total leukocytesOrdered By: Dougie Fairchild on 05-27-2025 Lymphocytes/100 WBC Auto (Unsp spec) 31.6 % 19-41 [facility] BUN/creatinine ratioOrdered By: Dougie Fairchild on 05-27-2025 Urea nitrogen/Creatinine [Mass ratio] 20.8 mg/mg High 10-20 [facility] Basic Metabolic Profile (BMP )on 05-27-2025 BUN/CRE 20.8 RATIO High 10- [facility] Comment on above: Performed By: #### L 100.0100, L500.2500, L501.4021 #### [facility] [address] [place], [address] Calcium [Mass/Vol] 9.4 mg/dL Normal 7.6-11.0 [facility] Comment on above: Performed By: #### L 100.0100, L500.2500, L501.4021 #### [facility] [address] [place], [address] Chloride [Moles/Vol] 106 mmol/L Normal 98-108 [facility] [place] [facility] Comment on above: Performed By: #### L 100.0100, L500.2500, L501.4021 #### [facility] [address] [place], [address] CO2 [Moles/Vol] 21.9 mmol/L Normal 21.0-32.0 [facility] Comment on above: Performed By: #### L 100.0100, L500.2500, L501.4021 #### [facility] [address] [place], [address] Creatinine [Mass/Vol] 0.87 mg/dL Normal 0.70-1.20 [facility] Comment on above: Performed By: #### L 100.0100, L500.2500, L501.4021 #### [facility] [address] [place], [address] ECRCL 64.46 ml/min Normal 50-250 [facility] Comment on above: Performed By: #### L 100.0100, L500.2500, L501.4021 #### [facility] [address] [place], [address] GAP 12 Normal 5-15 [facility] Comment on above: Performed By: #### L 100.0100, L500.2500, L501.4021 #### [facility] [address] [place], [address] GFR/1.73 sq M.predicted among non-blacks MDRD (S/P/Bld) [Vol rate/Area] 78 mL/min/{1.73_m2} Normal >60 [facility] Comment on above: Result Comment: mL/m in/1.73m2 CKD-EPI Creatinine Equation (2020) Performed By: #### L 100.0100, L500.2500, L501.4021 #### [facility] [address] [place], [address] Glucose [Mass/Vol] 121 mg/dL High 70-99 [facility] Comment on above: Performed By: #### L 100.0100, L500.2500, L501.4021 #### [facility] [address] [place], [address] Potassium [Moles/Vol] 3.7 mmol/L Normal 3.3-5.1 [facility] Comment on above: Performed By: #### L 100.0100, L500.2500, L501.4021 #### [facility] [address] [place], [address] Sodium [Moles/Vol] 140 mmol/L Normal 133-145 [facility] Comment on above: Performed By: #### L 100.0100, L500.2500, L501.4021 #### [facility] [address] [place], [address] Urea nitrogen [Mass/Vol] 18 mg/dL Normal 4-19 [facility] Comment on above: Performed By: #### L 100.0100, L500.2500, L501.4021 #### [facility] [address] [place], [address] Basophil percentageOrdered B y: Dougie Fairchild on 05-27-2025 Basophils/100 WBC (Bld) 0.6 % 0-1 [facility] Bedside Glucoseon 05-27-2025 FINGERSTICK GLU 92 mg/dL Normal 74-106 [facility] Comment on above: Result Comment: MERISSA CHRISTIAN OF PATIENT CARE PER NURSING PROTOCOL Performed By: #### L 501.080 ####[facility] [address] [place], [address] CBC W/Diff, Automatedon 07-0 Absolute Lymph 1.71 X10 3/uL Normal 0.83-4.51 [facility] Comment on above: Performed By: #### L 100.0100, L500.2500, L501.4021 #### [facility] [address] [place], [address] Absolute Neut 3.3 X10 3/uL Normal 2.0-7.7 [facility] Comment on above: Performed By: #### L 100.0100, L500.2500, L501.4021 #### [facility] [address] [place], [address] Basophils/100 WBC (Bld) 0.6 % Normal 0-1 [facility] Comment on above: Performed By: #### L 100.0100, L500.2500, L501.4021 #### [facility] [address] [place], [address] Eosinophils/100 WBC (Bld) 1.8 % Normal 0-5 [facility] Comment on above: Performed By: #### L 100.0100, L500.2500, L501.4021 #### [facility] [address] [place], [address] Erythrocyte distribution width (RBC) [Ratio] 12.9 % Normal 11.6-14.6 [facility] Comment on above: Performed By: #### L 100.0100, L500.2500, L501.4021 #### [facility] [address] [place], [address] Hematocrit (Bld) [Volume fraction] 36.4 % Low 37-47 [facility] Comment on above: Performed By: #### L 100.0100, L500.2500, L501.4021 #### [facility] [address] [place], [address] Hemoglobin (Bld) [Mass/Vol] 12.7 g/dL Normal 12.0-15.0 [facility] Comment on above: Performed By: #### L 100.0100, L500.2500, L501.4021 #### [facility] [address] [place], [address] IG% 0.200 Normal 0.0-0.9 [facility] Comment on above: Result Comment: IG% - Immature Granulocytes (promyelocytes, myelocytes and metamyelocytes) > 1% indicates that a LEFT SHIFT is Present. Performed By: #### L 100.0100, L500.2500, L501.4021 #### [facility] [address] [place], [address] Lymphocytes/100 WBC (Bld) 31.6 % Normal 19-41 [facility] Comment on above: Performed By: #### L 100.0100, L500.2500, L501.4021 #### [facility] [address] [place], [address] MCH (RBC) [Entitic mass] 30.9 pg Normal 27.0-32.0 [facility] Comment on above: Performed By: #### L 100.0100, L500.2500, L501.4021 #### [facility] [address] [place], [address] MCHC (RBC) [Mass/Vol] 34.9 g/dL Normal 32-36 [facility] Comment on above: Performed By: #### L 100.0100, L500.2500, L501.4021 #### [facility] [address] [place], [address] MCV (RBC) [Entitic vol] 88.6 fL Normal 81-99 [facility] Comment on above: Performed By: #### L 100.0100, L500.2500, L501.4021 #### [facility] [address] [place], [address] Monocytes/100 WBC (Bld) 5.7 % Normal 0-10 [facility] Comment on above: Performed By: #### L 100.0100, L500.2500, L501.4021 #### [facility] [address] [place], [address] Neutrophils/100 WBC (Bld) 60.1 % Normal 47-70 [facility] Comment on above: Performed By: #### L 100.0100, L500.2500, L501.4021 #### [facility] [address] [place], [address] Nucleated RBC (Bld) [#/Vol] 0 10*3/uL Normal 0-5 [facility] Comment on above: Performed By: #### L 100.0100, L500.2500, L501.4021 #### [facility] [address] [place], [address] Platelet mean volume (Bld) [Entitic vol] 9.3 fL Normal 6.2-12.0 [facility] Comment on above: Performed By: #### L 100.0100, L500.2500, L501.4021 #### [facility] [address] [place], [address] Platelets (Bld) [#/Vol] 205 10*3/uL Normal 150-450 [facility] Comment on above: Performed By: #### L 100.0100, L500.2500, L501.4021 #### [facility] [address] [place], [address] RBC (Bld) [#/Vol] 4.11 10*6/uL Low 4.2-5.4 [facility] Comment on above: Performed By: #### L 100.0100, L500.2500, L501.4021 #### [facility] [address] [place], [address] RDW SD 42.1 fl Normal 35.1-43.9 [facility] Comment on above: Performed By: #### L 100.0100, L500.2500, L501.4021 #### [facility] [address] [place], [address] WBC (Bld) [#/Vol] 5.4 10*3/uL Normal 4.4-11.0 [facility] Comment on above: Performed By: #### L 100.0100, L500.2500, L501.4021 #### [facility] [address], [address] Carbon dioxide, total [Moles /volume] in Central venous bloodOrdered By: Dougie Fairchild on 05-27-2025 CO2 [Moles/Vol] 21.9 mmol/L 21.0-32.0 [facility] Chest 1 View (Portable)on Chest 1 View (Portable) [facility] Imaging Services [address] [place] [address] Chest 1 View (Portable) MR#: [id number] Acct: [id number] Name: NARAYAN KHOURY Rep #: [id number] : 1970 F 55 From: Saravanan garcia MD PCP: Gaye Snyder [facility], TEST CENTER ADMINISTRATOR-C Status: REG ER Study: Chest 1 View (Portable) Date of Exam: 05/27/25 Exam# [id number] Ordering Dr: Dougie Fairchild DO PROCEDURE: CHEST 1 VIEW (PORTABLE) 05/27/2025 REASON FOR EXAM: CHEST PAIN TECHNIQUE: Frontal view of the chest. COMPARISON: None FINDINGS: Hardware: EKG electrodes are seen. Heart: The heart size is normal. Lungs: Elevation of the right hemidiaphragm. The lungs are clear. Bones: Degenerative changes are identified within the thoracic spine. Other: RAD/Chest 1 View (Portable) IMPRESSION: There is elevation of the right hemidiaphragm. The lungs are clear. Reading Location: [facility] CC: [facility] TEST CENTER ADMINISTRATOR-C Gaye Snyder; Dr. Dougie Fairchild DO Workforce Planning Analyst: Signed Normal [facility] Chloride assayOrdered By: Keith Fairchild on 05-27-2025 Chloride [Moles/Vol] 106 mmol/L 98-108 [facility] [place] [facility] Consultation - Cardiologyon 05-27-2025 Consultation - Cardiology [facility] Medical Records Department [address] [place] [address] Consultation - Cardiology 05/27/25 1313 MR#: [id number] Acct: [id number] Name: NARAYAN KHOURY Rep #: [id number] : 1970 55 From: Chris Doyle MD PCP: Gaye Snyder [facility], TEST CENTER ADMINISTRATOR-C Status:ADM IN Location: [place] [address] Assessment Plan Assessment/Plan (1) High-grade atrioventricular block: PLAN: Patient presents with symptomatic 2-1 AV block. The etiology is not entirely clear. I will recommend that we obtain a TSH. She tells me that she has not had any evidence of connective tissue disorder or any tick bite recently to suggest Lyme disease. At this juncture my recommendation would be to proceed with a permanent pacemaker implantation as she appears to be very symptomatic. Risk benefits alternatives have been explained to the patient, her and her son they understand and agree to proceed. HPI Consult Data Date of Consult: 05/27/25 HPI Narrative HPI Narrative: NARAYAN KHOURY, is a 55 F who presents to the emergency room after presenting to her place of work today complaining of weakness over the last few weeks. She has been tired but she denies any chest pain. She has had some shortness of breath with exertion. They hooked her up to an EKG monitoring which demonstrated evidence of 2-1 AV block. It appears the EKG was sent to one of the hospitalists who then contacted me about possibly needing a pacemaker. She denies any chest pain however she does attest to having being fatigued over the last few weeks. 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 In the emergency room her blood pressure is noted to be normal EKG demonstrates a narrow complex bradycardia with an EKG demonstrating 2-1 AV block. She apparently has had a lower heart rate and they have been monitoring it for a while she says her father got a pacemaker at about the same age. A Holter monitor that had been done a year ago demonstrated normal heart rate with no significant pauses and an echocardiogram from January 2024 demonstrated preserved ejection fraction. She has however been told that she has had a slow heart rate. [facility] Medical History Paralysis, diaphragm Vitamin D deficiency Vitamin B deficiency History of kidney stones Hx of chronic arthritis History of anemia Home Medications ???Medication ???Instructions ???Recorded ???Last Taken ???Type cholecalciferol (vitamin D3) 125 125 mcg PO DAILY 12/06/22 Unknown History mcg (5,000 unit) capsule mecobalamin (vitamin B12) 1,000 1,000 mcg PO DAILY 12/06/22 Unknow n History mcg chewable tablet albuterol sulfate 90 mcg/actuation 2 puff inhalation Q6H PRN Unknown Rx aerosol inhaler (Ventolin HFA) shortness of breath or wheezing #6.7 grams fluticasone 250 mcg-salmeterol 50 1 inh inhalation BID #180 ea 12/21 06/11 Unknown Rx mcg/dose blistr powdr for inhalation (Advair Diskus) meloxicam 7.5 mg tablet 15 mg PO BID 08/11/24 Unknown Hist ory semaglutide cmpd 25 mg subcut QWEEK 05/27/25 Unknow n History Allergy/AdvReac Type Severity Reaction Status Date / Time No Known Allergies Allergy Verified 05/27/25 10:09 Family History Son Asthma Father Arthritis Myocardial infarction Mother Cervical cancer Uterine cancer Hypertension Sister Breast cancer Hypertension Sister Cervical cancer Ovarian cancer Sister Autoimmune disorder Surgical History Hx of section Social History household members: spouse and family [...] do you feel safe at home: Yes ROS ROS Narrative Fatigue Constitutional Constitutional: Reports fatigue and weight loss; Denies fever(s) Eyes Eyes: Reports systems reviewed and no addt'l complaints, except as documented ENT HEENT: Reports systems reviewed and no addt'l complaints, except as documented Cardiovascular Cardiovascular: Denies chest pain at rest, chest pain with activity, dyspnea at rest, dyspnea on exertion, edema, palpitations or paroxysmal nocturnal dyspnea Respiratory/Chest Respiratory/Chest: Denies dyspnea on exertion, productive cough, shortness of breath at rest or shortness of breath with (more content not included)... Normal [facility] Echo Completeon 05-27-2025 Echo Complete [facility] Cardiovascular Services [address] [place] [address] Echo Complete 05/27/25 0149 MR#: [id number] Acct: [id number] Name: NARAYAN KHOURY Rep #: [id number] : 1970 55 From: Chris Doyle MD Attending Dr: Dr. Jose Hook MD Status: ADM I N Ordering Dr: Chris Doyle MD Date: 05/27/25 Location: [facility] Sex: F C Admitted: 05/27/25 Reason For Study Reason For Study: ARRHYTHMIA Procedure This was a 2D Doppler, Color Flow transthoracic echocardiogram. Limited parasternal window due to pacing pad. Exam performed in department. Left Ventricle Normal LV size. Left ventricular systolic function is normal. The left ventricular ejection fraction is 65 %. No regional wall motion abnormalities noted. Right Ventricle Normal RV size. Normal systolic function. Atria Normal left atrium. Normal right atrium. Mitral Valve Normal mitral valve. Tricuspid Valve Normal tricuspid valve. Mild tricuspid valve insufficiency. Pulmonary artery systolic pressure is 25 mmHg. Aortic Valve Trisinus/trileaflet aortic valve. Pulmonic Valve Normal pulmonic valve. Mild (1+) pulmonic valve insufficiency. Great Vessels Normal aortic root. The pulmonary artery is normal size. Inferior vena cava collapse with respiration. Pericardium/Pleural No pericardial effusion. MMode/2D Measurements Calculations LVIDd: 4.2 cm IVSd: 0.91 cm LVOT diam: 2.0 cm LVIDs: 2.6 cm LVPWd: 0.92 cm LVOT area: 3.0 cm2 RVDd: 3.3 cm FS: 38.4 % asc Aorta Diam: 3.1 cm LAV(MOD-bp): 38.6 ml LVAd ap4: 24.3 cm2 LAV(MOD-bp) Indexed: 23.0 ml/m2 LVLd ap4: 7.2 cm LAV(MOD-sp2): 43.5 ml EDV(MOD-sp4): 67.3 ml LAV(MOD-sp4): 29.6 ml EDV(sp4-el): 69.8 ml LVAs ap4: 12.9 cm2 LVLs ap4: 6.1 cm ESV(MOD-sp4): 22.7 ml ESV(sp4-el): 23.4 ml EF(MOD-sp4): 66.3 % EF(sp4-el): 66.5 % LVAd ap2: 22.8 cm2 SV(MOD-sp4): 44.6 ml SV(MOD-sp2): 40.9 ml LVLd ap2: 7.0 cm SI(MOD-sp4): 26.6 ml/m2 SI(MOD-sp2): 24.4 ml/m2 EDV(MOD-sp2): 62.0 ml EDV(sp2-el): 63.1 ml LVAs ap2: 11.7 cm2 LVLs ap2: 5.4 cm ESV(MOD-sp2): 21.1 ml ESV(sp2-el): 21.5 ml EF(MOD-sp2): 65.9 % SV(sp4-el): 46.4 ml Ao sinus diam: 3.[address] Junction: 2.5 cm LA dimension(2D): 3.5 cm LA A4 area: 12.1 cm2 RA A4 area: 12.2 cm2 TAPSE: 2.1 cm Time Measurements MV dec time: 0.08 sec Doppler Measurements Calculations MV E max chun: 94.6 cm/sec Lat Peak E' Chun: 14.8 cm/sec Med Peak E' Chun: 12.1 cm/sec MV A max chun: 87.6 cm/sec E/E' lat: 6.4 E/E' med: 7.8 MV E/A: 1.1 MV dec slope: 1139 cm/sec2 Ao V2 max: 198.7 cm/sec LV V1 max: 176.1 cm/sec Ao max P.8 mmHg LV V1 max P.4 mmHg Ao V2 mean: 130.5 cm/sec LV V1 mean P.0 mmHg Ao mean P.7 mmHg LV V1 mean: 114.0 cm/sec Ao V2 VTI: 44.0 cm LV V1 VTI: 42.6 cm AV (velocity ratio): 0.97 ALTHEA(I,D): 3.0 cm2 ALTHEA(V,D): 2.7 cm2 SV(LVOT): 129.8 ml PA V2 max: 106.0 cm/sec TR max chun: 231.2 cm/sec TR max P.4 mmHg ECHO/Echo Complete Interpretation Summary Normal LV size. Left ventricular systolic function is normal. The left ventricular ejection fraction is 65 %. Structurally normal valves. Ordering Physician: Chris Doyle Performed By: Valentina Alexander RDCS 05/27/25 1830 Date Chris Doyle MD CC: LILI Snyder; Dr. Chris Doyle MD; Dr. Jose Hook MD Date Dictated: 05/27/25148 Date Transcribed: 05/27/25 1830 Workforce Planning Analyst: Signed Normal [facility] Echocardiogram study reportO rdered By: Chris Doyle on 05-27-2025 Study report [facility] [place] [address] Echo Complete 05/27/25148 MR#: [id number] Acct: [id number] Name: NARAYAN KHOURY Rep #:[id number] : 1970 55 From: Chris Matthews Attending Dr: Dr. Jose Hook MD S tatus: ADM IN Ordering Dr: Chris Doyle MD Date: 08/13 Location: [facility] Sex: F C Admitted: 05/27/25 Reason For Study Reason For Study: ARRHYTHMIA Procedure This was a 2D Doppler, Color Flow transthoracic echocardiogram. Limited parasternal window due to pacing pad. Exam performed in department. Left Ventricle Normal LV size. Left ventricular systolic function is normal. The left ventricular ejection fraction is 65 %. No regional wall motion abnormalities noted. Right Ventricle Normal RV size. Normal systolic function. Atria Normal left atrium. Normal right atrium. Mitral Valve Normal mitral valve. Tricuspid Valve Normal tricuspid valve. Mild tricuspid valve insufficiency. Pulmonary artery systolic pressure is 25 mmHg. Aortic Valve Trisinus/trileaflet aortic valve. Pulmonic Valve Normal pulmonic valve. Mild (1+) pulmonic valve insufficiency. Great Vessels Normal aortic root. The pulmonary artery is normal size. Inferior vena cava collapse with respiration. Pericardium/Pleural No pericardial effusion. MMode/2D Measurements & Calculations LVIDd: 4.2 cm IVSd: 0.91 cm LVOT diam: 2.0 cm LVIDs: 2.6 cm LVPWd: 0.92 cm LVOT area: 3.0 cm2 RVDd: 3.3 cm FS: 38.4 % asc Aorta Diam: 3.1 cm LAV(MOD-bp): 38.6 ml LVAd ap4: 24.3 cm2 LAV(MOD-bp) Indexed: 23.0 ml/m2 LVLd ap4: 7.2 cm LAV(MOD-sp2): 43.5 ml EDV(MOD-sp4): 67.3 ml LAV(MOD-sp4): 29.6 ml EDV(sp4-el): 69.8 ml LVAs ap4: 12.9 cm2 LVLs ap4: 6.1 cm ESV(MOD-sp4): 22.7 ml ESV(sp4-el): 23.4 ml EF(MOD-sp4): 66.3 % EF(sp4-el): 66.5 % LVAd ap2: 22.8 cm2 SV(MOD-sp4): 44.6 ml SV(MOD-sp2): 40.9 ml LVLd ap2: 7.0 cm SI(MOD-sp4): 26.6 ml/m2 SI(MOD-sp2): 24.4 ml/m2 EDV(MOD-sp2): 62.0 ml EDV(sp2-el): 63.1 ml LVAs ap2: 11.7 cm2 LVLs ap2: 5.4 cm ESV(MOD-sp2): 21.1 ml ESV(sp2-el): 21.5 ml EF(MOD-sp2): 65.9 % SV(sp4-el): 46.4 ml Ao sinus diam: 3.[address] Junction: 2.5 cm LA dimension(2D): 3.5 cm LA A4 area: 12.1 cm2 RA A4 area: 12.2 cm2 TAPSE: 2.1 cm Time Measurements MV dec time: 0.08 sec Doppler Measurements & Calculations MV E max chun: 94.6 cm/sec Lat Peak E' Chun: 14.8 cm/sec Med Peak E' Chun: 12.1 cm/sec MV A max chun: 87.6 cm/sec E/E' lat: 6.4 E/E' med: 7.8 MV E/A: 1.1 MV dec slope: 1139 cm/sec2 Ao V2 max: 198.7 cm/sec LV V1 max: 176.1 cm/sec Ao max P.8 mmHg LV V1 max P.4 mmHg Ao V2 mean: 130.5 cm/sec LV V1 mean P.0 mmHg Ao mean P.7 mmHg LV V1 mean: 114.0 cm/sec Ao V2 VTI: 44.0 cm LV V1 VTI: 42.6 cm AV (velocity ratio): 0.97 ALTHEA(I,D): 3.0 cm2 ALTHEA(V,D): 2.7 cm2 SV(LVOT): 129.8 ml PA V2 max: 106.0 cm/sec TR max chun: 231.2 cm/sec TR max P.4 mmHg ECHO/Echo Complete Interpretation Summary Normal LV size. Left ventricular systolic function is normal. The left ventricular ejection fraction is 65 %. Structurally normal valves. Ordering Physician: Chris Doyle Performed By: Valentina Alexander RDCS 05/27/251829 Date _ Chris Doyle MD CC: [facility] ADMINISTRATOR-C Gaye Snyder; Dr. Chris Doyle MD; Dr. Jose Hook MD ~ Date Dictated: 05/27/25 0149 Date Transcribed: 05/27/251829 Workforce Planning Analyst: Signed [facility] Work Phone: Emergency Department Summary on 05-27-2025 Emergency Department Summary [facility] Medical Records Department [address] [place] [address] Emergency Department Summary 05/27/25 MR#: [id number] Acct: [id number] Name: NARAYAN KHOURY Rep #: [id number] : 1970 55 From: Dougie Fairchild DO PCP: Gaye Snyder Robbie, TEST CENTER ADMINISTRATOR-C Status:ADM IN Location: [place] [address] HPI History of Present Illness Chief Complaint: Palpitations Informant: patient Onset/Context/Timing Onset: Today Context: Gradual Onset Timing: Continuous Quality: Fatigue, weakness Location: Generalized Worsened by: Nothing Relieved by: Nothing Narrative Narrative: Patient presents with a low heart rate that was noticed today. Patient was at the [facility] where they noted her heart rate was low. They did an EKG there which showed a heart block. They discussed case with Dr. Terry, who referred her to the emergency department. Patient admits to some aching pain in her left arm. Patient states she has been feeling fatigued and weak. Patient states nothing makes her symptoms better nothing makes them worse. Patient denies any fevers or chills. Patient states she does get short of breath with exertion. [facility] Medical History (Updated 05/27/25 @ 15:48 by Medina Ramesh) Presence of permanent cardiac pacemaker Paralysis, diaphragm Vitamin D deficiency Vitamin B deficiency History of kidney stones Hx of chronic arthritis History of anemia Home Medications ???Medication ???Instructions ???Recorded ???Last Taken ???Type cholecalciferol (vitamin D3) 125 125 mcg PO DAILY 12/06/22 Unknown History mcg (5,000 unit) capsule mecobalamin (vitamin B12) 1,000 1,000 mcg PO DAILY 12/06/22 Unknow n History mcg chewable tablet albuterol sulfate 90 mcg/actuation 2 puff inhalation Q6H PRN Unknown Rx aerosol inhaler (Ventolin HFA) shortness of breath or wheezing #6.7 grams fluticasone 250 mcg-salmeterol 50 1 inh inhalation BID #180 ea 12/21 06/11 Unknown Rx mcg/dose blistr powdr for inhalation (Advair Diskus) meloxicam 7.5 mg tablet 15 mg PO BID 08/11/24 Unknown Hist ory semaglutide cmpd 25 mg subcut QWEEK 05/27/25 Unknow n History Allergy/AdvReac Type Severity Reaction Status Date / Time No Known Allergies Allergy Verified 05/27/25 10:09 Family History Son Asthma Father Arthritis Myocardial infarction Mother Cervical cancer Uterine cancer Hypertension Sister Breast cancer Hypertension Sister Cervical cancer Ovarian cancer Sister Autoimmune disorder Surgical History Hx of section Social History household members: spouse and family [...] do you feel safe at home: Yes ROS ROS ED Constitutional Constitutional ED: Denies chills or fever(s) Eyes Eyes: Denies blurry vision or change in vision ENT ENT ED: Denies rhinorrhea or sore throat Cardiovascular Cardiovascular: Reports palpitations; Denies chest pain Respiratory/Chest Respiratory/Chest: Reports dyspnea on exertion; Denies cough Gastrointestinal Gastrointestinal: Denies nausea or vomiting Genitourinary Genitourinary ED: Denies dysuria or hematuria Musculoskeletal Musculoskeletal: Reports back pain; Denies neck pain Integumentary Denies abscess or rash Neurologic Neurologic: Reports weakness; Denies headache(s) Allergic/Immunologic Allergic/Immunologic ED: Denies mouth swelling or urticaria EXAM Physical Exam Const Vital Signs: 05/27/25 10:05 05/27/25 10:25 05/27/25 10:47 Temperature 97.5 F L Temperature Source Temporal Pulse Rate 28 L 42 L Respiratory Rate 16 Blood Pressure 154/72 H Blood Pressure Mean 99 Pulse Ox 100 96 Oxygen Delivery Method Room Air Room Air Room Air 05/27/25 10:56 05/27/25 11:09 05/27/25 11:15 Temperature Temperature Source Pulse Rate 40 L 37 L 38 L Respiratory Rate 14 Blood Pressure 144/68 H 135/76 H Blood Pressure Mean 93 93 Pulse Ox 98 99 97 Oxygen Delivery Method Room Air 05/27/25 11:30 05/27/25 11:45 05/27/25 12:00 Temperature Temperature Source Pulse Rate 36 L 36 L 41 L Respiratory Rate 13 Blood Pressure 117/69 127/67 H 115/71 Blood Pressure Mean 84 85 84 Pulse Ox 95 98 96 Oxygen Delivery Method 05/27/25 12:15 05/27/25 12:30 (more content not included)... Normal [facility] Eosinophil percentageOrdered By: Dougie Fairhcild on 05-27-2025 Eosinophils/100 WBC (Bld) 1.8 % 0-5 [facility] Erythrocyte distribution wid th ratioOrdered By: Dougie Fairchild on 05-27-2025 Erythrocyte distribution width (RBC) [Ratio] 12.9 % 11.6-14.6 [facility] Erythrocyte distribution wid th standard deviationOrdered By: Dougie Fairchild on 05-27-2025 Erythrocyte distribution width (RBC) [Ratio] 42.1 fl 35.1-43.9 [facility] Glomerular filtration rate ( GFR) estimation/1.73 sq m using serum, plasma, or whole bOrdered By: Dougie Fairchild on 05-27-2025 GFR/1.73 sq M.predicted among non-blacks MDRD (S/P/Bld) [Vol rate/Area] 78 mL/min/{1.73_m2} >60 [facility] Comment on above: mL/min/1.73m2 CKD-EP I Creatinine Equation (2020) Glucose [facility] at [facility] deOrdered By: Jose Hook on 05-27-2025 Glucose [Mass/Vol] 92 mg/dL 74-106 [facility] Comment on above: MANAGEMENT OF PATIEN T CARE PER NURSING PROTOCOL H AND P Exam - Hospitaliston 05-27-2025 H&P Exam - Hospitalist [facility] Medical Records Department [address] [place] [address] H P Exam - Hospitalist 05/27/25 1839 MR#: [id number] Acct: [id number] Name: NARAYAN KHOURY Rep #: [id number] : 1970 55 From: Seb Sladaña DO PCP: Gaye Snyder Robbie, TEST CENTER ADMINISTRATOR-C Status:ADM IN Location: [facility] [id number] HPI - General General Date of Admission: 05/27/25 Date of Service: 05/27/25 Chief Complaint: Fatigue, bradycardia, second-degree AV block HPI Narrative NARAYAN KHOURY, is a 55 F who presents to the emergency room at [facility] after being sent over from her PCPs office due to an EKG showing a heart rate of 35 and evidence of second-degree AV block. Patient is on no rate control medications as an outpatient. EKG in the ER showed sinus bradycardia with evidence of periods of second and third-degree AV block with PVCs. Patient's CBC was unremarkable, patient's troponin was minimally elevated and were pretty much flat. Chest x-ray showed elevation of the right hemidiaphragm, lungs were clear. Cardiology was contacted and the patient was taken to the [facility] and a single-lead pacemaker was placed, there were no complications. Patient was admitted to PCU after the procedure. [facility] Medical History (Updated 05/27/25 @ 16:57 by Medina Ramesh) Mobitz type 2 second degree atrioventricular block Presence of permanent cardiac pacemaker Paralysis, diaphragm Vitamin D deficiency Vitamin B deficiency History of kidney stones Hx of chronic arthritis History of anemia Home Medications ???Medication ???Instructions ???Recorded ???Last Taken ???Type cholecalciferol (vitamin D3) 125 125 mcg PO DAILY 12/06/22 Unknown History mcg (5,000 unit) capsule mecobalamin (vitamin B12) 1,000 1,000 mcg PO DAILY 12/06/22 Unknow n History mcg chewable tablet albuterol sulfate 90 mcg/actuation 2 puff inhalation Q6H PRN Unknown Rx aerosol inhaler (Ventolin HFA) shortness of breath or wheezing #6.7 grams fluticasone 250 mcg-salmeterol 50 1 inh inhalation BID #180 ea 12/21 06/11 Unknown Rx mcg/dose blistr powdr for inhalation (Advair Diskus) meloxicam 7.5 mg tablet 15 mg PO BID 08/11/24 Unknown Hist ory semaglutide cmpd 25 mg subcut QWEEK 05/27/25 Unknow n History Allergy/AdvReac Type Severity Reaction Status Date / Time No Known Allergies Allergy Verified 05/27/25 10:09 Family History Son Asthma Father Arthritis Myocardial infarction Mother Cervical cancer Uterine cancer Hypertension Sister Breast cancer Hypertension Sister Cervical cancer Ovarian cancer Sister Autoimmune disorder Surgical History Hx of section Social History household members: spouse and family [...] do you feel safe at home: Yes ROS Constitutional Constitutional: Reports fatigue; Denies anorexia, change in weight, fever(s), night sweats or weakness Eyes Eyes: Denies blurry vision, change in vision, discharge from eye(s) or eye pain Cardiovascular Cardiovascular: Denies chest pain, claudication, dyspnea on exertion, edema or palpitations Respiratory/Chest Respiratory/Chest: Denies cough, hemoptysis, shortness of breath at rest or shortness of breath with exertion Gastrointestinal Gastrointestinal: Denies abdominal pain, constipation, diarrhea, hematemesis, hematochezia, melena, nausea or vomiting Genitourinary Genitourinary: Denies dysuria, hematuria, urinary frequency, urinary hesitancy, urinary incontinence or urinary urgency Musculoskeletal Musculoskeletal: Denies back pain, joint pain, joint stiffness, joint swelling, myalgias or neck pain Neurologic Neurologic: Denies abnormal gait, abnormal speech, dizziness, focal weakness, headache(s), loss of vision, numbness, other visual disturbances, paresthesias, syncope or tingling Psychiatric Psychiatric: Denies anxiety, cognitive impairment, depression, irritability, mood swings or suicidal ideation Endocrine Endocrinology: Denies change in body appearance, cold intolerance, excessive sweating, heat intolerance, polydipsia or polyuria Hematologic/Lymphatic Hematologic/Lymphatic: Denies none, anemia, easy bleeding, easy bruising or lymphadenopathy Allergic/Immunologic Allergic/Immunologic: Denies rhinitis, urticaria, eczemia or asthma Vital Signs Vi (more content not included)... Normal [facility] Hematocrit Auto (Bld) [Volum e fraction]Ordered By: Dougie Fairchild on 05-27-2025 Hematocrit (Bld) [Volume fraction] 36.4 % Low 37-47 [facility] Hemoglobin measurementOrdere d By: Dougie Fairchild on 05-27-2025 Hemoglobin (Bld) [Mass/Vol] 12.7 g/dL 12.0-15.0 [facility] Immature granulocytes/100 WB C Auto (Bld)Ordered By: Dougie Fairchild on 05-27-2025 Immature granulocytes/100 WBC (Bld) 0.200 % 0.0-0.9 [facility] Comment on above: IG% - Immature Granu locytes (promyelocytes, myelocytes and metamyelocytes) > 1% indicates that a LEFT SHIFT is Present. L499.0042on 05-27-2025 Trop T High Sen 21 ng/L High <=14 [facility] Comment on above: Performed By: #### L 499.0042 ####[facility] [address] [place], [address] L499.0043on 05-27-2025 Trop T High Sen 25 ng/L High <=14 [facility] Comment on above: Performed By: #### L 499.0043 #### [facility] Laboratory [address] [place], [address] L501.4021on 05-27-2025 Trop T High Sen 19 ng/L High <=14 [facility] Comment on above: Performed By: #### L 100.0100, L500.2500, L501.4021 ####[facility] [address] [place], [address] MCV (mean corpuscular volume ) determinationOrdered By: Dougie Fairchild on 05-27-2025 MCV (RBC) [Entitic vol] 88.6 fL 81-99 [facility] Mean corpuscular hemoglobin (MCH) determinationOrdered By: Dougie Fairchild on 05-27-2025 MCH (RBC) [Entitic mass] 30.9 pg 27.0-32.0 [facility] Mean corpuscular hemoglobin concentration (MCHC) determinationOrdered By: Dougie Fairchild on 05-27-2025 MCHC (RBC) [Mass/Vol] 34.9 g/dL 32-36 [facility] Mean platelet volume determi nationOrdered By: Dougie Fairchild on 05-27-2025 Platelet mean volume (Bld) [Entitic vol] 9.3 fL 6.2-12.0 [facility] Monocyte percentageOrdered B y: Dougie Fairchild on 05-27-2025 Monocytes/100 WBC (Bld) 5.7 % 0-10 [facility] Neutrophil percentageOrdered By: Dougie Fairchild on 05-27-2025 Neutrophils/100 WBC (Bld) 60.1 % 47-70 [facility] Nucleated red blood cell per centageOrdered By: Dougie Fairchild on 05-27-2025 Nucleated RBC/100 WBC (Bld) [Ratio] 0 % 0-5 [facility] Platelet countOrdered By: Keith Fairchild on 05-27-2025 Platelets (Bld) [#/Vol] 205 10*3/uL 150-450 [facility] Potassium measurement (mass/ volume)Ordered By: Dougie Fairchild on 05-27-2025 Potassium (Unsp spec) [Mass/Vol] 3.7 mmol/L 3.3-5.1 [facility] RBC Auto (Bld) [#/Vol]Ordere d By: Dougie Fairchild on 05-27-2025 RBC (Bld) [#/Vol] 4.11 10*6/uL Low 4.2-5.4 [facility] Serum creatinine measurement (mass/volume)Ordered By: Dougie Fairchild on 05-27-2025 Creatinine [Mass/Vol] 0.87 mg/dL 0.70-1.20 [facility] Serum glucose measurement (m ass/volume)Ordered By: Dougie Fairchild on 05-27-2025 Glucose [Mass/Vol] 121 mg/dL High 70-99 [facility] Serum or plasma calcium luisito urement (mass/volume)Ordered By: Dougie Fairchild on 05-27-2025 Calcium [Mass/Vol] 9.4 mg/dL 7.6-11.0 [facility] Serum or plasma urea nitroge n measurement (mass/volume)Ordered By: Dougie Fairchild on 05-27-2025 Urea nitrogen [Mass/Vol] 18 mg/dL 4-19 [facility] Sodium levelOrdered By: Dougie Fairchild on 05-27-2025 Sodium [Moles/Vol] 140 mmol/L 133-145 [facility] TSH DL <= 0.005 mIU/L QnOrde red By: Chris Doyle on 05-27-2025 TSH Qn 3.820 uIU/mL 0.300-4.200 [facility] Thyroid Stim Hormone (TSH)on 05-27-2025 TSH 3.820 uIU/mL Normal 0.300-4.200 [facility] Comment on above: Performed By: #### L 501.9520 ####[facility] [address] [place], [place], [address] Troponin T.cardiac [Mass/vol ume] in Serum or Plasma by High sensitivity methodOrdered By: Dougie Fairchild on 05-27-2025 Troponin T.cardiac High sensitivity method [Mass/Vol] 25 ng/L High <14 [facility] Troponin T.cardiac High sensitivity method [Mass/Vol] 21 ng/L High <14 [facility] Troponin T.cardiac High sensitivity method [Mass/Vol] 19 ng/L High <14 [facility] White blood cell (WBC) count Ordered By: Dougie Fairchild on 05-27-2025 WBC (Bld) [#/Vol] 5.4 10*3/uL 4.4-11.0 [facility] CNOVon 11-28-2024 CNOV Office Visit (SLEWST ) NARAYAN KHOURY ([id number]) 1970 F Date Time Provider Department 11/28/24 11:00 AM GUZMAN PARIKH During your visit today, we recorded the following information about you: Pulse Respiration Blood pressure Weight 42/minute 18/minute 130/74 79.7 kg Height 1.473 m Guzman Parikh APRN.CNP 12/09/2024 9:11 AM Signed [facility] New Patient Evaluation PATIENT NAME: Narayan Khoury DATE OF SERVICE: November 27, 2024 CONSULTING PROVIDER: Gaye Snyder [address] [facility] [address] REASON FOR CONSULT: Gaye Snyder sends the patient for an opinion [...] HISTORY Procedure Laterality Date TUBAL LIGATION, 1994 [facility] DELIVERY SCHEDULING ORDER 3 deliveries There is [...] History T (more content not included)... Normal [facility] Surgery Visit Reporton 08-11 Surgery Visit Report [facility] [address] [place], [place] [address] OFFICE VISIT Date of Service: 08/11/24 MR#: [id number] Acct: [id number] Name: NARAYAN KHOURY Rep #: [id number] : 1970 Provider: Dr. Jaime hammer MD Age/Sex: 54/F Location: [facility] Status: Signed Intake Vital Signs 02/28/24 13:48 [...] BREAST Chief Complaint: Recurrent cyst left breast Pop Singer Required: No Accompanied by: Is patient in [...] 08/11/24 Rx mg/0.5 mL subcutaneous pen injector (Wegovy) meloxicam 7.5 mg tablet 7.5 mg PO [...] No a (more content not included)... Normal [facility] Breast Limited Unilateralon 08-05-2024 Breast Limited Unilateral [facility] Imaging Services [address] [place] [address] Breast Limited Unilateral MR#: [id number] Acct: [id number] Name: NARAYAN KHOURY Rep #: [id number] : 1970 F 54 From: Saravanan garcia MD PCP: Dr. Ynana Warren MD Status: [facility] Study: Breast Limited Unilateral Date of Exam: Exam# [id number] Ordering Dr: Gaye Snyder [facility] ADMINISTRATOR-C [id number] STUDY: ULTRASOUND BREAST - LEFT REASON FOR [...] Sewell MD at 10:52 EDT , CC: [facility] Snyder; Dr. Yanna Warren MD Workforce Planning Analyst: Signed Normal [facility] Absolute lymphocyte countOrd ered By: Yanna Warren on 01-16-2024 Lymphocytes Auto (Unsp spec) [#/Vol] 2.37 10*3/uL 0.83-4.51 [facility] Automated lymphocyte count a s percentage of total leukocytesOrdered By: Yanna Warren on 01-16-2024 Lymphocytes/100 WBC Auto (Unsp spec) 37.2 % 19-41 [facility] Basophil percentageOrdered B y: Yanna Warren on 01-16-2024 Basophils/100 WBC (Bld) 0.6 % 0-1 [facility] Bilirubin [Mass/Vol] 0.70 mg/dL 0.20-1.00 [facility] [place] [facility] Comment on above: For patients on eltr ombopag therapy, use of Dimension [place] TBIL is not recommended. Chloride [Moles/Vol] 106 mmol/L 98-107 [facility] [place] [facility] Cholesterol [Mass/Vol] 165 mg/dL <200 [facility] Comment on above: <200 mg/dL Desirable 200-240 mg/dL Borderline >240 mg/dL High Risk Eosinophils/100 WBC (Bld) 2.4 % 0-5 [facility] Glucose [Mass/Vol] 94 mg/dL 74-106 [facility] Hemoglobin (Bld) [Mass/Vol] 12.9 g/dL 12.0-15.0 [facility] Monocytes/100 WBC (Bld) 6.8 % 0-10 [facility] Neutrophils (Bld) [#/Vol] 3.4 10*3/uL 2.0-7.7 [facility] Neutrophils/100 WBC (Bld) 52.5 % 47-70 [facility] Potassium [Moles/Vol] 4.4 mmol/L 3.5-5.1 [facility] Protein [Mass/Vol] 7.5 g/dL 6.4-8.2 [facility] Sodium [Moles/Vol] 140 mmol/L 136-145 [facility] Triglyceride [Mass/Vol] 76 mg/dL <199 [facility] Comment on above: The drugs N-Acetylcy steine and Metamizole may falsely depress this assay.Serum Triglycerides Reference Interval Normal <150 mg/dL Borderline high 150 - 199 mg/dL High 200 - 499 mg/dL Very High > or = 500 mg/dL WBC (Bld) [#/Vol] 6.4 10*3/uL 4.4-11.0 [facility] Determination of erythrocyte mean corpuscular volume (MCV)Ordered By: Yanna Warren on 01-16-2024 MCV (RBC) [Entitic vol] 89.1 fL 81-99 [facility] Erythrocyte distribution wid th ratioOrdered By: Yanna Warren on 01-16-2024 Erythrocyte distribution width (RBC) [Ratio] 13.0 % 11.6-14.6 [facility] Erythrocyte distribution wid th standard deviationOrdered By: Yanna Warren on 01-16-2024 Erythrocyte distribution width (RBC) [Entitic vol] 42.5 fL 35.1-43.9 [facility] Hematocrit Auto (Bld) [Volum e fraction]Ordered By: Yanna Warren on 01-16-2024 Hematocrit (Bld) [Volume fraction] 39.2 % 37-47 [facility] Immature granulocytes/100 WB C Auto (Bld)Ordered By: Yanna Warren on 01-16-2024 Immature granulocytes/100 WBC (Bld) 0.500 % 0.0-0.9 [facility] Comment on above: IG% - Immature Granu locytes (promyelocytes, myelocytes and metamyelocytes) > 1% indicates that a LEFT SHIFT is Present. Laboratory - Chemistry and C hemistry - challengeOrdered By: Yanna Warren on 01-16-2024 Albumin/Globulin [Mass ratio] 1.0 {ratio} 0.9-2.4 [facility] ALP [Catalytic activity/Vol] 71 U/L 45-117 [facility] ALT [Catalytic activity/Vol] 53 U/L 13-56 [facility] Cholesterol in HDL [Mass/Vol] 48 mg/dL >40 [facility] Comment on above: The drugs N-Acetylcy steine and Metamizole may falsely depress this assay. Reference Range HDL <40 mg/dL Low HDL Cholesterol HDL >or= 60 mg/dL High HDL Cholesterol Cholesterol in LDL [Mass/Vol] 102 mg/dL 0-130 [facility] CO2 [Moles/Vol] 27.0 mmol/L 21.0-32.0 [facility] Globulin (S) [Mass/Vol] 3.8 g/dL 2.2-4.2 [facility] Urea nitrogen/Creatinine [Mass ratio] 12.2 mg/mg 10-20 [facility] Laboratory - Hematology and Cell countsOrdered By: Yanna Warren on 01-16-2024 MCH (RBC) [Entitic mass] 29.3 pg 27.0-32.0 [facility] MCHC (RBC) [Mass/Vol] 32.9 g/dL 32-36 [facility] Nucleated RBC/100 WBC (Bld) [Ratio] 0 % 0-5 [facility] Platelet mean volume (Bld) [Entitic vol] 9.6 fL 6.2-12.0 [facility] Platelets (Bld) [#/Vol] 272 10*3/uL 150-450 [facility] No Panel InformationOrdered By: Yanna Warren on 01-16-2024 Estimated GFR (MDRD) Amer 75 mL/min >60 [facility] Comment on above: GFR Calc Estimated GFR (MDRD) Non-Af Amer 62 mL/min >60 [facility] Comment on above: Non- GFR Calc Vitamin D 25-Hydroxy 31.0 ng/mL [facility] [place] [facility] Comment on above: Vitamin D 25(OH) Sta tus Range Deficiency <20 ng/mL (50nmol/L) Insufficiency 20 - 30 ng/mL (50 - 75 nmol/L) Sufficiency 30 - 100 ng/mL (75 - 250 nmol/L) Toxicity >100 ng/mL (>250 nmol/L) VLDL Cholesterol 15 mg/dL 5-40 [facility] RBC Auto (Bld) [#/Vol]Ordere d By: Yanna Warren on 01-16-2024 RBC (Bld) [#/Vol] 4.40 10*6/uL 4.2-5.4 [facility] Serum or plasma calcium luisito urement (mass/volume)Ordered By: Yanna Warren on 01-16-2024 Calcium [Mass/Vol] 9.3 mg/dL 8.5-10.1 [facility] Serum or plasma creatinine m easurement (mass/volume)Ordered By: Yanna Warren on 01-16-2024 Creatinine [Mass/Vol] 0.99 mg/dL 0.55-1.02 [facility] Comment on above: The validity of the calculated GFR & GFRAA in patients over 70 years has not been determined. Clinical correlation is essential. Serum or plasma thyroid stim ulating hormone (TSH) measurement (units/volume)Ordered By: Yanna Warren on 01-16-2024 TSH Qn 1.64 uIU/mL 0.358-3.74 [facility] Serum or plasma urea nitroge n measurement (mass/volume)Ordered By: Yanna Warren on 01-16-2024 Urea nitrogen [Mass/Vol] 12 mg/dL 7-18 [facility] Thin prep Papanicolaou smear with manual screeningOrdered By: Yanna Warren on 01-16-2024 Thin prep Papanicolaou smear with manual screening 3.7 g/dL 3.2-5.0 [facility] Thin prep Papanicolaou smear with manual screening 42 U/L 15-37 [facility] Thin prep Papanicolaou smear with manual screening 7 5-15 [facility] Absolute lymphocyte countOrd ered By: Dr. Warren on 12-07-2022 Lymphocytes Auto (Unsp spec) [#/Vol] 1.89 10*3/uL 0.83-4.51 [facility] Basophil percentageOrdered B y: Dr. Warren on 12-07-2022 Basophils/100 WBC (Bld) 0.6 % 0-1 [facility] Bilirubin [Mass/Vol] 0.70 mg/dL 0.20-1.00 [facility] Comment on above: For patients on eltr ombopag therapy, use of Dimension [place] TBIL is not recommended. Chloride [Moles/Vol] 105 mmol/L 98-107 [facility] Cholesterol [Mass/Vol] 216 mg/dL <200 [facility] Comment on above: <200 mg/dL Desirable 200-240 mg/dL Borderline >240 mg/dL High Risk Eosinophils/100 WBC (Bld) 2.2 % 0-5 [facility] Glucose [Mass/Vol] 110 mg/dL 74-106 [facility] Comment on above: Fasting Glucose resu lt from 100 to 125 mg/dL suggests IMPAIRED HOMEOSTASIS per A.D.A. criteria. Neutrophils (Bld) [#/Vol] 3.0 10*3/uL 2.0-7.7 [facility] Neutrophils/100 WBC (Bld) 54.9 % 47-70 [facility] Potassium [Moles/Vol] 3.9 mmol/L 3.5-5.1 [facility] Protein [Mass/Vol] 8.0 g/dL 6.4-8.2 [facility] Sodium [Moles/Vol] 139 mmol/L 136-145 [facility] Triglyceride [Mass/Vol] 87 mg/dL <199 [facility] Comment on above: The drugs N-Acetylcy steine and Metamizole may falsely depress this assay.Serum Triglycerides Reference Interval Normal <150 mg/dL Borderline high 150 - 199 mg/dL High 200 - 499 mg/dL Very High > or = 500 mg/dL WBC (Bld) [#/Vol] 5.4 10*3/uL 4.4-11.0 [facility] Blood erythrocytes count (nu mber/volume)Ordered By: Dr. Warren on 12-07-2022 RBC (Bld) [#/Vol] 4.39 10*6/uL 4.2-5.4 [facility] Blood hemoglobin measurement (mass/volume)Ordered By: Dr. Warren on 12-07-2022 Hemoglobin (Bld) [Mass/Vol] 13.2 g/dL 12.0-15.0 [facility] Blood lymphocytes/100 leukoc ytesOrdered By: Dr. Warren on 12-07-2022 Lymphocytes/100 WBC (Bld) 34.9 % 19-41 [facility] Blood monocytes/100 leukocyt esOrdered By: Dr. Warren on 12-07-2022 Monocytes/100 WBC (Bld) 7.2 % 0-10 [facility] Blood platelet mean volumeOr dered By: Dr. Warren on 12-07-2022 Platelet mean volume (Bld) [Entitic vol] 9.3 fL 6.2-12.0 [facility] Determination of erythrocyte mean corpuscular volume (MCV)Ordered By: Dr. Warren on 12-07-2022 MCV (RBC) [Entitic vol] 91.6 fL 81-99 [facility] Hematocrit Auto (Bld) [Volum e fraction]Ordered By: Dr. Warren on 12-07-2022 Hematocrit (Bld) [Volume fraction] 40.2 % 37-47 [facility] Laboratory - Chemistry and C hemistry - challengeOrdered By: Dr. Warren on 12-07-2022 ALP [Catalytic activity/Vol] 63 U/L 45-117 [facility] ALT [Catalytic activity/Vol] 37 U/L 13-56 [facility] CO2 [Moles/Vol] 28.0 mmol/L 21.0-32.0 [facility] Cobalamin (Vitamin B12) [Mass/Vol] 709 pg/mL 211-911 [facility] Globulin (S) [Mass/Vol] 4.1 g/dL 2.2-4.2 [facility] Urea nitrogen/Creatinine [Mass ratio] 16.8 mg/mg 10-20 [facility] Laboratory - Hematology and Cell countsOrdered By: Dr. Warren on 12-07-2022 Erythrocyte distribution width (RBC) [Entitic vol] 43.7 fL 35.1-43.9 [facility] Erythrocyte distribution width (RBC) [Ratio] 13.0 % 11.6-14.6 [facility] Immature granulocytes/100 WBC (Bld) 0.200 % 0.0-0.9 [facility] Comment on above: IG% - Immature Granu locytes (promyelocytes, myelocytes and metamyelocytes) > 1% indicates that a LEFT SHIFT is Present. MCH (RBC) [Entitic mass] 30.1 pg 27.0-32.0 [facility] Nucleated RBC/100 WBC (Bld) [Ratio] 0 % 0-5 [facility] MCHC Auto (RBC) [Mass/Vol]Or dered By: Dr. Warren on 12-07-2022 MCHC (RBC) [Mass/Vol] 32.8 g/dL 32-36 [facility] No Panel InformationOrdered By: Dr. Warren on 12-07-2022 Estimated GFR (MDRD) Amer 85 mL/min >60 [facility] Comment on above: GFR Calc Estimated GFR (MDRD) Non-Af Amer 70 mL/min >60 [facility] Comment on above: Non- GFR Calc Vitamin D 25-Hydroxy 26.4 ng/mL [facility] Comment on above: Vitamin D 25(OH) Sta tus Range Deficiency <20 ng/mL (50nmol/L) Insufficiency 20 - 30 ng/mL (50 - 75 nmol/L) Sufficiency 30 - 100 ng/mL (75 - 250 nmol/L) Toxicity >100 ng/mL (>250 nmol/L) Platelets bldOrdered By: Dr. Warren on 12-07-2022 Platelets (Bld) [#/Vol] 255 10*3/uL 150-450 [facility] Serum or plasma albumin luisito urement (mass/volume)Ordered By: Dr. Warren on 12-07-2022 Albumin [Mass/Vol] 3.9 g/dL 3.2-5.0 [facility] Serum or plasma albumin/glob ulin mass ratioOrdered By: Dr. Warren on 12-07-2022 Albumin/Globulin [Mass ratio] 1.0 {ratio} 0.9-2.4 [facility] Serum or plasma calcium luisito urement (mass/volume)Ordered By: Dr. Warren on 12-07-2022 Calcium [Mass/Vol] 9.1 mg/dL 8.5-10.1 [facility] Serum or plasma cholesterol in HDL measurement (mass/volume)Ordered By: Dr. Warren on 12-07-2022 Cholesterol in HDL [Mass/Vol] 64 mg/dL >40 [facility] Comment on above: The drugs N-Acetylcy steine and Metamizole may falsely depress this assay. Reference Range HDL <40 mg/dL Low HDL Cholesterol HDL >or= 60 mg/dL High HDL Cholesterol Serum or plasma cholesterol in VLDL measurement (mass/volume)Ordered By: Dr. Warren on 12-07-2022 Cholesterol in VLDL [Mass/Vol] 17 mg/dL 5-40 [facility] Serum or plasma creatinine m easurement (mass/volume)Ordered By: Dr. Warren on 12-07-2022 Creatinine [Mass/Vol] 0.89 mg/dL 0.55-1.02 [facility] Comment on above: The validity of the calculated GFR & GFRAA in patients over 70 years has not been determined. Clinical correlation is essential. Serum or plasma low density lipoprotein (LDL) cholesterol measurement (mass/volume)Ordered By: Dr. Warren on 12-07-2022 Cholesterol in LDL [Mass/Vol] 135 mg/dL 0-130 [facility] Serum or plasma urea nitroge n measurement (mass/volume)Ordered By: Dr. Warren on 12-07-2022 Urea nitrogen [Mass/Vol] 15 mg/dL 7-18 [facility] Thin prep Papanicolaou smear with manual screeningOrdered By: Dr. Warren on 12-07-2022 Thin prep Papanicolaou smear with manual screening 21 U/L 15-37 [facility] Thin prep Papanicolaou smear with manual screening 6 5-15 [facility] CR Sacroiliac Joints 3+ View son 07-15-2018 CR Sacroiliac Joints 3+ Views Patient Name: NARAYAN KHOURY Diagnostic Radiology Exam Date/Time 07/12/2018 12:48:00 EDT Exam CR Sacroiliac Joints 3+ Views Ordering Physician MD SMITH MATTHEW PATRICK Accession Number [id number] CPT4 Codes 83418 () Reason For Exam M53.3 Report Sacroiliac joints CLINICAL INDICATION: Pain AP and oblique views were obtained. Sacroiliac joints are symmetric and maintained in width. No erosive changes are noted. Minimal hypertrophic changes are present inferiorly. IMPRESSION: No acute osseous abnormality Report Dictated on Workstation: [id number] Final Dictating Physician: MD GUZMAN DIANE Signed Date and Time: 07/14/2018 11:56 pm Signed by: MD GUZMAN DIANE Transcribed Date and Time: 07/14/2018 11:58 Normal [facility] CR Spine Lumbosacral 4+ View son 07-15-2018 CR Spine Lumbosacral 4+ Views Patient Name: NARAYAN KHOURY Diagnostic Radiology Exam Date/Time 07/12/2018 12:48:00 EDT Exam CR Spine Lumbosacral 4+ Views Ordering Physician MD SMITH MATTHEW PATRICK Accession Number [id number] CPT4 Codes 75142 () Reason For Exam low back pain [...] Transcribed Date and Time: 07/15/2018 0:00 Normal [facility] CR Spine Thoracic 2 Viewson 07-15-2018 CR Spine Thoracic 2 Views Patient Name: NARAYAN KHOURY Diagnostic Radiology Exam Date/Time 07/12/2018 12:48:00 EDT Exam CR Spine Thoracic 2 Views Ordering Physician MD SMITH MATTHEW PATRICK Accession Number [id number] CPT4 Codes 14281 () Reason For Exam M54.6 Report Thoracic [...] T4-T5 and T5-T6 Report Dictated on Workstation: [id number] Final Dictating Physician: MD GUZMAN DIANE Signed Date and Time: 07/14/2018 11:55 pm Signed by: MD GUZMAN DIANE Transcribed Date and Time: 07/14/2018 11:56 Normal [facility] MG Breast Tomosynthesis Scr Blon 04-24-2018 MG Breast Tomosynthesis Scr Bl Patient Name: NARAYAN KHOURY Mammography Exam Date/Time 04/24/2018 11:05:33 EDT Exam MG Breast Tomosynthesis BI Scr Ordering Physician MD SMITH MATTHEW PATRICK Accession Number [id number] CPT4 Codes 80030 (MG Breast Tomosynthesis Scr Bl), 27741 (MG MAMMO 2D SCREENING) Reason For Exam [...] 20, 2013, bilateral screening mammogram, performed at [facility]. March 21, 2010, bilateral diagnostic mammogram, performed at [facility]. TISSUE DENSITY: There are scattered fibroglandular densities. . FINDINGS: No suspicious masses, architectural distortions or suspiciously clustered microcalcifications are identified. There is no evidence of skin thickening or nipple retraction. There are no significant changes when compared with prior studies. Markings on images: BB's = Nipples; skin lesions Open elim ira = Palpable Line = Scar 2D digital [...] Time: 04/24/2018 3:39 pm Signed by: MD STELLA, BENNY [facility] .Urinalysis Microscopic (AO) on 04-01-2018 RBC Test strip #/vol (U) None Seen Normal None Seen [facility] ([place] Comment on above: Performed By: #### C BC, ADIFF, ANEU, TROP, BMP, GFR ####[address] [place], [place] [address] UA Squam Epithelial None Seen Normal None [facility]en [facility] ([place] Comment on above: Performed By: #### C BC, ADIFF, ANEU, TROP, BMP, GFR ####[address] [place], [place] [address] UA WBC None Seen Normal None Seen [facility] ([place] Comment on above: Performed By: #### C BC, ADIFF, ANEU, TROP, BMP, GFR ####[address] [place], [place] [address] [place] [facility] Note on 04-01-2018 [facility] Note Normal [facility] ([place]) Pat Eduon 04-01-2018 Pat Edu Normal [facility] ([place] Patient Summary Documentson 04-01-2018 Patient Summary Documents Normal [facility] ([place] UAon 04-01-2018 Color Nom (U) YELLOW Normal [facility] ([place] Comment on above: Performed By: #### C BC, ADIFF, ANEU, TROP, BMP, GFR ####[address] [place], [place] [address] Glucose mass conc (U) Negative Normal [facility] ([place]) Comment on above: Performed By: #### C BC, ADIFF, ANEU, TROP, BMP, GFR ####[address] [place], [place] [address] Ketones Ql (U) Negative Normal [facility] ([place] Comment on above: Performed By: #### C BC, ADIFF, ANEU, TROP, BMP, GFR ####[address] [place], [place] [address] UA Appear CLEAR Normal [facility] ([place] Comment on above: Performed By: #### C BC, ADIFF, ANEU, TROP, BMP, GFR ####[address] [place], [place] [address] UA Blood Negative [facility] ([place] Comment on above: Performed By: #### C BC, ADIFF, ANEU, TROP, BMP, GFR ####[address] [place], [place] [address] UA Leuk Est Negative [facility] ([place] Comment on above: Performed By: #### C BC, ADIFF, ANEU, TROP, BMP, GFR ####[address] [place], [place] [address] UA Nitrite Negative [facility] ([place] Comment on above: Performed By: #### C BC, ADIFF, ANEU, TROP, BMP, GFR ####[address] [place] [address] UA pH 6.0 [facility] ([place] Comment on above: Performed By: #### C BC, ADIFF, ANEU, TROP, BMP, GFR ####[address] [place], [place] [address] UA Protein Negative [facility] ([place] Comment on above: Performed By: #### C BC, ADIFF, ANEU, TROP, BMP, GFR ####[id number] [place] [address] UA Spec Grav <=1.005 Invalid Interpretation Code [facility] ([place] Comment on above: Performed By: #### C BC, ADIFF, ANEU, TROP, BMP, GFR ####[address] [place] [address] UA Specimen Type Void [facility] ([place] Comment on above: Performed By: #### C BC, ADIFF, ANEU, TROP, BMP, GFR ####[address] [place] [address] UA Urobilinogen 0.2 E.U./dL Normal [facility] ([place] Comment on above: Performed By: #### C BC, ADIFF, ANEU, TROP, BMP, GFR ####[address] [place], [place] [address] Urobilinogen Test strip Qn (U) Negative Normal [facility] ([place] Comment on above: Performed By: #### C BC, ADIFF, ANEU, TROP, BMP, GFR ####[address] [place], [place] [address] XR SPINE LUMBAR 2 VIEWSon XR SPINE [...] AM Sign Date: 04/01/2018 5:29:15 AM Normal [facility]) [place] Stress Teston 03-08 [place] Stress Test Normal [facility]) Depart Summaryon 03-06-2018 Depart Summary Normal [facility]) [place] MYOCARDIAL SPECT STRESS/R ESTon 03-06-2018 NM [...] PM Sign Date: 03/06/2018 12:45:05 PM Normal [facility]) [place] Discharge Summaryon 03-06-2018 [place] Discharge Summary Normal [facility]) [place] Inpatient Patient S ummaryon 03-06-2018 [place] In[facility] Patient Summary Normal [facility]) TROPon 03-06-2018 Troponin I.cardiac mass conc ng/mL Normal 0.00-0.30 [facility] ([place]) Comment on above: Result Comment: >=0. 30 Consistent with cardiac damage, increased clinical risk and possibility of myocardial infarction. Serial measurements, clinical history, appropriate symptoms and/or ECG changes may help assess possibility of NV.*Other non-acute coronary syndrome conditions such as CHF, myocarditis, pulmonary emboli, sepsis and cardiac surgery could result in myocardial damage and increased troponin levels. Performed By: #### C BC, ADIFF, ANEU, TROP, BMP, GFR ####[address] [place], [place] [address] Troponin I.cardiac mass conc ng/mL Normal 0.00-0.30 [facility] ([place]) Comment on above: Result Comment: Belo w measuring range>=0.30 Consistent with cardiac damage, increased clinical risk and possibility of myocardial infarction. Serial measurements, clinical history, appropriate symptoms and/or ECG changes may help assess possibility of NV.*Other non-acute coronary syndrome conditions such as CHF, myocarditis, pulmonary emboli, sepsis and cardiac surgery could result in myocardial damage and increased troponin levels. Performed By: #### C BC, ADIFF, ANEU, TROP, BMP, GFR ####[address] [place], [place] [address] .Auto Diffon 03-05-2018 Ammonia mass conc (P) 0.50 10 3/mcL Normal 0.15-1.00 [facility] ([place] Comment on above: Performed By: #### C BC, ADIFF, ANEU, TROP, BMP, GFR ####[address] [place], [place] [address] Basophils Auto #/vol (Bld) 0.10 10 3/mcL Normal 0.00-0.19 [facility] ([place]) Comment on above: Performed By: #### C BC, ADIFF, ANEU, TROP, BMP, GFR ####[address] [place], [place] [address] Basophils/100 WBC Auto (Bld) 1.0 % Normal 0.0-2.5 [facility] ([place] Comment on above: Performed By: #### C BC, ADIFF, ANEU, TROP, BMP, GFR ####[address] [place], [place] [address] Eosinophils Auto #/vol (Bld) 0.10 10 3/mcL Normal 0.00-0.40 [facility] ([place] Comment on above: Performed By: #### C BC, ADIFF, ANEU, TROP, BMP, GFR ####[address] [place], [place] [address] Eosinophils/100 WBC Auto (Bld) 1.4 % Normal 0.0-7.0 [facility] ([place] Comment on above: Performed By: #### C BC, ADIFF, ANEU, TROP, BMP, GFR ####[address] [place], [place] [address] Lymphocytes Auto #/vol (Bld) 2.40 10 3/mcL Normal 0.77-3.85 [facility] ([place]) Comment on above: Performed By: #### C BC, ADIFF, ANEU, TROP, BMP, GFR ####[address] [place], [place] [address] Lymphocytes/100 WBC Auto (Bld) 31.9 % Normal 10.0-50.0 [facility] ([place]) Comment on above: Performed By: #### C BC, ADIFF, ANEU, TROP, BMP, GFR ####[address] [place], [place] [address] Monocytes/100 WBC Auto (Bld) 6.0 % Normal 1.7-13.0 [facility] ([place]) Comment on above: Performed By: #### C BC, ADIFF, ANEU, TROP, BMP, GFR ####[address] [place], [place] [address] Neutrophils/100 WBC Auto (Bld) 59.7 % Normal 37.0-80.0 [facility] ([place]) Comment on above: Performed By: #### C BC, ADIFF, ANEU, TROP, BMP, GFR ####[address] [place], [place] [address] .GFRon 03-05-2018 GFR Non- >60 Normal [facility] ([place] Comment on above: Result Comment: GFR Population [...] BC, ADIFF, ANEU, TROP, BMP, GFR ####[address] [place], [place] [address] GFR 84 ml/min/1.73sqm Normal [facility] ([place] Comment on above: Result Comment: GFR Population [...] ADIFF, ANEU, TROP, BMP, GFR ####[address] [place], [place] [address] .NEUABSon 03-05-2018 Neutrophil, Absolute 4.50 10 3/mcL Normal 2.85-6.16 [facility] ([place]) Comment on above: Performed By: #### C BC, ADIFF, ANEU, TROP, BMP, GFR ####[address] [place], [place] [address] BMPon 03-05-2018 Calcium mass conc 9.5 mg/dL Normal 8.4-10.2 [facility] ([place] Comment on above: Performed By: #### C BC, ADIFF, ANEU, TROP, BMP, GFR ####[address] [place], [place] [address] Chloride molar conc 105 mmol/L Normal 98-107 [facility] Comment on above: Performed By: #### C BC, ADIFF, ANEU, TROP, BMP, GFR ####[address] [place], [place] [address] CO2 molar conc 26 mmol/L Normal 22-29 [facility] ([place] Comment on above: Performed By: #### C BC, ADIFF, ANEU, TROP, BMP, GFR ####[address] [place], [place] [address] Creatinine mass conc 0.9 mg/dL Normal 0.6-1.2 [facility] ([place]) Comment on above: Performed By: #### C BC, ADIFF, ANEU, TROP, BMP, GFR ####[address] [place], [place] [address] Electrolyte Balance 9.0 mEq/L Normal [facility] Comment on above: Performed By: #### C BC, ADIFF, ANEU, TROP, BMP, GFR ####[address] [place], [place] [address] Glucose mass conc 98 mg/dL Normal 70-105 [facility] ([place] Comment on above: Performed By: #### C BC, ADIFF, ANEU, TROP, BMP, GFR ####[address] [place], [place] [address] Potassium molar conc 4.9 mmol/L Normal 3.5-5.1 [facility] ([place] Comment on above: Performed By: #### C BC, ADIFF, ANEU, TROP, BMP, GFR ####[address] [place], [place] [address] Sodium molar conc 140 mmol/L Normal 136-146 [facility] ([place] Comment on above: Performed By: #### C BC, ADIFF, ANEU, TROP, BMP, GFR ####[address] [place], [place] [address] Urea nitrogen mass conc 16.6 mg/dL Normal 7.0-18.0 [facility] ([place] Comment on above: Performed By: #### C BC, ADIFF, ANEU, TROP, BMP, GFR ####[address] [place], [place] [address] Urea nitrogen/Creatinine mass ratio 18 ratio Normal 7-27 [facility] ([place] Comment on above: Performed By: #### C BC, ADIFF, ANEU, TROP, BMP, GFR ####[address] [place], [place] [address] CBCon 03-05-2018 Erythrocyte distribution width Auto Ratio (RBC) 13.7 % Normal 11.5-14.5 [facility] ([place] Comment on above: Performed By: #### C BC, ADIFF, ANEU, TROP, BMP, GFR ####[address] [address] Hematocrit Auto Volume Fraction (Bld) 39.2 % Normal 37.0-47.0 [facility] ([place] Comment on above: Performed By: #### C BC, ADIFF, ANEU, TROP, BMP, GFR ####[address] [place] [id number] Hemoglobin mass conc (Bld) 13.4 G/dL Normal 12.0-16.0 [facility] ([place] Comment on above: Performed By: #### C BC, ADIFF, ANEU, TROP, BMP, GFR ####[address] [place] [address] MCH Auto Entitic mass (RBC) 29.9 pg Normal 27.0-31.2 [facility] ([place] Comment on above: Performed By: #### C BC, ADIFF, ANEU, TROP, BMP, GFR ####[address] [place] [address] MCHC Auto mass conc (RBC) 34.3 G/dL Normal 33.0-37.0 [facility] ([place] Comment on above: Performed By: #### C BC, ADIFF, ANEU, TROP, BMP, GFR ####[address] [place] [id number] MCV Auto Entitic volume (RBC) 87.1 fL Normal 80.0-94.0 [facility] ([place] Comment on above: Performed By: #### C BC, ADIFF, ANEU, TROP, BMP, GFR ####[address] [place] [address] Platelet mean volume Auto Entitic volume (Bld) 7.3 fL Low 7.4-10.4 [facility] ([place] Comment on above: Performed By: #### C BC, ADIFF, ANEU, TROP, BMP, GFR ####[address] [place] [id number] Platelets Auto #/vol (Bld) 257 10 3/mcL Normal 130-400 [facility] ([place]) Comment on above: Performed By: #### C BC, ADIFF, ANEU, TROP, BMP, GFR ####[address] [place], [place] [address] RBC Auto #/vol (Bld) 4.49 10 6/mcL Normal 4.20-5.40 [facility] ([place] Comment on above: Performed By: #### C BC, ADIFF, ANEU, TROP, BMP, GFR ####[address] [place], [place] [address] WBC Auto #/vol (Bld) 7.50 10 3/mcL Normal 4.60-10.80 [facility] ([place] Comment on above: Performed By: #### C BC, ADIFF, ANEU, TROP, BMP, GFR ####[address] [place], [place] [address] [place] [place] [facility] Note on 03-05-2018 [facility] Note Normal [facility]) [place] History and Physica misha 03-05-2018 [place] History and Physical Normal [facility]) Patient Summary Documentson 03-05-2018 Patient Summary Documents Normal [facility]) TROPon 03-05-2018 Troponin I.cardiac mass conc ng/mL Normal 0.00-0.30 [facility] ([place]) Comment on above: Result Comment: Belo w measuring range>=0.30 Consistent with cardiac damage, increased clinical risk and possibility of myocardial infarction. Serial measurements, clinical history, appropriate symptoms and/or ECG changes may help assess possibility of NV.*Other non-acute coronary syndrome conditions such as CHF, myocarditis, pulmonary emboli, sepsis and cardiac surgery could result in myocardial damage and increased troponin levels. Performed By: #### C BC, ADIFF, ANEU, TROP, BMP, GFR ####[address] [place], [place] [address] Troponin I.cardiac mass conc ng/mL Normal 0.00-0.30 [facility] ([place] Comment on above: Result Comment: Belo w measuring range>=0.30 Consistent with cardiac damage, increased clinical risk and possibility of myocardial infarction. Serial measurements, clinical history, appropriate symptoms and/or ECG changes may help assess possibility of NV.*Other non-acute coronary syndrome conditions such as CHF, myocarditis, pulmonary emboli, sepsis and cardiac surgery could result in myocardial damage and increased troponin levels. Performed By: #### C BC, ADIFF, ANEU, TROP, BMP, GFR ####[address] [place], [place] [address] XR CHEST 2 VIEWSon 8 XR CHEST [...] AM Sign Date: 03/05/2018 11:05:36 AM Normal [facility] ([place]) Vital Signs Date Time Vital Sign Value Performing Clinician Facility 06-24-2025 09:10-0400 Body height 149.86 cm Gaye CARPIOC Work Phone: [phone] [place] [address] 06-24-2025 09:10-0400 Body mass index (BMI) [Ratio] 33.9 kg/m2 Gaye Snyder NP-C Work Phone: 5(376)833-914277 [place] [address] 06-24-2025 09:10-0400 Body weight 76.2 kg Gaye Snyder NP-C Work Phone: 8(722)424-792777 [place] [address] 06-24-2025 09:10-0400 Diastolic blood pressure 72 mm[Hg] Gaye Snyder NP-C Work Phone: 7(156)761-303877 [place] [address] 06-24-2025 09:10-0400 Heart rate 75 /min Gaye Snyder NP-C Work Phone: 8(704)123-048377 [place] [address] 06-24-2025 09:10-0400 Respiratory rate 18 /min Gaye Snyder NP-C Work Phone: 2(195)092-037677 [place] [address] 06-24-2025 09:10-0400 SaO2% (BldA) [Mass fraction] 10 % Gaye Snyder TEST CENTER ADMINISTRATOR-C Work Phone: 0(751)579-956577 [place] [address] 06-24-2025 09:10-0400 Systolic blood pressure 117 mm[Hg] Gaye Snyder TEST CENTER ADMINISTRATOR-C Work Phone: 6(442)727-513177 [place] [address] 05-28-2025 10:46-0400 Heart rate 79 /min Gaye Snyder TEST CENTER ADMINISTRATOR-C Work Phone: 0(214)128-282620 [place] [address] 05-28-2025 08:53-0400 Body temperature 97.6 [degF] Gaye Snyder TEST CENTER ADMINISTRATOR-C Work Phone: 1(720)641-500120 [place] [address] 05-28-2025 08:53-0400 Diastolic blood pressure 77 mm[Hg] Gaye Snyder TEST CENTER ADMINISTRATOR-C Work Phone: 1(516)463-820120 [place] [address] 05-28-2025 08:53-0400 Respiratory rate 18 /min Gaye Snyder TEST CENTER ADMINISTRATOR-C Work Phone: 3(520)280-377320 [place] [address] 05-28-2025 08:53-0400 SaO2% (BldA) [Mass fraction] 97 % Gaye Snyder TEST CENTER ADMINISTRATOR-C Work Phone: 6(745)514-179520 [place] [address] 05-28-2025 08:53-0400 Systolic blood pressure 128 mm[Hg] Gaye Snyder TEST CENTER ADMINISTRATOR-C Work Phone: 9(706)797-317320 [place] [address] 05-27-2025 16:29-0400 Body height 149.86 cm Gaye Snyder TEST CENTER ADMINISTRATOR-C Work Phone: 2(131)767-797220 [place] [address] 05-27-2025 16:29-0400 Body mass index (BMI) [Ratio] 32.5 kg/m2 Gaye Snyder TEST CENTER ADMINISTRATOR-C Work Phone: 0(473)746-363220 [place] [address] 05-27-2025 16:29-0400 Body weight 73.1 kg Gaye Snyder TEST CENTER ADMINISTRATOR-C Work Phone: 5(377)851-394620 [place] [address] 05-27-2025 13:33-0400 Body temperature 98.2 [degF] Gaye Snyder TEST CENTER ADMINISTRATOR-C Work Phone: 4(710)233-578520 [place] [address] 05-27-2025 13:33-0400 Diastolic blood pressure 66 mm[Hg] Gayejeanne Snyder TEST CENTER ADMINISTRATOR-C Work Phone: [facility] 05-27-2025 13:33-0400 Heart rate 37 /min Gaye Jorge TEST CENTER ADMINISTRATOR-C Work Phone: [facility] 05-27-2025 13:33-0400 Respiratory rate 18 /min Gaye Jorge TEST CENTER ADMINISTRATOR-C Work Phone: [facility] 05-27-2025 13:33-0400 SaO2% (BldA) [Mass fraction] 96 % Gaye Jorge TEST CENTER ADMINISTRATOR-C Work Phone: [facility] 05-27-2025 13:33-0400 Systolic blood pressure 130 mm[Hg] Gayejeanne Snyder TEST CENTER ADMINISTRATOR-C Work Phone: [facility] 05-27-2025 10:05-0400 Body height 149.86 cm Gayejeanne Snyder TEST CENTER ADMINISTRATOR-C Work Phone: 9(979)523-032477 [place] [address] 05-27-2025 10:05-0400 Body mass index (BMI) [Ratio] 32.5 kg/m2 Gaye Jorge TEST CENTER ADMINISTRATOR-C Work Phone: 2(298)760-408477 [place] [address] 05-27-2025 10:05-0400 Body weight 73.11 kg Gaye Jorge TEST CENTER ADMINISTRATOR-C Work Phone: [facility] 11-28-2024 10:59-0500 Body height 147.3 cm Guzman Parikh HRIS ANALYST.BAY STOCKER Work Phone: [facility] 11-28-2024 10:59-0500 Body mass index (BMI) [Ratio] 36.74 kg/m2 Guzman Jl HRIS ANALYST.[employer] STOCKER Work Phone: [facility] 11-28-2024 10:59-0500 Body weight 79.74 kg Guzman Jl HRIS ANALYST.[employer] STOCKER Work Phone: [facility] 11-28-2024 10:59-0500 Diastolic blood pressure 74 mm[Hg] Guzman Jl HRIS ANALYST.BA[employer] STOCKER Work Phone: [facility] 11-28-2024 10:59-0500 Heart rate 42 /min Guzman Jl HRIS ANALYST.BA[employer] STOCKER Work Phone: [facility] Comment on above: patient sees cardiology, hx bradycardia 11-28-2024 10:59-0500 Respiratory rate 18 /min Guzman Jl HRIS ANALYST.[employer] STOCKER Work Phone: [facility] 11-28-2024 10:59-0500 SaO2% (BldA) [Mass fraction] 96 % Guzman Jl HRIS ANALYST.[employer] STOCKER Work Phone: [facility] 11-28-2024 10:59-0500 Systolic blood pressure 130 mm[Hg] Guzman Jl HRIS ANALYST.BA[employer] STOCKER Work Phone: [facility] 01-15-2024 08:57-0500 Body height 149.[address] Yanna Warren Work Phone: [facility] 01-15-2024 08:57-0500 Body mass index (BMI) [Ratio] 42 kg/m2 Dr. Yanna Warren Work Phone: [facility] 01-15-2024 08:57-0500 Body temperature 97.7 [degF] Dr. Yanna Warren Work Phone: [facility] 01-15-2024 08:57-0500 Body weight 94.[address] Yanna Warren Work Phone: [facility] 01-15-2024 08:57-0500 Diastolic blood pressure 66 mm[Hg] Dr. Yanna Warren Work Phone: [facility] 01-15-2024 08:57-0500 Heart rate 40 /min Dr. Yanna Warren Work Phone: [facility] 01-15-2024 08:57-0500 Respiratory rate 16 /min Dr. Yanna Warren Work Phone: [facility] 01-15-2024 08:57-0500 SaO2% (BldA) [Mass fraction] 98 % Dr. Yanna Warren Work Phone: [facility] 01-15-2024 08:57-0500 Systolic blood pressure 128 mm[Hg] Dr. Yanna Warren Work Phone: [facility] 12-06-2022 10:06-0500 Body height 151.13 cm [facility] Work Phone: 7(841)057-734920 [place] [address] 12-06-2022 10:06-0500 Body mass index (BMI) [Ratio] 40.3 kg/m2 [facility] Work Phone: 6(854)502-269120 [place] [address] 12-06-2022 10:06-0500 Body temperature 97.8 [degF] [facility] Work Phone: 7(773)993-340320 [place] [address] 12-06-2022 10:06-0500 Body weight 92.07 kg [facility] Work Phone: 5(260)723-033920 [place] [address] 12-06-2022 10:06-0500 Diastolic blood pressure 90 mm[Hg] [facility] Work Phone: 9(218)839-984120 [place] [address] 12-06-2022 10:06-0500 Heart rate 61 /min [facility] Work Phone: 5(463)356-975720 [place] [address] 12-06-2022 10:06-0500 Respiratory rate 16 /min [facility] Work Phone: 5(738)437-343920 [place] [address] 12-06-2022 10:06-0500 SaO2% (BldA) [Mass fraction] 97 % [facility] Work Phone: 4(038)241-152120 [place] [address] 12-06-2022 10:06-0500 Systolic blood pressure 128 mm[Hg] [facility] Work Phone: 3(397)790-218220 [place] [address] Encounters Encounter Date Encounter Type Care Provider Facility Start: 06-29-2025 End: 06-29-2025 ambulatory Gaye Snyder TEST CENTER ADMINISTRATORMaris Work Phone: -[facility] Start: 06-29-2025 End: 06-29-2025 Patient encounter procedure Luis E Lion PA -[facility] Start: 06-29-2025 End: 06-29-2025 ambulatory Gaye Snyder Facility:[facility] Start: 06-24-2025 End: 06-24-2025 Patient encounter procedure Luis E MIRANDA -[facility] Work Phone: Start: 06-24-2025 End: 06-24-2025 ambulatory Gaye Snyder TEST CENTER ADMINISTRATOR-C Work Phone: -[facility] Start: 06-03-2025 End: 06-03-2025 ambulatory Gaye Snyder TEST CENTER ADMINISTRATOR-C Work Phone: -[facility] Start: 06-03-2025 End: 06-03-2025 Patient encounter procedure Medina Domitila [facility] Work Phone: Start: 05-28-2025 Non-patient / Non-visit Dr. Seb Montelongo DO -[facility] Work Phone: Start: 05-28-2025 End: 05-28-2025 ambulatory Gaye Snyder TEST CENTER ADMINISTRATOR-C Work Phone: -[facility] Start: 05-28-2025 End: 05-28-2025 Patient encounter procedure Medinarayo Ramesh [facility] Work Phone: Start: 05-27-2025 Non-patient / Non-visit Dr. Seb Montelongo DO [facility] Work Phone: Start: 05-27-2025 ambulatory [place] Vivek Facility:[facility] Start: 05-27-2025 End: 05-28-2025 Evaluation and management of inpatient Dr. Jose Hook MD -Progressive Care Unit Work Phone: Start: 05-27-2025 Admission to [facility] Dr. Jose Hook MD -[facility]/Special Procedures Work Phone: Start: 05-27-2025 ambulatory Gaye Bernalkelli in TEST CENTER ADMINISTRATOR-C Work Phone: -[facility] Start: 11-28-2024 End: 11-28-2024 Patient encounter procedure Guzman Parikh APRN.BAY STOCKER Work Phone: Neurology Comment on above: Obstructive sleep ap chuyita (Primary Dx); Intolerance of continuous positive airway pressure (CPAP) ventilation Start: 11-28-2024 End: 11-28-2024 ambulatory GUZMAN PARIKH Facility:[facility] Start: 08-11-2024 End: 08-11-2024 ambulatory [facility] Facility:[facility] Start: 08-05-2024 End: 08-05-2024 ambulatory [facility] Facility:[facility] Start: 02-08-2024 Non-patient / Non-visit Dr. Ramirez Work Phone: [facility] Start: 02-08-2024 End: 02-08-[address] Yanna Warren Work Phone: [facility] Work Phone: Start: 02-08-2024 End: 02-08-[address] Yanna Warren Work Phone: [facility]-Cardiovascula r Services Work Phone: Start: 02-06-2024 End: 02-06-[address] Yanna Warren Work Phone: [facility] Work Phone: Start: 02-06-2024 End: 02-06-[address] Yanna Warren Work Phone: [facility]-Pulmonary Services/Neurology Work Phone: Start: 01-23-2024 End: 01-23-[address] Yanna Warren Work Phone: [facility] Work Phone: Start: 01-23-2024 End: 01-23-[address] Yanna Warren Work Phone: [facility]-Outpatient Breast Imaging Work Phone: Start: 01-16-2024 End: 01-16-[address] Yanna Warren Work Phone: [facility] Work Phone: Start: 01-16-2024 End: 01-16-[address] Yanna Warren Work Phone: [facility] Start: 01-15-2024 End: 01-15-[address] Yanna Warren Work Phone: [facility] Work Phone: Start: 12-07-2022 End: 12-07-2022 ambulatory [facility] Work Phone: [facility] Work Phone: Start: 12-07-2022 End: 12-07-2022 Patient encounter procedure [facility] Work Phone: [facility] Start: 12-06-2022 End: 12-06-2022 Patient encounter procedure [facility] Work Phone: [facility] Start: 07-12-2018 Patient encounter Rocco Casandra S [facility] Start: 06-19-2018 Patient encounter ROCCO DEL ROSARIOMAYRA Kaci acility:B Start: 04-24-2018 Patient encounter Rocco Del Rosariomayra Carter [facility] Start: 04-01-2018 End: 04-01-2018 Emergency department patient visit HERMILO CHRISTIANSON Facility:B Start: 03-05-2018 End: 03-06-2018 Patient encounter ABHI Fabrice BAPTISTE Facility:B Start: 08-22-2017 Patient encounter Rocco Del Rosariomayra S [facility] Procedures Date Procedure Procedure Detail Performing Clinician Start: 05-28-2025 X-ray of chest, PA a nd lateral views Gaye CARPIOC Work Phone: Start: 05-27-2025 Plain chest X-ray Albina CARPIOC Work Phone: Start: 05-27-2025 Estimated creatinine clearance Gaye Snyder NP-C Work Phone: Start: 01-23-2024 Screening mammography D kateryna Warren Work Phone: H/O: section Hx of cesa rean section [facility] Work Phone: Comment on above: 3 C-Sections Plan of Treatment Date Care Activity Detail Author Start: 12-19-2025 Screening for malignant neoplasm of colon [facility] Start: 08-04-2025 ambulatory Ambulatory Facility:[facility] Start: 05-28-2025 Patient discharge [facility] Start: 05-27-2025 Bedrest [facility] Start: 05-27-2025 Elevation of head of bed [facility] Start: 05-27-2025 Notification of physician [facility] Start: 05-27-2025 Taking patient vital signs [facility] Start: 05-27-2025 Wound care [facility] Start: 05-27-2025 End: 05-27-2025 [facility] Start: 05-27-2025 Following clinical pathway protocol [facility] Start: 05-27-2025 Assessment of risk of venous thromboembolism [facility] Start: 05-27-2025 Catheterization of vein [facility] Start: 05-27-2025 Insertion of catheter into peripheral vein [facility] Start: 05-27-2025 Measuring intake and output [facility] Start: 05-27-2025 Providing care according to standard [facility] Start: 05-27-2025 Referral to job training supervisor [facility] Start: 05-27-2025 Verification routine [facility] Start: 05-27-2025 Admission procedure [facility] Start: 05-27-2025 Preoperative care [facility] Start: 05-27-2025 Catheterization of vein [facility] Start: 05-27-2025 Notification of physician [facility] Start: 05-27-2025 [facility] Start: 05-27-2025 Thyroid stimulating hormone measurement [facility] Start: 05-27-2025 [facility] Start: 07-20-2024 Covid-19 Vaccine ( season) Covid-19 Vaccine ( season) [facility] Start: 07-20-2024 Influenza vaccination Influenza Vaccine (#1) [facility] Start: 01-15-2024 Patient referral [facility] Work Phone: Start: 2019 Pneumococcal Vaccine: 50+ (1 of 1 - PCV) Pneumococcal Vaccine: 50+ (1 of 1 - PCV) [facility] Start: 2019 Shingrix Vaccine (1 of 2) Shingrix Vaccine (1 of 2) [facility] Start: 2014 Diabetes Screening Diabetes Screening [facility] Start: 2014 Lipid panel Lipid Screening [facility] Start: 2014 Screening for malignant neoplasm of colon [facility] Start: 2009 Screening for malignant neoplasm of breast Mammogram Screening [facility] Start: 1990 Screening for malignant neoplasm of cervix Cervical Cancer Screening [facility] Start: 1988 Hepatitis B Vaccine (1 of 3 - 19+ 3-dose series) Hepatitis B Vaccine (1 of 3 - 19+ 3-dose series) [facility] Start: 1988 Urine microalbumin profile DTaP,Tdap,Td Vaccine (1 - Tdap) [facility] Start: 1987 Anxiety Screening Anxiety Screening [facility] Start: 1987 Depression Screening Depression Screening [facility] Start: 1987 Hepatitis C screening Hepatitis C Screening [facility] Start: 1987 HIV screening HIV Screening [facility] Ambulatory ECG [facility] Inhalation bronchial challenge testing [facility] Lipid 1996 panel - S latrell or Plasma [facility] MG Breast - bilatera l Screening [facility] MG Breast - bilatera l Screening [facility] NM Heart Views W str ess and W radionuclide IV [facility] Patient referral [facility] Work Phone: Troponin T.cardiac [Mass/volume] in Serum or Plasma by High sensitivity method [facility] Payers Date Payer Category Payer Self-pay [id number] 2021 Unknown 2021 Unknown [id number] 2018 Unknown [id number] Unknown [id number] 2.16.8 [id number] Unknown [id number] 2.16.8 [id number] Unknown [id number] 2.16.8 [id number] Unknown [id number] 2.16.8 [id number] Unknown [id number] 2.16.8 [id number] Unknown [id number] 2.16.8 [id number] Unknown [id number] 2.16.8 [id number] Unknown [id number] 2.16.8 [id number] Unknown [id number] 2.16.8 [id number] Unknown [id number] 2.16.8 [id number] Unknown [id number] 2.16.8 [id number] Unknown [id number] 2.16.8 [id number] Unknown [id number] 2.16.8 [id number] Unknown [id number] 2.16.8 [id number] Unknown [id number] 2.16.8 [id number] Social History Date Type Detail Facility Start: 12-06-2022 End: 01-14-2024 Tobacco smoking status FLIS Unknown if ever smoked [facility] Start: 1970 Sex Assigned At Female [facility] Start: 11-28-2024 End: 05-27-2025 Tobacco smoking status NHIS Never smoked tobacco [facility] Start: 11-28-2024 Tobacco use and exposure Smokeless tobacco non-user [facility] Start: 11-28-2024 Alcoholic beverage intake Current non-drinker of alcohol (finding) [facility] Start: 11-28-2024 History of Social function [facility] Start: 11-28-2024 Tobacco use panel [facility] National Score (1-10 0), lower number is lower risk 74 [facility] Start: 11-28-2024 Tobacco Comment Parents were s mokers in childhood home. Spouse a non-smoker. [facility] Start: 1970 Sex assigned at Not on file [facility] Medical Equipment Procedure Code Equipment Code Equipment Origin al Text Equipment Identifier Dates Dual-chamber implantable pacemaker, rate-responsive ()[id number] FDA Start: 05-27-2025 ([id number]) Endocardial paci ng lead ()[id number] FDA Start: 05-27-2025 ([id number]) Endocardial paci ng lead ()[id number] FDA Start: 05-27-2025 Goals Date Patient Goal Desired Activity /State Functional Status Date Assessment Result Facility 05-28-2025 Functional status Ambulates;Bathroom Priv ilege [facility] Work Phone: Mental Status Date Assessment Result Facility 05-28-2025 Cognitive function Voice/Name [facility] Work Phone: 05-27-2025 Cognitive function Awake;Alert;A ppropriate;Fol lows Commands [facility] Work Phone: Clinical Notes 11-28-2024 to 06-03-2025 Note Date & Type Note Facility 06-03-2025 Procedure note [facility] 05-28-2025 Procedure note [facility] 05-28-2025 Discharge summary Note Date/Time May 28, 2025 10:01am [facility] Medical Records Department [address] [place] [address] Instructions for Home/Discharge Instructions 05/28/25 0952 MR#: [id number] Acct: [id number] Name: NARAYAN KHOURY Rep #:[id number] : 1970 55 From: Seb Saldaña DO PCP: LILI Blandon, TEST CENTER ADMINISTRATOR-C Statu s:ADM IN Discharge Instructions Diet Discharge Diet: No restrictions DC O2, CPAP, BIPAP needs Home O2 Discharge instructions: No Dressing / Incision Discharge Activity: Return to Normal Activity Follow Up Care Test Results: Test results from this visit will be discussed in further detail at your follow-up appointment, if applicable. Discharge Plan Admission Admit Date/Time: 05/27/25 14:18 Primary Reason for Your Visit: Second-degree heart block Attending Provider: Jose Hook Primary Care Provider: Gaye Snyder Consulting Providers: Chris Doyle Instructions Additional Instructions / Restrictions: Follow pacemaker instructions which were given to you earlier today Discharge Orders/Prescriptions Prescriptions: New oxycodone 5 mg Tablet 5 mg PO Q4H PRN PRN (Reason: Pain Score 4-10) 5 Days Qty: 15 0RF Continued cholecalciferol (vitamin D3) 125 mcg (5,000 unit) capsule 125 mcg PO DAILY mecobalamin (vitamin B12) 1,000 mcg tablet,chewable 1,000 mcg PO DAILY fluticasone propion-salmeterol [Advair Diskus] 250-50 mcg/dose blister with device 1 inh inhalation BID Qty: 180 1RF meloxicam 7.5 mg tablet 15 mg PO BID semaglutide cmpd 25 mg subcut QWEEK albuterol sulfate [Ventolin HFA] 90 mcg/actuation HFA aerosol inhaler 2 puff inhalation Q6H PRN (Reason: shortness of breath or wheezing) Qty: 6.7 1RF Referrals / Follow Up: Chris Doyle MD [Med Staff - Active Staff] - See Referral Note (Follow[facility]up at [facility] on 06/03/2025 at 2 PM) Gaye Snyder, TEST CENTER ADMINISTRATOR-C [Primary Care Provider] - Within 1 Month Disposition Disposition (needs filled in before D/C Order can be placed): Home, Self Care 05/28/25 1001<Electronically signed by Seb Saldaña DO>Seb Saldaña DO CC: LILI TEST CENTER ADMINISTRATOR-C Gaye Snyder; Dr. Chris Doyle MD ~ Signed [facility] Work Phone: 1(897) 741-846707-10-2025 Discharge summary [facility] Medical Records Department [address] [place] [address] Instructions for Home/Discharge Instructions 05/28/25 0952 MR#: [id number] Acct: [id number] Name: NARAAYN KHOURY Rep #:[id number] : 1970 55 From: Seb Saldaña DO PCP: LILI Blandon, TEST CENTER ADMINISTRATOR-C Statu s:ADM IN Discharge Instructions Diet Discharge Diet: No restrictions DC O2, CPAP, BIPAP needs Home O2 Discharge instructions: No Dressing / Incision Discharge Activity: Return to Normal Activity Follow Up Care Test Results: Test results from this visit will be discussed in further detail at your follow- up appointment, if applicable. Discharge Plan Admission Admit Date/Time: 05/27/25 14:18 Primary Reason for Your Visit: Second-degree heart block Attending Provider: Jose Hook Primary Care Provider: Gaye Snyder Consulting Providers: Chris Doyle Instructions Additional Instructions / Restrictions: Follow pacemaker instructions which were given to you earlier today Discharge Orders/Prescriptions Prescriptions: New oxycodone 5 mg Tablet 5 mg PO Q4H PRN PRN (Reason: Pain Score 4-10) 5 Days Qty: 15 0RF Continued cholecalciferol (vitamin D3) 125 mcg (5,000 unit) capsule 125 mcg PO DAILY mecobalamin (vitamin B12) 1,000 mcg tablet,chewable 1,000 mcg PO DAILY fluticasone propion-salmeterol [Advair Diskus] 250-50 mcg/dose blister with device 1 inh inhalation BID Qty: 180 1RF meloxicam 7.5 mg tablet 15 mg PO BID semaglutide cmpd 25 mg subcut QWEEK albuterol sulfate [Ventolin HFA] 90 mcg/actuation HFA aerosol inhaler 2 puff inhalation Q6H PRN (Reason: shortness of breath or wheezing) Qty: 6.7 1RF Referrals / Follow Up: Chris Doyle MD [Med Staff - Active Staff] - See Referral Note [facility]) Gaye Snyder, TEST CENTER ADMINISTRATOR-C [Primary Care Provider] - Within 1 Month Disposition Disposition (needs filled in before D/C Order can be placed): Home, Self Care 05/28/25 1001Seb Saldaña DO CC: [facility] TEST CENTER ADMINISTRATOR-C Gaye Snyder; Dr. Chris Doyle MD ~ [facility]07-10-2025 [facility] Medical Records Department [address] [place] [address] Discharge Summary 05/28/25 1001 MR#: [id number] Acct: [id number] Name: NARAYAN KHOURY Rep #: [id number] : 1970 55 From: Seb Saldaña DO PCP: LILI Blandon NP-C Status:DIS IN Location: [place] [address] Providers Date of Admission: 05/27/25 Date of Discharge: 05/28/25 Primary Care Physician: LILI Blandon NP-C Consultations 05/27/25 16:25 Consult: Cardiology Routine Consulting Provider: Chris Doyle Reason for Consult: Second degree AV block, bradycardia EMERGENT Consult: No MD Notified: Yes Date Notified: 05/27/25 Time Notified: 14:22 Method of Notification: Verbal Reason For Visit: palpitations Diagnosis Discharge Diagnosis (1) Mobitz type 2 second degree atrioventricular block: Status: Acute Code(s): I44.1 - Atrioventricular block, second degree Plan 1. Secondary AV block type II-status post pacemaker insertion-again patient was admitted to PCU and will be observed there. #2 osteoarthritis-patient is on meloxicam Total clinical time spent by myself addressing the patient's medical issues, reviewing all of her data, and collaborating with patient's care team: 55 minutes Medications at Discharge Home Medications cholecalciferol (vitamin D3) 125 mcg (5,000 unit) capsule 125 mcg PO DAILY 12/06/22 mecobalamin (vitamin B12) 1,000 mcg chewable tablet 1,000 mcg PO DAILY 12/06/22 albuterol sulfate 90 mcg/actuation aerosol inhaler (Ventolin HFA) 2 puff inhalation Q6H PRN shortness of breath or wheezing #6.7 grams 10/15/23 fluticasone 250 mcg-salmeterol 50 mcg/dose blistr powdr for inhalation (Advair Diskus) 1 inh inhalation BID #180 ea 01/15/24 meloxicam 7.5 mg tablet 15 mg PO BID 08/11/24 semaglutide cmpd 25 mg subcut QWEEK 05/27/25 oxycodone 5 mg tablet 5 mg PO Q4H PRN PRN Pain Score 4-10 5 days #15 tabs 05/28/25 Hospital Course Procedures - (Pacemaker insertion) Summary of Care Provided Minutes Spent on Discharge: 31 Hospital Course: This 55-year-old white female was seen in the emergency room at [facility] after being sent in from her PCPs office due to bradycardia and an EKG which showed a second-degree Mobitz 2 heart block. Patient had been complaining of fatigue. Evaluation in the emergency room showed the patient to be in a second-degree heart block Mobitz 2, patient was taken to the [facility] and a pacemaker was inserted without incident. Patient was then admitted to PCU for further care, the next day the pacemaker was checked and was functioning properly. On 05/28/2025, patient was seen and examined: On examination she appeared in good health and spirits, she does not appear to be in any distress. Vital signs as documented. Skin warm and dry and without overt rashes. Neck without JVD, thyroid appears normal, trachea is midline, neck is supple. Lungs clear, normal air movement was noted. Heart exam notable for regular rhythm, normal sounds and absence of murmurs, rubs or gallops. Abdomen unremarkable and without evidence of organomegaly, masses, or abdominal aortic enlargement, bowel sounds are present in all 4 quadrants, no abdominal tenderness was noted. Extremities nonedematous, no cyanosis was noted, no clubbing was noted. Neuro: Cranial nerves II through XII are grossly intact, no focal motor deficits were noted, sensation to light touch and pinprick is intact, motor exam 5/5 throughout. Psych: Patient is alert and oriented x3, she does not appear anxious or depressed, she does not appear agitated. Patient appears stable for discharge home on 05/28/2025. Weight / BMI Weight Weight: 73.1 kg Body Mass Index (BMI) 32.5 ABG / Lab / Microbiology Data 05/27/25 10:40 05/27/25 10:40 Laboratory: Laboratory Results - last 24 hr 05/27/25 10:40: WBC 5.4, RBC 4.11 L, Hgb 12.7, Hct 36.4 L, MCV 88.6, MCH 30.9, MCHC 34.9, RDW Std Deviation 42.1, RDW Coeff of Elizabeth 12.9, Plt Count 205, MPV 9.3, Immature Gran % (Auto) 0.200, Neut % (Auto) 60.1, Lymph % (Auto) 31.6, Allen % (Auto) 5.7, Eos % (Auto) 1.8, Baso % (Auto) 0.6, Absolute Neuts (auto) 3.3, Absolute Lymphs (auto) 1.71, Nucleated RBC % 0, Sodium 140, Potassium 3.7, Chloride 106, Carbon Dioxide 21.9, Anion Gap 12, BUN 18, Creatinine 0.87, Estim Creat Clear Calc 64.46, Est GFR (MDRD) Non-Af 78, BUN/Creatinine Ratio 20.8 H, Glucose 121 H, Calcium 9.4, Troponin T High Sens 19 H 05/27/25 12:41: Troponin T Hi Sens 2 Hr 21 H, TSH 3.820 05/27/25 13:32: POC Glucose 92 05/27/25 16:50: Troponin T Hi Sens 4Hr 25 H Radiography Diagnostic Testing: Radiology Impression Chest X-Ray 05/27/25 10:42 IMPRESSION: There is elevation of the right hemidiaphragm. The lungs are clear. Reading Locatio (more content not included)...[facility] 05-28-2025 Radiology Diagnostic study note [facility] Imaging Services [address] [place] [address] Chest 3 View MR#: [id number] Acct: [id number] Name: NARAYAN KHOURY Rep #: [id number] : 1970 F 55 From: Ara Levy MD PCP: Gaye Snyder Robbie, TEST CENTER ADMINISTRATOR-C Status: ADM IN Study:Chest 3 View Date of Exam: 5 Exam# [id number] Ordering Dr: Nain Doyle MD PROCEDURE: CHEST 3 VIEW 05/28/2025 REASON FOR EXAM: POST PERMANANT ICD/PACEMAKER TECHNIQUE: CHEST 3 VIEW COMPARISON: None FINDINGS: Elevated right hemidiaphragm. Left perihilar infiltrates are seen. No effusion. No pneumothorax. Newly applied left AICD noted. RAD/Chest 3 View IMPRESSION: Left perihilar infiltrates. New as compared. Follow up is advised. Newly applied left AICD noted. No pneumothorax. Reading [facility] CC: [facility] TEST CENTER ADMINISTRATOR-C Gaye Snyder; Dr. Chris Doyle MD ~ Workforce Planning Analyst: Signed [facility]07-09-2025 History and physical note Author Seb [facility] Note Date/Time May 27, 2025 6:46p m [facility] Medical Records Department [address] [place] [id number] H&P Exam - Hospitalist 05/27/25 1839 MR#: [id number] Acct: [id number] Name: NARAYAN KHOURY Rep #:[id number] : 1970 55 From: Seb Saldaña DO PCP: LILI Blandon, TEST CENTER ADMINISTRATOR-C Statu s:ADM IN Location: [facility] [id number] HPI - General General Date of Admission: 05/27/25 Date of Service: 05/27/25 Chief Complaint: Fatigue, bradycardia, second-degree AV block HPI Narrative NARAYAN KHOURY, is a 55 F who presents to the emergency room at [facility] after being sent over from her PCPs office due to an EKG showing a heart rate of 35 and evidence of second-degree AV block. Patient is on no rate control medications as an outpatient. EKG in the ER showed sinus bradycardia with evidence of periods of second and third-degree AV block with PVCs. Patient's CBC was unremarkable, patient's troponin was minimally elevated and were pretty much flat. Chest x-ray showed elevation of the right hemidiaphragm, lungs were clear. Cardiology was contacted and the patient was taken to the [facility] and a single- lead pacemaker was placed, there were no complications. Patient was admitted toPCU after the procedure. [facility] Medical History (Updated 05/27/25 @ 16:57 by Medina Ramesh) Mobitz type 2 second degree atrioventricular block Presence of permanent cardiac pacemaker Paralysis, diaphragm Vitamin D deficiency Vitamin B deficiency History of kidney stones Hx of chronic arthritis History of anemia Home Medications ?Medication ?Instructions ?Recorded ?Last Taken ?Type cholecalciferol (vitamin D3) 125 125 mcg PO DAILY 11/19 07/11 Unknown History mcg (5,000 unit) capsule mecobalamin (vitamin B12) 1,000 1,000 mcg PO DAILY Unknown History mcg chewable tablet albuterol sulfate 90 mcg/actuation 2 puff inhalation Q 6H PRN 10/15/23 Unknown Rx aerosol inhaler (Ventolin HFA) shortness of breath or wheezing #6.7 grams fluticasone 250 mcg-salmeterol 50 1 inh inhalation BID #180 ea 01/15/24 Unknown Rx mcg/dose blistr powdr for inhalation (Advair Diskus) meloxicam 7.5 mg tablet 15 mg PO BID 08/11/24 Unknow n History semaglutide cmpd 25 mg subcut QWEEK 05/27/25 Unknown History Allergy/AdvReac Type Severity Reaction Status Date / Time No Known Allergies Allergy Verified 05/27/25 10:09 Family History Son Asthma Father Arthritis Myocardial infarction Mother Cervical cancer Uterine cancer Hypertension Sister Breast cancer Hypertension Sister Cervical cancer Ovarian cancer Sister Autoimmune disorder Surgical History Hx of section Social History household members: spouse and family [...] do you feel safe at home: Yes ROS Constitutional Constitutional: Reports fatigue; Denies anorexia, change in weight, fever(s), night sweats or weakness Eyes Eyes: Denies blurry vision, change in vision, discharge from eye(s) or eye pain Cardiovascular Cardiovascular: Denies chest pain, claudication, dyspnea on exertion, edema or palpitations Respiratory/Chest Respiratory/Chest: Denies cough, hemoptysis, shortness of breath at rest or shortness of breath with exertion Gastrointestinal Gastrointestinal: Denies abdominal pain, constipation, diarrhea, hematemesis, hematochezia, melena, nausea or vomiting Genitourinary Genitourinary: Denies dysuria, hematuria, urinary frequency, urinary hesitancy, urinary incontinence or urinary urgency Musculoskeletal Musculoskeletal: Denies back pain, joint pain, joint stiffness, joint swelling, myalgias or neck pain Neurologic Neurologic: Denies abnormal gait, abnormal speech, dizziness, focal weakness, headache(s), loss of vision, numbness, other visual disturbances, paresthesias, syncope or tingling Psychiatric Psychiatric: Denies anxiety, cognitive impairment, depression, irritability, mood swings or suicidal ideation Endocrine Endocrinology: Denies change in body appearance, cold intolerance, excessive sweating, heat intolerance, polydipsia or polyuria Hematologic/Lymphatic Hematologic/Lymphatic: Denies none, anemia, easy bleeding, easy bruising or lymphadenopathy Allergic/Immunologic Allergic/Immunologic: Denies rhinitis, urticaria, eczemia or asthma Vital Signs Vital Signs Vital Signs: 05/27/25 10:05 05/27/25 10:25 05/27/25 10:47 Temperature 97.5 F L Temperature Source Temporal Pulse Rate 28 L 42 L Pulse Strength Respiratory Rate 16 Blood Pressure 154/72 H Blood Pressure Mean 99 Blood Pressure Source Blood Pressure Position Blood Pressure Location Pulse Ox 100 96 Oxygen Delivery Method Room Air Room Air Room Air CLA-BSI maintained 05/27/25 10:56 05/27/25 11:09 05/27/25 11:15 Temperature Temperature Source Pulse Rate 40 L 37 L 38 L Pulse Strength Respiratory Rate 14 Blood Pressure 144/68 H 135/76 H Blood Pressure Mean 93 93 Blood Pressure Source Blood Pressure Position Blood Pressure Location Pulse Ox 98 99 97 Oxygen Delivery Method Room Air CLA-BSI maintained 05/27/25 11:30 05/27/25 11:45 05/27/25 12:00 Temperature Temperature Source Pulse Rate 36 L 36 L 41 L Pulse Strength Respiratory Rate 13 Blood Pressure 117/69 127/67 H 115/71 Blood Pressure Mean 84 85 84 Blood Pressure Source Blood Pressure Position Blood Pressure Location Pulse Ox 95 98 96 Oxygen Delivery Method CLA-BSI maintained 05/27/25 12:15 05/27/25 12:30 05/27/25 12:45 Temperature Temperature Source Pulse Rate 34 L 38 L 37 L Pulse Strength Respiratory Rate 14 16 Blood Pressure 160/70 H 135/72 H 144/65 H Blood Pressure Mean 96 90 86 Blood Pressure Source Blood Pressure Position Blood Pressure Location Pulse Ox 98 98 96 Oxygen Delivery Method CLA-BSI maintained 05/27/25 13:00 05/27/25 13:30 05/27/25 13:33 Temperature 98.2 F Temperature Source Pulse Rate 36 L 38 L 37 L Pulse Strength Respiratory Rate 14 18 Blood Pressure 155/66 H 130/66 H Blood Pressure Mean 93 87 Blood Pressure Source Blood Pressure Position Blood Pressure Location Pulse Ox 97 98 96 Oxygen Delivery Method Room Air CLA-BSI maintained 05/27/25 16:30 05/27/25 16:45 05/27/25 17:00 Temperature 97.5 F L 97.5 F L Temperature Source Temporal Temporal Pulse Rate 60 61 61 Pulse Strength Respiratory Rate 16 16 Blood Pressure 130/83 H 131/80 H Blood Pressure Mean 98 97 Blood Pressure Source Monitor Monitor Blood Pressure Position Semi-Fowlers Semi-Fowlers Blood Pressure Location Right Arm Right Arm Pulse Ox 95 99 Oxygen Delivery Method Room Air Room Air CLA-BSI maintained 05/27/25 17:04 05/27/25 17:15 05/27/25 17:21 Temperature 97.4 F L 97.8 F Temperature Source Temporal Temporal Pulse Rate 63 61 Pulse Strength Normal (2+) Respiratory Rate 16 16 Blood Pressure 130/79 H 127/80 H Blood Pressure Mean 96 95 Blood Pressure Source Monitor Monitor Blood Pressure Position Semi-Fowlers Semi-Fowlers Blood Pressure Location Right Arm Right Arm Pulse Ox 100 99 Oxygen Delivery Method Room Air Room Air CLA-BSI maintained 05/27/25 17:45 05/27/25 18:22 05/27/25 18:22 Temperature 97.8 F 97.8 F Temperature Source Temporal Temporal Pulse Rate 63 62 Pulse Strength Respiratory Rate 16 18 Blood Pressure 122/79 H 139/72 H Blood Pressure Mean 93 94 Blood Pressure Source Monitor Monitor Blood Pressure Position Semi-Fowlers Semi-Fowlers Blood Pressure Location Right Arm Right Arm Pulse Ox 98 96 Oxygen Delivery Method Room Air Room Air CLA-BSI maintained Yes Weight Weight: 73.1 kg Body Mass Index (BMI) 32.5 Physical Exam Const alert, oriented x3, no apparent distress and healthy appearing General Appearance: cooperative, well kempt and well developed Orientation / Consciousness: awake, oriented to person, oriented to place and oriented to time HEENT normocephalic, head/scalp atraumatic, hearing grossly normal bilaterally and moist oral mucous membranes Eyes PERRL, EOMs intact bilaterally and conjunctivae normal Neck supple, no JVD, thyroid normal and no carotid bruits General: trachea midline Resp normal respiratory effort, no retractions, no use of accessory muscles and clearto auscultation bilaterally Auscultation: Negative for rales, rhonchi or wheezes Cardio regular rate, regular rhythm, S1 normal heart sound, S2 normal heart sound, no murmurs, no rub and no gallops GI normal to inspection, nondistended, normoactive bowel sounds, soft to palpation,non-tender and non-distended Extremity no clubbing, cyanosis or edema Skin no rashes or lesions noted General Skin Exam: no breakdown Neuro oriented x3, CN's II-XII intact bilaterally, moves all extremities, no focal motor deficits and no sensory deficits noted Sensorium / Orientation: awake and alert Speech: speech normal Psych affect normal Results Lab / Micro Data 05/27/25 10:40 05/27/25 10:40 Labs: Laboratory Results - last 24 hr 05/27/25 10:40: WBC 5.4, RBC 4.11 L, Hgb 12.7, Hct 36.4 L, MCV 88.6, MCH 30.9, MCHC 34.9, RDW Std Deviation 42.1, RDW Coeff of Elizabeth 12.9, Plt Count 205, MPV 9.3, Immature Gran % (Auto) 0.200, Neut % (Auto) 60.1, Lymph % (Auto) 31.6, Allen% (Auto) 5.7, Eos % (Auto) 1.8, Baso % (Auto) 0.6, Absolute Neuts (auto) 3.3, Absolute Lymphs (auto) 1.71, Nucleated RBC % 0, Sodium 140, Potassium 3.7, Chloride 106, Carbon Dioxide 21.9, Anion Gap 12, BUN 18, Creatinine 0.87, Estim Creat Clear Calc 64.46, Est GFR (MDRD) Non-Af 78, BUN/Creatinine Ratio 20.8 H, Glucose 121 H, Calcium 9.4, Troponin T High Sens 19 H 05/27/25 12:41: Troponin T Hi Sens 2 Hr 21 H, TSH 3.820 05/27/25 13:32: POC Glucose 92 05/27/25 16:50: Troponin T Hi Sens 4Hr 25 H Imaging Radiology Impression Chest X-Ray 05/27/25 10:42 IMPRESSION: There is elevation of the right hemidiaphragm. The lungs are clear. Reading Location: [facility]- Echocardiogram 05/27/25 13:12 Interpretation Summary Normal LV size. Left ventricular systolic function is normal. The left ventricular ejection fraction is 65 %. Structurally normal valves. Ordering Physician: Chris Doyle Performed By: Valentina Alexander RDCS Assessment & Plan Assessment/Plan (1) Mobitz type 2 second degree atrioventricular block: PLAN: Plan 1. Secondary AV block type II-status post pacemaker insertion-again patient wasadmitted to PCU and will be observed there. #2 osteoarthritis-patient is on meloxicam Total clinical time spent by myself addressing the patient's medical issues, reviewing all of her data, and collaborating with patient's care team: 55 minutes Charges/Coding Visit Charges Inpatient E&M: 50546 Init Hosp L2 05/27/25 5161 <Electronically signed by Seb Saldaña DO> Cosigner Signature (if applicable): CC: C TEST CENTER ADMINISTRATOR-C Gaye Snyder; Dr. Seb Saldaña DO~ Signed [facility] Work Phone: 1(696) 850-181407-09-2025 Consult note Author Chris Doyle [facility] Note Date/Time May 27, 2025 5:16p m [facility] Medical Records Department [address] [place] [address] Consultation - Cardiology 05/27/25 1313 MR#: [id number] Acct: [id number] Name: NARAYAN KHOURY Rep #:[id number] : 1970 55 From: Chris Doyle MD PCP: Gaye Snyder, [facility], TEST CENTER ADMINISTRATOR-C Statu s:ADM IN Location: [place] [address] Assessment & Plan Assessment/Plan (1) High-grade atrioventricular block: PLAN: Patient presents with symptomatic 2-1 AV block. The etiology is not entirely clear. I will recommend that we obtain a TSH. She tells me that she has not had any evidence of connective tissue disorder or any tick bite recentlyto suggest Lyme disease. At this juncture my recommendation would be to proceedwith a permanent pacemaker implantation as she appears to be very symptomatic. Risk benefits alternatives have been explained to the patient, her and her son they understand and agree to proceed. HPI Consult Data Date of Consult: 05/27/25 HPI Narrative HPI Narrative: NARAYAN KHOURY, is a 55 F who presents to the emergency room after presenting to her place of work today complaining of weakness over the last few weeks. Shehas been tired but she denies any chest pain. She has had some shortness of breath with exertion. They hooked her up to an EKG monitoring which demonstrated evidence of 2-1 AV block. It appears the EKG was sent to one of the hospitalists who then contacted me about possibly needing a pacemaker. She denies any chest pain however she does attest to having being fatigued over the last few weeks. 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 In the emergency room her blood pressure is noted to be normal EKG demonstrates a narrow complex bradycardia with an EKG demonstrating 2-1 AV block. She apparently has had a lower heart rate and they have been monitoring it for a while she says her father got a pacemaker at about the same age. A Holter monitor that had been done a year ago demonstrated normal heart rate with no significant pauses and an echocardiogram from January 2024 demonstrated preserved ejection fraction. She has however been told that she has had a slow heart rate. [facility] Medical History Paralysis, diaphragm Vitamin D deficiency Vitamin B deficiency History of kidney stones Hx of chronic arthritis History of anemia Home Medications ?Medication ?Instructions ?Recorded ?Last Taken ?Type cholecalciferol (vitamin D3) 125 125 mcg PO DAILY 11/19 07/11 Unknown History mcg (5,000 unit) capsule mecobalamin (vitamin B12) 1,000 1,000 mcg PO DAILY Unknown History mcg chewable tablet albuterol sulfate 90 mcg/actuation 2 puff inhalation Q 6H PRN 10/15/23 Unknown Rx aerosol inhaler (Ventolin HFA) shortness of breath or wheezing #6.7 grams fluticasone 250 mcg-salmeterol 50 1 inh inhalation BID #180 ea 01/15/24 Unknown Rx mcg/dose blistr powdr for inhalation (Advair Diskus) meloxicam 7.5 mg tablet 15 mg PO BID 08/11/24 Unknow n History semaglutide cmpd 25 mg subcut QWEEK 05/27/25 Unknown History Allergy/AdvReac Type Severity Reaction Status Date / Time No Known Allergies Allergy Verified 05/27/25 10:09 Family History Son Asthma Father Arthritis Myocardial infarction Mother Cervical cancer Uterine cancer Hypertension Sister Breast cancer Hypertension Sister Cervical cancer Ovarian cancer Sister Autoimmune disorder Surgical History Hx of section Social History household members: spouse and family [...] do you feel safe at home: Yes ROS ROS Narrative Fatigue Constitutional Constitutional: Reports fatigue and weight loss; Denies fever(s) Eyes Eyes: Reports systems reviewed and no addt'l complaints, except as documented ENT HEENT: Reports systems reviewed and no addt'l complaints, except as documented Cardiovascular Cardiovascular: Denies chest pain at rest, chest pain with activity, dyspnea at rest, dyspnea on exertion, edema, palpitations or paroxysmal nocturnal dyspnea Respiratory/Chest Respiratory/Chest: Denies dyspnea on exertion, productive cough, shortness of breath at rest or shortness of breath with exertion Gastrointestinal Gastrointestinal: Denies change in bowel habits, nausea, vomiting or weight changes Genitourinary Genitourinary: Denies difficulty urinating Musculoskeletal Musculoskeletal: Denies joint stiffness or muscle weakness Integumentary Integumentary: Denies lesions Neurologic Neurologic: Denies dizziness or syncope Psychiatric Psychiatric: Denies anxiety Endocrine Endocrinology: Denies excessive sweating or fatigue Hematologic/Lymphatic Hematologic/Lymphatic: Denies anemia Allergic/Immunologic Allergic/Immunologic: Denies seasonal rhinorrhea Physical Exam Const alert, oriented x3 and no apparent distress General Appearance: cooperative HEENT hearing grossly normal bilaterally Head and Scalp: atraumatic Eyes EOMs intact bilaterally Neck General: normal visual inspection Chest inspection of chest normal and palpation of chest normal Resp normal respiratory effort Auscultation: clear to auscultation bilaterally Cardio regular rate, regular rhythm, S1 normal heart sound and S2 normal heart sound Jugular Venous Distention: JVD Rate: bradycardia GI normal to inspection, nondistended, normoactive bowel sounds Extremity normal capillary refill and no pedal edema Peripheral Pulses: Yes pulses 2+ throughout and femoral pulses present Skin no rashes or lesions noted Neuro oriented x3 and CN's II-XII intact bilaterally Psych Appearance: grossly normal and appropriate Risk Stratification Risk Stratification Applicable: No Objective Data Vital Signs: Vital Signs Temp Pulse Resp BP Pulse Ox O2 Del Method 97.5 F L 36 L 16 155/66 H 97 Room Air 05/27/25 10:05 05/27/25 13:00 05/27/25 12:30 05/27/25 13:00 05/27/25 13:00 05/27/25 10:56 Oxygen Delivery Method Room Air Weight: 161 lb 3.2 oz Body Mass Index (BMI) 32.5 Lab / Micro Data 05/27/25 10:40 05/27/25 10:40 Labs: Laboratory Results - last 24 hr 05/27/25 10:40: WBC 5.4, RBC 4.11 L, Hgb 12.7, Hct 36.4 L, MCV 88.6, MCH 30.9, MCHC 34.9, RDW Std Deviation 42.1, RDW Coeff of Elizabeth 12.9, Plt Count 205, MPV 9.3, Immature Gran % (Auto) 0.200, Neut % (Auto) 60.1, Lymph % (Auto) 31.6, Allen% (Auto) 5.7, Eos % (Auto) 1.8, Baso % (Auto) 0.6, Absolute Neuts (auto) 3.3, Absolute Lymphs (auto) 1.71, Nucleated RBC % 0, Sodium 140, Potassium 3.7, Chloride 106, Carbon Dioxide 21.9, Anion Gap 12, BUN 18, Creatinine 0.87, Estim Creat Clear Calc 64.46, Est GFR (MDRD) Non-Af 78, BUN/Creatinine Ratio 20.8 H, Glucose 121 H, Calcium 9.4, Troponin T High Sens 19 H Cardiology Labs/Tests 05/27/25 10:40: WBC 5.4, RBC 4.11 L, Hgb 12.7, Hct 36.4 L, MCV 88.6, MCH 30.9, MCHC 34.9, Plt Count 205, MPV 9.3, Immature Gran % (Auto) 0.200, Neut % (Auto) 60.1, Lymph % (Auto) 31.6, Allen % (Auto) 5.7, Eos % (Auto) 1.8, Baso % (Auto) 0.6, Absolute Neuts (auto) 3.3, Nucleated RBC % 0, Sodium 140, Potassium 3.7, Chloride 106, Carbon Dioxide 21.9, Anion Gap 12, BUN 18, Creatinine 0.87, Est GFR (MDRD) Non-Af 78, BUN/Creatinine Ratio 20.8 H, Glucose 121 H, Calcium 9.4 Rhythm: EKG: ECHO: Stress Test: Cardiac Cath: PCI: CT Surgery: Holter monitor: EPS: PPM: CXR: Chest CT Scan: Radiography Diagnostic Testing: Radiology Impression Chest X-Ray 05/27/25 10:42 IMPRESSION: There is elevation of the right hemidiaphragm. The lungs are clear. Reading Location: [facility] 05/27/25 1716 <Electronically signed by Chris Doyle MD> Cosigner Signature (if applicable): CC: LILI Snyder~ Signed [facility] Work Phone: [phone]) 255-380707-09-2025 History and physical note [facility] Medical Records Department [address] [place] [address] H&P Exam - Hospitalist 05/27/25 1839 MR#: [id number] Acct: [id number] Name: NARAYAN KHOURY Rep #:[id number] : 1970 55 From: Seb Saldaña DO PCP: LILI Blandon, [facility] Statu s:ADM IN Location: [place] [address] HPI - General General Date of Admission: 05/27/25 Date of Service: 05/27/25 Chief Complaint: Fatigue, bradycardia, second-degree AV block HPI Narrative NARAYAN KHOURY, is a 55 F who presents to the emergency room at [facility] after being sent over from her PCPs office due to an EKG showing a heart rate of 35 and evidence of second-degree AV block. Patient is on no rate control medications as an outpatient. EKG in the ER showed sinus bradycardia with evidence of periods of second and third-degree AV blockwith PVCs. Patient's CBC was unremarkable, patient's troponin was minimally elevated and were pretty much flat. Chest x-ray showed elevation of the right hemidiaphragm, lungs were clear. Cardiology was contacted and the patient was taken to the [facility] and a single- lead pacemaker was placed, there were no complications. Patient was admitted toP after the procedure. [facility] Medical History (Updated 05/27/25 @ 16:57 by Medina Ramesh) Mobitz type 2 second degree atrioventricular block Presence of permanent cardiac pacemaker Paralysis, diaphragm Vitamin D deficiency Vitamin B deficiency History of kidney stones Hx of chronic arthritis History of anemia Home Medications ?Medication ?Instructions ?Recorded ?Last Taken ?Type cholecalciferol (vitamin D3) 125 125 mcg PO DAILY 11/19 07/11 Unknown History mcg (5,000 unit) capsule mecobalamin (vitamin B12) 1,000 1,000 mcg PO DAILY Unknown History mcg chewable tablet albuterol sulfate 90 mcg/actuation 2 puff inhalation Q 6H PRN 10/15/23 Unknown Rx aerosol inhaler (Ventolin HFA) shortness of breath or wheezing #6.7 grams fluticasone 250 mcg-salmeterol 50 1 inh inhalation BID #180 ea 01/15/24 Unknown Rx mcg/dose blistr powdr for inhalation (Advair Diskus) meloxicam 7.5 mg tablet 15 mg PO BID 08/11/24 Unknow n History semaglutide cmpd 25 mg subcut QWEEK 05/27/25 Unknown History Allergy/AdvReac Type Severity Reaction Status Date / Time No Known Allergies Allergy Verified 05/27/25 10:09 Family History Son Asthma Father Arthritis Myocardial infarction Mother Cervical cancer Uterine cancer Hypertension Sister Breast cancer Hypertension Sister Cervical cancer Ovarian cancer Sister Autoimmune disorder Surgical History Hx of section Social History household members: spouse and family [...] do you feel safe at home: Yes ROS Constitutional Constitutional: Reports fatigue; Denies anorexia, change in weight, fever(s), night sweats or weakness Eyes Eyes: Denies blurry vision, change in vision, discharge from eye(s) or eye pain Cardiovascular Cardiovascular: Denies chest pain, claudication, dyspnea on exertion, edema or palpitations Respiratory/Chest Respiratory/Chest: Denies cough, hemoptysis, shortness of breath at rest or shortness of breath with exertion Gastrointestinal Gastrointestinal: Denies abdominal pain, constipation, diarrhea, hematemesis, hematochezia, melena,nausea or vomiting Genitourinary Genitourinary: Denies dysuria, hematuria, urinary frequency, urinary hesitancy, urinary incontinence or urinary urgency Musculoskeletal Musculoskeletal: Denies back pain, joint pain, joint stiffness, joint swelling, myalgias or neck pain Neurologic Neurologic: Denies abnormal gait, abnormal speech, dizziness, focal weakness, headache(s), loss of vision, numbness, other visual disturbances, paresthesias, syncope or tingling Psychiatric Psychiatric: Denies anxiety, cognitive impairment, depression, irritability, mood swings or suicidal ideation Endocrine Endocrinology: Denies change in body appearance, cold intolerance, excessive sweating, heat intolerance, polydipsia or polyuria Hematologic/Lymphatic Hematologic/Lymphatic: Denies none, anemia, easy bleeding, easy bruising or lymphadenopathy Allergic/Immunologic Allergic/Immunologic: Denies rhinitis, urticaria, eczemia or asthma Vital Signs Vital Signs Vital Signs: 05/27/25 10:05 05/27/25 10:25 05/27/25 10:47 Temperature 97.5 F L Temperature Source Temporal Pulse Rate 28 L 42 L Pulse Strength Respiratory Rate 16 Blood Pressure 154/72 H Blood Pressure Mean 99 Blood Pressure Source Blood Pressure Position Blood Pressure Location Pulse Ox 100 96 Oxygen Delivery Method Room Air Room Air Room Air CLA-BSI maintained 05/27/25 10:56 05/27/25 11:09 05/27/25 11:15 Temperature Temperature Source Pulse Rate 40 L 37 L 38 L Pulse Strength Respiratory Rate 14 Blood Pressure 144/68 H 135/76 H Blood Pressure Mean 93 93 Blood Pressure Source Blood Pressure Position Blood Pressure Location Pulse Ox 98 99 97 Oxygen Delivery Method Room Air CLA-BSI maintained 05/27/25 11:30 05/27/25 11:45 05/27/25 12:00 Temperature Temperature Source Pulse Rate 36 L 36 L 41 L Pulse Strength Respiratory Rate 13 Blood Pressure 117/69 127/67 H 115/71 Blood Pressure Mean 84 85 84 Blood Pressure Source Blood Pressure Position Blood Pressure Location Pulse Ox 95 98 96 Oxygen Delivery Method CLA-BSI maintained 05/27/25 12:15 05/27/25 12:30 05/27/25 12:45 Temperature Temperature Source Pulse Rate 34 L 38 L 37 L Pulse Strength Respiratory Rate 14 16 Blood Pressure 160/70 H 135/72 H 144/65 H Blood Pressure Mean 96 90 86 Blood Pressure Source Blood Pressure Position Blood Pressure Location Pulse Ox 98 98 96 Oxygen Delivery Method CLA-BSI maintained 05/27/25 13:00 05/27/25 13:30 05/27/25 13:33 Temperature 98.2 F Temperature Source Pulse Rate 36 L 38 L 37 L Pulse Strength Respiratory Rate 14 18 Blood Pressure 155/66 H 130/66 H Blood Pressure Mean 93 87 Blood Pressure Source Blood Pressure Position Blood Pressure Location Pulse Ox 97 98 96 Oxygen Delivery Method Room Air CLA-BSI maintained 05/27/25 16:30 05/27/25 16:45 05/27/25 17:00 Temperature 97.5 F L 97.5 F L Temperature Source Temporal Temporal Pulse Rate 60 61 61 Pulse Strength Respiratory Rate 16 16 Blood Pressure 130/83 H 131/80 H Blood Pressure Mean 98 97 Blood Pressure Source Monitor Monitor Blood Pressure Position Semi-Fowlers Semi-Fowlers Blood Pressure Location Right Arm Right Arm Pulse Ox 95 99 Oxygen Delivery Method Room Air Room Air CLA-BSI maintained 05/27/25 17:04 05/27/25 17:15 05/27/25 17:21 Temperature 97.4 F L 97.8 F Temperature Source Temporal Temporal Pulse Rate 63 61 Pulse Strength Normal (2+) Respiratory Rate 16 16 Blood Pressure 130/79 H 127/80 H Blood Pressure Mean 96 95 Blood Pressure Source Monitor Monitor Blood Pressure Position Semi-Fowlers Semi-Fowlers Blood Pressure Location Right Arm Right Arm Pulse Ox 100 99 Oxygen Delivery Method Room Air Room Air CLA-BSI maintained 05/27/25 17:45 05/27/25 18:22 05/27/25 18:22 Temperature 97.8 F 97.8 F Temperature Source Temporal Temporal Pulse Rate 63 62 Pulse Strength Respiratory Rate 16 18 Blood Pressure 122/79 H 139/72 H Blood Pressure Mean 93 94 Blood Pressure Source Monitor Monitor Blood Pressure Position Semi-Fowlers Semi-Fowlers Blood Pressure Location Right Arm Right Arm Pulse Ox 98 96 Oxygen Delivery Method Room Air Room Air CLA-BSI maintained Yes Weight Weight: 73.1 kg Body Mass Index (BMI) 32.5 Physical Exam Const alert, oriented x3, no apparent distress and healthy appearing General Appearance: cooperative, well kempt and well developed Orientation / Consciousness: awake, oriented to person, oriented to place and oriented to time HEENT normocephalic, head/scalp atraumatic, hearing grossly normal bilaterally and moist oral mucous membranes Eyes PERRL, EOMs intact bilaterally and conjunctivae normal Neck supple, no JVD, thyroid normal and no carotid bruits General: trachea midline Resp normal respiratory effort, no retractions, no use of accessory muscles and clearto auscultation bilaterally Auscultation: Negative for rales, rhonchi or wheezes Cardio regular rate, regular rhythm, S1 normal heart sound, S2 normal heart sound, no murmurs, no rub and no gallops GI normal to inspection, nondistended, normoactive bowel sounds, soft to palpation,non-tender and non-distended Extremity no clubbing, cyanosis or edema Skin no rashes or lesions noted General Skin Exam: no breakdown Neuro oriented x3, CN's II-XII intact bilaterally, moves all extremities, no focal motor deficits and no sensory deficits noted Sensorium / Orientation: awake and alert Speech: speech normal Psych affect normal Results Lab / Micro Data 05/27/25 10:40 05/27/25 10:40 Labs: Laboratory Results - last 24 hr 05/27/25 10:40: WBC 5.4, RBC 4.11 L, Hgb 12.7, Hct 36.4 L, MCV 88.6, MCH 30.9, MCHC 34.9, RDW Std Deviation 42.1, RDW Coeff of Elizabeth 12.9, Plt Count 205, MPV 9.3, Immature Gran % (Auto) 0.200, Neut % (Auto) 60.1, Lymph % (Auto) 31.6, Allen% (Auto) 5.7, Eos % (Auto) 1.8, Baso % (Auto) 0.6, Absolute Neuts (auto) 3.3, Absolute Lymphs (auto) 1.71, Nucleated RBC % 0, Sodium 140, Potassium 3.7, Chloride 106, Carbon Dioxide 21.9, Anion Gap 12, BUN 18, Creatinine 0.87, Estim Creat Clear Calc 64.46, Est GFR (MDRD) Non-Af 78, BUN/Creatinine Ratio 20.8 H, Glucose 121 H, Calcium 9.4, Troponin T High Sens 19H 05/27/25 12:41: Troponin T Hi Sens 2 Hr 21 H, TSH 3.820 05/27/25 13:32: POC Glucose 92 05/27/25 16:50: Troponin T Hi Sens 4Hr 25 H Imaging Radiology Impression Chest X-Ray 05/27/25 10:42 IMPRESSION: There is elevation of the right hemidiaphragm. The lungs are clear. Reading Location: [facility] Echocardiogram 05/27/25 13:12 Interpretation Summary Normal LV size. Left ventricular systolic function is normal. The left ventricular ejection fraction is 65 %. Structurally normal valves. Ordering Physician: Chris Doyle Performed By: Valentina Alexander RDCS Assessment & Plan Assessment/Plan (1) Mobitz type 2 second degree atrioventricular block: PLAN: Plan 1. Secondary AV block type II-status post pacemaker insertion-[facility]. #2 osteoarthritis-patient is on meloxicam Total clinical time spent by myself addressing the patient's medical issues, reviewing all of her data, and collaborating with patient's care team: 55 minutes Charges/Coding Visit Charges Inpatient E&M: 20355 Init Hosp L2 05/27/25 1846 Cosigner Signature (if applicable): CC: [facility] TEST CENTER ADMINISTRATOR-Robbie Snyder; Dr. Seb Saldaña, DO~ Signed [facility]07-09-2025 Discharge summary Author Dougie Fairchild [facility] Note Date/Time May 27, 2025 4:02p m [facility] Medical Records Department [address] [place] [address] Emergency Department Summary 05/27/25 MR#: [id number] Acct: [id number] Name: NARAYAN KHOURY Rep #:[id number] 4 : 1970 55 From: Dougie Sheffield PCP: LILI [facility], TEST CENTER ADMINISTRATOR-C Statu s:ADM IN Location: [place] [address] HPI History of Present Illness Chief Complaint: Palpitations Informant: patient Onset/Context/Timing Onset: Today Context: Gradual Onset Timing: Continuous Quality: Fatigue, weakness Location: Generalized Worsened by: Nothing Relieved by: Nothing Narrative Narrative: Patient presents with a low heart rate that was noticed today. Patient was at the [facility] where they noted her heart rate was low. They did anEKG there which showed a heart block. They discussed case with Dr. Terry, who referred her to the emergency department. Patient admits to some aching pain inher left arm. Patient states she has been feeling fatigued and weak. Patient states nothing makes her symptoms better nothing makes them worse. Patient denies any fevers or chills. Patient states she does get short of breath with exertion. [facility] Medical History (Updated 05/27/25 @ 15:48 by Medina Ramesh) Presence of permanent cardiac pacemaker Paralysis, diaphragm Vitamin D deficiency Vitamin B deficiency History of kidney stones Hx of chronic arthritis History of anemia Home Medications ?Medication ?Instructions ?Recorded ?Last Taken ?Type cholecalciferol (vitamin D3) 125 125 mcg PO DAILY 11/19 07/11 Unknown History mcg (5,000 unit) capsule mecobalamin (vitamin B12) 1,000 1,000 mcg PO DAILY Unknown History mcg chewable tablet albuterol sulfate 90 mcg/actuation 2 puff inhalation Q 6H PRN 10/15/23 Unknown Rx aerosol inhaler (Ventolin HFA) shortness of breath or wheezing #6.7 grams fluticasone 250 mcg-salmeterol 50 1 inh inhalation BID #180 ea 01/15/24 Unknown Rx mcg/dose blistr powdr for inhalation (Advair Diskus) meloxicam 7.5 mg tablet 15 mg PO BID 08/11/24 Unknow n History semaglutide cmpd 25 mg subcut QWEEK 05/27/25 Unknown History Allergy/AdvReac Type Severity Reaction Status Date / Time No Known Allergies Allergy Verified 05/27/25 10:09 Family History Son Asthma Father Arthritis Myocardial infarction Mother Cervical cancer Uterine cancer Hypertension Sister Breast cancer Hypertension Sister Cervical cancer Ovarian cancer Sister Autoimmune disorder Surgical History Hx of section Social History household members: spouse and family [...] do you feel safe at home: Yes ROS ROS ED Constitutional Constitutional ED: Denies chills or fever(s) Eyes Eyes: Denies blurry vision or change in vision ENT ENT ED: Denies rhinorrhea or sore throat Cardiovascular Cardiovascular: Reports palpitations; Denies chest pain Respiratory/Chest Respiratory/Chest: Reports dyspnea on exertion; Denies cough Gastrointestinal Gastrointestinal: Denies nausea or vomiting Genitourinary Genitourinary ED: Denies dysuria or hematuria Musculoskeletal Musculoskeletal: Reports back pain; Denies neck pain Integumentary Denies abscess or rash Neurologic Neurologic: Reports weakness; Denies headache(s) Allergic/Immunologic Allergic/Immunologic ED: Denies mouth swelling or urticaria EXAM Physical Exam Const Vital Signs: 05/27/25 10:05 05/27/25 10:25 05/27/25 10:47 Temperature 97.5 F L Temperature Source Temporal Pulse Rate 28 L 42 L Respiratory Rate 16 Blood Pressure 154/72 H Blood Pressure Mean 99 Pulse Ox 100 96 Oxygen Delivery Method Room Air Room Air Room Air 05/27/25 10:56 05/27/25 11:09 05/27/25 11:15 Temperature Temperature Source Pulse Rate 40 L 37 L 38 L Respiratory Rate 14 Blood Pressure 144/68 H 135/76 H Blood Pressure Mean 93 93 Pulse Ox 98 99 97 Oxygen Delivery Method Room Air 05/27/25 11:30 05/27/25 11:45 05/27/25 12:00 Temperature Temperature Source Pulse Rate 36 L 36 L 41 L Respiratory Rate 13 Blood Pressure 117/69 127/67 H 115/71 Blood Pressure Mean 84 85 84 Pulse Ox 95 98 96 Oxygen Delivery Method 05/27/25 12:15 05/27/25 12:30 05/27/25 12:45 Temperature Temperature Source Pulse Rate 34 L 38 L 37 L Respiratory Rate 14 16 Blood Pressure 160/70 H 135/72 H 144/65 H Blood Pressure Mean 96 90 86 Pulse Ox 98 98 96 Oxygen Delivery Method 05/27/25 13:00 05/27/25 13:30 05/27/25 13:33 Temperature 98.2 F Temperature Source Pulse Rate 36 L 38 L 37 L Respiratory Rate 14 18 Blood Pressure 155/66 H 130/66 H Blood Pressure Mean 93 87 Pulse Ox 97 98 96 Oxygen Delivery Method Room Air Positive well nourished and well developed Constitutional Narrative: BMI is 32.6 General Appearance ED: well developed and NAD HEENT Reports moist mucous membranes Neck supple and no JVD Resp normal respiratory effort and clear to auscultation bilaterally Cardio regular rhythm Rate: bradycardia GI non-tender and non-distended Palpation: soft Neuro oriented x3, CN's II-XII intact bilaterally and no sensory deficits noted Sensorium / Orientation: alert Motor Exam: strength 5/5 throughout Psych mental status grossly normal MDM MDM MDM Narrative Medical decision making narrative: Differential diagnosis includes cardiac dysrhythmia, cardiac ischemia, pneumonia, bronchitis, electrolyte abnormality, and cervical radiculopathy. EKGwill be obtained to assess for cardiac dysrhythmia and cardiac ischemia. Chest x-ray will be obtained to assess for pneumonia or bronchitis. CBC will be obtained to assess for leukocytosis and anemia. Basic metabolic profile will beobtained to assess for electrolyte abnormality renal function. High-sensitivitytroponin will be obtained to assess for cardiac ischemia. 2-hour repeat high-sensitivity troponin will be obtained to assess for ongoing cardiac ischemia. History & Record Review Additional record(s) reviewed:: Prior outpatient record and Prior labs Lab Data Attestation: I reviewed the patient's lab results. Lab results narrative: CBC was reviewed and was within normal limits. Basic metabolic profile was reviewed. Glucose was slightly elevated at 121. The remainder was within normal limits. Initial high-sensitivity troponin was reviewed and was slightly elevated at 19. 2-hour repeat high-sensitivity troponin was reviewed and was slightly elevated at 21. Labs: Laboratory Results - last 24 hr 05/27/25 05/27/25 05/27/25 10:40 12:41 13:32 WBC 5.4 RBC 4.11 L Hgb 12.7 Hct 36.4 L MCV 88.6 MCH 30.9 MCHC 34.9 RDW Std Deviation 42.1 RDW Coeff of Elizabeth 12.9 Plt Count 205 MPV 9.3 Immature Gran % (Auto) 0.200 Neut % (Auto) 60.1 Lymph % (Auto) 31.6 Allen % (Auto) 5.7 Eos % (Auto) 1.8 Baso % (Auto) 0.6 Absolute Neuts (auto) 3.3 Absolute Lymphs (auto) 1.71 Nucleated RBC % 0 Sodium 140 Potassium 3.7 Chloride 106 Carbon Dioxide 21.9 Anion Gap 12 BUN 18 Creatinine 0.87 Estim Creat Clear Calc 64.46 Est GFR (MDRD) Non-Af 78 BUN/Creatinine Ratio 20.8 H Glucose 121 H Calcium 9.4 Troponin T High Sens 19 H Troponin T Hi Sens 2 Hr 21 H TSH 3.820 POC Glucose 92 Radiography Chest X-Ray - ED: 1 View, Read by ED Physician, Read by Radiologist and No AcuteDisease Diagnostic Testing: Clinical Impression(s) from Imaging Studies Chest X-Ray 05/27/25 10:42 IMPRESSION: There is elevation of the right hemidiaphragm. The lungs are clear. Reading Location: [facility] Portable 1 view chest x-ray was obtained. On my independent interpretation, lung regan are clear. There is elevation of the right hemidiaphragm. There isnormal cardiac silhouette. Bony thorax is normal. There is no acute process noted. Radiologist also interpreted the x-ray and agrees. EKG Initial EKG: Attestation: I personally reviewed and interpreted this EKG as follows: Comments: EKG was obtained. On my independent interpretation, it shows a sinus rhythm with a second-degree type II AV block with frequent PVCs. PA interval was slightly prolonged at 240 ms. QRS interval is normal. QTc interval was slightly prolonged at 513 ms. There is left axis deviation noted. There are nonspecific ST-T wave changes noted. Prior EKG tracings: not available for review Prior: No Prior Follow-up EKG: Attestation: I personally reviewed and interpreted this EKG as follows: Interpretation: AV Block (Third-degree AV block with a rate of 38) Comments: EKG was obtained. On my independent interpretation, shows third-degree AV block with a rate of 38. QRS interval was normal at 80 ms. QTcinterval was normal at 418 ms. There is left axis deviation -35. Prior EKG tracings: available for review Prior: Changed Management Discussion w/another healthcare provider: Hospitalist and Park Interpreter Treatment and Re-Evaluation :: Patient was placed on pacemaker pads. Patient was placed on continuous cardiac and pulse oximeter monitors. Patient was advised of her findings. Patient was advised of the need for pacemaker placement. Case was discussed with Dr. Doyle from cardiology. He will take the patient to the [facility] for a pacemaker. Case was discussed with the hospitalist. He will admit the patient to his service after pacemaker placement. Patient understands and is agreeable with the plan. All questions were answered. Critical Care Time Critical Care Time: Yes Critical care time (excluding procedures): 30-74 minutes (34), Including time spent:, Discussing w/Patient &/or Family/[employer], Discussing w/Consultants, Arranging Admission or Transfer and Performing Direct Patient Care at Bedside Discharge Plan Dx/Rx/DC Orders Clinical Impression: Third degree heart block, Bradycardia, Paralysis, diaphragm Disposition Disposition: Acute Care Hospital [facility] Discharge Date/Time: 05/27/25 13:46 What to do if you have Problems For any increased pain, shortness of breath, bleeding, nausea or vomiting, chestpain, or any unexpected problems, contact your Primary Care Provider. Call [facility] ([phone]) or report to the closest Emergency Room. Call 911 if necessary. 05/27/25 1602 <Electronically signed by Dougie Fairchild DO> Cosigner Signature (if applicable): CC: LILI Snyder ~ Signed [facility] Work Phone: [phone] Consult note [facility] Medical Records Department [address] [place] [address] Consultation - Cardiology 05/27/25 1313 MR#: [id number] Acct: [id number] Name: NARAYAN KHOURY Rep #:[id number] 2 : 1970 55 From: Chris Doyle MD PCP: LILI Blandon, TEST CENTER ADMINISTRATOR-C Statu s:ADM IN Location: [place] [address] Assessment & Plan Assessment/Plan (1) High-grade atrioventricular block: PLAN: Patient presents with symptomatic 2-1 AV block. The etiology is not entirely clear. I will recommend that we obtain a TSH. She tells me that she has not had any evidence of connective tissue disorder or any tick bite recentlyto suggest Lyme disease. At this juncture my recommendation would riley proceedwith a permanent pacemaker implantation as she appears to be very symptomatic. Risk benefits alternatives have been explained to the patient, her and her son they understand and agree to proceed. HPI Consult Data Date of Consult: 05/27/25 HPI Narrative HPI Narrative: NARAYAN KHOURY, is a 55 F who presents to the emergency room after presenting to her place of worktoday complaining of weakness over the last few weeks. Shehas been tired but she denies any chest pain. She has had some shortness of breath with exertion. They hooked her up to an EKG monitoring which demonstrated evidence of 2-1 AV block. It appears the EKG was sent to one of the hospitalists whothen contacted me about possibly needing a pacemaker. She denies any chest pain however she does attest to having being fatigued over the last few weeks. 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 In the emergency room her blood pressure is noted to be normal EKG demonstrates a narrow complex bradycardia with an EKG demonstrating 2-1 AV block. She apparently has had a lower heartrate and they have been monitoring it for a while she says her father got a pacemaker at about the same age. A Holter monitor that had been done a year ago demonstrated normal heart rate with no significant pauses and an echocardiogram from January 2024 demonstrated preserved ejection fraction. She has however been told that she has had a slow heart rate. [facility] Medical History Paralysis, diaphragm Vitamin D deficiency Vitamin B deficiency History of kidney stones Hx of chronic arthritis History of anemia Home Medications ?Medication ?Instructions ?Recorded ?Last Taken ?Type cholecalciferol (vitamin D3) 125 125 mcg PO DAILY 11/19 07/11 Unknown History mcg (5,000 unit) capsule mecobalamin (vitamin B12) 1,000 1,000 mcg PO DAILY Unknown History mcg chewable tablet albuterol sulfate 90 mcg/actuation 2 puff inhalation Q 6H PRN 10/15/23 Unknown Rx aerosol inhaler (Ventolin HFA) shortness of breath or wheezing #6.7 grams fluticasone 250 mcg-salmeterol 50 1 inh inhalation BID #180 ea 01/15/24 Unknown Rx mcg/dose blistr powdr for inhalation (Advair Diskus) meloxicam 7.5 mg tablet 15 mg PO BID 08/11/24 Unknow n History semaglutide cmpd 25 mg subcut QWEEK 05/27/25 Unknown History Allergy/AdvReac Type Severity Reaction Status Date / Time No Known Allergies Allergy Verified 05/27/25 10:09 Family History Son Asthma Father Arthritis Myocardial infarction Mother Cervical cancer Uterine cancer Hypertension Sister Breast cancer Hypertension Sister Cervical cancer Ovarian cancer Sister Autoimmune disorder Surgical History Hx of section Social History household members: spouse and family [...] do you feel safe at home: Yes ROS ROS Narrative Fatigue Constitutional Constitutional: Reports fatigue and weight loss; Denies fever(s) Eyes Eyes: Reports systems reviewed and no addt'l complaints, except as documented ENT HEENT: Reports systems reviewed and no addt'l complaints, except as documented Cardiovascular Cardiovascular: Denies chest pain at rest, chest pain with activity, dyspnea at rest, dyspnea on exertion, edema, palpitations or paroxysmal nocturnal dyspnea Respiratory/Chest Respiratory/Chest: Denies dyspnea on exertion, productive cough, shortness of breath at rest or shortness of breath with exertion Gastrointestinal Gastrointestinal: Denies change in bowel habits, nausea, vomiting or weight changes Genitourinary Genitourinary: Denies difficulty urinating Musculoskeletal Musculoskeletal: Denies joint stiffness or muscle weakness Integumentary Integumentary: Denies lesions Neurologic Neurologic: Denies dizziness or syncope Psychiatric Psychiatric: Denies anxiety Endocrine Endocrinology: Denies excessive sweating or fatigue Hematologic/Lymphatic Hematologic/Lymphatic: Denies anemia Allergic/Immunologic Allergic/Immunologic: Denies seasonal rhinorrhea Physical Exam Const alert, oriented x3 and no apparent distress General Appearance: cooperative HEENT hearing grossly normal bilaterally Head and Scalp: atraumatic Eyes EOMs intact bilaterally Neck General: normal visual inspection Chest inspection of chest normal and palpation of chest normal Resp normal respiratory effort Auscultation: clear to auscultation bilaterally Cardio regular rate, regular rhythm, S1 normal heart sound and S2 normal heart sound Jugular Venous Distention: JVD Rate: bradycardia GI normal to inspection, nondistended, normoactive bowel sounds Extremity normal capillary refill and no pedal edema Peripheral Pulses: Yes pulses 2+ throughout and femoral pulses present Skin no rashes or lesions noted Neuro oriented x3 and CN's II-XII intact bilaterally Psych Appearance: grossly normal and appropriate Risk Stratification Risk Stratification Applicable: No Objective Data Vital Signs: Vital Signs Temp Pulse Resp BP Pulse Ox O2 Del Method 97.5 F L 36 L 16 155/66 H 97 Room Air 05/27/25 10:05 05/27/25 13:00 05/27/25 12:30 05/27/25 13:00 05/27/25 13:00 05/27/25 10:56 Oxygen Delivery Method Room Air Weight: 161 lb 3.2 oz Body Mass Index (BMI) 32.5 Lab / Micro Data 05/27/25 10:40 05/27/25 10:40 Labs: Laboratory Results - last 24 hr 05/27/25 10:40: WBC 5.4, RBC 4.11 L, Hgb 12.7, Hct 36.4 L, MCV 88.6, MCH 30.9, MCHC 34.9, RDW Std Deviation 42.1, RDW Coeff of Elizabeth 12.9, Plt Count 205, MPV 9.3, Immature Gran % (Auto) 0.200, Neut % (Auto) 60.1, Lymph % (Auto) 31.6, Allen% (Auto) 5.7, Eos % (Auto) 1.8, Baso % (Auto) 0.6, Absolute Neuts (auto) 3.3, Absolute Lymphs (auto) 1.71, Nucleated RBC % 0, Sodium 140, Potassium 3.7, Chloride 106, Carbon Dioxide 21.9, Anion Gap 12, BUN 18, Creatinine 0.87, Estim Creat Clear Calc 64.46, Est GFR (MDRD) Non-Af 78, BUN/Creatinine Ratio 20.8 H, Glucose 121 H, Calcium 9.4, Troponin T High Sens 19H Cardiology Labs/Tests 05/27/25 10:40: WBC 5.4, RBC 4.11 L, Hgb 12.7, Hct 36.4 L, MCV 88.6, MCH 30.9, MCHC 34.9, Plt [id number], MPV 9.3, Immature Gran % (Auto) 0.200, Neut % (Auto) 60.1, Lymph % (Auto) 31.6, Allen % (Auto) 5.7, Eos % (Auto) 1.8, Baso % (Auto) 0.6, Absolute Neuts (auto) 3.3, Nucleated RBC % 0, Sodium 140, Potassium 3.7, Chloride 106, Carbon Dioxide 21.9, Anion Gap 12, BUN 18, Creatinine 0.87, Est GFR (MDRD) Non-Af 78, BUN/Creatinine Ratio 20.8 H, Glucose 121 H, Calcium 9.4 Rhythm: EKG: ECHO: Stress Test: Cardiac Cath: PCI: CT Surgery: Holter monitor: EPS: PPM: CXR: Chest CT Scan: Radiography Diagnostic Testing: Radiology Impression Chest X-Ray 05/27/25 10:42 IMPRESSION: There is elevation of the right hemidiaphragm. The lungs are clear. Reading Location: [place] [address] 05/27/25 [facility] Cosigner Signature (if applicable): CC: LILI TEST CENTER ADMINISTRATORMaris Snyder~ Signed [facility]07-09-2025 Evaluation note* Diagnosis Onset Date Resolution Status Admit Date High-grade atrioventricular block ac lower [place] May 27, 2025 2:18pm Mobitz type 2 second degree atrioventricular block acute May 27, 2025 2:18pm Mobitz type 2 second degree atrioventricular block acute May 11:23am Presence of permanent cardia c pacemaker acute May 28, 2025 11:23am [facility] Work Phone: [phone]) 726-177607-09-2025 Evaluation note* Diagnosis Onset Date Resolution Status Admit Date High-grade atrioventricular block ac [place] May 27, 2025 2:18pm Mobitz type 2 second degree atrioventricular block acute May 27, 2025 2:18pm Mobitz type 2 second degree atrioventricular block acute May 11:23am Presence of permanent cardia c pacemaker acute May 28, 2025 11:23am High-grade atrioventricular block ac [place] June 03, 2025 1:43pm Mobitz type 2 second degree atrioventricular block acute May 1:43pm Presence of permanent cardia c pacemaker acute June 03, 2025 1:43pm Third degree heart block acute June 03, 2025 1:43pm [employer] Work Phone: [phone]) 332-877807-09-2025 Evaluation note* Diagnosis Onset Date Resolution Status Admit Date High-grade atrioventricular block in active May 27, 2025 2:18pm Mobitz type 2 second degree atrioventricular block inactive May 27, 2025 2:18pm Presence of permanent cardia c pacemaker acute May 28, 2025 11:23am Mobitz type 2 second degree atrioventricular block inactive May 11:23am Presence of permanent cardia c pacemaker acute June 03, 2025 1:43pm Third degree heart block acute June 03, 2025 1:43pm High-grade atrioventricular block in active June 03, 2025 1:43pm Mobitz type 2 second degree atrioventricular block inactive May 1:43pm [employer] Work Phone: [phone] Evaluation note* Diagnosis Onset Date Resolution Status Admit Date High-grade atrioventricular block inactive May 27, 2025 2 :18pm Mobitz type 2 second degree atrioventricular block inactive May 27, 2025 2:18pm Presence of permanent cardia c pacemaker acute May 28, 2025 11:23am Mobitz type 2 second degree atrioventricular block inactive May 11:23am Presence of permanent cardia c pacemaker acute June 03, 2025 1:43pm Third degree heart block acute June 03, 2025 1:43pm High-grade atrioventricular block inactive June 03, 2025 1:43pm Mobitz type 2 second degree atrioventricular block inactive May 1:43pm Presence of permanent cardia c pacemaker acute June 24, 2025 8:51am Third degree heart block acute June 24, 2025 8:51am [facility] [facility] Work Phone: [phone]) 321-766107-09-2025 Evaluation note* Diagnosis Onset Date Resolution Status Admit Date High-grade atrioventricular block inactive May 27, 2025 2 :18pm Mobitz type 2 second degree atrioventricular block inactive May 27, 2025 2:18pm Presence of permanent cardia c pacemaker acute May 28, 2025 11:23am Mobitz type 2 second degree atrioventricular block inactive May 11:23am Presence of permanent cardia c pacemaker acute June 03, 2025 1:43pm Third degree heart block acute June 03, 2025 1:43pm High-grade atrioventricular block inactive June 03, 2025 1:43pm Mobitz type 2 second degree atrioventricular block inactive May 1:43pm Presence of permanent cardia c pacemaker acute June 24, 2025 8:51am Third degree heart block acute June 24, 2025 8:51am Presence of permanent cardia c pacemaker acute June 24, 2025 8:51am Third degree heart block acute June 24, 2025 8:51am [employer] Work Phone: [phone]) 710-412407-09-2025 Discharge summary [facility] Medical Records Department [address] [place] [id number] Emergency Department Summary 05/27/25 MR#: [id number] Acct: [id number] Name: NARAYAN KHOURY Rep #:[id number] : 1970 55 From: Dougie Sheffield PCP: LILI Blandon, TEST CENTER ADMINISTRATOR-C Statu s:ADM IN Location: [address] History of Present Illness Chief Complaint: Palpitations Informant: patient Onset/Context/Timing Onset: Today Context: Gradual Onset Timing: Continuous Quality: Fatigue, weakness Location: Generalized Worsened by: Nothing Relieved by: Nothing Narrative Narrative: Patient presents with a low heart rate that was noticed today. Patient was at the [facility] where they noted her heart rate was low. They did anEKG there which showed a heart block. Theydiscussed case with Dr. Terry, who referred her to the emergency department. Patient admits to some aching pain inher left arm. Patient states she has been feeling fatigued and weak. Patient states nothing makes her symptoms better nothing makes them worse. Patient denies any fevers or chills. Patient states she does get short of breath with exertion. [facility] Medical History (Updated 05/27/25 @ 15:48 by Medina Ramesh) Presence of permanent cardiac pacemaker Paralysis, diaphragm Vitamin D deficiency Vitamin B deficiency History of kidney stones Hx of chronic arthritis History of anemia Home Medications ?Medication ?Instructions ?Recorded ?Last Taken ?Type cholecalciferol (vitamin D3) 125 125 mcg PO DAILY 11/19 07/11 Unknown History mcg (5,000 unit) capsule mecobalamin (vitamin B12) 1,000 1,000 mcg PO DAILY Unknown History mcg chewable tablet albuterol sulfate 90 mcg/actuation 2 puff inhalation Q 6H PRN 10/15/23 Unknown Rx aerosol inhaler (Ventolin HFA) shortness of breath or wheezing #6.7 grams fluticasone 250 mcg-salmeterol 50 1 inh inhalation BID #180 ea 01/15/24 Unknown Rx mcg/dose blistr powdr for inhalation (Advair Diskus) meloxicam 7.5 mg tablet 15 mg PO BID 08/11/24 Unknow n History semaglutide cmpd 25 mg subcut QWEEK 05/27/25 Unknown History Allergy/AdvReac Type Severity Reaction Status Date / Time No Known Allergies Allergy Verified 05/27/25 10:09 Family History Son Asthma Father Arthritis Myocardial infarction Mother Cervical cancer Uterine cancer Hypertension Sister Breast cancer Hypertension Sister Cervical cancer Ovarian cancer Sister Autoimmune disorder Surgical History Hx of section Social History household members: spouse and family [...] do you feel safe at home: Yes ROS ROS ED Constitutional Constitutional ED: Denies chills or fever(s) Eyes Eyes: Denies blurry vision or change in vision ENT ENT ED: Denies rhinorrhea or sore throat Cardiovascular Cardiovascular: Reports palpitations; Denies chest pain Respiratory/Chest Respiratory/Chest: Reports dyspnea on exertion; Denies cough Gastrointestinal Gastrointestinal: Denies nausea or vomiting Genitourinary Genitourinary ED: Denies dysuria or hematuria Musculoskeletal Musculoskeletal: Reports back pain; Denies neck pain Integumentary Denies abscess or rash Neurologic Neurologic: Reports weakness; Denies headache(s) Allergic/Immunologic Allergic/Immunologic ED: Denies mouth swelling or urticaria EXAM Physical Exam Const Vital Signs: 05/27/25 10:05 05/27/25 10:25 05/27/25 10:47 Temperature 97.5 F L Temperature Source Temporal Pulse Rate 28 L 42 L Respiratory Rate 16 Blood Pressure 154/72 H Blood Pressure Mean 99 Pulse Ox 100 96 Oxygen Delivery Method Room Air Room Air Room Air 05/27/25 10:56 05/27/25 11:09 05/27/25 11:15 Temperature Temperature Source Pulse Rate 40 L 37 L 38 L Respiratory Rate 14 Blood Pressure 144/68 H 135/76 H Blood Pressure Mean 93 93 Pulse Ox 98 99 97 Oxygen Delivery Method Room Air 05/27/25 11:30 05/27/25 11:45 05/27/25 12:00 Temperature Temperature Source Pulse Rate 36 L 36 L 41 L Respiratory Rate 13 Blood Pressure 117/69 127/67 H 115/71 Blood Pressure Mean 84 85 84 Pulse Ox 95 98 96 Oxygen Delivery Method 05/27/25 12:15 05/27/25 12:30 05/27/25 12:45 Temperature Temperature Source Pulse Rate 34 L 38 L 37 L Respiratory Rate 14 16 Blood Pressure 160/70 H 135/72 H 144/65 H Blood Pressure Mean 96 90 86 Pulse Ox 98 98 96 Oxygen Delivery Method 05/27/25 13:00 05/27/25 13:30 05/27/25 13:33 Temperature 98.2 F Temperature Source Pulse Rate 36 L 38 L 37 L Respiratory Rate 14 18 Blood Pressure 155/66 H 130/66 H Blood Pressure Mean 93 87 Pulse Ox 97 98 96 Oxygen Delivery Method Room Air Positive well nourished and well developed Constitutional Narrative: BMI is 32.6 General Appearance ED: well developed and NAD HEENT Reports moist mucous membranes Neck supple and no JVD Resp normal respiratory effort and clear to auscultation bilaterally Cardio regular rhythm Rate: bradycardia GI non-tender and non-distended Palpation: soft Neuro oriented x3, CN's II-XII intact bilaterally and no sensory deficits noted Sensorium / Orientation: alert Motor Exam: strength 5/5 throughout Psych mental status grossly normal MDM MDM MDM Narrative Medical decision making narrative: Differential diagnosis includes cardiac dysrhythmia, cardiac ischemia, pneumonia, bronchitis, electrolyte abnormality, and cervical radiculopathy. EKGwill be obtained to assess for cardiac dysrhythmia and cardiac ischemia. Chest x-ray will be obtained to assess for pneumonia or bronchitis. CBC willbe obtained to assess for leukocytosis and anemia. Basic metabolic profile will beobtained to assess for electrolyte abnormality renal function. High- sensitivitytroponin will be obtained to assess for cardiac ischemia. 2-hour repeat high-sensitivity troponin will be obtained to assess for ongoing cardiac ischemia. History & Record Review Additional record(s) reviewed:: Prior outpatient record and Prior labs Lab Data Attestation: I reviewed the patient's lab results. Lab results narrative: CBC was reviewed and was within normal limits. Basic metabolic profile was reviewed. Glucose was slightly elevated at 121. The remainder was within normal limits. Initial high-sensitivity troponin was reviewed and was slightly elevated at 19. 2-hour repeat high-sensitivity troponin was reviewed andwas slightly elevated at 21. Labs: Laboratory Results - last 24 hr 05/27/25 05/27/25 05/27/25 10:40 12:41 13:32 WBC 5.4 RBC 4.11 L Hgb 12.7 Hct 36.4 L MCV 88.6 MCH 30.9 MCHC 34.9 RDW Std Deviation 42.1 RDW Coeff of Elizabeth 12.9 Plt Count 205 MPV 9.3 Immature Gran % (Auto) 0.200 Neut % (Auto) 60.1 Lymph % (Auto) 31.6 Allen % (Auto) 5.7 Eos % (Auto) 1.8 Baso % (Auto) 0.6 Absolute Neuts (auto) 3.3 Absolute Lymphs (auto) 1.71 Nucleated RBC % 0 Sodium 140 Potassium 3.7 Chloride 106 Carbon Dioxide 21.9 Anion Gap 12 BUN 18 Creatinine 0.87 Estim Creat Clear Calc 64.46 Est GFR (MDRD) Non-Af 78 BUN/Creatinine Ratio 20.8 H Glucose 121 H Calcium 9.4 Troponin T High Sens 19 H Troponin T Hi Sens 2 Hr 21 H TSH 3.820 POC Glucose 92 Radiography Chest X-Ray - ED: 1 View, Read by ED Physician, Read by Radiologist and No AcuteDisease Diagnostic Testing: Clinical Impression(s) from Imaging Studies Chest X-Ray 05/27/25 10:42 IMPRESSION: There is elevation of the right hemidiaphragm. The lungs are clear. Reading Location: [facility] Portable 1 view chest x-ray was obtained. On my independent interpretation, lung regan are clear. There is elevation of the right hemidiaphragm. There isnormal cardiac silhouette. Bony thorax is normal. There is no acute process noted. Radiologist also interpreted the x-ray and agrees. EKG Initial EKG: Attestation: I personally reviewed and interpreted this EKG as follows: Comments: EKG was obtained. On my independent interpretation, it shows a sinus rhythm with a second-degree type II AV block with frequent PVCs. PA interval was slightly prolonged at 240 ms. QRS interval is normal. QTc interval was slightly prolonged at 513 ms. There is left axis deviation noted. There are nonspecific ST-T wave changes noted. Prior EKG tracings: not available for review Prior: No Prior Follow-up EKG: Attestation: I personally reviewed and interpreted this EKG as follows: Interpretation: AV Block (Third-degree AV block with a rate of 38) Comments: EKG was obtained. On my independent interpretation, shows third-degree AV block with a rate of 38. QRS interval was normal at 80 ms. QTcinterval was normal at 418 ms. There is left axis deviation -35. Prior EKG tracings: available for review Prior: Changed Management Discussion w/another healthcare provider: Hospitalist and Park Interpreter Treatment and Re-Evaluation :: Patient was placed on pacemaker pads. Patient was placed on continuous cardiac and pulse oximeter monitors. Patient was advised of her findings. Patient was advised of the need for pacemaker placement. Case was discussed with Dr. Doyle from cardiology. He will take the patient to the [facility]. Case was discussed with the hospitalist. He will admit the patient to his service after pacemaker placement. Patient understands and is agreeable with the plan. All questions were answered. Critical Care Time Critical Care Time: Yes Critical care time (excluding procedures): 30-74 minutes (34), Including time spent:, Discussing w/Patient &/or Family/[employer], Discussing w/Consultants, Arranging Admission or Transfer and Performing Direct Patient Care at Bedside Discharge Plan Dx/Rx/DC Orders Clinical Impression: Third degree heart block, Bradycardia, Paralysis, diaphragm Disposition Disposition: Acute Care Hospital [facility] Discharge Date/Time: 05/27/25 13:46 What to do if you have Problems For any increased pain, shortness of breath, bleeding, nausea or vomiting, chestpain, or any unexpected problems, contact your Primary Care Provider. Call [facility] ([phone]) or report tothe closest Emergency Room. Call 911 if necessary. 05/27/25 1602 Cosigner Signature (if applicable): CC: LILI TEST CENTER ADMINISTRATOR-C Gaye Snyder ~ Signed [facility]07-09-2025 Radiology Diagnostic study note [facility] Imaging Services [address] [place] [address] Chest 1 View (Portable) MR#: [id number] Acct: [id number] Name: NARAYAN KHOURY Rep #: [id number] : 1970 F 55 From: Ck Sewell MD PCP: LILI Blandon, TEST CENTER ADMINISTRATOR-C Status: REG ER Study:Chest 1 View (Portable) Date of Exam: 05/27/25 Exam# [id number] Ordering Dr: Dougie Fairchild DO PROCEDURE: CHEST 1 VIEW (PORTABLE) 05/27/2025 REASON FOR EXAM: CHEST PAIN TECHNIQUE: Frontal view of the chest. COMPARISON: None FINDINGS: Hardware: EKG electrodes are seen. Heart: The heart size is normal. Lungs: Elevation of the right hemidiaphragm. The lungs are clear. Bones: Degenerative changes are identified within the thoracic spine. Other: RAD/Chest 1 View (Portable) IMPRESSION: There is elevation of the right hemidiaphragm. The lungs are clear. Reading Location: [facility] CC: [facility] Snyder; Dr. Dougie Fairchild, DO ~ Workforce Planning Analyst: Signed [facility]01-10-2025 Instructions* Patient Instructions* Guzman Parikh APRN.BAY STOCKER - 11/28/2024 11:53 AM EST Images from the original note were not included. Sleep Apnea What is sleep apnea? Sleep apnea is a serious sleep disorder that occurs when a person s breathing is interrupted duringsleep. People with untreated sleep apnea stop breathing [...] airway, usually when the soft tissues in therear of the throat collapse during sleep. Central [...] sleep apnea may be responsible for job i mpairment, work-related accidents, and motor vehicle crashes as well as academic underachievement. How is sleep apnea diagnosed? The diagnosis of sleep apnea is relatively straightforward, based on sleep history and an overnightsleep study called a polysomnogram. Polysomnogram is performed in a sleep laboratory under the direct supervision of a trained technologist. During the test, a variety of body functions, such as the e lectrical activity of the brain, eye movements, muscle [...] performed on the day after the overnight testto measure the speed of falling asleep. In [...] a ten percent weight loss can reduce thenumber of apneic events for most patients. Individuals [...] help them sleep in a side position maybe helpful. People with sinus problems or nasal [...] tolerating CPAP. These include Bilevel Positive Airway P ressure (BiPAP), Auto Positive Airway Pressure (AutoPAP), Auto/Adaptive Servo- Ventilation (ASV), etc Oral appliances: For patients with mild/moderate sleep apnea, dental appliances or oral mandibular advancement devices that prevent the tongue from blocking the throat and/or advance the lower jaw forward can be made. These devices help keep the airway open during sleep. A sleep specialist and manager pool (with expertise in oral appliances for this [...] the back of the throat) Resources: [facility] Guide to Sleep Disorders by Onelia Pak DO National Sleep Foundation [address] [place] [address] [place] [phone] http://www.sleepfoundation.org/ [place] [employer] [address] [place] [address], [address] [place] [address] http://www.sleepapnea.org/ To re-test you for sleep apnea we can do a home sleep apnea test (HSAT) [facility] History of Present illness Narrative* Guzman Parikh APRN.CNP - 11/28/2024 11:00 AM EST Images from the original note were not included. [facility] New Patient Evaluation PATIENT NAME: Narayan Khoury DATE OF SERVICE: November 27, 2024 CONSULTING PROVIDER: Gaye Snyder [address] [facility] [address] REASON FOR CONSULT: Gaye Snyder sends the patient for an opinion [...] because of the need to urinate. Falls rightback to sleep. On weekends, she tends to [...] HISTORY Procedure Laterality Date TUBAL LIGATION, 1994 [facility] DELIVERY SCHEDULING ORDER 3 deliveries There is [...] Age of Onset Ischemic Heart Disease Father [place], age 63 Cancer Mother Uterine, age 59 Ischemic Heart Disease Mother [place], age 30 Breast Cancer Sister age 54 [...] machine. Guzman Parikh APRN.DELL [facility] NoteHNO ID: [id number] Author: GUZMAN PARIKH APRN.CNP Service: ? Author Type: Nurse Practitioner Type: Progress Notes Filed: 12/09/2024 09:11 Note Text: [facility] New Patient Evaluation PATIENT NAME: Narayan Khoury DATE OF SERVICE: November 27, 2024 CONSULTING PROVIDER: Gaye Snyder [address] [facility] [address] REASON FOR CONSULT: Gaye Snyder sends the patient for an opinion [...] HISTORY Procedure Laterality Date TUBAL LIGATION, 1994 [facility] DELIVERY SCHEDULING ORDER 3 deliveries There is [...] of Onset Ischemic Heart (more content not included)...[facility] Evaluation note* Diagnosis Onset Date Resolution Status Obstructive sleep apnea acut e Paralysis, diaphragm acute Vitamin B deficiency acute Vitamin D deficiency acute Arthritis pain noneactive Immunization declined noneac tive Screening for colon cancer n oneactive Establishing care with new doctor, encounter for noneactive Mixed hyperlipidemia noneact camila Morbid obesity with BMI of 40.0-44.9, adult noneactive Screening for breast cancer noneactive [facility] Work Phone: Evaluation note* Diagnosis Onset Date Resolution Status Obstructive sleep apnea acut e Paralysis, diaphragm acute Vitamin D deficiency acute Arthritis pain noneactive Shortness of breath noneacti ve Bradycardia noneactive Mixed hyperlipidemia noneact camila Morbid obesity with BMI of 40.0-44.9, adult noneactive Screening for breast cancer noneactive [facility] Work Phone: Evaluation note* Diagnosis Obstructive sleep apnea- Primary Obstructive sleep apnea (adult) (pediatric) Intolerance of continuous positive airway pressure (CPAP) ventilation [facility] Diagnosis Onset Date Resolution Status Admit Date High-grade atrioventricular block ac lower [place] May 27, 2025 1:15pm [facility] Work Phone: Hospital Discharge instructionsAdditional Instructions Follow pacemaker instructions which were given to you earlier today [facility]: [facility] Reason for referral (narrative)No reason for referral information availableWAdena Health System Work Phone: Summary Purpose Family History No Family History [...] Unknown Advance Directives No Advanced Directives Records Found Advance Directive Response Recorded Date/ Time Do you have a Healthcare Power of Urologic Surgeon? No May 27, 2025 10:28am Advance Directive Response Recorded Date/ Time Do you have a Healthcare Power of Urologic Surgeon? No May 27, 2025 4:29pm Chief Complaint and Reason for Visit Chief Complaint TEST CENTER ADMINISTRATOR, EST CARE. 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 May 27, 2025 2:18pm Mobitz type 2 second degree atrioventric ular block May 28, 2025 11:23am Presence of permanent cardiac pacemaker May 28, 2025 11:23am Chief Complaint Admit Date palpitations May 27, 2025 2:18p m palpitations May 27, 2025 6:39p m Pacer Check Remote May 28, 2025 9:00 am palpitations May 28, 2025 10:0 1am 1st day s/p PPM implant check May 28, 2025 11:23am 1 wk s/p PPM implant wound check June 032024 1:43pm Reason for Visit Admit Date High-grade atrioventricular block May 272024 2:18pm Mobitz type 2 second degree atrioventric ular block May 27, 2025 2:18pm Mobitz type 2 second degree atrioventric ular block May 28, 2025 11:23am Presence of permanent cardiac pacemaker May 28, 2025 11:23am High-grade atrioventricular block May 192024 1:43pm Mobitz type 2 second degree atrioventric ular block June 03, 2025 1:43pm Presence of permanent cardiac pacemaker June 03, 2025 1:43pm Third degree heart block June 03, 2025 1:43pm Chief Complaint Admit Date palpitations May 27, 2025 2:18p m palpitations May 27, 2025 6:39p m Pacer Check Remote May 28, 2025 9:00 am palpitations May 28, 2025 10:0 1am day s/p PPM implant check May 28, 2025 11:23am Pacer Check Remote June 03, 2025 9:00 am 1 wk s/p PPM implant wound check June 032024 1:43pm Reason for Visit Admit Date High-grade atrioventricular block May 272024 2:18pm Mobitz type 2 second degree atrioventric ular block May 27, 2025 2:18pm Presence of permanent cardiac pacemaker May 28, 2025 11:23am Mobitz type 2 second degree atrioventric ular block May 28, 2025 11:23am Presence of permanent cardiac pacemaker June 03, 2025 1:43pm Third degree heart block June 03, 2025 1:43pm High-grade atrioventricular block May 192024 1:43pm Mobitz type 2 second degree atrioventric ular block June 03, 2025 1:43pm Chief Complaint Admit Date palpitations May 27, 2025 2:18p m palpitations May 27, 2025 6:39p m Pacer Check Remote May 28, 2025 9:00 am palpitations May 28, 2025 10:0 1am day s/p PPM implant check May 28, 2025 11:23am Pacer Check Remote June 03, 2025 9:00 am 1 wk s/p PPM implant wound check June 032024 1:43pm S/P [facility] 06/01/ADRIANO @ June 24, 2025 8 :51am Reason for Visit Admit Date High-grade atrioventricular block May 272024 2:18pm Mobitz type 2 second degree atrioventric ular block May 27, 2025 2:18pm Presence of permanent cardiac pacemaker May 28, 2025 11:23am Mobitz type 2 second degree atrioventric ular block May 28, 2025 11:23am Presence of permanent cardiac pacemaker June 03, 2025 1:43pm Third degree heart block June 03, 2025 1:43pm High-grade atrioventricular block May 192024 1:43pm Mobitz type 2 second degree atrioventric ular block June 03, 2025 1:43pm Presence of permanent cardiac pacemaker June 24, 2025 8:51am Third degree heart block June 24 8:51am Chief Complaint Admit Date palpitations May 27, 2025 2:18p m palpitations May 27, 2025 6:39p m Pacer Check Remote May 28, 2025 9:00 am palpitations May 28, 2025 10:0 1am 1st day s/p PPM implant check May 28, 2025 11:23am Pacer Check Remote June 03, 2025 9:00 am 1 wk s/p PPM implant wound check June 032024 1:43pm S/P [facility] 06/01/ADRIANO @ 9 June 24, 2025 8 :51am Pacer Check Remote June 24, 2025 9:0 0am Additional Source Comments INFORMATION SOURCE (unrecogn ized section and content) DATE CREATED AUTHOR 06/19/2018 [facility] ([place]) DATE CREATED AUTHOR AUTHOR'S ORGANIZ ATION 07/17/2018 [facility] DATE CREATED AUTHOR AUTHOR'S ORGANIZ ATION 12/10/2024 [facility] DATE CREATED AUTHOR AUTHOR'S ORGANIZ ATION 07/31/2025 [facility] Care Teams (unrecognized sec tion and content) Team Status: Active Member Role Status Dates Dr. Yanna Warren MD Primary Care Provider Active Team Status: Inactive Member Role Status Dates [facility] Primary Care Provider, Referring Provider Active Dr. [...] Pro vider, Attending Provider, Referring Provider Active [employer] Relationship Specialty Start Date End Date Gaye Snyder NP [address] [place] [address] PCP - General Family Medicine 09/08/24 Rocco Smith MD [address] [place] [address] PCP Resident Family Medicine 06/10/13 Team Status: Active Member Role/Relationship Status Dates Gaye Snyder VSC, TEST CENTER ADMINISTRATOR-C Primary Care Provider Activ e Team Status: Active Member Role/Relationship Status Dates Gaye Snyder VSC, TEST CENTER ADMINISTRATOR-C Primary Care Provider Activ e Start: May 27, 2025 Dr. Dougie Fairchild , Emergency Provider Active Start: May 27, 2025 Dr. Jose Hook MD Attending Provider Active S tart: May 27, 2025 Team Status: Inactive Member Role/Relationship Status Dates Gaye Jorge VSC, TEST CENTER ADMINISTRATOR-C Primary Care Provider Activ e Start: May 27, 2025 End: May 28, 2025 Dr. Dougie Fairchild , Emergency Provider Active Start: May 27, 2025 End: May 28, 2025 Dr. Jose Hook MD Attending Provider Active S tart: May 27, 2025 End: May 28, 2025 Dr. Seb Saldaña , Admit Provider Active S tart: May 27, 2025 End: May 28, 2025 Dr. Chris Doyle MD Other Provider Active Start : May 27, 2025 End: May 28, 2025 Dr. Chris Doyle MD Other Provider Active Start : May 27, 2025 Team Status: Active Member Role/Relationship Status Dates Gaye Jorge VSC, TEST CENTER ADMINISTRATOR-C Primary Care Provider Activ e Start: May 27, 2025 Dr. Dougie Fairchild DO Emergency Provider Active Start: May 27, 2025 Dr. Jose Hook MD Other Provider Active Start : May 27, 2025 Dr. Seb Saldaña DO Admit Provider Active S tart: May 27, 2025 Dr. Seb Saldaña DO Attending Provider Active Start: May 27, 2025 Dr. Chris Doyle MD Other Provider Active Start : May 27, 2025 Team Status: Active Member Role/Relationship Status Dates Gaye Snyder VSC, TEST CENTER ADMINISTRATOR-C Primary Care Provider Activ e Start: May 28, 2025 Gaye Snyder VSC, TEST CENTER ADMINISTRATOR-C Referring Provider Active Start: May 28, 2025 Medina Ramesh Attending Provider Active Start: 2024 Team Status: Inactive Member Role/Relationship Status Dates Gaye Snyder VSC, TEST CENTER ADMINISTRATOR-C Primary Care Provider Activ e Start: May 28, 2025 End: May 28, 2025 Gaye Snyder VSC, TEST CENTER ADMINISTRATOR-C Referring Provider Active Start: May 28, 2025 End: May 28, 2025 Medina Ramesh Attending Provider Active Start: 2024 End: May 28, 2025 Team Status: Inactive Member Role/Relationship Status Dates Gaye Snyder VSC, TEST CENTER ADMINISTRATOR-C Primary Care Provider Activ e Start: May 28, 2025 End: May 28, 2025 Dr. Chris Doyle MD Attending Provider Active S tart: May 28, 2025 End: May 28, 2025 Team Status: Active Member Role/Relationship Status Dates Gaye Snyder VSC, TEST CENTER ADMINISTRATOR-C Primary Care Provider Activ e Start: May 28, 2025 Dr. Dougie Fairchild DO Emergency Provider Active Start: May 28, 2025 Dr. Jose Hook MD Other Provider Active Start : May 28, 2025 Dr. Seb Saldaña DO Admit Provider Active S tart: May 28, 2025 Dr. Seb Saldaña DO Attending Provider Active Start: May 28, 2025 Dr. Chris Doyle MD Other Provider Active Start : May 28, 2025 Team Status: Inactive Member Role/Relationship Status Dates Gaye Snyder VSC, TEST CENTER ADMINISTRATOR-C Primary Care Provider Activ e Start: May 28, 2025 End: May 28, 2025 Gaye Snyder VSC, TEST CENTER ADMINISTRATOR-C Referring Provider Active Start: May 28, 2025 End: May 28, 2025 Medina Ramesh Attending Provider Active Start: 2024 End: May 28, 2025 Team Status: Inactive Member Role/Relationship Status Dates Gaye Snyder VSC, TEST CENTER ADMINISTRATOR-C Primary Care Provider Activ e Start: June 03, 2025 End: June 03, 2025 Gayebernabe Snyder VSC, TEST CENTER ADMINISTRATOR-C Referring Provider Active Start: June 03, 2025 End: June 03, 2025 Medina Ramesh Attending Provider Active Start: 2024 End: June 03, 2025 Team Status: Inactive Member Role/Relationship Status Dates Gaye Snyder VSC, TEST CENTER ADMINISTRATOR-C Primary Care Provider Activ e Start: June 03, 2025 End: June 03, 2025 Dr. Chris Doyle MD Attending Provider Active S tart: June 03, 2025 End: June 03, 2025 Team Status: Inactive Member Role/Relationship Status Dates Gaye Snyder VSC, TEST CENTER ADMINISTRATOR-C Primary Care Provider Activ e Start: June 03, 2025 End: June 03, 2025 Gaye Snyder VSC, TEST CENTER ADMINISTRATOR-C Referring Provider Active Start: June 03, 2025 End: June 03, 2025 Medina Ramesh Attending Provider Active Start: 2024 End: June 03, 2025 Team Status: Inactive Member Role/Relationship Status Dates Gaye Snyder VSC, TEST CENTER ADMINISTRATOR-C Primary Care Provider Activ e Start: May 28, 2025 End: May 28, 2025 Dr. Chris Doyle MD Attending Provider Active S tart: May 28, 2025 End: May 28, 2025 Dr. Chris Doyle MD Referring Provider Active S tart: May 28, 2025 End: May 28, 2025 Team Status: Inactive Member Role/Relationship Status Dates Gaye Snyder VSC, TEST CENTER ADMINISTRATOR-C Primary Care Provider Activ e Start: June 24, 2025 End: June 24, 2025 Gaye Snyder VSC, TEST CENTER ADMINISTRATOR-C Referring Provider Active Start: June 24, 2025 End: June 24, 2025 RUTH Everett Attending Provider Active St art: June 24, 2025 End: June 24, 2025 Team Status: Inactive Member Role/Relationship Status Dates Gaye Snyder LILI, TEST CENTER ADMINISTRATOR-C Primary Care Provider Activ e Start: June 03, 2025 End: June 03, 2025 Dr. Chris Doyle MD Attending Provider Active S tart: June 03, 2025 End: June 03, 2025 Dr. Chris Doyle MD Referring Provider Active S tart: June 03, 2025 End: June 03, 2025 Team Status: Inactive Member Role/Relationship Status Dates Gaye KENDALLC, TEST CENTER ADMINISTRATOR-C Primary Care Provider Activ e Start: June 24, 2025 End: June 24, 2025 Dr. Chris Doyle MD Attending Provider Active S tart: June 24, 2025 End: June 24, 2025 Team Status: Active Member Role/Relationship Status Dates Gaye KENDALLRobbie, TEST CENTER ADMINISTRATOR-C Primary Care Provider Activ e Start: June 29, 2025 RUTH Everett Attending Provider Active St art: June 29, 2025 Team Status: Inactive Member Role/Relationship Status Dates Gaye KENDALLRobbie, TEST CENTER ADMINISTRATOR-C Primary Care Provider Activ e Start: June 29, 2025 End: June 29, 2025 RUTH Everett Attending Provider Active St art: June 29, 2025 End: June 29, 2025 Goals (unrecognized section and content) Goals may [...] or prosecute any alcohol or drug abuse patient.[facility] Reason for Visit (unrecogniz ed section and content) Reason Comments New Patient OMAYRA evaluation, had a sleep study at [facility] in 2013 and was unable to tolerate CPAP at [...] BE BASED ON THE PRIMARY CLINICAL RECORDS. [facility]. provides no warranty or guarantee of the accuracy or completeness of information in this document.
--- NOTE | 2025-08-05 17:32 | STRESSREP ---
Stress Test Report Pharmacologic myocardial perfusion stress test. 55-year-old female with a history of pacemaker. Resting EKG demonstrates sinus rhythm with paced rhythm with a rate of 67 bpm. Resting blood pressure is 110/80 mmHg. 0.4 mg of regadenoson was infused per usual protocol followed by rapid intravenous saline flush injection. Continuous EKG monitoring was performed. The maximum heart rate was 97 bpm which was 59% of max impacted heart rate the maximum workload was 1 metabolic equivalent. At rest there were no ST or T wave changes noted to suggest ischemia and at peak infusion nonspecific ST changes were noted which did not meet the criteria for ischemia. No clinical angina is noted. The final blood pressure was 110/80 mmHg. Myocardial perfusion protocol. 12 mCi of technetium 99m sestamibi was injected at rest. 0.4 mg of regadenoson was infused per usual protocol. At peak infusion 36 mCi of technetium 99m sestamibi was injected stress images were obtained stress and rest images were reconstructed and compared in the short axis vertical long and horizontal long axis. Gated images were also obtained. Perfusion SPECT analysis: Review of the stress images demonstrate normal uptake of tracer noted in all areas of the myocardium. The resting images similar demonstrated normal uptake of tracer noted in all areas of the myocardium. No areas of reversibility are noted to suggest ischemia and no previous infarct is noted. Gated SPECT analysis: The gated ejection fraction is 71%. Conclusion: Normal pharmacologic myocardial perfusion stress test. Preserved ejection fraction.
== END | disposition home or self-care (01) ==
LOC: CVS 06:16
PROVIDERS: PCP Nurse Practitioner Family; Referring Provider Student in an Organized Health Care Education/Training Program; Visit Provider Student in an Organized Health Care Education/Training Program
DX: I44.2 Atrioventricular block, complete (principal); R00.1 Bradycardia, unspecified; Z95.0 Presence of cardiac pacemaker
CPT/HCPCS: 78452; 93017; A9500; A4216; J2785